=== PATIENT | male | born 1940 | race Caucasian/White ===

== ENCOUNTER 2020-06-03 08:47 | Outpatient (REF) | payer MEDICARE, SELFPAY ==
[2020-06-03 11:49] LABS: Anion Gap 14 (12-20); Blood Urea Nitrogen 18 mg/dL (9-16); Calcium 9.1 mg/dL (8.4-10.2); Carbon Dioxide 27 mmol/L (22-29); Chloride 104 mmol/L (96-108); Cholesterol 163 mg/dL; Estimated Glomerular Filt Rate > 60; Glucose Random 105 mg/dL (60-115); HDL Cholesterol 45 mg/dL; LDL Cholesterol Calculated 96 mg/dl; Potassium 4.7 mmol/l (3.3-5.1); Sodium 140 mmol/L (135-145); Triglycerides 113 mg/dL
[2020-06-03 12:12] LABS: Prostate Specific Antigen Scr 1.38 ng/mL (<0.05-4.0); TSH reflex Free T4 1.27 mIU/mL (0.32-4.0)
== END 2020-06-03 08:48 | disposition home or self-care (01) ==
LOC: HO.HMGCLDS 08:47
PROVIDERS: PCP Nurse Practitioner Family; Visit Provider Nurse Practitioner Family
DX: Z12.5 Encounter for screening for malignant neoplasm of prostate (principal); E78.5 Hyperlipidemia, unspecified; I10 Essential (primary) hypertension
CPT/HCPCS: 80048; 80061; 84153; 84443

== ENCOUNTER → 2020-08-10 12:44 | Outpatient (BNVA) | payer MEDICARE, SELFPAY | PROVIDERS: Visit Provider Internal Medicine Cardiovascular Disease | DX: I44.7 Left bundle-branch block, unspecified (principal); I10 Essential (primary) hypertension; E78.5 Hyperlipidemia, unspecified | CPT/HCPCS: 99212 ==

== ENCOUNTER 2020-12-29 07:07 | Outpatient (REF) | payer MEDICARE, SELFPAY ==
[2020-12-29 11:57] LABS: Alanine Aminotransferase 22 U/L (0-40); Albumin Level 4.2 g/dL (3.5-5.0); Alkaline Phosphatase 99 U/L (39-117); Anion Gap 12 (12-20); Aspartate Amino Transferase 16 U/L (5-37); Bilirubin Total 0.9 mg/dL (0.0-1.0); Blood Urea Nitrogen 14 mg/dL (9-16); Calcium 9.1 mg/dL (8.4-10.2); Carbon Dioxide 29 mmol/L (22-29); Chloride 107 mmol/L (96-108); Cholesterol 144 mg/dL; Estimated Glomerular Filt Rate > 60; Glucose Fasting 105 mg/dL (60-99); HDL Cholesterol 41 mg/dL; LDL Cholesterol Calculated 83 mg/dl; Magnesium 2.4 mg/dL (1.6-2.6); Potassium 4.5 mmol/L (3.3-5.1); Sodium 143 mmol/L (135-145); Total Protein 6.6 g/dL (6.5-8.0); Triglycerides 102 mg/dL
[2020-12-29 12:06] LABS: TSH reflex Free T4 2.11 uIU/mL (0.32-4.0)
[2020-12-30 05:22] LABS: Lyme Abs Screen <0.90 index
== END 2020-12-29 07:08 | disposition home or self-care (01) ==
LOC: HO.HMGCLDS 07:07
PROVIDERS: PCP Nurse Practitioner Family; Visit Provider Nurse Practitioner Family
DX: I10 Essential (primary) hypertension (principal); R25.2 Cramp and spasm
CPT/HCPCS: 36415; 80053; 80061; 82550; 83735; 84443; 86617; 86618

== ENCOUNTER → 2021-01-19 08:21 | Outpatient (BNVA) | payer MEDICARE, SELFPAY | PROVIDERS: PCP Nurse Practitioner Family; Visit Provider Orthopaedic Surgery | DX: M72.0 Palmar fascial fibromatosis [Dupuytren] (principal) | CPT/HCPCS: 99202 ==

== ENCOUNTER 2021-02-05 06:10 | Outpatient (REF) | payer MEDICARE, SELFPAY ==
[2021-02-05 07:39] LABS: MANUAL DIFF FLAG NO
[2021-02-05 07:44] LABS: Basophils Percent Auto 0.4 % (0-2); Eosinophils Absolute Auto 0.3 X10*3/uL (0.0-0.4); Hemoglobin 12.3 g/dl (14.0-18.0); Imm Gran Abs Auto 0.03 X10*3/uL (0.00-0.03); Imm Gran Pct Auto 0.4 % (0.0-0.4); Lymphocytes Absolute Auto 1.7 X10*3/uL (1.2-4.9); Lymphocytes Percent Auto 22.8 % (20-40); Mean Corpuscular HGB Conc 31.5 g/dl (31.0-36.0); Mean Corpuscular Hemoglobin 27.9 pg (27.0-33.0); Mean Corpuscular Volume 88.4 fL (80-98); Monocytes Absolute Auto 0.9 X10*3/uL (0.1-1.2); Monocytes Percent Auto 11.7 % (2-11); Neutrophils Absolute Auto 4.5 X10*3/uL (2.0-8.3); Neutrophils Percent Auto 60.7 % (45-73); Platelet Count 297 X10*3/uL (160-400); Red Blood Count 4.41 X10*6/uL (4.60-5.80); White Blood Count 7.5 X10*3/uL (4.8-10.8)
[2021-02-05 08:11] LABS: Alanine Aminotransferase 14 U/L (0-40); Albumin Level 4.1 g/dL (3.5-5.0); Alkaline Phosphatase 100 U/L (39-117); Amylase 63 U/L (28-100); Anion Gap 14 (12-20); Aspartate Amino Transferase 14 U/L (5-37); Bilirubin Direct 0.5 mg/dL (0.0-0.5); Bilirubin Total 1.3 mg/dL (0.0-1.0); Blood Urea Nitrogen 18 mg/dL (9-16); Calcium 8.8 mg/dL (8.4-10.2); Carbon Dioxide 27 mmol/L (22-29); Chloride 104 mmol/L (96-108); Estimated Glomerular Filt Rate > 60; Glucose Random 114 mg/dL (60-115); Lipase 35 U/L (8-78); Potassium 4.7 mmol/L (3.3-5.1); Sodium 140 mmol/L (135-145); Total Protein 6.6 g/dL (6.5-8.0)
[2021-02-05 10:13] LABS: Leukocytes Stool Qualitative NEGATIVE (NEGATIVE)
[2021-02-05 12:44] LABS: CDIFF Ag Negative (Negative); CDIFF Internal ctrl Dots and bkg OK (V); CDiff Toxin Negative (Negative)
== END 2021-02-05 06:11 | disposition home or self-care (01) ==
LOC: HO.LAB 06:10
PROVIDERS: PCP Nurse Practitioner Family; Visit Provider Internal Medicine
DX: R10.84 Generalized abdominal pain (principal); R19.7 Diarrhea, unspecified
CPT/HCPCS: 36415; 80048; 80076; 82150; 83690; 85025; 87045; 87046; 87177; 87209; 87324; 87329; 87449; 89055

== ENCOUNTER 2021-04-29 08:16 | Outpatient (REF) | payer MEDICARE, SELFPAY ==
--- NOTE | 2021-04-29 14:11 | MHC.AU.ANR ---
Adult Audiological Evaluation Date of Visit: 04/29/21 Reason for Appointment: Audiological re-evaluation to monitor the status of Mr. Barreto's hearing loss. He has previously been seen here and diagnosed with a bilateral sensorineural hearing loss. He does not use hearing aids at his time, as he feels he is able to communicate well despite his hearing loss. He denies any significant changes to his hearing or medical history since last year. Does patient feel they have a hearing loss?: Yes If Yes, Which Ear?: Both Ears Has hearing been tested previously?: Yes Previous Hearing Test Results: [facility] [place]- Mild dropping to profound high frequency sensorineural hearing loss bilaterally with the right ear being 25-35 dBHL poorer than the left at 2000 and 3000 Hz. Medical History: Medical History: High Blood Pressure Medical History (Other): high cholesterol, seasonal allergies Otoscopy: Right Ear: Unremarkable Left Ear: Unremarkable Tympanometry: Tympanometry performed due to: To assess integrity of the middle ear system Right Ear: Normal Middle Ear System (Type A) Left Ear: Could Not Obtain Seal Hearing Evaluation: Transducer(s) Used: Insert Earphones, Bone Conduction Method: Conventional Audiometry Stimuli Used: Pure Tones Right Ear: Description of Hearing: Mild sloping to severe sensorineural hearing loss from 250-8000 Hz. Hearing in the right ear is 20-25 dBHL poorer than the left at 2463-9113 Hz. Left Ear: Description of Hearing: Mild sloping to severe sensorineural hearing loss from 250-8000 Hz. Speech Recognition Threshold (SRT): Method Used: Monitored Live Voice Stimuli Used: Spondee Words Right Ear: 30 dBHL Left Ear: 25 dBHL Word Discrimination: Method: Recorded Lists Word Lists Used: NU-6 Right Ear: 92% at 80 dBHL Left Ear: 88% at 70 dBHL Comparison: Compared to the most recent evaluation: Hearing is stable. Slight 5 dB improvement across the frequency range in the right ear. Recommendations: Audiological re-evaluation in one year. Trial with amplification is recommended. Based on Mr. Prabhakars hearing loss, he is considered a candidate for binaural amplification. However, he does not feel that he is ready to use hearing aids at this time, and feels he is able to communicate well despite his hearing loss. Diagnosis: Primary Diagnosis: H90.3 Bilateral Sensorineural Hearing Loss Services Performed: Services Performed: Comprehensive Audiological Evaluation (CPT 77284) Tympanometry (CPT 77836) Signature: Provider: Katty Miller, CCC-A
== END 2021-04-29 08:17 | disposition home or self-care (01) ==
LOC: HO.SH 08:16
PROVIDERS: Visit Provider Nurse Practitioner Family
DX: H90.3 Sensorineural hearing loss, bilateral (principal)
CPT/HCPCS: 92557; 92567

== ENCOUNTER 2021-05-09 16:26 | Emergency (ER) | payer MEDICARE, SELFPAY ==
--- NOTE | ~2021-05-09 | CT_ITS ---
EXAMINATION: CT ABDOMEN AND PELVIS WITHOUT CONTRAST CLINICAL INFORMATION: Right-sided flank pain COMPARISON: Abdominal ultrasound 08/29/[address] abdomen pelvis 06/20/2015 TECHNIQUE: Multidetector volumetric imaging was performed from the superior aspect of the liver through the pubic symphysis. Sagittal and coronal reformatted images were obtained on the technologist's workstation. This CT examination was performed using dose optimization techniques as appropriate, variously including the following: *Automated exposure control *Adjustment of mA and/or kV according to patient size (this includes techniques or standardized protocols for targeted exams where dose is matched to indication/reason for exam; i.e. extremities or head) *Use of iterative reconstruction technique DLP: 556 mGy-cm FINDINGS: LUNG BASES: Bibasilar scarring is present. LIVER, GALLBLADDER, AND BILIARY TREE: The liver is normal in size, shape, and attenuation. No focal hepatic lesion or biliary ductal dilatation is present. The gallbladder is unremarkable with no evidence of radiopaque gallstones, gallbladder wall thickening, or obvious pericholecystic inflammatory changes. PANCREAS: Unremarkable. SPLEEN: Unremarkable. ADRENAL GLANDS: Unremarkable. KIDNEYS AND URETERS: On the right, there is an obstructing distal right ureteral 5 mm calculus present at the ureterovesical junction. The stone measures 800 Hounsfield units. No other right-sided renal calculi are seen. Some intralobular renal vascular calcification is present. There is perinephric stranding seen on the right along with dilatation of ureter. On the left, the kidney appears normal without masses, pelvocaliectasis or calculi. BLADDER: Unremarkable. GASTROINTESTINAL TRACT: Diverticular changes present in the colon, most prominent in the sigmoid. No evidence of diverticulitis. The small and large bowel are otherwise unremarkable. The appendix is unremarkable. ABDOMINAL WALL: No significant hernia is appreciated. LYMPH NODES: No retroperitoneal lymphadenopathy. VASCULAR: Calcific aortoiliac atherosclerotic change but no aneurysms. PELVIC VISCERA: Unremarkable. OSSEOUS STRUCTURES: Mild degenerative changes in the spine. No bony destructive lesions. CT/CT abdomen pelvis wo con IMPRESSION: Obstructing 5 mm calculus at the right ureterovesical junction associated with right-sided hydronephrosis.
[2021-05-09 21:41] VITALS: BP 148/68; PULSE 77; RESP 18; TEMP 36.8; O2SAT 96; BMI 27.8
--- NOTE | 2021-05-09 21:47 | ED_ITS ---
HPI - Abdominal Pain General Chief Complaint: Abdominal Pain Stated Complaint: flank pain Time Seen by Provider: 05/09/21 21:44 Source: patient Mode of arrival: ambulatory Limitations: no limitations History of Present Illness HPI narrative: This is a 80 years old patient presented complaining of right flank pain radiated to the right lower abdomen for about a week. Denies any nausea vomiting fever MD elicited complaint: flank pain Pertinent past history: kidney stones Onset (ago): week(s) (1) Pain Consistency: constant Location: R flank Severity: moderate Radiation: RLQ Exacerbating factors: nothing Related Data Home Medications Medication Instructions Recorded Confirmed aspirin 81 mg tablet,delayed 81 mg PO DAILY 06/03/20 12/28/20 release (Aspirin Low Dose) lisinopril 40 mg tablet 40 mg PO DAILY 06/03/20 12/28/20 omega 8-fll-doe-fish oil 1,000 mg 1 cap PO DAILY 06/03/20 12/28/20 (120 mg-180 mg) capsule (Fish Oil) multivitamin 1 tab PO DAILY 08/10/20 12/28/20 Previous Rx's Medication Instructions Recorded atorvastatin 40 mg tablet 40 mg PO DAILY #90 tab 06/23/20 blood pressure monitor #1 ea 08/05/20 amlodipine 10 mg tablet 10 mg PO DAILY #90 tab 11/30/20 magnesium oxide 400 mg (241.3 mg 400 mg PO DAILY 90 Days #90 tab 12/28/20 magnesium) tablet oxycodone 5 mg capsule 5 mg PO Q8H PRN #12 cap 05/10/21 tamsulosin 0.4 mg capsule (Flomax) 0.4 mg PO BEDTIME #10 cap 05/10/21 Allergies Allergy/AdvReac Type Severity Reaction Status Date / Time No Known Allergies Allergy Mild NONE Verified 05/09/21 21:44 Review of Systems Review of Systems Yes all other systems are reviewed and are negative Constitutional: Reports no additional constitutional complaints Eyes: Reports no additional eye complaints Cardiovascular: Reports no additional cardiovascular complaints Respiratory: Reports no additional respiratory complaints Gastrointestinal: Reports abdominal pain Allergic/Immunologic: Reports no additional allergic/immunologic complaints Physical Exam Vital Signs: Vital Signs: Last Vital Signs Temp 98.3 F 05/09/21 21:41 Pulse 68 05/09/21 23:28 Resp 20 05/09/21 23:28 BP 133/71 05/09/21 23:28 Pulse Ox 94 09/12/21 23:28 Body Mass Index 27.8 Const: General: cooperative HENMT: Head: Yes normal to inspection Face and sinus: Yes normal facial exam Mouth: Normal oral and palatal mucosa present Neck: Neck: Yes normal visual inspection, Yes full ROM and Yes no lymphadenopathy Thyroid: Thyroid normal Chest: Chest palpation & inspection: normal inspection of the chest Resp: Effort & Inspection: normal respiratory effort Auscultation: clear to auscultation bilaterally Cardio: Jugular venous distension: no JVD Rate: regular rate Rhythm: regular rhythm GI: Inspection: Yes normal to inspection Palpation (GI): Soft to palpation, no guarding and not rigid Skin: General skin exam: no rashes or lesions noted, elasticity normal and turgor normal Lesions: no lesions Rashes: no rashes Course Course Course Narrative: Patient is doing much better he is asymptomatic at this time, CT scan shows a 5 mm stone in the right distal ureter at this time will discharge the patient home MDM - Abdominal Pain Lab Data Result diagrams: 05/09/21 22:24 05/09/21 22:24 Labs: Lab Results 05/09/21 05/09/21 05/09/21 Range/Units 22:24 22:24 23:30 WBC 12.4 H (4.8-10.8) X10*3/uL RBC 4.42 L (4.60-5.80) X10*6/uL Hgb 12.7 L (14.0-18.0) g/dl Hct 38.1 L (42-52) % MCV 86.2 (80-98) fL MCH 28.7 (27.0-33.0) pg MCHC 33.3 (31.0-36.0) g/dl RDW 12.9 (11.0-16.0) % Plt Count 299 (160-400) X10*3/uL MPV 8.7 L (9.4-12.4) fL Immature Gran % (Auto) 0.5 H (0.0-0.4) % Neut % (Auto) 84.4 H (45-73) % Lymph % (Auto) 8.8 L (20-40) % [place] % (Auto) 6.0 (2-11) % Eos % (Auto) 0.1 (0-4) % Baso % (Auto) 0.2 (0-2) % Lymph # (Auto) 1.1 L (1.2-4.9) X10*3/uL [place] # (Auto) 0.7 (0.1-1.2) X10*3/uL Eos # (Auto) 0.0 (0.0-0.4) X10*3/uL Baso # (Auto) 0.0 (0.0-0.2) X10*3/uL Abs Immat Gran (auto) 0.06 H (0.00-0.03) X10*3/uL Absolute Neuts (auto) 10.5 H (2.0-8.3) X10*3/uL Absolute Nucleated RBC 0.000 (0.0-0.012) X10*3/uL Nucleated RBC % (auto) 0.0 (0.0-0.2) /100WBC Sodium 140 (135-145) mmol/L Potassium 4.5 (3.3-5.1) mmol/L Chloride 105 (96-108) mmol/L Carbon Dioxide 25 (22-29) mmol/L Anion Gap 15 (12-20) BUN 14 (9-16) mg/dL Creatinine 1.42 H (0.5-1.4) mg/dL Estim Creat Clear Calc 43.6 Estimated GFR 48 Random Glucose 116 H (60-115) mg/dL Calcium 9.1 (8.4-10.2) mg/dL Total Bilirubin 1.0 (0.0-1.0) mg/dL AST 18 (5-37) U/L ALT 22 (0-40) U/L Alkaline Phosphatase 82 (39-117) U/L Total Protein 6.6 (6.5-8.0) g/dL Albumin 4.2 (3.5-5.0) g/dL Lipase 33 (8-78) U/L Urine Color YELLOW Urine Appearance HAZY Urine pH 6.0 (5.0-8.0) Ur Specific [place] 1.025 (1.005-1.025) Urine Protein TRACE (NEG-TRACE) MG/DL Urine Glucose (UA) NEG (NEG) MG/DL Urine Ketones >=80 (NEG) MG/DL Urine Blood 3+ H (NEG) Urine Nitrite NEG (NEG) Ur Leukocyte Esterase NEG (NEG) Urine RBC 76-150 H (0) /HPF Urine WBC 1-4 (0-4) /HPF Ur Squamous Epith Cells TRACE /LPF Urine Bacteria TRACE /LPF Urine Mucus 1+ /LPF Imaging Data CT scan - abdomen: Radiologist's impression: On the left, the kidney appears normal without masses, pelvocaliectasis or calculi. BLADDER: Unremarkable.? GASTROINTESTINAL TRACT: Diverticular changes present in the colon, most prominent in the sigmoid. No evidence of diverticulitis. The small and large bowel are otherwise unremarkable. The appendix is unremarkable.? ABDOMINAL WALL: No significant hernia is appreciated.? LYMPH NODES: No retroperitoneal lymphadenopathy. VASCULAR: Calcific aortoiliac atherosclerotic change but no aneurysms. PELVIC VISCERA: Unremarkable.? OSSEOUS STRUCTURES: Mild degenerative changes in the spine. No bony destructive lesions.? CT/CT abdomen pelvis wo con IMPRESSION: Obstructing 5 mm calculus at the right ureterovesical junction associated with right-sided hydronephrosis.? Dictated By: SARITHA HOLLIS MD Signed By: <Electronically signed by SARITHA HOLLIS MD in OV> 05/09/212257 DD/ 44 TD/TT:? Student Life Vice President: Discharge Plan Discharge Clinical Impression: Renal colic Patient Disposition: Home, Self-Care Instructions: Renal Colic (ED) Additional Instructions: Follow-up for Urology drink a lot of fluid return if you of fever, vomiting, worse Prescriptions: New oxycodone 5 mg capsule 5 mg PO Q8H PRN (Reason: pain) Qty: 12 RF: 0 tamsulosin [Flomax] 0.4 mg capsule 0.4 mg PO BEDTIME Qty: 10 RF: 0 No Action atorvastatin 40 mg tablet 40 mg PO DAILY Qty: 90 RF: 3 (DME) blood pressure monitor Kit See Rx Instructions .ROUTE .MEDSUPPLY Qty: 1 RF: 0 amlodipine 10 mg tablet 10 mg PO DAILY Qty: 90 RF: 1 lisinopril 40 mg tablet 40 mg PO DAILY RF: 0 omega 0-zcc-ptr-fish oil [Fish Oil] 1,000 mg (120 mg-180 mg) capsule 1 cap PO DAILY RF: 0 aspirin [Aspirin Low Dose] 81 mg tablet,delayed release (DR/EC) 81 mg PO DAILY RF: 0 magnesium oxide 400 mg (241.3 mg magnesium) tablet 400 mg PO DAILY 90 Days Qty: 90 RF: 3 multivitamin Tablet 1 tab PO DAILY RF: 0 Referrals: Can Mckeon MD [Physician] - 2 days [facility] Past Medical History Medical History Cervical arthritis Cervical radiculopathy Dyslipidemia HTN (hypertension) Kidney stones Surgical History H/O colonoscopy History of left knee replacement Status post right partial knee replacement Family History Family History Father HTN (hypertension) Diabetes Mother History of colon cancer Social History Social History (Updated 01/19/21 @ 08:31 by Solange Giordano) Alcohol intake: never Patient Tobacco Use Status: Never used Tobacco Use of substances other than those prescribed or required for medical reasons: No Advance Directives: No Advance Directives Information Provided: No 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al status: retired 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
--- NOTE | 2021-05-09 22:09 | PC.NURSE ---
pt to ct scan
[2021-05-09] MEDS: Ketorolac Tromethamine 15 MG/ML VIAL IVPUSH (22:27)
--- NOTE | 2021-05-09 22:29 | PC.NURSE ---
patient a&ox3, iv inserted, labs drawn, pt medicated per order, pt aware we need a urine, will continue to monitor.
[2021-05-09 22:37] LABS: MANUAL DIFF FLAG NO
[2021-05-09 22:40] LABS: Basophils Percent Auto 0.2 % (0-2); Eosinophils Percent Auto 0.1 % (0-4); Hematocrit 38.1 % (42-52); Hemoglobin 12.7 g/dl (14.0-18.0); Imm Gran Abs Auto 0.06 X10*3/uL (0.00-0.03); Imm Gran Pct Auto 0.5 % (0.0-0.4); Lymphocytes Absolute Auto 1.1 X10*3/uL (1.2-4.9); Lymphocytes Percent Auto 8.8 % (20-40); Mean Corpuscular HGB Conc 33.3 g/dl (31.0-36.0); Mean Corpuscular Hemoglobin 28.7 pg (27.0-33.0); Mean Corpuscular Volume 86.2 fL (80-98); Mean Platelet Volume 8.7 fL (9.4-12.4); Monocytes Absolute Auto 0.7 X10*3/uL (0.1-1.2); Neutrophils Absolute Auto 10.5 X10*3/uL (2.0-8.3); Neutrophils Percent Auto 84.4 % (45-73); Platelet Count 299 X10*3/uL (160-400); Red Blood Count 4.42 X10*6/uL (4.60-5.80); Red Cell Distribution Width 12.9 % (11.0-16.0); White Blood Count 12.4 X10*3/uL (4.8-10.8)
[2021-05-09 22:57] LABS: Alanine Aminotransferase 22 U/L (0-40); Albumin Level 4.2 g/dL (3.5-5.0); Alkaline Phosphatase 82 U/L (39-117); Anion Gap 15 (12-20); Aspartate Amino Transferase 18 U/L (5-37); Blood Urea Nitrogen 14 mg/dL (9-16); Calcium 9.1 mg/dL (8.4-10.2); Carbon Dioxide 25 mmol/L (22-29); Chloride 105 mmol/L (96-108); Creatinine Clr Calc Pharmacy 43.6; Estimated Glomerular Filt Rate 48; Glucose Random 116 mg/dL (60-115); Lipase 33 U/L (8-78); Potassium 4.5 mmol/L (3.3-5.1); Sodium 140 mmol/L (135-145); Total Protein 6.6 g/dL (6.5-8.0)
[2021-05-09 23:28] VITALS: BP 133/71; PULSE 68; RESP 20; O2SAT 94
[2021-05-09 23:42] LABS: Appearance Urine HAZY; Color Urine YELLOW; Glucose Urine UA NEG (NEG); Leukocyte Esterase Urine NEG (NEG); Nitrite Urine NEG (NEG); Specific Gravity - Urine 1.025 (1.005-1.025); UACC Culture Trigger NO; Urine Blood 3+ (NEG); Urine Ketones >=80 MG/DL (NEG); Urine Protein TRACE MG/DL (NEG-TRACE)
[2021-05-09 23:48] LABS: Bacteria Urine TRACE /LPF; Mucus Urine 1+ /LPF; Squamous Epithelial Cell Urine TRACE /LPF
[2021-05-10] VITALS: BP 138/70; PULSE 76; RESP 18; O2SAT 97
--- NOTE | 2021-05-10 01:04 | PC.NURSE ---
on discharge pt states his pain is starting to come back and would like a additional dose before he goes home. provider paresh knott.
[2021-05-10 01:13] VITALS: RESP 18
[2021-05-10] MEDS: Morphine Sulfate 4 MG/ML CARTRIDGE IVPUSH (01:13)
[2021-05-10] MEDS: ondansetron HCL 4 MG/2 ML VIAL IVPUSH (01:14)
[2021-05-10 01:30] VITALS: BP 130/65; PULSE 69; RESP 18; O2SAT 93
[2021-05-10 01:42] VITALS: BP 130/68; PULSE 71; RESP 16; O2SAT 93
[2021-05-10 01:46] VITALS: RESP 16
== END 2021-05-10 01:44 | disposition home or self-care (01) ==
PROVIDERS: Emergency Provider Emergency Medicine; PCP Nurse Practitioner Family
DX: N23 Unspecified renal colic (principal); I10 Essential (primary) hypertension; Z79.899 Other long term (current) drug therapy; Z79.82 Long term (current) use of aspirin
CPT/HCPCS: 36415; 74176; 80053; 81001; 83690; 85025; 96374; 96375; 99285; J1885; J2270; J2405

== ENCOUNTER 2021-06-14 08:11 | Outpatient (REF) | payer MEDICARE, SELFPAY ==
--- NOTE | ~2021-06-14 | US_ITS ---
EXAMINATION: US RETROPERITONEAL LIMITED (RENAL ONLY) CLINICAL INFORMATION: Calculus of kidney. COMPARISON: Abdominal ultrasound 08/29/2019. CT abdomen and pelvis 05/09/2021. TECHNIQUE: Real-time imaging of the kidneys. FINDINGS: RIGHT KIDNEY: 11.5 x 4.7 x 5.6 cm (SAG x AP x TRV). The kidney is normal in size, contour, and echogenicity. Renal cortical thickness is normal. No calculi or focal parenchymal lesions. No hydronephrosis. LEFT KIDNEY: 11.7 x 5.5 x 5.1 cm (SAG x AP x TRV). The kidney is normal in size, contour, and echogenicity. Renal cortical thickness is normal. No calculi or focal parenchymal lesions. No hydronephrosis. US/US renal BI IMPRESSION: Unremarkable renal ultrasound. Interval resolution of previous right hydronephrosis.
== END 2021-06-14 08:12 | disposition home or self-care (01) ==
LOC: HO.HMGCX 08:11
PROVIDERS: PCP Nurse Practitioner Family; Visit Provider Urology
DX: N20.0 Calculus of kidney (principal)
CPT/HCPCS: 76775

== ENCOUNTER → 2021-06-23 13:13 | Outpatient (BNVA) | payer MEDICARE, SELFPAY | PROVIDERS: PCP Nurse Practitioner Family ==

== ENCOUNTER → 2021-08-11 09:48 | Outpatient (BNVA) | payer MEDICARE, SELFPAY | PROVIDERS: PCP Nurse Practitioner Family; Referring Provider Nurse Practitioner Family; Visit Provider Internal Medicine Cardiovascular Disease | DX: I44.7 Left bundle-branch block, unspecified (principal); I10 Essential (primary) hypertension | CPT/HCPCS: 99212 ==

== ENCOUNTER 2021-12-17 06:13 | Outpatient (REF) | payer MEDICARE, SELFPAY ==
[2021-12-17 11:27] LABS: Appearance Urine CLEAR; Color Urine YELLOW; Glucose Urine UA NEG (NEG); Leukocyte Esterase Urine NEG (NEG); Nitrite Urine NEG (NEG); PH 5.5 (5.0-8.0); Specific Gravity - Urine 1.025 (1.005-1.025); UACC Culture Trigger NO; Urine Blood TRACE (NEG); Urine Ketones NEG (NEG); Urine Protein NEG (NEG-TRACE)
[2021-12-17 11:50] LABS: Alanine Aminotransferase 33 U/L (0-40); Alkaline Phosphatase 88 U/L (39-117); Anion Gap 13 (12-20); Aspartate Amino Transferase 24 U/L (5-37); Bilirubin Total 0.9 mg/dL (0.0-1.0); Blood Urea Nitrogen 14 mg/dL (9-16); Calcium 9.3 mg/dL (8.4-10.2); Carbon Dioxide 26 mmol/L (22-29); Chloride 105 mmol/L (96-108); Cholesterol 144 mg/dL; Estimated Glomerular Filt Rate > 60; Glucose Fasting 119 mg/dL (60-99); HDL Cholesterol 38 mg/dL; LDL Cholesterol Calculated 80 mg/dl; Potassium 4.3 mmol/L (3.3-5.1); Sodium 140 mmol/L (135-145); Total Protein 6.5 g/dL (6.5-8.0); Triglycerides 134 mg/dL
[2021-12-17 12:14] LABS: TSH reflex Free T4 2.74 uIU/mL (0.32-4.0)
[2021-12-17 13:15] LABS: RBC Urine 0 /HPF (0); WBC Urine 0-2 /HPF (0-4)
[2021-12-17 13:16] LABS: Mucus Urine 3+ /LPF
== END 2021-12-17 06:14 | disposition home or self-care (01) ==
LOC: HO.HMGCLDS 06:13
PROVIDERS: Visit Provider Nurse Practitioner Family
DX: E78.5 Hyperlipidemia, unspecified (principal)
CPT/HCPCS: 36415; 80053; 80061; 81001; 84443

== ENCOUNTER → 2021-12-27 08:25 | Outpatient (REF) | payer MEDICARE, SELFPAY ==
--- NOTE | 2021-12-27 08:27 | CA_ITS ---
Transthoracic Echocardiogram Patient (Last, First, Middle): Cruz Barreto J Gender: Male Date of : 1940 Age: 81 Procedure Date: 12/27/2021 Procedure Type: Transthoracic Echocardiogram Location: OP Height: 172.72 cm Weight: 79.38 kg BSA: 1.93 m2 Heart Rate: bpm BP: 138 / 70 mmHg Wood Pattern Maker: IZABELA Griffiths MD: Ricky Smith MD Symptoms: I44.7 - Left bundle-branch block, unspecified Study Quality: Fair Conclusions: - Normal left ventricular size and systolic function. There is mildly increased left ventricular wall thickness. The visually estimated ejection fraction is between 55-60%. - Normal right ventricular cavity size and systolic function. Findings Left Ventricle Normal left ventricular size and systolic function. There is mildly increased left ventricular wall thickness. The visually estimated ejection fraction is between 55-60%. There is no evidence of regional wall motion abnormalities. There is paradoxical septal motion consistent with a left bundle branch block. Diastolic function is indeterminate on the basis of available data. Right Ventricle Normal right ventricular cavity size and systolic function. Atria The left atrium is normal in size. Aortic Valve There is a normal trileaflet aortic valve. There is mild calcification of the aortic valve. There is no aortic valve stenosis. There is no aortic valve regurgitation. Mitral Valve Normal mitral valve structure and function. There is no mitral valve regurgitation. There is no mitral valve stenosis. Pulmonic Valve Normal pulmonic valve structure and function. There is trace pulmonic valve regurgitation. Tricuspid Valve Normal tricuspid valve structure and function. There is trace tricuspid valve regurgitation. Normal right atrial pressure. There is no evidence of pulmonary hypertension. Great Vessels All visible segments of the aorta are normal in size. The visualized portions of the pulmonary artery and branches are normal. Venous The inferior vena cava is normal in size and collapses greater than 50% with inspiration. Pericardium/Pleural There is no evidence of pericardial effusion. Measurements 2D Linear Measurements IVSd: 1.33 0.6-0.9/0.6-1.0 cm LVIDd: 3.64 3.9-5.3/4.2-5.9 cm LVIDd Index: 1.89 2.4-3.2/2.2-3.1 cm/m2 LVIDs: 2.74 2.0-3.6 cm LVPWd: 1.31 0.7-1.1 cm LA Diam: 3.70 2.7-3.8/3.0-4.0 cm LAIDs Index: 1.92 1.5-2.3 cm/m2 LV Mass: 207.42 67-162/88-224 g LV Mass Index: 107.47 43-95/49-115 g/m2 LVOT Diam: 2.30 3.0+(-)1.3 cm 2D Systolic Function EF 4C: 52.60 >55% EF 2C: 60.90 >55% EF BiP: 58.60 >55% Mitral Valve MV Pk E: 0.75 MV PK A: 1.09 MV Decel Time: 236.00 E/A: 0.70 E'Lateral: 5.00 E'Medial: 5.11 E/E' Med: 14.70 E/E' Lat: 15.00 PHT: 69.00 MVA PHT: 3.19 Decel [place]: 3.17 Aortic Valve AoV Pk Samuel: 1.35 AoV Mn Samuel: 1.01 AoV VTI: 0.32 AoV Pk Grad: 7.00 Aov Mn Grad: 5.00 ANA Cont.VTI: 2.90 LVOT LVOT Pk Samuel: 0.95 LVOT Mn Samuel: 0.72 LVOT VTI: 0.22 LVOT Pk Grad: 4.00 LVOT Mn Grad: 2.00 LVOT Diam: 2.30 LVOT Area: 4.15 Diastolic Function MV Pk E: 0.75 MV Pk A: 1.09 E/A: 0.70 E'Medial: 5.11 E/E' Med: 14.70 E' Laterial: 5.00 E/E' Lat: 15.00 Right Ventricle TAPSE (mm): 26.10 TVS' Samuel: 13.80 Tricuspid Valve TR Pk Samuel: 2.57 TR Pk Grad: 26.00 RA Press: 3.00 RVSP: 29.00 Great Vessels Aorta Sinus of Valsalva: 3.25 2.0-3.[address] [place]: 2.77 1.7-3.4 cm Ao Asc: 3.30 2.1-3.4 cm Updated in Other Vendor System with Status of Final Ricky Smith MD electronically signed on 12/30/2021 10:26:46 AM with status of Final
== END ==
LOC: HO.CARD 08:25
PROVIDERS: PCP Nurse Practitioner Family; Visit Provider Internal Medicine Cardiovascular Disease
DX: I44.7 Left bundle-branch block, unspecified (principal)
CPT/HCPCS: 93306

== ENCOUNTER 2022-02-01 08:17 | Outpatient (REF) | payer MEDICARE, SELFPAY ==
--- NOTE | 2022-02-01 14:27 | MHC.AU.ANR ---
Adult Audiological Evaluation Date of Visit: 02/01/22 Reason for Appointment: Audiological re-evaluation to determine if there has been a change in hearing. Mr. Barreto has a known bilateral, asymmetrical, sensorineural hearing loss. Although hearing aids have been recommended, he does not use hearing aids at this time as he feels he is able to communicate well. Mr. Barreto denies any significant changes to his hearing. He notes that he had shingles on his right side in September 2021, and still is experiencing some pain in the right ear since then. Does patient feel they have a hearing loss?: Yes If Yes, Which Ear?: Both Ears Has hearing been tested previously?: Yes Previous Hearing Test Results: [facility] – [place], [place]/29/2021- Mild sloping to severe sensorineural hearing loss from 250-8000 Hz bilaterally, with the right ear hearing worse than the left from 9020-8970 Hz. Medical History: Medical History: High Blood Pressure, high cholesterol, seasonal allergies, shingles in September 2021 Allergies: NKA Medication List: amlodipine, aspirin, atorvastatin, lisinopril, magnesium oxide, meclizine, multivitamin, omega 6-yci-pic-fish oil, vitamin A-vit C-vit E-zinc-Cu Otoscopy: Right Ear: Unremarkable Left Ear: Unremarkable Tympanometry: Tympanometry performed due to: To assess integrity of the middle ear system Right Ear: Could Not Obtain Seal Left Ear: Could Not Obtain Seal Hearing Evaluation: Transducer(s) Used: Insert Earphones, Bone Conduction Method: Conventional Audiometry Stimuli Used: Pure Tones Right Ear: Description of Hearing: Normal hearing at 250 Hz, sloping to a mild to severe sensorineural hearing loss from 500-8000 Hz. Hearing in the right ear is worse than the left by 25 dBHL at 2000 Hz and 30 dBHL at 3000 Hz. Left Ear: Description of Hearing: Mild sloping to severe sensorineural hearing loss from 250-8000 Hz. Speech Recognition Threshold (SRT): Method Used: Monitored Live Voice Stimuli Used: Spondee Words Right Ear: 30 dBHL Left Ear: 25 dBHL Word Discrimination: Method: Recorded Lists Word Lists Used: NU-6 Right Ear: 80% at 75 dBHL Left Ear: 96% at 75 dBHL Comparison: Compared to the most recent evaluation: Hearing is stable. Recommendations: Audiological re-evaluation in one year. Trial with amplification is recommended. Patient does not feel they are ready for amplification at this time. Diagnosis: Primary Diagnosis: H90.3 Bilateral Sensorineural Hearing Loss Services Performed: Services Performed: Comprehensive Audiological Evaluation (CPT 09154) Tympanometry (CPT 87033) Signature: Provider: Katty Miller, CCC-A
== END 2022-02-01 08:18 | disposition home or self-care (01) ==
LOC: HO.SH 08:17
PROVIDERS: Visit Provider Nurse Practitioner Family
DX: Z01.118 Encounter for examination of ears and hearing with other abnormal findings (principal); H90.3 Sensorineural hearing loss, bilateral
CPT/HCPCS: 92557; 92567

== ENCOUNTER 2022-06-02 06:02 | Outpatient (REF) | payer MEDICARE, SELFPAY ==
--- NOTE | ~2022-06-02 | XR_ITS ---
EXAMINATION: BILATERAL HAND CLINICAL INFORMATION: Cramping and spasm COMPARISON: None TECHNIQUE: 3 views each hand. FINDINGS: Left hand: There is no visible acute fracture, dislocation or subluxation seen. No bony erosive changes. There is loss of PIP and DIP joint space with periarticular spurring most prominent in the first and second digits. There is mild soft tissue swelling PIP joints second through fifth digits. Right hand: There is loss of PIP and DIP joint space of all digits. No visible acute fracture, dislocation or subluxation seen. No bony erosive changes. The soft tissues are normal. 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 No visible acute fracture or dislocation in either hands..
--- NOTE | ~2022-06-02 | XR_ITS ---
EXAMINATION: BILATERAL HAND CLINICAL INFORMATION: Cramping and spasm COMPARISON: None TECHNIQUE: 3 views each hand. FINDINGS: Left hand: There is no visible acute fracture, dislocation or subluxation seen. No bony erosive changes. There is loss of PIP and DIP joint space with periarticular spurring most prominent in the first and second digits. There is mild soft tissue swelling PIP joints second through fifth digits. Right hand: There is loss of PIP and DIP joint space of all digits. No visible acute fracture, dislocation or subluxation seen. No bony erosive changes. The soft tissues are normal. 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 No visible acute fracture or dislocation in either hands..
[2022-06-02 11:08] LABS: MANUAL DIFF FLAG NO
[2022-06-02 11:17] LABS: Basophils Percent Auto 0.7 % (0-2); Eosinophils Absolute Auto 0.3 X10*3/uL (0.0-0.4); Eosinophils Percent Auto 5.4 % (0-4); Hematocrit 41.9 % (42.0-52.0); Hemoglobin 13.2 g/dl (14.0-18.0); Imm Gran Abs Auto 0.01 X10*3/uL (0.00-0.03); Imm Gran Pct Auto 0.2 % (0.0-0.4); Lymphocytes Absolute Auto 2.1 X10*3/uL (1.2-4.9); Lymphocytes Percent Auto 35.9 % (20-40); Mean Corpuscular HGB Conc 31.5 g/dl (31.0-36.0); Mean Corpuscular Hemoglobin 27.9 pg (27.0-33.0); Mean Corpuscular Volume 88.6 fL (80.0-98.0); Mean Platelet Volume 9.3 fL (9.4-12.4); Monocytes Absolute Auto 0.6 X10*3/uL (0.1-1.2); Monocytes Percent Auto 9.4 % (2-11); Neutrophils Absolute Auto 2.9 x10*3/uL (2.0-8.3); Neutrophils Percent Auto 48.4 % (45-73); Platelet Count 282 X10*3/uL (160-400); Red Blood Count 4.73 X10*6/uL (4.60-5.80); Red Cell Distribution Width 13.4 % (11.0-16.0)
[2022-06-02 11:24] LABS: Appearance Urine Clear; Color Urine Dark Yellow; Glucose Urine UA Negative (Negative); Leukocyte Esterase Urine Negative (Negative); Nitrite Urine Negative (Negative); PH 5.5 (5.0-9.0); Urine Blood Negative (Negative); Urine Ketones Trace mg/dL (Negative); Urine Protein Negative (Neg-Trace)
[2022-06-02 11:34] LABS: Alanine Aminotransferase 28 U/L (0-40); Albumin Level 4.2 g/dL (3.5-5.0); Alkaline Phosphatase 83 U/L (39-117); Anion Gap 13 (12-20); Aspartate Amino Transferase 19 U/L (5-37); Blood Urea Nitrogen 12 mg/dL (9-16); Calcium 9.1 mg/dL (8.4-10.2); Carbon Dioxide 28 mmol/L (22-29); Chloride 105 mmol/L (96-108); Cholesterol 146 mg/dL; Estimated Glomerular Filt Rate > 60; Glucose Fasting 107 mg/dL (60-99); HDL Cholesterol 47 mg/dL; LDL Cholesterol Calculated 77 mg/dl; Potassium 4.5 mmol/L (3.3-5.1); Sodium 141 mmol/L (135-145); Total Protein 6.8 g/dL (6.5-8.0); Triglycerides 114 mg/dL
[2022-06-02 11:56] LABS: Prostate Specific Antigen Scr 1.49 ng/mL (<0.05-4.0)
== END 2022-06-02 06:03 | disposition home or self-care (01) ==
LOC: HO.HMGCX 06:02
PROVIDERS: PCP Nurse Practitioner Family; Visit Provider Nurse Practitioner Family
DX: Z12.5 Encounter for screening for malignant neoplasm of prostate (principal); I10 Essential (primary) hypertension; R25.2 Cramp and spasm
CPT/HCPCS: 36415; 73120; 80053; 80061; 81003; 84153; 84443; 85025

== ENCOUNTER 2022-08-01 10:37 | Outpatient (REF) | payer MEDICARE, SELFPAY ==
[2022-08-01 11:24] LABS: MANUAL DIFF FLAG NO
[2022-08-01 11:36] LABS: Basophils Absolute Auto 0.1 X10*3/uL (0.0-0.2); Basophils Percent Auto 0.8 % (0-2); Eosinophils Absolute Auto 0.2 X10*3/uL (0.0-0.4); Eosinophils Percent Auto 2.5 % (0-4); Hematocrit 42.5 % (42.0-52.0); Hemoglobin 13.7 g/dl (14.0-18.0); Imm Gran Abs Auto 0.03 X10*3/uL (0.00-0.03); Imm Gran Pct Auto 0.5 % (0.0-0.4); Lymphocytes Absolute Auto 1.5 X10*3/uL (1.2-4.9); Lymphocytes Percent Auto 23.4 % (20-40); Mean Corpuscular HGB Conc 32.2 g/dl (31.0-36.0); Mean Corpuscular Volume 86.7 fL (80.0-98.0); Mean Platelet Volume 8.9 fL (9.4-12.4); Monocytes Absolute Auto 0.5 X10*3/uL (0.1-1.2); Monocytes Percent Auto 8.2 % (2-11); Neutrophils Absolute Auto 4.1 x10*3/uL (2.0-8.3); Neutrophils Percent Auto 64.6 % (45-73); Platelet Count 308 X10*3/uL (160-400); Red Cell Distribution Width 12.9 % (11.0-16.0); White Blood Count 6.4 X10*3/uL (4.8-10.8)
[2022-08-01 12:14] LABS: Alanine Aminotransferase 29 U/L (0-40); Albumin Level 4.5 g/dL (3.5-5.0); Alkaline Phosphatase 95 U/L (39-117); Anion Gap 10 (12-20); Aspartate Amino Transferase 20 U/L (5-37); Blood Urea Nitrogen 12 mg/dL (9-16); Calcium 9.3 mg/dL (8.4-10.2); Carbon Dioxide 29 mmol/L (22-29); Chloride 107 mmol/L (96-108); Estimated Glomerular Filt Rate > 60; Glucose Random 120 mg/dL (60-115); Potassium 4.4 mmol/L (3.3-5.1); Sodium 142 mmol/L (135-145); Total Protein 7.1 g/dL (6.5-8.0)
== END 2022-08-01 10:38 | disposition home or self-care (01) ==
LOC: HO.HMGCLDS 10:37
PROVIDERS: PCP Nurse Practitioner Family; Visit Provider Emergency Medicine
DX: R10.9 Unspecified abdominal pain (principal); R53.1 Weakness
CPT/HCPCS: 36415; 80053; 85025

== ENCOUNTER → 2022-08-10 09:40 | Outpatient (BNVA) | payer MEDICARE, SELFPAY | PROVIDERS: PCP Nurse Practitioner Family; Referring Provider Nurse Practitioner Family; Visit Provider Internal Medicine Cardiovascular Disease | DX: I10 Essential (primary) hypertension (principal); I44.7 Left bundle-branch block, unspecified | CPT/HCPCS: 93005; 99212 ==

== ENCOUNTER → 2022-08-11 10:18 | Outpatient (BNVA) | payer MEDICARE, SELFPAY | PROVIDERS: PCP Nurse Practitioner Family; Visit Provider Student in an Organized Health Care Education/Training Program | DX: M65.4 Radial styloid tenosynovitis [de Quervain] (principal) | CPT/HCPCS: 99202 ==

== ENCOUNTER 2022-08-12 07:19 | Outpatient (REF) | payer MEDICARE, SELFPAY ==
--- NOTE | ~2022-08-12 | CT_ITS ---
EXAMINATION: CT ABDOMEN AND PELVIS WITH CONTRAST CLINICAL INFORMATION: Abdominal pain. COMPARISON: None TECHNIQUE: Multidetector volumetric images were obtained from the superior aspect of the liver through the pubic symphysis following administration 85 mL of Omnipaque 350 intravenous contrast. Sagittal and coronal reformatted images were obtained on the technologist's workstation. Oral contrast: No This CT examination was performed using dose optimization techniques as appropriate, variously including the following: *Automated exposure control *Adjustment of mA and/or kV according to patient size (this includes techniques or standardized protocols for targeted exams where dose is matched to indication/reason for exam; i.e. extremities or head) *Use of iterative reconstruction technique DLP: 402 mGy-cm FINDINGS: LUNG BASES: Heart size is normal. There is plate-like atelectasis or scarring right lower lobe anterior basal segment. Also visualized is bibasilar mild atelectasis or scarring. LIVER, GALLBLADDER, AND BILIARY TREE: The liver is normal in size, shape, and attenuation. No focal hepatic lesion or biliary ductal dilatation is present. The gallbladder is unremarkable with no evidence of radiopaque gallstones, gallbladder wall thickening, or obvious pericholecystic inflammatory changes. PANCREAS: Unremarkable. SPLEEN: Unremarkable. ADRENAL GLANDS: Unremarkable. KIDNEYS AND URETERS: The kidneys are normal in size, shape, and attenuation. No hydronephrosis, hydroureter, or calculi seen. No perinephric stranding. Bilateral extrarenal kidney pelvises are seen. BLADDER: Unremarkable. GASTROINTESTINAL TRACT: There is diffuse colonic diverticulosis with mild mural thickening of sigmoid colon but no pericolic fat stranding seen. There are several segments of mural thickening involving proximal and mid jejunum on coronal image 32/7 suspicious of enteritis. No fat stranding or proximal jejunal or gastric distention seen. The ileal loops appear normal. No abnormal mesenteric lymph nodes seen. ABDOMINAL WALL: There is a small umbilical hernia containing fat. LYMPH NODES: Normal. VASCULAR: There is mild atherosclerotic calcification of abdominal aorta. No aneurysmal dilatation seen. PELVIC VISCERA: The prostate gland is minimally enlarged extending into the base of bladder. The periprostatic fat borders are preserved. No free fluid. No abnormal pelvic or inguinal lymph nodes. No evidence of inguinal hernia. OSSEOUS STRUCTURES: There are mild degenerative disc changes with loss of disc height L5-S1 disc level and L2-L3 disc levels. There is mild ventral spondylosis as well. No visible acute fracture or lytic process seen. CT/CT abdomen pelvis w IV con IMPRESSION: Diffuse colonic diverticulosis without diverticulitis. Long segment of mural thickening involving the proximal and mid jejunum likely enteritis. No abnormal mesenteric lymph nodes or fat stranding seen. Right lower lobe lateral and dependent bibasilar atelectasis. Fleischner guidelines were followed.
[2022-08-12] MEDS: iohexoL 350 MG/ML 100 ML INFUS..BTL 85 ML IV (09:42)
[2022-08-12] MEDS: Barium Sulfate Oral (Mocha) 450 ML ORAL.SUSP 900 ML PO (10:36)
== END 2022-08-12 07:20 | disposition home or self-care (01) ==
LOC: HO.CT 07:19
PROVIDERS: PCP Nurse Practitioner Family; Visit Provider Emergency Medicine
DX: R10.9 Unspecified abdominal pain (principal)
CPT/HCPCS: 74177; Q9967

== ENCOUNTER 2022-08-24 13:39 | Outpatient (REF) | payer MEDICARE, SELFPAY ==
[2022-08-24 16:38] LABS: MANUAL DIFF FLAG NO
[2022-08-24 17:08] LABS: Basophils Percent Auto 0.3 % (0-2); Eosinophils Percent Auto 0.2 % (0-4); Hematocrit 41.7 % (42.0-52.0); Hemoglobin 13.4 g/dl (14.0-18.0); Imm Gran Abs Auto 0.06 X10*3/uL (0.00-0.03); Imm Gran Pct Auto 0.7 % (0.0-0.4); Lymphocytes Absolute Auto 1.1 X10*3/uL (1.2-4.9); Lymphocytes Percent Auto 11.7 % (20-40); Mean Corpuscular HGB Conc 32.1 g/dl (31.0-36.0); Mean Corpuscular Volume 87.2 fL (80.0-98.0); Monocytes Absolute Auto 0.2 X10*3/uL (0.1-1.2); Monocytes Percent Auto 1.7 % (2-11); Neutrophils Absolute Auto 7.7 x10*3/uL (2.0-8.3); Neutrophils Percent Auto 85.4 % (45-73); Platelet Count 321 X10*3/uL (160-400); Red Blood Count 4.78 X10*6/uL (4.60-5.80); Red Cell Distribution Width 13.1 % (11.0-16.0); White Blood Count 9.1 X10*3/uL (4.8-10.8)
[2022-08-24 17:38] LABS: Alanine Aminotransferase 40 U/L (0-40); Albumin Level 4.3 g/dL (3.5-5.0); Alkaline Phosphatase 98 U/L (39-117); Anion Gap 16 (12-20); Aspartate Amino Transferase 25 U/L (5-37); Bilirubin Total 0.6 mg/dL (0.0-1.0); Blood Urea Nitrogen 15 mg/dL (9-16); Calcium 9.2 mg/dL (8.4-10.2); Carbon Dioxide 27 mmol/L (22-29); Chloride 101 mmol/L (96-108); Estimated Glomerular Filt Rate 57; Glucose Random 205 mg/dL (60-115); Prostate Specific Antigen Scr 2.09 ng/mL (<0.05-4.0); Sodium 140 mmol/L (135-145); Total Protein 6.9 g/dL (6.5-8.0)
== END 2022-08-24 13:40 | disposition home or self-care (01) ==
LOC: HO.HMGCLDS 13:39
PROVIDERS: PCP Nurse Practitioner Family; Visit Provider Nurse Practitioner Family
DX: Z12.5 Encounter for screening for malignant neoplasm of prostate (principal); R10.9 Unspecified abdominal pain
CPT/HCPCS: 36415; 80053; 84153; 85025

== ENCOUNTER 2022-08-25 07:07 | Outpatient (REF) | payer MEDICARE, SELFPAY ==
[2022-08-25 12:36] LABS: Campylobacter Not Detected (Not Detect.); E. coli EAEC Not Detected (Not Detect.); E. coli EPEC Not Detected (Not Detect.); E. coli ETEC Not Detected (Not Detect.); E. coli STEC Not Detected (Not Detect.); Plesiomonas shigelloides Not Detected (Not Detect.); Salmonella Not Detected (Not Detect.); Vibrio Not Detected (Not Detect.); Vibrio Cholerae Not Detected (Not Detect.); Yersinia enterocolitica Not Detected (Not Detect.)
[2022-08-25 12:37] LABS: Adenovirus F 40/41 Not Detected (Not Detect.); Astrovirus Not Detected (Not Detect.); Cryptosporidium Not Detected (Not Detect.); Cyclospora cayetanensis Not Detected (Not Detect.); Entamoeba histolytica Not Detected (Not Detect.); Giardia lamblia Not Detected (Not Detect.); Norovirus GI/GII Not Detected (Not Detect.); Rotavirus A Not Detected (Not Detect.); Sapovirus Not Detected (Not Detect.); Shigella sp./EIEC Not Detected (Not Detect.)
== END 2022-08-25 07:08 | disposition home or self-care (01) ==
LOC: HO.HMGCLDS 07:07
PROVIDERS: PCP Nurse Practitioner Family; Visit Provider Nurse Practitioner Family
DX: R10.9 Unspecified abdominal pain (principal); R19.7 Diarrhea, unspecified
CPT/HCPCS: 87507

== ENCOUNTER 2022-12-20 06:33 | Outpatient (REF) | payer MEDICARE, SELFPAY ==
[2022-12-20 11:28] LABS: MANUAL DIFF FLAG NO
[2022-12-20 12:04] LABS: Basophils Percent Auto 0.7 % (0-2); Eosinophils Absolute Auto 0.3 X10*3/uL (0.0-0.4); Eosinophils Percent Auto 4.8 % (0-4); Hematocrit 39.8 % (42.0-52.0); Imm Gran Abs Auto 0.02 X10*3/uL (0.00-0.03); Imm Gran Pct Auto 0.4 % (0.0-0.4); Lymphocytes Absolute Auto 1.7 X10*3/uL (1.2-4.9); Lymphocytes Percent Auto 31.5 % (20-40); Mean Corpuscular HGB Conc 32.7 g/dl (31.0-36.0); Mean Corpuscular Hemoglobin 28.9 pg (27.0-33.0); Mean Corpuscular Volume 88.4 fL (80.0-98.0); Mean Platelet Volume 9.4 fL (9.4-12.4); Monocytes Absolute Auto 0.6 X10*3/uL (0.1-1.2); Monocytes Percent Auto 10.8 % (2-11); Neutrophils Absolute Auto 2.8 x10*3/uL (2.0-8.3); Neutrophils Percent Auto 51.8 % (45-73); Platelet Count 298 X10*3/uL (160-400); Red Cell Distribution Width 13.1 % (11.0-16.0); White Blood Count 5.4 X10*3/uL (4.8-10.8)
[2022-12-20 13:23] LABS: Alanine Aminotransferase 21 U/L (0-40); Alkaline Phosphatase 79 U/L (39-117); Anion Gap 14 (12-20); Aspartate Amino Transferase 18 U/L (5-37); Bilirubin Total 1.1 mg/dL (0.0-1.0); Blood Urea Nitrogen 14 mg/dL (9-16); Calcium 8.9 mg/dL (8.4-10.2); Carbon Dioxide 25 mmol/L (22-29); Chloride 109 mmol/L (96-108); Cholesterol 161 mg/dL; Estimated Glomerular Filt Rate > 60; Glucose Fasting 115 mg/dL (60-99); HDL Cholesterol 43 mg/dL; LDL Cholesterol Calculated 97 mg/dl; Magnesium 2.3 mg/dL (1.6-2.6); Potassium 4.5 mmol/L (3.3-5.1); Sodium 143 mmol/L (135-145); Total Protein 6.3 g/dL (6.5-8.0); Triglycerides 109 mg/dL
[2022-12-20 13:41] LABS: TSH reflex Free T4 2.56 uIU/mL (0.32-4.0)
[2022-12-20 14:12] LABS: Appearance Urine Clear; Color Urine Yellow; Glucose Urine UA Negative (Negative); Leukocyte Esterase Urine Negative (Negative); Nitrite Urine Negative (Negative); PH 6.5 (5.0-9.0); Urine Blood Negative (Negative); Urine Ketones Negative (Negative); Urine Protein Negative (Neg-Trace)
== END 2022-12-20 06:34 | disposition home or self-care (01) ==
LOC: HO.HMGCLDS 06:33
PROVIDERS: PCP Nurse Practitioner Family; Visit Provider Nurse Practitioner Family
DX: Z12.5 Encounter for screening for malignant neoplasm of prostate (principal); E78.5 Hyperlipidemia, unspecified; R25.2 Cramp and spasm; I10 Essential (primary) hypertension
CPT/HCPCS: 36415; 80053; 80061; 81003; 83735; 84153; 84443; 85025

== ENCOUNTER → 2022-12-21 08:44 | Outpatient (BNVA) | payer MEDICARE, SELFPAY | PROVIDERS: PCP Nurse Practitioner Family; Visit Provider Student in an Organized Health Care Education/Training Program | DX: M65.4 Radial styloid tenosynovitis [de Quervain] (principal); G56.03 Carpal tunnel syndrome, bilateral upper limbs | CPT/HCPCS: 20550; 99212 ==

== ENCOUNTER 2023-02-02 09:12 | Outpatient (REF) | payer MEDICARE, SELFPAY ==
--- NOTE | 2023-02-02 09:15 | EMG_ITS ---
Bilateral median and ulnar motor and sensory studies were performed. Bilateral radial sensory studies were performed, and paraspinal muscles were tested with a needle. IMPRESSION: 1. Iufo-ls-hzxmkzgx bilateral median neuropathy across carpal tunnel. 2. Mild bilateral ulnar neuropathy across cubital tunnel. 3. Chronic right mid cervical radiculopathy. MD PRIYANKA Holguin/NICK / [phone]
== END 2023-02-02 09:13 | disposition home or self-care (01) ==
LOC: HO.NEURO 09:12
PROVIDERS: PCP Nurse Practitioner Family; Visit Provider Student in an Organized Health Care Education/Training Program
DX: G56.03 Carpal tunnel syndrome, bilateral upper limbs (principal)
CPT/HCPCS: 95886; 95911

== ENCOUNTER 2023-03-15 10:31 | Outpatient (AMB) | payer MEDICARE, SELFPAY ==
--- NOTE | 2023-03-15 10:34 | MHC.OFFWIV ---
Intake Vital Signs 03/15/23 10:35 Height 5 ft 8 in BP 146/78 H Blood Pressure Location Lt brachial Position Sitting Pulse 69 Pulse Source Pulse Oximeter Temp 98.2 F Temp Source Oral Pulse Oximetry (%) 96 Oxygen Delivery Method Room Air Intake Visit Reasons: EST Stomach Pain Intake Note: pt says he has consistent pain in the middle of his stomach pain no vomiting or diarrhea he has had loss of appetite and says he feels like he has to go to the bathroom but he does not go pt says this has been a little over week Patient Tobacco Use Status: Never used Tobacco Allergies No Known Allergies Allergy (Mild, Verified 03/15/23 11:13) NONE Medication List - Last Reconciled 03/15/23 by Michelle Piper, [facility]- amlodipine 10 mg PO DAILY aspirin (Adult Low Dose Aspirin) 81 mg PO DAILY atorvastatin 40 mg PO DAILY blood pressure monitor As directed lisinopril 40 mg PO DAILY 90 days multivitamin 1 tab PO DAILY omega 6-wne-sif-fish oil 1,000 mg (120 mg-180 mg) (Fish Oil) 1 cap PO BID prednisone 50 mg PO DAILY 5 days vit C,X-Fx-twtnz-lutein-zeaxan 250-90-40-1 mg (PreserVision AREDS-2) 1 tab PO BID [wrist splint wear all night & as much as possible throughout the day] HPI HPI Comments History of Present Illness Details Here here today with complaints of acute on chronic abdominal pain that has been present for the last several months. Chart review shows that he came to the urgent care for evaluation in July of 2022 complaining of the same type of pain symptoms that had been lasting about 5 months at that time[address] scan of the abdomen was done along with labs. CT showed enteritis. Labs unremarkable. Stool culture negative. He was treated with prednisone and began to feel better until about 3 weeks ago. He reports that the pain is under his belly button. It is constant in comfortable. Associated symptoms include a loss of appetite a an associated 5 lb weight loss in about 2 weeks. He denies nausea vomiting diarrhea. He reports normal bowel movements. No blood in the stool. Normal urination patterns. Denies history of abdominal surgery. Extensive abdominal workup done in the past by Dr. Dorman. This note was reviewed. Denies EtOH use. 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 Assessment & Plan Assessment & Plan (1) Abdominal pain: Code(s): R10.9 - Unspecified abdominal pain Orders: Referrals Gastroenterology Referral R10.9 - Unspecified abdominal pain Medications: New prednisone 50 mg PO DAILY 5 days 5 tabs 0RF amoxicillin-pot clavulanate 500-125 mg 1 tab PO BID 7 days 14 tabs 0RF Patient Instructions: Given the longevity of his abdominal pain I have recommended an urgent follow-up with GI. He does not think that he has seen GI recently. Last note I can find is from [address] Dorman[address] I will place a stat referral to Dr. Dorman' office. However if this office is not able to see him in the next 1 month I have placed a note to the referral team to refer to [facility] [place] [facility]. As he felt better in the past with prednisone I will restart aspirin now also give a broad-spectrum antibiotic. He should continue diet as tolerated. If his symptoms become worse such as fever chills vomiting or he is unable to tolerate p.o. intake he should seek care in the emergency room. He verbalizes understanding. Coding Level of Care Code Est Pt Level 4 (52208) Diagnoses Abdominal pain R10.9
[2023-03-15 10:35] VITALS: BP 146/78; PULSE 69; TEMP 36.8; O2SAT 96
== END 2023-03-15 11:23 | disposition home or self-care (01) ==
PROVIDERS: PCP Nurse Practitioner Family; Visit Provider Nurse Practitioner Family
DX: R10.9 Unspecified abdominal pain (principal)
CPT/HCPCS: 99214

== ENCOUNTER 2023-03-28 12:26 | Outpatient (REF) | payer MEDICARE, SELFPAY ==
[2023-03-28 13:30] LABS: MANUAL DIFF FLAG NO
[2023-03-28 13:44] LABS: Basophils Absolute Auto 0.1 X10*3/uL (0.0-0.2); Basophils Percent Auto 0.6 % (0-2); Eosinophils Absolute Auto 0.1 X10*3/uL (0.0-0.4); Eosinophils Percent Auto 1.5 % (0-4); Hematocrit 43.2 % (42.0-52.0); Hemoglobin 13.5 g/dl (14.0-18.0); Imm Gran Abs Auto 0.05 X10*3/uL (0.00-0.03); Imm Gran Pct Auto 0.6 % (0.0-0.4); Lymphocytes Absolute Auto 1.5 X10*3/uL (1.2-4.9); Lymphocytes Percent Auto 18.7 % (20-40); Mean Corpuscular HGB Conc 31.3 g/dl (31.0-36.0); Mean Corpuscular Hemoglobin 27.8 pg (27.0-33.0); Mean Corpuscular Volume 88.9 fL (80.0-98.0); Mean Platelet Volume 9.2 fL (9.4-12.4); Monocytes Absolute Auto 0.7 X10*3/uL (0.1-1.2); Monocytes Percent Auto 8.7 % (2-11); Neutrophils Absolute Auto 5.7 x10*3/uL (2.0-8.3); Neutrophils Percent Auto 69.9 % (45-73); Platelet Count 300 X10*3/uL (160-400); Red Blood Count 4.86 X10*6/uL (4.60-5.80); Red Cell Distribution Width 13.1 % (11.0-16.0); White Blood Count 8.2 X10*3/uL (4.8-10.8)
[2023-03-28 14:17] LABS: Alanine Aminotransferase 32 U/L (0-40); Albumin Level 4.3 g/dL (3.5-5.0); Alkaline Phosphatase 83 U/L (39-117); Amylase 78 U/L (28-100); Anion Gap 15 (12-20); Aspartate Amino Transferase 22 U/L (5-37); Bilirubin Direct 0.3 mg/dL (0.0-0.5); Bilirubin Total 0.8 mg/dL (0.0-1.0); Blood Urea Nitrogen 12 mg/dL (9-16); C Reactive Protein < 0.10 mg/dL (< or = 0.50); Calcium 9.7 mg/dL (8.4-10.2); Carbon Dioxide 23 mmol/L (22-29); Chloride 107 mmol/L (96-108); Estimated Glomerular Filt Rate > 60; Glucose Random 108 mg/dL (60-115); Lipase 32 U/L (8-78); Potassium 4.3 mmol/L (3.3-5.1); Sodium 141 mmol/L (135-145); Total Protein 7.2 g/dL (6.5-8.0)
[2023-03-28 14:33] LABS: Erythrocyte Sedimentation Rate 12 MM/HR (0-15)
== END 2023-03-28 12:27 | disposition home or self-care (01) ==
LOC: HO.10HDL 12:26
PROVIDERS: Visit Provider Internal Medicine
DX: R93.3 Abnormal findings on diagnostic imaging of other parts of digestive tract (principal); R10.84 Generalized abdominal pain
CPT/HCPCS: 36415; 80053; 82150; 82248; 83690; 85025; 85652; 86140

== ENCOUNTER 2023-04-19 08:22 | Outpatient (AMB) | payer MEDICARE, SELFPAY ==
--- NOTE | 2023-04-19 08:27 | A.OFFVIS_ITS ---
Intake Vital Signs 04/19/23 08:33 Height 5 ft 8 in Weight 180 lb BMI 27.4 Handedness Right Intake Visit Reasons: New Prob- Carpal tunnel syndrome, bilateral Intake Note: Crzu is a 82 year old left hand dominant male who presents today for a evaluation for his bilateral hand pain. Patient reports ongoing swelling/ numbness that causes him a lot of pain. He states his numbness is worse at night, he has to shake them to relief some of the swelling. Allergies No Known Allergies Allergy (Mild, Verified 04/19/23 08:32) NONE Medication List - Last Reconciled 04/19/23 by Naomie Castillo MD amlodipine 10 mg PO DAILY amoxicillin-pot clavulanate 500-125 mg 1 tab PO BID 7 days aspirin (Adult Low Dose Aspirin) 81 mg PO DAILY atorvastatin 40 mg PO DAILY blood pressure monitor As directed lisinopril 40 mg PO DAILY 90 days multivitamin 1 tab PO DAILY omega 7-rvk-tkz-fish oil 1,000 mg (120 mg-180 mg) (Fish Oil) 1 cap PO BID prednisone 50 mg PO DAILY 5 days vit C,Y-Xa-ocqfw-lutein-zeaxan 250-90-40-1 mg (PreserVision AREDS-2) 1 tab PO BID [wrist splint wear all night & as much as possible throughout the day] HPI HPI Comments History of Present Illness Details Patient being treated by Rheumatology Dr. Capps for bilateral de Quervain tenosynovitis. Refer to orthopedics for Carpal Tunnel Syndrome management. EMG already done, see below. Numbness of hands 4-5 months only per patient. Worst at night, keeps him up at night. Tries to put in hot and cold water. Not dropping things. Daytime does not bother him. Treatment done so far: tried wrist splints therapy - none injection - none surgery for Dupuytren's contracture several years ago He is going to [facility] for 10 days, end of May. [facility] Medical History (Updated 04/19/23 @ 08:58 by Naomie Castillo MD) Abdominal pain Cervical arthritis Cervical radiculopathy Dyslipidemia HTN (hypertension) Kidney stones Ulnar neuropathy at elbow Surgical History H/O colonoscopy History of left knee replacement Status post right partial knee replacement Family History Father HTN (hypertension) Diabetes Mother History of colon cancer Social History Housing: House Alcohol intake: never Patient Tobacco Use Status: Never used Tobacco e-Cigarette/Vaping Use: Never Used Second Hand Smoke Exposure: No 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al status: retired 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 MSK: Inspection reveals appropriate head and neck positioning. No pain with palpation over the neck musculature. Cervical ROM was full. Spurling's sign negative. Bilateral shoulder ROM WNL. No ligamentous laxity or crepitance. No increased effusion. Hawkin's test is negative. No joint effusion noted. No deformity noted. No intrinsic hand weakness noted. Thinning noted on right APB muscle. Emmanuel test negative. Carpal compression test negative. Tinel sign negative. Strength is 5/5 in all muscle groups tested. No increased tone noted. Neurological: Neurologic examination of the upper and lower extremities was nonfocal with intact sensation, muscle stretch reflexes and without focal motor deficits . Tirado?s negative bilaterally. Gait is non-antalgic without loss of balance. Results Reviewed Results Reviewed: I independently reviewed the results of the following: EMG done by Dr. Erazo 02/02/2023 showed bilateral Carpal Tunnel Syndrome moderate and bilateral ulnar neuropathy with slowing of conduction velocity at the elbow. I reviewed records from the following: Rheumatology Assessment & Plan Assessment & Plan (1) Carpal tunnel syndrome, bilateral: Comment: EMG : Oprm-us-tsavgoax bilateral carpal tunnel, mild ulnar neuropathy, chronic cervical changes Code(s): G56.03 - Carpal tunnel syndrome, bilateral upper limbs Plan: Discussed results of EMG. We talked about the usual treatment for Carpal Tunnel Syndrome including nonsurgical management hand therapy, wrist splints and injection versus surgical management. He has already tried wrist splints without much relief. He wants to avoid surgery especially since he is going for October vacation and end of May. He is considering injection. Discussed this is probably just a temporary relief. Patient eager to proceed. 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 We will reschedule for tomorrow. (2) Ulnar neuropathy at elbow: Code(s): G56.20 - Lesion of ulnar nerve, unspecified upper limb Plan Assessment and plan discussed with patent, and patient was agreeable. All questions were answered thoroughly. Coding Level of Care Code New Pt Level 4 (83710) Diagnoses Carpal tunnel syndrome, bilateral G56.03 Ulnar neuropathy at elbow G56.20
[2023-04-19 08:33] VITALS: BMI 27.4
== END 2023-04-19 09:12 | disposition home or self-care (01) ==
PROVIDERS: PCP Nurse Practitioner Family; Visit Provider Orthopaedic Surgery
DX: G56.03 Carpal tunnel syndrome, bilateral upper limbs (principal); G56.20 Lesion of ulnar nerve, unspecified upper limb
CPT/HCPCS: 99214

== ENCOUNTER → 2023-04-19 08:22 | Outpatient (BNVA) | payer MEDICARE, SELFPAY | PROVIDERS: PCP Nurse Practitioner Family; Visit Provider Orthopaedic Surgery | DX: G56.03 Carpal tunnel syndrome, bilateral upper limbs (principal); G56.20 Lesion of ulnar nerve, unspecified upper limb | CPT/HCPCS: 99212 ==

== ENCOUNTER 2023-04-20 08:24 | Outpatient (AMB) | payer MEDICARE, SELFPAY ==
--- NOTE | 2023-04-20 08:28 | A.OFFVIS_ITS ---
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 Pearson. Allergies No Known Allergies Allergy (Mild, Verified 04/20/23 08:33) NONE Medication List - Last Reconciled 04/20/23 by Naomie Castillo MD amlodipine 10 mg PO DAILY aspirin (Adult Low Dose Aspirin) 81 mg PO DAILY atorvastatin 40 mg PO DAILY blood pressure monitor As directed lisinopril 40 mg PO DAILY 90 days multivitamin 1 tab PO DAILY omega 8-ler-twg-fish oil 1,000 mg (120 mg-180 mg) (Fish Oil) 1 cap PO BID vit C,M-Eb-tufhd-lutein-zeaxan 250-90-40-1 mg (PreserVision AREDS-2) 1 tab PO BID [wrist splint wear all night & as much as possible throughout the day] HPI HPI Comments History of Present Illness Details Today here for right Carpal Tunnel Syndrome injection. [facility] Medical History (Updated 04/20/23 @ 08:53 by Naomie Castillo MD) Abdominal pain Cervical arthritis Cervical radiculopathy Dyslipidemia HTN (hypertension) Kidney stones Ulnar neuropathy at elbow Surgical History H/O colonoscopy History of left knee replacement Status post right partial knee replacement Family History Father HTN (hypertension) Diabetes Mother History of colon cancer Social History Housing: House Alcohol intake: never Patient Tobacco Use Status: Never used Tobacco e-Cigarette/Vaping Use: Never Used Second Hand Smoke Exposure: No 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al status: retired 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 Office Procedures Therapeutic Injection Therapeutic Injection Details: Consent obtained. Patient places hand palm up. Right Wrist is cleansed with betadine solution. A 27 gauge needle is inserted just ulnar to the palmaris longus tendon and at the proximal wrist crease. The needle is inserted at a 30- degree angle and directed towards the ring finger. A solution containing 20mg Kenalog is injected. Patient tolerated procedure well without complications. Post-injection instructions given. No heavy lifting today. 22935-Oljfoy Tunnel Injection, therapeutic All charges added?: Procedure code (CPT) selection complete Office Meds triamcinolone acetonide Performing Provider: Naomie Castillo MD Documented (not given) by: Naomie Castillo MD on 04/20/23 08:51 Dose Route Admin Location Lot Number Expiration Date NDC Privacy Specialist 20 mg Tendon Sheath Inj. Results Reviewed Results Reviewed: 04/20/23 08:35 Triamcinolone Acetonide [Kenalog-40] 40 mg .ROUTE .STK-MED ONE Assessment & Plan Assessment & Plan (1) Carpal tunnel syndrome, bilateral: Code(s): G56.03 - Carpal tunnel syndrome, bilateral upper limbs Plan Patient to see if this works for the right side. If it does, he may consider injection to the left side. Patient is trying to avoid surgery this year due to personal schedule. Advised that if the injection provides only temporary relief, that he should highly consider surgery for more lasting permanent solution. Orders: Orders Trigger Point Injection Today G56.03 - Carpal tunnel syndrome, bilateral upper limbs Medications: New triamcinolone acetonide 20 mg (0.5 mL) Tendon Sheath Inj. ONCE 0.5 mL 0RF G56.03 - Carpal tunnel syndrome, bilateral upper limbs Coding Level of Care Code Procedure Only Diagnoses Carpal tunnel syndrome, bilateral G56.03 CPT Codes Therapeutic Injection - Ther Injection 3: 27525-Gvrprs Tunnel Injection, therapeutic ([id number])
[2023-04-20 08:29] VITALS: BMI 18.2
== END 2023-04-20 08:49 | disposition home or self-care (01) ==
PROVIDERS: PCP Nurse Practitioner Family; Visit Provider Physical Medicine & Rehabilitation
DX: G56.03 Carpal tunnel syndrome, bilateral upper limbs (principal)
CPT/HCPCS: 20526

== ENCOUNTER → 2023-04-20 08:24 | Outpatient (BNVA) | payer MEDICARE, SELFPAY | PROVIDERS: PCP Nurse Practitioner Family; Visit Provider Physical Medicine & Rehabilitation | DX: G56.03 Carpal tunnel syndrome, bilateral upper limbs (principal) | CPT/HCPCS: 20526; J3301 ==

== ENCOUNTER 2023-04-24 08:13 | Outpatient (REF) | payer MEDICARE, SELFPAY ==
--- NOTE | ~2023-04-24 | CT_ITS ---
EXAMINATION: CT ABDOMEN AND PELVIS WITH CONTRAST CLINICAL INFORMATION: Abdominal pain COMPARISON: Previous CT of the abdomen and pelvis July 2022 TECHNIQUE: Multidetector volumetric images were obtained from the superior aspect of the liver through the pubic symphysis following administration 85 mL of Omnipaque 350 intravenous contrast. Sagittal and coronal reformatted images were obtained on the technologist's workstation. Oral contrast: Yes This CT examination was performed using dose optimization techniques as appropriate, variously including the following: *Automated exposure control *Adjustment of mA and/or kV according to patient size (this includes techniques or standardized protocols for targeted exams where dose is matched to indication/reason for exam; i.e. extremities or head) *Use of iterative reconstruction technique DLP: 397 mGy-cm FINDINGS: LUNG BASES: The visualized lung bases are unremarkable. LIVER, GALLBLADDER, AND BILIARY TREE: The liver is normal in size, shape, and attenuation. Small 5 mm low-attenuation lesion in the inferior posterior segment of the right lobe of the liver. This is stable from July 2022 exam. No other focal hepatic lesion or biliary ductal dilatation is present. The gallbladder is unremarkable with no evidence of radiopaque gallstones, gallbladder wall thickening, or obvious pericholecystic inflammatory changes. PANCREAS: Unremarkable. SPLEEN: Unremarkable. ADRENAL GLANDS: Unremarkable. KIDNEYS AND URETERS: The kidneys are normal in size, shape, and attenuation. No hydronephrosis, hydroureter, or calculi seen. No perinephric stranding. BLADDER: Unremarkable. GASTROINTESTINAL TRACT: Severe diverticulosis of the distal colon. There is a focal wall thickening of the sigmoid colon and it is difficult to exclude mild diverticulitis. The small and large bowel are otherwise unremarkable. The appendix is unremarkable. ABDOMINAL WALL: No small umbilical hernia containing fat.. LYMPH NODES: Normal. VASCULAR: Atherosclerotic disease. No aneurysm or PELVIC VISCERA: Upper normal-size prostate gland. This protrudes into the base of the bladder. OSSEOUS STRUCTURES: Generative changes of the spine and hip joints. CT/CT abdomen pelvis w IV con IMPRESSION: Severe diverticulosis of the colon. It is difficult to exclude mild diverticulitis. Fleischner guidelines were followed.
[2023-04-24] MEDS: iohexoL 350 MG/ML 100 ML INFUS..BTL IV (10:53)
== END 2023-04-24 08:14 | disposition home or self-care (01) ==
LOC: HO.CT 08:13
PROVIDERS: PCP Nurse Practitioner Family; Visit Provider Internal Medicine
DX: R10.84 Generalized abdominal pain (principal); R93.3 Abnormal findings on diagnostic imaging of other parts of digestive tract
CPT/HCPCS: 74177; Q9967

== ENCOUNTER 2023-05-22 08:52 | Outpatient (AMB) | payer MEDICARE, SELFPAY ==
--- NOTE | 2023-05-22 08:55 | AM.OFFVISMDC ---
Intake Vital Signs 05/22/23 09:00 05/22/23 09:35 Height 5 ft 8 in Weight 177 lb BMI 26.9 BP 144/66 H 128/76 Blood Pressure Location Rt brachial Rt brachial Position Sitting Sitting Pulse 80 Pulse Source Pulse Oximeter Pulse Oximetry (%) 98 Oxygen Delivery Method Room Air Intake Visit Reasons: SWV G0439 Allergies No Known Allergies Allergy (Mild, Verified 05/22/23 09:14) NONE Medication List - Last Reconciled 05/22/23 by BRIDGET Dee amlodipine 10 mg PO DAILY aspirin (Adult Low Dose Aspirin) 81 mg PO DAILY atorvastatin 40 mg PO DAILY blood pressure monitor As directed lisinopril 40 mg PO DAILY 90 days multivitamin 1 tab PO DAILY omega 4-lci-rfp-fish oil 1,000 mg (120 mg-180 mg) (Fish Oil) 1 cap PO BID vit C,Y-Iv-gegyc-lutein-zeaxan 250-90-40-1 mg (PreserVision AREDS-2) 1 tab PO BID [wrist splint wear all night & as much as possible throughout the day] Do you need a note to return to daycare/school/sports/work: No HPI SWV G0439 HPI Details Pt is here for an SWV. Denies fever, chills, and dizziness. Bostic of care in scan pile. PPP will be scanned in chart and copy will be given to pt. HTN: stable HPI Comments History of Present Illness Details HTN: Blood pressure is managed with amlodipine 10mg and lisinopril 40mg. Denies chest pain, shortness of breath, headache, dizziness, and blurred vision. Pt follows up with cardiology. EKG in office today showed no change. 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 Cognitive needs: No Hearing needs: No Vision needs: No Questionnaire Medicare Wellness Checkup What is your age?: 80 or older What gender do you identify with?: male During the past 4 weeks, how much have you been bothered by emotional problems such as feeling anxious, depressed, irritable, sad or downhearted, and blue?: not at all During the past 4 weeks, has your physical & emotional health limited your social activities with family, friends, neighbors, or groups?: not at all During the past 4 weeks, how much bodily pain have you generally had?: mild pain During the past 4 weeks, was someone available to help you if you needed & wanted help?: yes, as much as I wanted During the past 4 weeks, what was the hardest physical activity you could do for at least 2 minutes?: heavy Can you get to places out of walking distance without help? (For eg., can you travel alone on buses, taxis or drive your car?): Yes Can you go shopping for groceries or clothes without someone's help?: Yes Can you prepare your own meals?: Yes Can you do your housework without help?: Yes Because of any health problems, do you need the help of another person with your personal care needs such as eating, bathing, dressing or getting around the house?: No Can you handle your own money without help?: Yes During the past 4 weeks, how would you rate your health in general?: good During the past 4 weeks how have things been going for you?: pretty well Are you having difficulties driving your car?: no Do you always fasten your seat belt when you are in a car?: yes, usually During past 4 weeks, have you been bothered by the following: never: Falling or dizzy when standing up, Sexual problems?, Trouble eating well? and Problems using the telephone? and seldom: Teeth or denture problems? and Tiredness or fatigue? Have you fallen 2 or more times in the past year?: No Are you afraid of falling?: No Are you a smoker?: no During the past 4 weeks, how many drinks of wine, beer, or other alcoholic beverages did you have?: no alcohol at all Do you exercise for about 20 minutes 3 or more times a week?: no, I usually do not exercise this much Have you been given information to help with the following?: no: Hazards in your house that might hurt you? and no: Keeping track of your medications? How often do you have trouble taking medicines the way you have been told to take them?: I always take medicine as prescribed How confident are you that you can control & manage most of your health problems?: very confident What is your race?: White Mini Mental State Exam (MMSE) Orientation What is the (year) (season) (date) (day) (month)?: year (2022) Where are we (state) (county) (town or city) (hospital) (floor)?: state (ct) Registration Name of 3 unrelated objects clearly and slowly, then ask patient to repeat all 3 of them. (1st repeat determines score. Make sure they can repeat all three): object 1, object 2 and object 3 Attention & Calculation (CHOOSE ONE) Spell WORLD backwards (DLROW): 5 letters Recall Ask patient to repeat the 3 items from question #3.: object 1, object 2 and object 3 Language Show patient a wristwatch & ask what it is. Repeat for pencil.: watch and pencil Ask the patient to repeat the phrase 'No ifs, ands, or buts' after you.: correct Ask the patient to 'take a piece of paper with their right hand' 'fold paper in half' 'place paper on floor': take paper in right hand, fold paper in half and place paper on floor Print the sentence 'CLOSE YOUR EYES' on a piece. If patient actually closes eyes then score.: followed written direction Give patient a blank piece of paper & ask to write a sentence. Score if it contains a noun & verb.: sentence contains subject and verb Ask patient to copy figure of intersecting pentagons exactly. Score if all 10 angles & 2 intersects are included.: all 10 angles present & 2 are intersected Score Score: 22 Activity of Daily Living Bathing - sponge bath, tub bath or shower: receives no assistance (gets in/out by self, if usual bathing means Dressing - getting clothes from closets & drawers, including inner/outer garments & fasteners.: gets clothes & gets completely dressed without help Toileting - going to the 'toilet room' for urine/bowel elimination & cleaning self/arranging clothes: goes to toilet room, cleans self, arranges clothes without help Transfer: moves in & out of bed and chair without help (may use support object) Continence: controls urination/bowel movements completely by self Feeding: feeds self without help Total Score: 0 Information obtained from: patient Using telephone: independent Traveling: independent Shopping: independent Preparing meals: independent Housework: independent Taking medicine: independent Managing money: independent Review of Systems Const Reports as per HPI Physical Exam Vital Signs: Last Vital Signs Pulse 80 05/22/23 09:00 BP 128/76 05/22/23 09:35 Pulse Ox 98 05/22/23 09:00 Oxygen Delivery Method Room Air 05/22/23 09:00 BMI result Body Mass Index 26.9 Const General: cooperative Orientation/consciousness: patient oriented x3 Resp Effort & Inspection: normal respiratory effort Auscultation: clear to auscultation bilaterally Cardio Rate: regular rate Rhythm: regular rhythm Heart sounds: S1 normal heart sound present and S2 normal heart sound present Neuro Other: - romberg, can tandem walk, can walk and turn, can rise from sitting to standing, passed whisper test General: patient oriented x3 Extrem Right lower extremity: no edema Left lower extremity: no edema Psych Appearance: grossly normal Mental Status: mental status grossly normal Speech and movement: Normal speech and movement present Affect: normal affect Attitude: cooperative Thought process: Normal thought process present Thought content: Normal thought content present Insight: Good insight present (Psych) Judgement: Good judgement present (Psych) Assessment & Plan Assessment & Plan (1) Encounter for annual wellness visit (AWV) in Medicare patient: Code(s): Z00.00 - Encounter for general adult medical examination without abnormal findings Plan: Forms given to pt (2) HTN (hypertension): Code(s): I10 - Essential (primary) hypertension Plan: Labs ordered Plan The patient agreed to the use of a product manager medical device for this encounter. Scribed for BRIDGET Aparicio by hermelindo Mota scribe, on 05/22/2023 at 09:10 EST. Orders: Orders Complete Blood Count Auto Diff Today I10 - Essential (primary) hypertension Comprehensive Hardy. Panel Fast Today I10 - Essential (primary) hypertension AMB EKG-In Office Today I10 - Essential (primary) hypertension TSH reflex Free T4 Today I10 - Essential (primary) hypertension UA CC w/rflx Micro + Cult Today I10 - Essential (primary) hypertension Lipid Panel Today I10 - Essential (primary) hypertension Coding Level of Care Code Medicare Subsequent (G0439) Est Pt Level 3 (79438) Diagnoses Encounter for annual wellness visit (AWV) in Medicare patient Z00.00 HTN (hypertension) I10 CPT Codes Advance Care Planning - Time spent: 16-45 minutes ([id number]) Advance Care Planning Forms completed: Health Care Proxy (form given to pt), MOLST (form explained and given to pt) and Living will (pt reports this was done) Time spent: 16-45 minutes Actual minutes spent: 16
[2023-05-22 09:00] VITALS: BP 144/66; PULSE 80; O2SAT 98; BMI 26.9
[2023-05-22 09:35] VITALS: BP 128/76
== END 2023-05-22 09:57 | disposition home or self-care (01) ==
PROVIDERS: PCP Nurse Practitioner Family; Visit Provider Nurse Practitioner Family
DX: Z00.00 Encounter for general adult medical examination without abnormal findings (principal); I10 Essential (primary) hypertension
CPT/HCPCS: 93000; 99497; G0439

== ENCOUNTER 2023-05-24 08:48 | Outpatient (AMB) | payer MEDICARE, SELFPAY ==
[2023-05-24 08:58] VITALS: BP 134/68; PULSE 97; TEMP 37; O2SAT 98
--- NOTE | 2023-05-24 08:58 | MHC.OFFVIS ---
Intake Vital Signs 05/24/23 08:58 Height 5 ft 8 in BMI Reason not done Patient refused/unable BP 134/68 Blood Pressure Location Rt brachial Position Sitting Pulse 97 Pulse Source Pulse Oximeter Temp 98.6 F Temp Source Skin Pulse Oximetry (%) 98 Comment 173 lbs Intake Visit Reasons: oa Intake Note: Pt seen today for OA follow up. States pain in right hand resolved after injection with Dr Murphy approx 4 months ago. Pacs Administrator Required: No Accompanied by: Self / Same As Patient Allergies No Known Allergies Allergy (Mild, Verified 05/24/23 09:09) NONE Medication List - Last Reconciled 05/24/23 by Bobbi Capps MD amlodipine 10 mg PO DAILY aspirin (Adult Low Dose Aspirin) 81 mg PO DAILY atorvastatin 40 mg PO DAILY blood pressure monitor As directed lisinopril 40 mg PO DAILY 90 days multivitamin 1 tab PO DAILY omega 5-lij-whr-fish oil 1,000 mg (120 mg-180 mg) (Fish Oil) 1 cap PO BID vit C,C-Zw-dniuh-lutein-zeaxan 250-90-40-1 mg (PreserVision AREDS-2) 1 tab PO BID [wrist splint wear all night & as much as possible throughout the day] HPI HPI Comments History of Present Illness Details 82-year-old male with bilateral de Quervain tenosynovitis and carpal tunnel syndrome returns for follow-up. Patient stated that the injection given for his right de Quervain tenosynovitis provided good relief, he was evaluated by physiatry last month and received steroid injection for carpal tunnel. States that the injections were dramatically helpful. He denies any hand pain, tingling or numbness of his fingers. Initial history: This is an 82-year-old male with past medical history of hypertension, dyslipidemia, degenerative disc disease cervical spine, nephrolithiasis or presents for evaluation of bilateral thumb pain. The condition started about 2 months ago with pain and stiffness of both hands. The pain is at the radial styloid, worse on the right hand which is his non dominant hand. The pain sometimes wakes him up from sleep. 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 Cognitive needs: No Hearing needs: No Vision needs: No Review of Systems Musc Denies arthralgias, Denies numbness, Denies stiffness and Denies tingling Neuro Denies numbness and Denies tingling Physical Exam Vital Signs: Last Vital Signs Temp 98.6 F 05/24/23 08:58 Pulse 97 05/24/23 08:58 BP 134/68 05/24/23 08:58 Pulse Ox 98 05/24/23 08:58 Const General: cooperative, healthy appearing, comfortable, no acute distress and well developed Nutritional Appearance: average body habitus Limitations: no limitations HEENT Head: Yes normocephalic and Yes atraumatic Resp Effort & Inspection: normal respiratory effort and able to speak in complete sentences Extrem Other: Negative Emmanuel's test bilaterally Negative Tinel sign bilaterally Negative grind test on the right hand. First CMC joint is nontender S/p Dupuytren contracture release surgery left hand Assessment & Plan Assessment & Plan (1) De Quervain's tenosynovitis, right: Code(s): M65.4 - Radial styloid tenosynovitis [de Quervain] Plan: S/p injection by nh 11/2022 with resolution. Follow-up as needed (2) Carpal tunnel syndrome, bilateral: Code(s): G56.03 - Carpal tunnel syndrome, bilateral upper limbs Plan: Wrist splints made symptoms worse. Patient wanted to put off surgery for as long as possible. He received steroid injections by physiatry a month ago with dramatic improvement Plan I spent 15 minutes reviewing patient's chart, evaluating patient, ordering diagnostic workup, counseling patient and documenting in the chart Coding Level of Care Code Est Pt Level 3 (97918) Diagnoses De Quervain's tenosynovitis, right M65.4 Carpal tunnel syndrome, bilateral G56.03
== END 2023-05-24 10:37 | disposition home or self-care (01) ==
PROVIDERS: PCP Nurse Practitioner Family; Visit Provider Student in an Organized Health Care Education/Training Program
DX: M65.4 Radial styloid tenosynovitis [de Quervain] (principal); G56.03 Carpal tunnel syndrome, bilateral upper limbs
CPT/HCPCS: 99213

== ENCOUNTER → 2023-05-24 08:48 | Outpatient (BNVA) | payer MEDICARE, SELFPAY | PROVIDERS: PCP Nurse Practitioner Family; Visit Provider Student in an Organized Health Care Education/Training Program | DX: M65.4 Radial styloid tenosynovitis [de Quervain] (principal); G56.03 Carpal tunnel syndrome, bilateral upper limbs | CPT/HCPCS: 99212 ==

== ENCOUNTER 2023-07-26 09:18 | Outpatient (AMB) | payer MEDICARE, SELFPAY ==
--- NOTE | 2023-07-26 09:40 | A.OFFPC_ITS ---
Vital Signs 07/26/23 09:42 Height 5 ft 5 in Weight 177 lb BMI 29.5 BP 110/62 Blood Pressure Location Rt brachial Position Sitting Pulse 93 Pulse Source Pulse Oximeter Pulse Oximetry (%) 98 Oxygen Delivery Method Room Air Intake Visit Reasons: 2 month fu Allergies No Known Allergies Allergy (Mild, Verified 07/26/23 09:42) NONE Tobacco use date assessed: 12/19/22 HPI 2 month fu HPI Details Pt c/o intermittent chest discomfort which started 3-4 weeks ago. He is further describing a cough and nasal discharge just prior to this chest discomfort that lasts seconds (intermittent). Pt does not have radicular symptoms down his arm. Pt denies any fever, chills, and shortness of breath. Will do an EKG in office. Pt is following up with cardiology. 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 Darrick Harry, Jackie Ramirez, Keyur Krause and colleagues, with an educational jesus from [employer]. Review of Systems Const Reports as per HPI Physical exam (Primary Care) Vital Signs: Last Vital Signs Pulse 93 07/26/23 09:42 BP 110/62 07/26/23 09:42 Pulse Ox 98 07/26/23 09:42 Oxygen Delivery Method Room Air 07/26/23 09:42 BMI result Body Mass Index 29.5 Tobacco/Smoking Status: Tobacco use Status Tobacco use date assessed 12/19/22 07/26/23 09:41 Patient Tobacco Use Status Never used Tobacco 07/26/23 09:41 e-Cigarette/Vaping Use Never Used 07/26/23 09:41 Thrive Assessment: Date of Thrive Assessment Date Thrive assessed 12/19/22 07/26/23 09:41 Const General: cooperative Orientation/consciousness: patient oriented x3 Resp Other: lungs fairly clear Effort & Inspection: normal respiratory effort Cardio Rate: regular rate Rhythm: regular rhythm Heart sounds: S1 normal heart sound present and S2 normal heart sound present Neuro General: patient oriented x3 Psych Appearance: grossly normal Mental Status: mental status grossly normal Speech and movement: Normal speech and movement present Affect: normal affect Attitude: cooperative Thought process: Normal thought process present Thought content: Normal thought content present Insight: Good insight present (Psych) Judgement: Good judgement present (Psych) Assessment and Plan Assessment & Plan (1) Chest discomfort: Code(s): R07.89 - Other chest pain Plan: PVC (new finding) on ekg, will make radiation technician aware Plan The patient agreed to the use of a certified medical assistant for this encounter. Scribed for BRIDGET Aparicio by Melissa Cardoza certified medical assistant, on 07/26/2023 at 09:50 EST. Coding Level of Care Code Est Pt Level 3 (49920) Diagnoses Chest discomfort R07.89
[2023-07-26 09:42] VITALS: BP 110/62; PULSE 93; O2SAT 98; BMI 29.5
== END 2023-07-26 10:26 | disposition home or self-care (01) ==
PROVIDERS: PCP Nurse Practitioner Family; Visit Provider Nurse Practitioner Family
DX: R07.89 Other chest pain (principal)
CPT/HCPCS: 99213

== ENCOUNTER 2023-08-14 08:37 | Outpatient (AMB) | payer MEDICARE, SELFPAY ==
[2023-08-14 08:53] VITALS: BP 140/60; PULSE 98; BMI 29.0
--- NOTE | 2023-08-14 08:53 | A.OFFVIS_ITS ---
Intake Vital Signs 08/14/23 08:53 Height 5 ft 5 in Weight 174 lb BMI 29.0 BP 140/60 H Blood Pressure Location Lt brachial Position Sitting Pulse 98 Pulse Source Pulse Oximeter Intake Visit Reasons: 1 yr f/up Intake Note: 1 yr f/up pt its feeling fine. Link Assembler Required: No Accompanied by: Self / Same As Patient Allergies No Known Allergies Allergy (Mild, Verified 07/26/23 09:42) NONE Medication List - Last Reconciled 08/14/23 by Ricky Smith MD amlodipine 10 mg PO DAILY aspirin (Adult Low Dose Aspirin) 81 mg PO DAILY atorvastatin 40 mg PO DAILY blood pressure monitor As directed lisinopril 40 mg PO DAILY 90 days multivitamin 1 tab PO DAILY omega 4-kya-tzc-fish oil 1,000 mg (120 mg-180 mg) (Fish Oil) 1 cap PO BID vit C,V-Lm-qyzio-lutein-zeaxan 250-90-40-1 mg (PreserVision AREDS-2) 1 tab PO BID [wrist splint wear all night & as much as possible throughout the day] HPI HPI Comments History of Present Illness Details 83-year-old pleasant gentleman. He had a n ECG which showed LBBB. LBBB is an old finding based on his previous ECGs. He had echo which showed normal LVEF and no valvular pathologies. He also had a Holter for 24 hours which did not show any heart block or arrhythmia. He occasionally gets a buzzing feeling on the left side of his chest. He had same symptoms while wearing his monitor and nothing was found. He denies any limiting chest discomfort, SOB or dizziness. No orthopnea or PND. He has back and joint issues. He had knee surgery on left. Clinically has been stable. He returns today and has been doing well. No chest pain or shortness of breath physically active and has no exertional symptoms. Repeat echocardiography in December 2021 has shown normal biventricular function. 08/14/2023: He returns for follow-up. Claire hurtado has been doing well. He has been experiencing some allergies and just use some Afrin. His blood pressure is mildly elevated. He has been noticing his blood pressures to be normal at home. He is saying that he just use the Afrin and maybe that played a role in that. He also has been experiencing off and on central chest discomfort. He is unable to say whether this is with exertion or rest. He is saying he does not last long. Saying he is very active and has no functional limitations currently. 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 Cognitive needs: No Hearing needs: No Vision needs: No Review of Systems Const Reports chills, Reports fatigue, Reports fever(s), Reports frequent falls, Reports weakness, Reports weight gain and Reports weight loss ENT Reports dizziness Card Reports chest pain, Reports leg edema, Reports lightheadedness, Reports palpitations, Reports dyspnea and Reports dyspnea on exertion Resp Reports cough, Reports dyspnea and Reports dyspnea on exertion GI Reports hematochezia Musc Reports abnormal gait, Reports muscle weakness, Reports numbness, Reports radiating pain into limb and Reports tingling Neuro Reports abnormal gait, Reports dizziness, Reports frequent falls, Reports numbness, Reports tingling and Reports weakness Endo Reports fatigue and Reports palpitations Physical Exam Vital Signs: Last Vital Signs Pulse 98 08/14/23 08:53 BP 140/60 H 08/14/23 08:53 BMI result Body Mass Index 29.0 GENERAL APPEARANCE: in no acute distress, pleasant. NECK: no carotid bruit, no jugular venous distention. SKIN: no suspicious lesions, warm and dry. HEART: no murmurs, regular rate and rhythm. LUNGS: clear to auscultation bilaterally. ABDOMEN: soft, nontender. EXTREMITIES: no edema. PERIPHERAL PULSES: equal. NEUROLOGIC: No gross deficits, AAO X 3 Assessment & Plan Assessment & Plan (1) Chest discomfort: Code(s): R07.89 - Other chest pain (2) HTN (hypertension): Code(s): I10 - Essential (primary) hypertension Plan 83-year-old gentleman presenting for follow-up. He has chronic left bundle-branch block. Previous echocardiography has shown normal biventricular function. No signs or symptoms of heart failure. He used Afrin before he came to office visit. His blood pressure is mildly elevated and he is little tachycardic. I have advised him that Afrin can affect blood pressure and should be careful. He is also complaining of central discomfort in the chest off and on. He is quite vague about it. I have advised him to watch his symptoms and report to us if these symptoms are clearly exertional. In that situation I think I would consider exercise stress testing. Given the fact that he is quite vague I do not want to start testing because he does not feel bothered by any exertional symptoms currently. Thank you for allowing me to participate in the care of your patient. Please feel free to contact me if you have any questions. Coding Level of Care Code Est Pt Level 4 (24312) Diagnoses Chest discomfort R07.89 HTN (hypertension) I10
== END 2023-08-14 09:11 | disposition home or self-care (01) ==
PROVIDERS: PCP Nurse Practitioner Family; Visit Provider Internal Medicine Cardiovascular Disease
DX: R07.89 Other chest pain (principal); I10 Essential (primary) hypertension
CPT/HCPCS: 99214

== ENCOUNTER → 2023-08-14 08:37 | Outpatient (BNVA) | payer MEDICARE, SELFPAY | PROVIDERS: PCP Nurse Practitioner Family; Visit Provider Internal Medicine Cardiovascular Disease | DX: R07.89 Other chest pain (principal); I10 Essential (primary) hypertension | CPT/HCPCS: 99212 ==

== ENCOUNTER 2023-10-12 12:48 | Outpatient (AMB) | payer MEDICARE, SELFPAY ==
[2023-10-12 12:51] VITALS: BP 130/50; PULSE 76; BMI 28.8
--- NOTE | 2023-10-12 12:51 | A.OFFVIS_ITS ---
Intake Vital Signs 10/12/23 12:51 10/12/23 13:16 Height 5 ft 5 in Weight 173 lb BMI 28.8 BP 130/50 L 134/54 L Blood Pressure Location Lt brachial Lt brachial Position Sitting Sitting Pulse 76 Intake Visit Reasons: chest pain for about 2-3 weeks Intake Note: pt its in office today for chest pain for about 2-3 week pt states that he its still having the pain, its a constant pain that tightening of the chest. 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 Accompanied by: Self / Same As Patient Allergies No Known Allergies Allergy (Mild, Verified 10/12/23 13:06) NONE Medication List - Last Reconciled 10/12/23 by Chapis Mathews NP amlodipine 10 mg PO DAILY aspirin (Adult Low Dose Aspirin) 81 mg PO DAILY atorvastatin 40 mg PO DAILY blood pressure monitor As directed lisinopril 40 mg PO DAILY 90 days multivitamin 1 tab PO DAILY omega 0-knx-nfk-fish oil 1,000 mg (120 mg-180 mg) (Fish Oil) 1 cap PO BID vit C,I-Fg-fkghk-lutein-zeaxan 250-90-40-1 mg (PreserVision AREDS-2) 1 tab PO BID [wrist splint wear all night & as much as possible throughout the day] HPI HPI Comments History of Present Illness Details 83-year-old male presents today regardin g his chest discomfort. He states it is a tightness that has become more constant. Intermittently gets more intense but not associated with activities.He denies any shortness of breath, palpitations, or any other symptoms. He reports the chest pain is concerning. He mentions his is concerned about how much coffee he drinks. He states he drinks about 4-5 cups a day. He checks his blood pressure periodically at home and has been running 130s-60s. 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 Cognitive needs: No Hearing needs: No Vision needs: No Review of Systems Const Denies chills, Denies fatigue, Denies fever(s), Denies frequent falls, Denies weakness, Denies weight gain and Denies weight loss ENT Denies dizziness Card Reports chest pain, Denies leg edema, Denies lightheadedness, Denies palpitations, Denies dyspnea and Denies dyspnea on exertion Resp Denies cough, Denies dyspnea and Denies dyspnea on exertion GI Denies hematochezia Musc Denies abnormal gait, Denies muscle weakness, Denies numbness, Denies radiating pain into limb and Denies tingling Neuro Denies abnormal gait, Denies dizziness, Denies frequent falls, Denies numbness, Denies tingling and Denies weakness Endo Denies fatigue and Denies palpitations Physical Exam Vital Signs: Last Vital Signs Pulse 76 10/12/23 12:51 BP 130/50 L 10/12/23 12:51 BMI result Body Mass Index 28.8 Const General: healthy appearing and no acute distress Orientation/consciousness: patient oriented x3 HEENT Head: Yes normal to inspection Eyes General: appearance normal, both eyes and all related structures Neck Neck: Yes normal visual inspection Chest Chest palpation & inspection: normal inspection of the chest Resp Effort & Inspection: normal respiratory effort Auscultation: clear to auscultation bilaterally Cardio Jugular venous distension: no JVD Palpation: normal PMI Rate: regular rate Rhythm: regular rhythm Heart sounds: S1 normal heart sound present, S2 normal heart sound present, no click, no gallops, no murmurs and no rubs GI Inspection: Yes normal to inspection Palpation (GI): Soft to palpation Skin General skin exam: no rashes or lesions noted Neuro General: patient oriented x3 Extrem General: Yes normal to inspection Psych Appearance: grossly normal Office Procedures EKG Details: EKG today. Normal Sinus Rhythm, Left Bundle Branch Block. Rate 76 bpm. QRS 142ms. QTc 468ms.. No significant changes from prior 22244-[id number], Complete Assessment & Plan Assessment & Plan (1) Chest discomfort: Code(s): R07.89 - Other chest pain Plan: Advised to cut back on coffee. Will do pharmacological stress test with Lexiscan due to LBBB. Reviewed signs and symptoms of angina and to seek ED care for symptoms if needed. (2) LBBB (left bundle branch block): Code(s): I44.7 - Left bundle-branch block, unspecified Plan: Seen on EKG. Chronic (3) HTN (hypertension): Code(s): I10 - Essential (primary) hypertension Plan: Blood pressure today stable. States readings at home are 130s/60s. Monitor as needed. Plan Will have him return after testing to discuss results. ED care for symptoms if needed Orders: Orders CA lexiscan stress w jeferson Today I44.7 - Left bundle-branch block, unspecified, R07.89 - Other chest pain NM cardiolite stress test Today I44.7 - Left bundle-branch block, unspecified, R07.89 - Other chest pain Coding Level of Care Code Tele Est Pt Level 3 (56927) Diagnoses Chest discomfort R07.89 LBBB (left bundle branch block) I44.7 HTN (hypertension) I10 CPT Codes EKG - CPT: 26753-[id number], Complete ([id number])
[2023-10-12 13:16] VITALS: BP 134/54
== END 2023-10-12 13:43 | disposition home or self-care (01) ==
PROVIDERS: PCP Nurse Practitioner Family; Visit Provider Nurse Practitioner
DX: R07.89 Other chest pain (principal); I44.7 Left bundle-branch block, unspecified; I10 Essential (primary) hypertension
CPT/HCPCS: 93010; 99213

== ENCOUNTER → 2023-10-12 12:48 | Outpatient (BNVA) | payer MEDICARE, SELFPAY | PROVIDERS: PCP Nurse Practitioner Family; Visit Provider Nurse Practitioner | DX: R07.89 Other chest pain (principal); I44.7 Left bundle-branch block, unspecified; I10 Essential (primary) hypertension | CPT/HCPCS: 93005; 99212 ==

== ENCOUNTER 2023-11-01 09:36 | Outpatient (AMB) | payer MEDICARE, SELFPAY ==
[2023-11-01 09:42] VITALS: BP 122/60; PULSE 74; O2SAT 98; BMI 28.8
--- NOTE | 2023-11-01 09:42 | MHC.PC.OV ---
Vital Signs 11/01/23 09:42 Height 5 ft 5 in Weight 173 lb BMI 28.8 BP 122/60 Blood Pressure Location Lt brachial Position Sitting Pulse 74 Pulse Source Pulse Oximeter Pulse Oximetry (%) 98 Intake Visit Reasons: 3-4 month follow up Intake Note: pt is here for 4 month follow up Rn Oncology Clinical Required: No Accompanied by: Self / Same As Patient Allergies No Known Allergies Allergy (Mild, Verified 11/01/23 10:20) NONE Medication List - Last Reconciled 11/01/23 by BRIDGET Dee amlodipine 10 mg PO DAILY aspirin (Adult Low Dose Aspirin) 81 mg PO DAILY atorvastatin 40 mg PO DAILY blood pressure monitor As directed lisinopril 40 mg PO DAILY 90 days multivitamin 1 tab PO DAILY omega 9-iny-eoq-fish oil 1,000 mg (120 mg-180 mg) (Fish Oil) 1 cap PO BID vit C,F-Ay-uvpjb-lutein-zeaxan 250-90-40-1 mg (PreserVision AREDS-2) 1 tab PO BID [wrist splint wear all night & as much as possible throughout the day] Tobacco use date assessed: 11/01/23 Fall risk assessment: No Falls in past year Last assessed Fall Risk: 11/01/23 Dental Screening Dental Screen Date: 11/01/23 Did you have a dental visit in the last 12 months?: Yes Did you have a dental problem in the last 6 months where you did not have access to dental care?: No Was dental information given to patient?: Patient has dentist HPI 3-4 month follow up HPI Details Patient reports ongoing chest tightness. He did see Cardiology for this back in the middle of last month. A nuclear stress test was ordered, and an EKG was performed. No new changes on EKG. Patient denies any changing in the chest tightness with breathing or with motion, it's just there , further describing chest discomfort that does not change in intensity. He further denies any fever, chest pain, shortness on breath, dizziness, blurred vision. He denies any recent viral illnesses. I will get repeat EKG today, we will look forward to stress test, and we will order a chest x-ray. 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 1. Little interest or pleasure in doing things: not at all 2. Feeling down, depressed, or hopeless: not at all 3. Trouble falling or staying asleep, or sleeping too much: not at all 4. Feeling tired or having little energy: not at all 5. Poor appetite or overeating: not at all 6. Feeling bad about yourself - or that you are a failure or have let yourself or your family down: not at all 7. Trouble concentrating on things, such as reading the newspaper or watching television: not at all 8. Moving or speaking so slowly that other people could have noticed. Or the opposite - being so fidgety or restless that you have been moving around a lot more than usual: not at all 9. Thoughts that you would be better off or of hurting yourself in some way: not at all Total score: 0 Depression Screening Interpretation: Negative Depression Screening Done: Yes 15116 - PHQ-9 Billing: Yes Source: Developed by Drs. Darrick Harry, Jackie Ramirez, Keyur Krause and colleagues, with an educational jesus from [employer]. Thrive Questionnaire Date Thrive assessed: 11/01/23 I am a: Patient What is your living situation today?: I have a steady place to live Within the past 12 months, did the food you bought not last and you didn't have the money to get more?: Never true Within the past 12 months, did you worry whether your food would run out before you got money to buy more?: Never true Do you have trouble paying for medicines?: No Do you have trouble getting transportation to medical appointments?: No Do you have trouble paying your heating and electricity bill?: No Do you have trouble taking care of your child, family member or friend?: No Do you have trouble with day-to-day activities such as bathing, preparing meals, shopping, managing finances, etc.?: No Are you currently unemployed and looking for a job?: No Are you interested in more education?: No Please select the resources that you would like help with: None Currently or been in a relationship where the following occur: no concerns reported THRIVE Score: 0 AUDIT C Alcohol Use Questionnaire (AUDIT-C) 1. How often do you have a drink containing alcohol?: Never Total Score: 0 Score Reviewed/Action Taken: Yes YOLANDA-7 AMB Questionnaire YOLANDA-7 Date YOLANDA - 7 assessed: 11/01/23 Feeling nervous, anxious, or on edge: 0 = Not at all Not being able to stop or control worryin = Not at all Worrying too much about different things: 0 = Not at all Trouble relaxin = Not at all Being so restless that it is hard to sit still: 0 = Not at all Becoming easily annoyed or irritable: 0 = Not at all Feeling afraid as if something awful might happen: 0 = Not at all Total YOLANDA-7 score (0-4 normal; 5-9 mild; 10-14 moderate; 15-21 severe): 0 Source: Developed by Drs. Darrick Harry, Jackie Ramirez, Keyur Krause and colleagues, with an educational jesus from [employer]. YOLANDA-7 Assessment Billing YOLANDA-7 Assessment Tool: YOLANDA-7 Assessment 45110 Physical exam (Primary Care) Vital Signs: Last Vital Signs Pulse 74 11/01/23 09:42 BP 122/60 11/01/23 09:42 Pulse Ox 98 11/01/23 09:42 BMI result Body Mass Index 28.8 Tobacco/Smoking Status: Tobacco use Status Tobacco use date assessed 11/01/23 11/01/23 09:43 Patient Tobacco Use Status Never used Tobacco 11/01/23 09:43 e-Cigarette/Vaping Use Never Used 11/01/23 09:43 PHQ-9: PHQ-9 Score PHQ-9: Total score 0 11/01/23 10:17 Depression Screening Interpretation: Negative Thrive Assessment: Date of Thrive Assessment Date Thrive assessed 11/01/23 11/01/23 09:43 Currently or been in a relationship where the following occur: no concerns reported Const General: cooperative, healthy appearing and no acute distress Chest Other: with turning upper torso side to side, no change in intensity of chest tightness . no increase in pain with palpation of upper chest Chest palpation & inspection: normal inspection of the chest Resp Effort & Inspection: normal respiratory effort Auscultation: clear to auscultation bilaterally Cardio Rate: regular rate Rhythm: regular rhythm Heart sounds: S1 normal heart sound present, S2 normal heart sound present and no murmurs Extrem Right lower extremity: no edema Left lower extremity: no edema Psych Appearance: grossly normal Speech and movement: Normal speech and movement present Affect: normal affect Attitude: cooperative Assessment and Plan Assessment & Plan (1) Chest tightness: Code(s): R07.89 - Other chest pain Plan: stress test scheduled, ekg done (no changes), chest XR ordered. any worsening symptoms, pt needs to go to the ER (pt is aware) Orders: Orders Prostate Specific Antigen Scr Today R35.0 - Frequency of micturition AMB EKG-In Office Today R07.89 - Other chest pain Complete Blood Count Auto Diff Today R07.89 - Other chest pain Comprehensive Met. Panel Today R07.89 - Other chest pain XR chest 2V Today R07.89 - Other chest pain UA CC w/rflx Micro + Cult Today R35.0 - Frequency of micturition TSH reflex Free T4 Today R07.89 - Other chest pain Coding Level of Care Code Est Pt Level 3 (92357) Diagnoses Chest tightness R07.89 Additional Codes YOLANDA-7 Assessment Billing - YOLANDA-7 Assessment Tool: YOLANDA-7 Assessment 65808 ([id number])
== END 2023-11-01 10:59 | disposition home or self-care (01) ==
PROVIDERS: PCP Nurse Practitioner Family; Visit Provider Nurse Practitioner Family
DX: R07.89 Other chest pain (principal)
CPT/HCPCS: 99213

== ENCOUNTER 2023-11-01 10:37 | Outpatient (REF) | payer MEDICARE, SELFPAY ==
--- NOTE | ~2023-11-01 | XR_ITS ---
EXAMINATION: XR CHEST CLINICAL INFORMATION: Chest pain COMPARISON: Chest x-ray March 10, 2020 TECHNIQUE: 2 views of the chest were obtained. FINDINGS: Cardiac silhouette is normal in size. Atherosclerotic disease of the aortic arch. The lungs are well aerated. Subtle linear opacity of the right midlung is most suggestive of atelectasis versus scarring. There is no lobar consolidation present. No pleural effusion or pneumothorax. Mild to moderate degenerative changes of the spine. Similar bone island within the anterior right fifth rib. XR/XR chest 2V IMPRESSION: No acute pulmonary pathology.
[2023-11-01 13:03] LABS: Appearance Urine Clear; Color Urine Yellow; Glucose Urine UA Negative (Negative); Leukocyte Esterase Urine Negative (Negative); Nitrite Urine Negative (Negative); PH 6.5 (5.0-9.0); Urine Blood Negative (Negative); Urine Ketones Negative (Negative); Urine Protein Negative (Neg-Trace)
[2023-11-01 13:25] LABS: MANUAL DIFF FLAG NO
[2023-11-01 13:29] LABS: Basophils Absolute Auto 0.1 X10*3/uL (0.0-0.2); Basophils Percent Auto 0.9 % (0-2); Eosinophils Absolute Auto 0.2 X10*3/uL (0.0-0.4); Eosinophils Percent Auto 3.4 % (0-4); Hematocrit 41.6 % (42.0-52.0); Hemoglobin 13.3 g/dl (14.0-18.0); Imm Gran Abs Auto 0.04 X10*3/uL (0.00-0.03); Imm Gran Pct Auto 0.7 % (0.0-0.4); Lymphocytes Absolute Auto 1.5 X10*3/uL (1.2-4.9); Lymphocytes Percent Auto 27.4 % (20-40); Mean Corpuscular Hemoglobin 28.2 pg (27.0-33.0); Mean Corpuscular Volume 88.1 fL (80.0-98.0); Mean Platelet Volume 9.2 fL (9.4-12.4); Monocytes Absolute Auto 0.5 X10*3/uL (0.1-1.2); Monocytes Percent Auto 8.9 % (2-11); Neutrophils Absolute Auto 3.2 x10*3/uL (2.0-8.3); Neutrophils Percent Auto 58.7 % (45-73); Platelet Count 313 X10*3/uL (160-400); Red Blood Count 4.72 X10*6/uL (4.60-5.80); Red Cell Distribution Width 13.3 % (11.0-16.0); White Blood Count 5.4 X10*3/uL (4.8-10.8)
[2023-11-01 14:36] LABS: Alanine Aminotransferase 31 U/L (0-40); Albumin Level 4.2 g/dL (3.5-5.0); Alkaline Phosphatase 84 U/L (39-117); Anion Gap 7 (12-20); Aspartate Amino Transferase 21 U/L (5-37); Bilirubin Total 0.6 mg/dL (0.0-1.0); Blood Urea Nitrogen 12 mg/dL (9-16); Calcium 8.8 mg/dL (8.4-10.2); Carbon Dioxide 30 mmol/L (22-29); Chloride 107 mmol/L (96-108); Estimated Glomerular Filt Rate > 60; Glucose Random 98 mg/dL (60-115); Potassium 4.1 mmol/L (3.3-5.1); Sodium 140 mmol/L (135-145); Total Protein 6.8 g/dL (6.5-8.0)
[2023-11-01 14:45] LABS: TSH reflex Free T4 1.38 uIU/mL (0.32-4.0)
[2023-11-01 15:03] LABS: Prostate Specific Antigen Scr 1.93 ng/mL (<0.05-4.0)
== END 2023-11-01 10:38 | disposition home or self-care (01) ==
LOC: HO.HMGCX 10:37
PROVIDERS: PCP Nurse Practitioner Family; Visit Provider Nurse Practitioner Family
DX: Z12.5 Encounter for screening for malignant neoplasm of prostate (principal); R07.89 Other chest pain; R35.0 Frequency of micturition
CPT/HCPCS: 36415; 71046; 80053; 81003; 84153; 84443; 85025

== ENCOUNTER → 2023-11-17 08:12 | Outpatient (REF) | payer MEDICARE, SELFPAY ==
--- NOTE | ~2023-11-17 | NM_ITS ---
Lexiscan Myocardial perfusion study Indication: Chest pain to evaluate for myocardial ischemia Technique: The patient was brought in for an exercise perfusion study on 11/17/2023. Patient performed exercise as per Lexiscan protocol and was injected 30 mCi of sestamibi was given intravenously one target HR was achieved. Images were obtained using the SPECT gamma camera interlaced with the gating device. Images were obtained in supine position. Resting perfusion study was performed on 11/20/2023. Patient was administered 30 mCi of sestamibi intravenously at rest. Images were then obtained in supine position. Images obtained with and without CT attenuation. Total DLP 92 mGy-cm. Images were processed with the software and compared side to side in short axis, horizontal long axis and vertical long axis views. Findings: The stress perfusion study showed non attenuated images show large area all severely reduced uptake in the inferior, inferoseptal, inferolateral as well as moderately reduced uptake in the septal and distal anteroseptal as well as mildly reduced uptake in the apex of the LV myocardium. Attenuation corrected images show moderately reduced uptake in the apex and distal septum of the LV myocardium. The gated study shows normal LV systolic function with calculated LVEF of 50%. LV cavity is normal in size. The gated study shows normal systolic wall thickening and contraction of all segments. There is no transient ischemic dilation. Resting study shows no change in perfusion pattern compared to stress perfusion study. Gating at rest reveals normal systolic wall motion with ejection fraction at 56%. The findings are consistent with fixed defect in the apex and distal septum, without any reversible ischemia. There is no evidence of ischemia. Nontransmural infarct of the apex cannot be entirely ruled out, findings possibly related to left bundle branch. NM/NM cardiolite stress test Impression: 1. No evidence of myocardial ischemia 2. Gated LVEF is 57% 3. Transient ischemic dilatation not present Stress EKG is nondiagnostic for ischemia
--- NOTE | 2023-11-17 08:14 | CA_ITS ---
Acquisition Time: 2023-11-17 08:24:12 Total Exercise Time: 00:02:00 Test Indications: CP Medications: SEE MED CHART Protocol: LEXISCAN Max HR: 109 BPM 79% of Pred: 137 BPM Max BP: 152/064 mmHG Max Work Load: 1.0 METS Pharmacological stress test with Lexiscan injection while sitting still. with chronic 3/1`0 chest discomfort, without change in chest discomfort, without SOB, with isolated PVCs, with normotensive response to injection, with nondiagnoisitic EKGs. Aminophylline 75mg IVP given to reverse Lexiscan. Nuclear images pending. Test reviewed with Dr. Robert. Referred By: Chapis Mathews Overread By: Chapis Mathews
== END ==
LOC: HO.CARD 08:12
PROVIDERS: PCP Nurse Practitioner Family; Visit Provider Nurse Practitioner
DX: R07.89 Other chest pain (principal); I44.7 Left bundle-branch block, unspecified
CPT/HCPCS: 78452; 93017; A9500; J0280; J2785

== ENCOUNTER → 2023-11-17 08:14 | Outpatient (BNV) | payer MEDICARE, SELFPAY | PROVIDERS: PCP Nurse Practitioner Family; Visit Provider Nurse Practitioner | DX: R07.9 Chest pain, unspecified (principal) | CPT/HCPCS: 78452; 93016; 93018 ==

== ENCOUNTER 2023-12-15 12:47 | Outpatient (AMB) | payer MEDICARE, SELFPAY ==
[2023-12-15 12:51] VITALS: BP 120/68; PULSE 87; O2SAT 98; BMI 29.1
--- NOTE | 2023-12-15 12:51 | MHC.OFFVIS ---
Vital Signs 12/15/23 12:51 Height 5 ft 5 in Weight 175 lb BMI 29.1 BMI Reason not done Patient refused/unable BP 120/68 Blood Pressure Location Lt brachial Position Sitting Pulse 87 Pulse Source Pulse Oximeter Pulse Oximetry (%) 98 Oxygen Delivery Method Room Air Intake Visit Reasons: 6 wk follow up Intake Note: 6 week follow up after stress test Allergies No Known Allergies Allergy (Mild, Verified 11/01/23 10:20) NONE HPI Comments Details: 83-year-old male presents today regarding his chest discomfort. He states it is a tightness that has become more constant. Intermittently gets more intense but not associated with activities. It is across his upper chest. He denies any shortness of breath, palpitations, or any other symptoms. Otherwise he reports he has been doing well. 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 Cognitive needs: No Hearing needs: No Vision needs: No Review of Systems Const Denies weakness ENT Denies dizziness Card Denies chest pain, Denies chest pain with activity, Denies syncope, Denies rapid heart rate, Denies pedal edema, Denies edema, Denies leg edema, Denies lightheadedness, Denies palpitations, Denies dyspnea, Denies dyspnea on exertion and Denies orthopnea Resp Denies cough, Denies dyspnea and Denies dyspnea on exertion GI Denies hematochezia and Denies change in stool character Musc Denies abnormal gait, Denies muscle cramps, Denies muscle weakness, Denies numbness, Denies radiating pain into limb and Denies tingling Neuro Denies abnormal gait, Denies dizziness, Denies syncope, Denies numbness, Denies tingling and Denies weakness Endo Denies palpitations Physical Exam Vital Signs: Last Vital Signs Pulse 87 12/15/23 12:51 BP 120/68 12/15/23 12:51 Pulse Ox 98 12/15/23 12:51 Oxygen Delivery Method Room Air 12/15/23 12:51 BMI result Body Mass Index 29.1 Const General: healthy appearing and no acute distress Orientation/consciousness: patient oriented x3 HEENT Head: Yes normal to inspection Eyes General: appearance normal, both eyes and all related structures Neck Neck: Yes normal visual inspection Chest Chest palpation & inspection: normal inspection of the chest Resp Effort & Inspection: normal respiratory effort Auscultation: clear to auscultation bilaterally Cardio Jugular venous distension: no JVD Palpation: normal PMI Rate: regular rate Rhythm: regular rhythm Heart sounds: S1 normal heart sound present, S2 normal heart sound present, no click, no gallops, no murmurs and no rubs GI Inspection: Yes normal to inspection Palpation (GI): Soft to palpation Skin General skin exam: no rashes or lesions noted Neuro General: patient oriented x3 Extrem General: Yes normal to inspection Psych Appearance: grossly normal Results Reviewed Results Reviewed: NM/NM cardiolite stress test Impression: 1. No evidence of myocardial ischemia 2. Gated LVEF is 57% 3. Transient ischemic dilatation not present Assessment & Plan Assessment & Plan (1) Chest tightness: Code(s): R07.89 - Other chest pain Category: Medical (2) HTN (hypertension): Code(s): I10 - Essential (primary) hypertension Category: Medical Plan Normal myocardial perfusion. Patient reports he is still getting tightness across his upper chest along with some hand numbness at night during sleep. He is going to address this with his primary care provider. Reports blood pressures have been good - within range today.
== END 2023-12-15 13:02 | disposition home or self-care (01) ==
PROVIDERS: PCP Nurse Practitioner Family; Visit Provider Nurse Practitioner
DX: R07.89 Other chest pain (principal); I10 Essential (primary) hypertension
CPT/HCPCS: 99213

== ENCOUNTER → 2023-12-15 12:47 | Outpatient (BNVA) | payer MEDICARE, SELFPAY | PROVIDERS: PCP Nurse Practitioner Family; Visit Provider Nurse Practitioner | DX: R07.89 Other chest pain (principal); I10 Essential (primary) hypertension | CPT/HCPCS: 99212 ==

== ENCOUNTER 2024-02-01 10:46 | Outpatient (AMB) | payer MEDICARE, SELFPAY ==
--- NOTE | 2024-02-01 11:06 | MHC.OFFVIS ---
Intake Visit Reasons: ov- Carpal tunnel syndrome, bilateral Intake Note: This is an 83 year old male who presents for bilateral Carpal Tunnel Syndrome. He reports lots of pain in both hands, however he had an injection last time he was here and it worked well. At night the pain gets worse. Allergies No Known Allergies Allergy (Mild, Verified 02/01/24 11:10) NONE Medication List - Last Reconciled 02/01/24 by Juana Vallejo, RN amlodipine 10 mg PO DAILY aspirin (Adult Low Dose Aspirin) 81 mg PO DAILY atorvastatin 40 mg PO DAILY blood pressure monitor As directed lisinopril 40 mg PO DAILY 90 days multivitamin 1 tab PO DAILY omega 5-rty-vru-fish oil 1,000 mg (120 mg-180 mg) (Fish Oil) 1 cap PO BID vit C,W-Aa-uypfr-lutein-zeaxan 250-90-40-1 mg (PreserVision AREDS-2) 1 tab PO BID [wrist splint wear all night & as much as possible throughout the day] HPI Comments Details: Patient being treated by Rheumatology Dr. Capps for bilateral de Quervain tenosynovitis. Refered to orthopedics for Carpal Tunnel Syndrome management. EMG already done, see below. We tried right carpal tunnel injection done 04/20/2023. With very good improvement at lasted up to 2 months ago. For the last 2 months, patient's pain has been much more severe. Now affecting both hands. Wakes him up at night. He mentions that all his fingers are numb. [facility] Medical History (Updated 02/01/24 @ 13:26 by Naomie Castillo MD) Carpal tunnel syndrome, bilateral Ulnar neuropathy at elbow Abdominal pain Kidney stones Cervical radiculopathy Dyslipidemia HTN (hypertension) Cervical arthritis Surgical History Status post right partial knee replacement History of left knee replacement H/O colonoscopy Family History Father HTN (hypertension) Diabetes Mother History of colon cancer Social History Housing: House Alcohol intake: never Patient Tobacco Use Status: Never used Tobacco e-Cigarette/Vaping Use: Never Used Second Hand Smoke Exposure: No 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al status: retired 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 MSK: No joint effusion noted. No deformity noted. No intrinsic hand weakness noted. Thinning noted on right APB muscle. Emmanuel test negative. Carpal compression test positive wrist bilateral. Tinel sign positive elbow bilateral. Strength is 5/5 in all muscle groups tested. No increased tone noted. Neurological: Neurologic examination of the upper and lower extremities was nonfocal with intact sensation, muscle stretch reflexes and without focal motor deficits . Tirado?s negative bilaterally. Gait is non-antalgic without loss of balance. Results Reviewed Results Reviewed: I independently reviewed the results of the following: EMG done by Dr. Erazo 02/02/2023 showed bilateral Carpal Tunnel Syndrome moderate and bilateral ulnar neuropathy with slowing of conduction velocity at the elbow. Assessment & Plan Assessment & Plan (1) Carpal tunnel syndrome, bilateral: Code(s): G56.03 - Carpal tunnel syndrome, bilateral upper limbs Category: Medical (2) Ulnar neuropathy at elbow: Code(s): G56.20 - Lesion of ulnar nerve, unspecified upper limb Category: Medical Qualifiers: Laterality: right Qualified Code(s): G56.21 - Lesion of ulnar nerve, right upper limb Plan EMG done by Dr. Erazo showed bilateral Carpal Tunnel Syndrome and ulnar neuropathy at the elbow. Patient had good relief but temporary from right Carpal Tunnel Syndrome injection done last March. We discussed possibility of surgical management of both carpal tunnel and ulnar neuropathy. Patient would like to proceed. We will arrange for him to meet Dr. Murphy. For the time being, patient advised to wear wrist splints at night, which we will provide. Assessment and plan discussed with patient, and patient was agreeable. All questions were answered thoroughly. Naomie Castillo MD, CHERELLE Board Certified, [place] Board of Physical Medicine and Rehabilitation (ABPMR) Board Certified, [place] Board of Electrodiagnostic Medicine (ABEM) Orders: Referrals Orthopedics Referral G56.03 - Carpal tunnel syndrome, bilateral upper limbs, G56.20 - Lesion of ulnar nerve, unspecified upper limb Coding Level of Care Code Est Pt Level 3 (46460) Diagnoses Carpal tunnel syndrome, bilateral G56.03 Ulnar neuropathy at elbow of right upper extremity G56.21 Laterality: right
== END 2024-02-01 11:32 | disposition home or self-care (01) ==
PROVIDERS: PCP Nurse Practitioner Family; Visit Provider Physical Medicine & Rehabilitation
DX: G56.03 Carpal tunnel syndrome, bilateral upper limbs (principal); G56.21 Lesion of ulnar nerve, right upper limb
CPT/HCPCS: 99213

== ENCOUNTER → 2024-02-01 10:46 | Outpatient (BNVA) | payer MEDICARE, SELFPAY | PROVIDERS: PCP Nurse Practitioner Family; Visit Provider Physical Medicine & Rehabilitation | DX: G56.03 Carpal tunnel syndrome, bilateral upper limbs (principal); G56.21 Lesion of ulnar nerve, right upper limb | CPT/HCPCS: 99212 ==

== ENCOUNTER 2024-02-05 08:48 | Outpatient (AMB) | payer MEDICARE, SELFPAY ==
--- NOTE | 2024-02-05 08:53 | A.OFFVIS_ITS ---
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: No Accompanied by: Self / Same As Patient Allergies No Known Allergies Allergy (Mild, Verified 02/01/24 11:10) NONE Medication List - Last Reconciled 02/05/24 by Ricky Smith MD amlodipine 10 mg PO DAILY aspirin (Adult Low Dose Aspirin) 81 mg PO DAILY atorvastatin 40 mg PO DAILY blood pressure monitor As directed lisinopril 40 mg PO DAILY 90 days multivitamin 1 tab PO DAILY omega 1-dje-fbi-fish oil 1,000 mg (120 mg-180 mg) (Fish Oil) 1 cap PO BID vit C,S-Ai-ycwqg-lutein-zeaxan 250-90-40-1 mg (PreserVision AREDS-2) 1 tab PO BID [wrist splint wear all night & as much as possible throughout the day] HPI Comments Details: 83-year-old pleasant gentleman. He had an ECG which showed LBBB. LBBB is an old finding based on his previous ECGs. He had echo which showed normal LVEF and no valvular pathologies. He also had a Holter for 24 hours which did not show any heart block or arrhythmia. He occasionally gets a buzzing feeling on the left side of his chest. He had same symptoms while wearing his monitor and nothing was found. He denies any limiting chest discomfort, SOB or dizziness. No orthopnea or PND. He has back and joint issues. He had knee surgery on left. Clinically has been stable. He returns today and has been doing well. No chest pain or shortness of breath physically active and has no exertional symptoms. Repeat echocardiography in December 2021 has shown normal biventricular function. 08/14/2023: He returns for follow-up. He has been doing well. He has been experiencing some allergies and just use some Afrin. His blood pressure is m ildly elevated. He has been noticing his blood pressures to be normal at home. He is saying that he just use the Afrin and maybe that played a role in that. He also has been experiencing off and on central chest discomfort. He is unable to say whether this is with exertion or rest. He is saying he does not last long. Saying he is very active and has no functional limitations currently. 02/05/24: He is here for follow-up. He is denying any dyspnea. He still has very slight chest pressure which she is describing as 1/10 which is present the time. There is no exertional worsening. He had nuclear stress test in 10/2023 which was normal. Blood pressure is well controlled. He is planning to do carpal tunnel surgery. [facility] Medical History (Updated 02/05/24 @ 09:09 by Ricky Smith MD) Carpal tunnel syndrome, bilateral Ulnar neuropathy at elbow Abdominal pain Kidney stones Cervical radiculopathy Dyslipidemia HTN (hypertension) Cervical arthritis Surgical History Status post right partial knee replacement History of left knee replacement H/O colonoscopy Family History Father HTN (hypertension) Diabetes Mother History of colon cancer Social History Housing: House Alcohol intake: never Patient Tobacco Use Status: Never used Tobacco e-Cigarette/Vaping Use: Never Used Second Hand Smoke Exposure: No 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al status: retired 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 Cognitive needs: No Hearing needs: No Vision needs: No Review of Systems Const Denies chills, Denies fatigue, Denies fever(s), Denies frequent falls, Denies weakness, Denies weight gain and Denies weight loss ENT Denies dizziness Card Denies chest pain, Denies leg edema, Denies lightheadedness, Denies palpitatio ns, Denies dyspnea and Denies dyspnea on exertion Resp Denies cough, Denies dyspnea and Denies dyspnea on exertion GI Denies hematochezia Musc Denies abnormal gait, Denies muscle weakness, Denies numbness, Denies radiating pain into limb and Denies tingling Neuro Denies abnormal gait, Denies dizziness, Denies frequent falls, Denies numbness, Denies tingling and Denies weakness Endo Denies fatigue and Denies palpitations Physical Exam Vital Signs: Last Vital Signs Pulse 69 02/05/24 08:54 BP 130/60 02/05/24 08:54 BMI result Body Mass Index 28.6 GENERAL APPEARANCE: in no acute distress, pleasant. NECK: no carotid bruit, no jugular venous distention. SKIN: no suspicious lesions, warm and dry. HEART: no murmurs, regular rate and rhythm. LUNGS: clear to auscultation bilaterally. ABDOMEN: soft, nontender. EXTREMITIES: no edema. PERIPHERAL PULSES: equal. NEUROLOGIC: No gross deficits, AAO X 3 Assessment & Plan Assessment & Plan (1) HTN (hypertension): Code(s): I10 - Essential (primary) hypertension Category: Medical (2) LBBB (left bundle branch block): Code(s): I44.7 - Left bundle-branch block, unspecified Category: Medical (3) Preop cardiovascular exam: Code(s): Z01.810 - Encounter for preprocedural cardiovascular examination Category: Medical Plan Pleasant 83-year-old gentleman who is here for follow-up. He has chronic left bundle-branch block. Previously echocardiography has shown preserved LV function. He was complaining of some chest discomfort and he underwent nuclear stress test in 10/2023 which did not show any perfusion defect. He wants to undergo carpal tunnel release. I think he is intermediate risk for perioperative complications. He can follow-up with us in 1 year. He should have yearly lipid panel. Thank you for allowing me to participate in the care of your patient. Please feel free to contact me if you have any questions. Coding Level of Care Code Est Pt Level 4 (47859) Diagnoses HTN (hypertension) I10 LBBB (left bundle branch block) I44.7 Preop cardiovascular exam Z01.810
[2024-02-05 08:54] VITALS: BP 130/60; PULSE 69; BMI 28.6
== END 2024-02-05 09:08 | disposition home or self-care (01) ==
PROVIDERS: PCP Nurse Practitioner Family; Visit Provider Internal Medicine Cardiovascular Disease
DX: I10 Essential (primary) hypertension (principal); I44.7 Left bundle-branch block, unspecified; Z01.810 Encounter for preprocedural cardiovascular examination
CPT/HCPCS: 99214

== ENCOUNTER → 2024-02-05 08:48 | Outpatient (BNVA) | payer MEDICARE, SELFPAY | PROVIDERS: PCP Nurse Practitioner Family; Visit Provider Internal Medicine Cardiovascular Disease | DX: Z01.810 Encounter for preprocedural cardiovascular examination (principal); I44.7 Left bundle-branch block, unspecified; I10 Essential (primary) hypertension | CPT/HCPCS: 99212 ==

== ENCOUNTER 2024-03-05 09:12 | Outpatient (AMB) | payer MEDICARE, SELFPAY ==
--- NOTE | 2024-03-05 09:14 | A.OFFPC_ITS ---
Vital Signs 03/05/24 09:16 Height 5 ft 5 in Weight 172 lb BMI 28.6 BP 120/78 Blood Pressure Location Lt brachial Position Sitting Pulse 66 Pulse Source Pulse Oximeter Pulse Oximetry (%) 98 Oxygen Delivery Method Room Air Intake Visit Reasons: 3 month follow up Intake Note: Patient here to follow up after last visit (chest tightness). pt would also like to discuss bilat carpal tunnel. Allergies No Known Allergies Allergy (Mild, Verified 03/05/24 09:17) NONE Tobacco use date assessed: 11/01/23 Fall risk assessment: No Falls in past year Last assessed Fall Risk: 03/05/24 Dental Screening Dental Screen Date: 11/01/23 HPI 3 month follow up HPI Details Pt c/o a prickling sensation in his left upper chest. This is not worse with activity but is more tender with palpation. It's like a sliver is in my skin. Will order US. Pt c/o hearing loss. He reports that this has been present since having shingles. Will refer to speech and hearing. Denies fever, chills, and dizziness. Did go over the definition of Post Herpetic Neuralgia . [facility] Medical History Carpal tunnel syndrome, bilateral Ulnar neuropathy at elbow Abdominal pain Kidney stones Cervical radiculopathy Dyslipidemia HTN (hypertension) Cervical arthritis Surgical History Status post right partial knee replacement History of left knee replacement H/O colonoscopy Family History Father HTN (hypertension) Diabetes Mother History of colon cancer Social History Housing: House Alcohol intake: never Patient Tobacco Use Status: Never used Tobacco e-Cigarette/Vaping Use: Never Used Second Hand Smoke Exposure: No 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al status: retired 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 Darrick Harry, Jackie Ramirez, Keyur Krause and colleagues, with an educational jesus from [employer]. YOLANDA-7 Assessment Billing YOLANDA-7 Assessment Tool: pt declined-do not bill Review of Systems Const Reports as per HPI Physical exam (Primary Care) Vital Signs: Last Vital Signs Pulse 66 03/05/24 09:16 BP 120/78 03/05/24 09:16 Pulse Ox 98 03/05/24 09:16 Oxygen Delivery Method Room Air 03/05/24 09:16 BMI result Body Mass Index 28.6 Tobacco/Smoking Status: Tobacco use Status Tobacco use date assessed 11/01/23 03/05/24 09:15 Patient Tobacco Use Status Never used Tobacco 03/05/24 09:15 e-Cigarette/Vaping Use Never Used 03/05/24 09:15 Thrive Assessment: Date of Thrive Assessment Date Thrive assessed 11/01/23 03/05/24 09:15 Const General: cooperative Orientation/consciousness: patient oriented x3 HENMT Ears: TM's normal bilaterally Chest Other: no pain with palpation of left breast, no masses or lumps palpated Resp Effort & Inspection: normal respiratory effort Auscultation: clear to auscultation bilaterally Cardio Rate: regular rate Rhythm: regular rhythm Heart sounds: S1 normal heart sound present and S2 normal heart sound present Neuro General: patient oriented x3 Extrem Right lower extremity: no edema Left lower extremity: no edema Psych Appearance: grossly normal Mental Status: mental status grossly normal Speech and movement: Normal speech and movement present Affect: normal affect Attitude: cooperative Thought process: Normal thought process present Thought content: Normal thought content present Insight: Good insight present (Psych) Judgement: Good judgement present (Psych) Immunizations pneumoc 20-josue conj-dip cr(PF) 0.5 mL IM syringe Performing Provider: BRIDGET Dee Performing Location: [facility] Administered by: SHEILA Adames on 03/05/24 09:56 Dose Route Admin Location Dispensed Lot Number Expiration Date [employer]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 Pain noted with palpation (intermittent), does not sound cardiac related. Plan The patient agreed to the use of a infertility medical assistant for this encounter. Scribed for BRITTA Aparicio-NOEL by Melissa Cardoza infertility medical assistant, on 03/05/2024 at 09:30 EST. Orders: Orders US breast LT complete Today R20.2 - Paresthesia of skin Pneumococcal 20 Immunization Today Z23 - Encounter for immunization Referrals Speech and Hearing Referral H91.90 - Unspecified hearing loss, unspecified ear Coding Level of Care Code Est Pt Level 3 (66599) Diagnoses Loss of hearing H91.90 Prickling sensation R20.2
[2024-03-05 09:16] VITALS: BP 120/78; PULSE 66; O2SAT 98; BMI 28.6
== END 2024-03-05 09:57 | disposition home or self-care (01) ==
PROVIDERS: PCP Nurse Practitioner Family; Visit Provider Nurse Practitioner Family
DX: H91.90 Unspecified hearing loss, unspecified ear (principal); R20.2 Paresthesia of skin; Z23 Encounter for immunization
CPT/HCPCS: 90471; 90677; 99213

== ENCOUNTER 2024-03-06 10:55 | Outpatient (AMB) | payer MEDICARE, SELFPAY ==
--- NOTE | 2024-03-06 11:14 | MHC.OFFVIS ---
Intake Visit Reasons: OV- b/l CTR Intake Note: Cruz is a 83 year old male who presents today with complaints of bilateral hand numbness and tingling. EMG done on 02/02/23. Left greater than right. He expresses he has been having on going continued pain in both hands for many months. During the day his hands do not bother him as much as they do at night, he expresses the numbness and tingling does not allow him to get a good night sleep. He utilities braces which he is not finding much relief with. He would like to discuss surgery today. Hx of high blood pressure but states yesterday at high physical is was in the 120/70 range. Allergies No Known Allergies Allergy (Mild, Verified 03/06/24 11:28) NONE HPI HPI OV- b/l CTR: Details: Cruz is an 83 year old right hand dominant man who presents for a NCS review of his bilateral hand numbness. He complains of numbness in all fingers of his hands, L>R. Symptoms intermittent, but daily, worse at night. He says he is somewhat unsure if his small fingers go numb, but he feels like his whole hand goes numb at night. He says he has difficulty sleeping due to his numbness, as well as pain which worsens at night. He says during the day when he is active his sensation is better. He finds little relief from bracing, he denies any other treatment options. He would like to proceed with surgery as soon as possible. 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 Cognitive needs: No Hearing needs: No Vision needs: No Review of Systems Const All systems reviewed & are unremarkable except as noted in HPI and below Physical Exam Const General: cooperative, healthy appearing and no acute distress Orientation/consciousness: patient oriented x3 HEENT Head: Yes normocephalic and Yes atraumatic Eyes EOM: EOMs intact bilaterally Resp Effort & Inspection: normal respiratory effort and able to speak in complete sentences Cardio Jugular venous distension: no JVD Skin General skin exam: turgor normal Rashes: no rashes Neuro General: patient oriented x3 Extrem Other: Evaluation of Bilateral Upper Extremity: The patient is alert, oriented, and in no acute distress Neuro: Median, Ulnar, Radial nerves motor and sensory intact and sensation is normal to the tips of all digits No thenar or intrinsic wasting Good APB muscle belly firing and good finger cross Vascular: Cap refill brisk ROM: He can make a fist and extend all his digits No locking or catching Skin: No lacerations or abrasions. General: No Ecchymosis. No Erythema or evidence of infection. Nerve Conduction Study: IMPRESSION: 1. Yfox-iv-uimlmhpc bilateral median neuropathy across carpal tunnel. 2. Mild bilateral ulnar neuropathy across cubital tunnel. 3. Chronic right mid cervical radiculopathy. Wesley Erazo MD 02/02/2023 Psych Appearance: grossly normal Affect: normal affect Attitude: cooperative Assessment & Plan Assessment & Plan (1) Carpal tunnel syndrome, bilateral: Code(s): G56.03 - Carpal tunnel syndrome, bilateral upper limbs Category: Medical (2) Cubital tunnel syndrome, bilateral: Code(s): G56.23 - Lesion of ulnar nerve, bilateral upper limbs Category: Medical (3) Right cervical radiculopathy: Comment: Seen on NCS, 02/02/23 Code(s): M54.12 - Radiculopathy, cervical region Category: Medical (4) Loss of hearing: Code(s): H91.90 - Unspecified hearing loss, unspecified ear Category: Medical Plan Assessment & Plan: 1. Left carpal tunnel syndrome, mild-moderate Symptoms intermittent, but daily, worse at night 2. Left cubital tunnel syndrome, mild Symptoms intermittent, but daily, worse at night, and he is unsure whether or not he gets numbness in the small finger at this time. I educated him about this condition I discussed operative and non-operative treatment options The patient would like to proceed with surgery, beginning with the left side Prior to his surgery he will evaluate if his small finger does go numb daily, if it does not then he may not need a cubital tunnel release. He will call our office to let us know. If he is not having problems with numbness in the small finger then we will change the surgery to a carpal tunnel release only, and under local anesthesia The risks and benefits of operative treatment were discussed with the patient and the patient wishes to proceed with surgery. These risks include, but are not limited to risk of damage to blood vessels, nerves, tendons, infection, recurrence, incomplete relief of preoperative symptoms, persistent pain, possible need for further surgery and the risks associated with regional blocks and anesthesia. The plan is to take the patient to the operating room sometime in the next few weeks for the following procedures: 1. Left carpal tunnel release, under general 2. Left cubital tunnel release vs transposition, under general All of the preoperative paperwork including the consent was reviewed today. All the patient's questions were answered. The patient understands that they will be contacted by our ingot header soon to schedule this procedure. He would like to have this done as soon as possible and is available on short notice He denies Diabetes, blood thinners, asthma, lung, kidney issues He has some hearing loss, and a Hx of a LBBB. 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 3. Right carpal tunnel syndrome, mild-moderate Symptoms intermittent, but daily, worse at night 4. Right cubital tunnel syndrome, mild Symptoms intermittent, but daily, worse at night Also with chronic right mid-cervical radiculopathy seen on NCS Not as bothersome today compared to his left side We can discuss treatment options when his left side has recovered Scribed for Luisa Murphy MD by Miki Blandon, medical office professional instructor, on 03/06/24 at 12:05 PM, EST. Coding Level of Care Code New Pt Level 4 (53668) Diagnoses Carpal tunnel syndrome, bilateral G56.03 Cubital tunnel syndrome, bilateral G56.23 Right cervical radiculopathy M54.12 Loss of hearing H91.90
== END 2024-03-06 15:26 | disposition home or self-care (01) ==
PROVIDERS: PCP Nurse Practitioner Family; Visit Provider Orthopaedic Surgery
DX: G56.03 Carpal tunnel syndrome, bilateral upper limbs (principal); G56.23 Lesion of ulnar nerve, bilateral upper limbs
CPT/HCPCS: 99214

== ENCOUNTER → 2024-03-06 10:55 | Outpatient (BNVA) | payer MEDICARE, SELFPAY | PROVIDERS: PCP Nurse Practitioner Family; Visit Provider Orthopaedic Surgery | DX: G56.03 Carpal tunnel syndrome, bilateral upper limbs (principal); G56.23 Lesion of ulnar nerve, bilateral upper limbs; H91.90 Unspecified hearing loss, unspecified ear | CPT/HCPCS: 99212 ==

== ENCOUNTER 2024-04-04 10:20 | Outpatient (REF) | payer MEDICARE, SELFPAY | END 2024-04-04 10:21 | disposition home or self-care (01) | LOC: HO.SH 10:20 | PROVIDERS: Visit Provider Nurse Practitioner Family | DX: Z01.118 Encounter for examination of ears and hearing with other abnormal findings (principal); H90.3 Sensorineural hearing loss, bilateral | CPT/HCPCS: 92557; 92567 ==

== ENCOUNTER 2024-04-10 13:16 | Outpatient (REF) | payer MEDICARE, SELFPAY ==
--- NOTE | ~2024-04-10 | MM_ITS ---
EXAMINATION: MM DIAGNOSTIC DIGITAL BREAST TOMOSYNTHESIS, BILATERAL US BREAST LIMITED, LEFT MAMMOGRAPHY: CLINICAL INFORMATION: 83-year-old male complaining of left breast complaining sensation upper inner quadrant. Patient states it feels like a splinter or piece of metal underneath the skin. No history of metal working or woodworking. No family history of breast CVA. COMPARISON: Mammography: None. Baseline exam. TECHNIQUE: Digital breast tomosynthesis is performed in both the craniocaudal and mediolateral oblique views along with computer-aided detection (CAD). Synthesized 2D images are generated from the tomosynthesis. FINDINGS: The breasts are almost entirely fatty (ACR BI-RADS breast composition Category a). There is mild bilateral retroareolar gynecomastia identified. There is otherwise no suspicious masses, suspicious grouped calcifications, or area of architectural distortion in either breast. Mildly prominent but nonpathologic lymph nodes are noted in the left axilla, presumably reactive. There is no skin abnormality or right axillary abnormality. There is no finding in the left breast correlate with paresthesias in the upper inner quadrant. ULTRASOUND: CLINICAL INFORMATION: As above. COMPARISON: None TECHNIQUE: Targeted sonographic left breast evaluation was performed using a high frequency linear transducer. Left breast was scanned in the upper inner quadrant to include the area of concern. Selected archived documentation. FINDINGS: LEFT BREAST: There is no mass, cystic abnormality, area of architectural distortion, or abnormal shadowing identified. No ultrasonographic correlate to the region of paresthesia. MM/MM tomosynthesis diagnostic BI IMPRESSION: -There are no findings suspicious for malignancy in either breast. -Mild gynecomastia bilaterally retroareolar regions. This is benign. -There is no sonographic or mammographic correlate to the focus of paresthesias in the upper inner left breast. Recommend clinical management and follow-up. OVERALL ASSESSMENT: Mammography: BI-RADS 2 - Benign Findings Ultrasound: BI-RADS 2 - Benign Findings RECOMMENDATION: 1. Patient should be managed based on the clinical impression. Results were provided to the patient at time of visit by the technologist.
== END 2024-04-10 13:17 | disposition home or self-care (01) ==
LOC: HO.MAMMO 13:16
PROVIDERS: PCP Nurse Practitioner Family; Visit Provider Nurse Practitioner Family
DX: R20.2 Paresthesia of skin (principal); N62 Hypertrophy of breast
CPT/HCPCS: 76642; 77062; 77066

== ENCOUNTER → 2024-04-10 13:30 | Outpatient (BNV) | payer MEDICARE, SELFPAY | PROVIDERS: PCP Nurse Practitioner Family; Visit Provider Radiology Diagnostic Radiology | DX: N64.4 Mastodynia (principal) | CPT/HCPCS: 76642; 77066; G0279 ==

== ENCOUNTER 2024-04-18 09:53 | Day surgery (SDC) | payer MEDICARE, SELFPAY ==
--- NOTE | 2024-04-18 10:43 | MHC.SHP ---
Pre-Procedural Eval Section A - 24 Hr Update-Section A only Date of Service: 04/18/24 The patient is an INPATIENT: No Changes since office visit: No Cold of Flu in the past 2 weeks, No New Medical Problems, No Changes in Medication and No Patient answered all questions The patient has been examined within 24 hours of the surgical procedure. The History & Physical has been completed within 30 days and I have reviewed it.: Yes Section B - Complete if H&P > 30 days Chief Complaint: Carpal tunnel syndrome, left upper limb Allergies: Allergies Allergy/AdvReac Type Severity Reaction Status Date / Time No Known Allergies Allergy Mild NONE Verified 04/18/24 10:17 Plan Diagnosis/Plan: Unchanged I have reviewed the history and physical and performed a pertinent physical examination on my patient. No changes have occurred unless specified. Time Spent With Patient Time: Total time managing care of this patient today ____ minutes.
--- NOTE | 2024-04-18 10:44 | P.OP_ITS ---
Operative Note Operative Note Date of Service: 04/18/24 Narrative: Preop diagnosis: 1. Left Carpal tunnel syndrome Postop diagnosis: same Procedure: 1. Left Carpal tunnel release Surgeon: Luisa Murphy MD Mortician Investigator: Neville RAIN Anesthesia: local block using 1% lidocaine with epinephrine Findings: Thickened transverse carpal ligament. EBL: Less than 5 mL Specimens: None Complications: None Disposition: Brought to recovery room in stable condition Plan: Follow-up for 10-14 days for wound check and suture removal Indications: The patient is 83 years old, with left carpal tunnel syndrome that has been unresponsive to nonoperative management. The risks and benefits of operative treatment including but not limited to risk of damage to blood vessels, nerves, tendons, infection, persistent pain, persistent symptoms, or possible need for additional surgery were discussed with the patient and the patient wishes to proceed with surgery. Procedure: Once consent was obtained a local block was performed using a combination of 1% lidocaine with epinephrine. The patient was then brought back to the operating suite and placed on the operative table in supine position. The left upper extremity was prepped and draped in a standard surgical fashion. Once assured that we had a good block, a 2.0 cm longitudinal incision was made centered over the carpal tunnel. The incision was made through the skin to the subcutaneous tissues using a #15 blade. Dissection was made down to the level of the transverse carpal ligament with care being taken to protect the palmar cutaneous nerve. Once the transverse carpal ligament was clearly visualized, a longitudinal incision was made in the transverse carpal ligament 1st using a #15 blade, then using tenotomy scissors under direct visualization. Care was taken to look for and protect the motor branch of the median nerve when seen in this area. Once satisfied with our carpal tunnel release the wound was copiously irrigated with normal saline and hemostasis was obtained with a brief period of local pressure. The skin edges were reapproximated with some 5.0 nylon suture material and a sterile dressing was applied. The patient appears to have tolerated the procedure well and with no complications. All digits were well vascularized at the conclusion of the case.
[2024-04-18 11:12] VITALS: BP 151/67; PULSE 75; RESP 18; TEMP 36.8; O2SAT 96; BMI 26.3
[2024-04-18 12:24] VITALS: BP 138/64; PULSE 69; RESP 16; O2SAT 98
== END 2024-04-18 12:25 | disposition home or self-care (01) ==
PROVIDERS: PCP Nurse Practitioner Family; Visit Provider Orthopaedic Surgery
PROC: (CPT 64721; principal; 2024-04-18 11:10)
DX: G56.02 Carpal tunnel syndrome, left upper limb (principal); R20.0 Anesthesia of skin; R20.2 Paresthesia of skin; G56.20 Lesion of ulnar nerve, unspecified upper limb; M54.12 Radiculopathy, cervical region; I10 Essential (primary) hypertension; H91.90 Unspecified hearing loss, unspecified ear; E78.5 Hyperlipidemia, unspecified; Z96.653 Presence of artificial knee joint, bilateral
CPT/HCPCS: 64721; J0171

== ENCOUNTER → 2024-04-18 09:53 | Outpatient (BNV) | payer MEDICARE, SELFPAY | PROVIDERS: PCP Nurse Practitioner Family; Visit Provider Orthopaedic Surgery | DX: G56.02 Carpal tunnel syndrome, left upper limb (principal) | CPT/HCPCS: 64721 ==

== ENCOUNTER 2024-05-01 12:42 | Outpatient (AMB) | payer MEDICARE, SELFPAY ==
[2024-05-01 12:45] VITALS: BMI 26.3
--- NOTE | 2024-05-01 12:45 | A.OFFVIS_ITS ---
Vital Signs 05/01/24 12:45 Height 5 ft 8 in Weight 173 lb BMI 26.3 Intake Visit Reasons: PO LT CTR 04/18/24 AR Intake Note: Cruz is an 83 year old male who presents today for a post operative appointment s/p Left Carpal Tunnel Release 04/18/24. Patient reports that he is doing well with pain, numbness and tingling resolving. Sutures removed and steri strip applied Allergies No Known Allergies Allergy (Mild, Verified 05/01/24 12:51) NONE HPI HPI PO LT CTR 04/18/24 AR: Details: Patient is an 83-year-old male who presents for postoperative evaluation status post left carpal tunnel release, DOS 04/18/2024. Today, the patient reports that he is feeling well, and then he has no acute concerns. Patient reports that the numbness and tingling he had previously been experiencing in his left hand has since resolved, and that the pain he was experiencing in both hands has resolved, although he has not had any intervention on the right side. The patient does report that he was experiencing pain if he attempted to push himself up from a seated position using the left hand, but this has improved significantly since DOS. Sutures removed and Steri-Strips applied. No other acute complaints or concerns at this time. [facility] Medical History Carpal tunnel syndrome, bilateral Ulnar neuropathy at elbow Abdominal pain Kidney stones Cervical radiculopathy Dyslipidemia HTN (hypertension) Cervical arthritis Surgical History Status post right partial knee replacement History of left knee replacement H/O colonoscopy Family History Father HTN (hypertension) Diabetes Mother History of colon cancer Social History Housing: House Are you a primary childcare director to a significant other at home: No Do you presently have visiting nurse or other home services: No Alcohol intake: never Patient Tobacco Use Status: Former Tobacco user e-Cigarette/Vaping Use: Never Used Second Hand Smoke Exposure: No 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al status: retired 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 Neuro: Patient reports normal sensation of the tips of all digits of the left hand Vascular: Cap refill brisk Pain: Patient reports no tenderness to palpation about the incision site. ROM: Patient is able to make a fist and extend all digits of the left hand fully without difficulty Wrist range of motion smooth, full, intact Skin: No lacerations or abrasions. General: No ecchymosis, erythema, or evidence of infection. Psych: Appears grossly normal Affect normal Attitude cooperative Assessment & Plan Assessment & Plan (1) Carpal tunnel syndrome, bilateral: Code(s): G56.03 - Carpal tunnel syndrome, bilateral upper limbs Category: Medical Plan 1. Carpal tunnel syndrome, left, status post carpal tunnel release DOS 04/18/2024 Patient appears to be recovering well postoperatively Patient is educated about the typical recovery course Patient is reminded that he should not be lifting anything heavier than a cell phone in his left hand for a further 2 weeks Due to patient having good range of motion and lack of discomfort, t occupational hand therapy is not necessary at this time Patient does not require any acute follow-up for postoperative evaluation Patient will follow-up as needed with any acute concerns 2. Carpal tunnel syndrome, right Symptoms intermittent, not daily, worse at night. At this time, the patient does not warrant that his right carpal tunnel syndrome warrants further treatment, as he feels that his symptoms have improved since surgery on the left Patient states that he will follow-up with us when his symptoms are intermittent, but almost daily, to avoid progression to dense numbness in the increased risk of not getting normal sensation back with surgery Patient will follow-up as needed with any acute concerns Coding Level of Care Code Global (96304) Diagnoses Carpal tunnel syndrome, bilateral G56.03
== END 2024-05-01 13:12 | disposition home or self-care (01) ==
PROVIDERS: PCP Nurse Practitioner Family
DX: G56.03 Carpal tunnel syndrome, bilateral upper limbs (principal)
CPT/HCPCS: 99024

== ENCOUNTER → 2024-05-01 12:42 | Outpatient (BNVA) | payer MEDICARE, SELFPAY | PROVIDERS: PCP Nurse Practitioner Family | DX: Z47.89 Encounter for other orthopedic aftercare (principal); G56.01 Carpal tunnel syndrome, right upper limb; Z98.890 Other specified postprocedural states | CPT/HCPCS: 99212 ==

== ENCOUNTER 2024-05-03 06:15 | Outpatient (REF) | payer MEDICARE, SELFPAY ==
[2024-05-03 11:44] LABS: CDiff Gene PCR NEGATIVE (Negative)
[2024-05-03 12:41] LABS: Adenovirus F 40/41 Not Detected (Not Detect.); Astrovirus Not Detected (Not Detect.); Campylobacter Not Detected (Not Detect.); Cryptosporidium Not Detected (Not Detect.); Cyclospora cayetanensis Not Detected (Not Detect.); E. coli EAEC Not Detected (Not Detect.); E. coli EPEC Not Detected (Not Detect.); E. coli ETEC Not Detected (Not Detect.); E. coli STEC Not Detected (Not Detect.); Entamoeba histolytica Not Detected (Not Detect.); Giardia lamblia Not Detected (Not Detect.); Norovirus GI/GII Not Detected (Not Detect.); Plesiomonas shigelloides Not Detected (Not Detect.); Rotavirus A Not Detected (Not Detect.); Salmonella Not Detected (Not Detect.); Sapovirus Not Detected (Not Detect.); Shigella sp./EIEC Not Detected (Not Detect.); Vibrio Not Detected (Not Detect.); Vibrio Cholerae Not Detected (Not Detect.); Yersinia enterocolitica Not Detected (Not Detect.)
== END 2024-05-03 06:16 | disposition home or self-care (01) ==
LOC: HO.HMGCLNP 06:15
PROVIDERS: PCP Nurse Practitioner Family; Visit Provider Nurse Practitioner Family
DX: R19.7 Diarrhea, unspecified (principal)
CPT/HCPCS: 87338; 87493; 87507

== ENCOUNTER 2024-05-21 13:48 | Outpatient (AMB) | payer MEDICARE, SELFPAY ==
--- NOTE | 2024-05-21 13:51 | A.OFFVIS_ITS ---
Vital Signs 05/21/24 13:58 Height 5 ft 8 in Weight 173 lb BMI 26.3 Handedness Left Intake Visit Reasons: NwProb-LT RF & SF locking on s/p LT CTR 04/18/24 AR Intake Note: Cruz is a 83 year old left hand dominant male who presents today for a new problem visit for left 4th and 5th digit locking s/p Left Carpal Tunnel Release DOS: 04/18/2024. Patient says when he holds something in the left hand for a long time or uses his hand to play games on his phone his hand becomes sore and 4th and 5th digit lock. This has been on going for approximately 2 months now. He is also stating his left CTR incision is still very sore. Allergies No Known Allergies Allergy (Mild, Verified 05/21/24 13:58) NONE HPI HPI NwProb-LT RF & SF locking on s/p LT CTR 04/18/24 AR: Details: Patient is an 83-year-old male who presents for stiffness of the left ring and small fingers status post carpal tunnel release, DOS 04/18/[address] Murphy. The patient reports that when attempting to make a closed fist, he feels some ?soreness? in his left ring and small fingers, and states that he feels stiff with extension from a fist. Patient denies any visible or palpable locking and catching of the left ring and small fingers. Patient reports no numbness or tingling of the left hand. No other acute complaints or concerns at this time. [facility] Medical History Carpal tunnel syndrome, bilateral Ulnar neuropathy at elbow Abdominal pain Kidney stones Cervical radiculopathy Dyslipidemia HTN (hypertension) Cervical arthritis Surgical History Status post right partial knee replacement History of left knee replacement H/O colonoscopy Family History Father HTN (hypertension) Diabetes Mother History of colon cancer Social History Housing: House Are you a primary rehab care assistant to a significant other at home: No Do you presently have visiting nurse or other home services: No Alcohol intake: never Patient Tobacco Use Status: Former Tobacco user e-Cigarette/Vaping Use: Never Used Second Hand Smoke Exposure: No 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al status: retired 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 Neuro: Normal sensation of the tips of all digits of the left hand at this time Vascular: Cap refill brisk Pain: Patient reports soreness and discomfort with range of motion of the right ring and small fingers Patient reports no tenderness to palpation of the A1 marge of these digits ROM: Patient is able to make a closed fist and extend all digits of the left hand fully, but experiences some ?soreness? in the left ring and small fingers with range of motion. Skin: No lacerations or abrasions. General: No ecchymosis, erythema, or evidence of infection. Psych: Appears grossly normal Affect normal Attitude cooperative Assessment & Plan Assessment & Plan (1) Stiffness of left hand joint: Code(s): M25.642 - Stiffness of left hand, not elsewhere classified Category: Medical Plan 1. Stiffness of ring and small fingers of the left hand Patient is educated about this condition patient is educated about the typical recovery course At this time, patient will be referred to occupational therapy for range of motion, strengthening, stabilization of the left hand and to work out the stiffness he is experiencing in the fingers Patient is amenable to this plan Patient is educated that locking and catching of the fingers could indicate the presence of a trigger finger, and then if he begins to experience this he should call our office for repeat evaluation Patient will follow-up as needed with any acute concerns Orders: Orders OT Evaluation and Treatment Today M25.642 - Stiffness of left hand, not elsewhere classified Coding Level of Care Code Global (94543) Diagnoses Stiffness of left hand joint M25.642
[2024-05-21 13:58] VITALS: BMI 26.3
== END 2024-05-21 14:19 | disposition home or self-care (01) ==
PROVIDERS: PCP Nurse Practitioner Family
DX: M25.642 Stiffness of left hand, not elsewhere classified (principal)
CPT/HCPCS: 99024

== ENCOUNTER → 2024-05-21 13:48 | Outpatient (BNVA) | payer MEDICARE, SELFPAY | PROVIDERS: PCP Nurse Practitioner Family | DX: M25.642 Stiffness of left hand, not elsewhere classified (principal) | CPT/HCPCS: 99212 ==

== ENCOUNTER 2024-05-30 08:47 | Outpatient (AMB) | payer MEDICARE, SELFPAY ==
[2024-05-30 08:50] VITALS: BP 122/60; PULSE 66; O2SAT 96; BMI 26.3
--- NOTE | 2024-05-30 08:50 | A.OFFVIS_ITS ---
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 Denies fever, chills, and dizziness. Carefree of care in scan pile. PPP will be scanned in chart and copy will be given to pt. [facility] Medical History Carpal tunnel syndrome, bilateral Ulnar neuropathy at elbow Abdominal pain Kidney stones Cervical radiculopathy Dyslipidemia HTN (hypertension) Cervical arthritis Surgical History Status post right partial knee replacement History of left knee replacement H/O colonoscopy Family History Father HTN (hypertension) Diabetes Mother History of colon cancer Social History Housing: House Are you a primary career technical supervisor to a significant other at home: No Do you presently have visiting nurse or other home services: No Alcohol intake: never Patient Tobacco Use Status: Former Tobacco user e-Cigarette/Vaping Use: Never Used Second Hand Smoke Exposure: No 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al status: retired 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 Cognitive needs: No Hearing needs: No Vision needs: No Questionnaire Medicare Wellness Checkup What is your age?: 80 or older What gender do you identify with?: male During the past 4 weeks, how much have you been bothered by emotional problems such as feeling anxious, depressed, irritable, sad or downhearted, and blue?: not at all During the past 4 weeks, has your physical & emotional health limited your social activities with family, friends, neighbors, or groups?: not at all During the past 4 weeks, how much bodily pain have you generally had?: mild pain During the past 4 weeks, was someone available to help you if you needed & wanted help?: yes, as much as I wanted During the past 4 weeks, what was the hardest physical activity you could do for at least 2 minutes?: very heavy Can you get to places out of walking distance without help? (For eg., can you travel alone on buses, taxis or drive your car?): Yes Can you go shopping for groceries or clothes without someone's help?: Yes Can you prepare your own meals?: Yes Can you do your housework without help?: Yes Because of any health problems, do you need the help of another person with your personal care needs such as eating, bathing, dressing or getting around the house?: No Can you handle your own money without help?: Yes During the past 4 weeks, how would you rate your health in general?: very good During the past 4 weeks how have things been going for you?: pretty well Are you having difficulties driving your car?: no Do you always fasten your seat belt when you are in a car?: yes, usually During past 4 weeks, have you been bothered by the following: never: Falling or dizzy when standing up and Problems using the telephone? and seldom: Sexual problems?, Trouble eating well?, Teeth or denture problems? and Tiredness or fatigue? Have you fallen 2 or more times in the past year?: No Are you afraid of falling?: No Are you a smoker?: no During the past 4 weeks, how many drinks of wine, beer, or other alcoholic beverages did you have?: no alcohol at all Do you exercise for about 20 minutes 3 or more times a week?: no, I usually do not exercise this much Have you been given information to help with the following?: no: Hazards in your house that might hurt you? and no: Keeping track of your medications? How often do you have trouble taking medicines the way you have been told to take them?: I always take medicine as prescribed How confident are you that you can control & manage most of your health problems?: very confident What is your race?: White Mini Mental State Exam (MMSE) Orientation What is the (year) (season) (date) (day) (month)?: year, season, date, day and month Where are we (state) (county) (town or city) (hospital) (floor)?: state, county, town or city, hospital/clinic and floor Registration Name of 3 unrelated objects clearly and slowly, then ask patient to repeat all 3 of them. (1st repeat determines score. Make sure they can repeat all three): object 1, object 2 and object 3 Attention & Calculation (CHOOSE ONE) Spell WORLD backwards (DLROW): 5 letters Language Show patient a wristwatch & ask what it is. Repeat for pencil.: watch and pencil Ask the patient to repeat the phrase 'No ifs, ands, or buts' after you.: correct Ask the patient to 'take a piece of paper with their right hand' 'fold paper in half' 'place paper on floor': take paper in right hand, fold paper in half and place paper on floor Print the sentence 'CLOSE YOUR EYES' on a piece. If patient actually closes eyes then score.: followed written direction Give patient a blank piece of paper & ask to write a sentence. Score if it contains a noun & verb.: sentence contains subject and verb Ask patient to copy figure of intersecting pentagons exactly. Score if all 10 angles & 2 intersects are included.: all 10 angles present & 2 are intersected Score Score: 27 Activity of Daily Living Bathing - sponge bath, tub bath or shower: receives no assistance (gets in/out by self, if usual bathing means Dressing - getting clothes from closets & drawers, including inner/outer garments & fasteners.: gets clothes & gets completely dressed without help Toileting - going to the 'toilet room' for urine/bowel elimination & cleaning self/arranging clothes: goes to toilet room, cleans self, arranges clothes without help Transfer: moves in & out of bed and chair without help (may use support object) Continence: controls urination/bowel movements completely by self Feeding: feeds self without help Total Score: 0 Information obtained from: patient Using telephone: independent Traveling: independent Shopping: independent Preparing meals: independent Housework: independent Taking medicine: independent Managing money: independent PHQ-9 Over the last 2 weeks, how often have you been bothered by any of the following problems? 1. Little interest or pleasure in doing things: not at all 2. Feeling down, depressed, or hopeless: not at all 3. Trouble falling or staying asleep, or sleeping too much: several days 4. Feeling tired or having little energy: several days 5. Poor appetite or overeating: several days 6. Feeling bad about yourself - or that you are a failure or have let yourself or your family down: not at all 7. Trouble concentrating on things, such as reading the newspaper or watching television: not at all 8. Moving or speaking so slowly that other people could have noticed. Or the opposite - being so fidgety or restless that you have been moving around a lot more than usual: not at all 9. Thoughts that you would be better off or of hurting yourself in some way: not at all Total score: 3 Depression Screening Interpretation: Negative Depression Screening Done: Yes 41158 - PHQ-9 Billing: Yes Source: Developed by Drs. Darrick Harry, Jackie Ramirez, Keyur Krause and colleagues, with an educational jesus from [employer]. YOLANDA-7 AMB Questionnaire YOLANDA-7 Date YOLANDA - 7 assessed: 11/01/23 Source: Developed by Drs. Darrick Harry, Jackie Ramirez, Keyur Krause and colleagues, with an educational jesus from [employer]. YOLANDA-7 Assessment Billing YOLANDA-7 Assessment Tool: pt declined-do not bill Review of Systems Const Reports as per HPI Physical Exam Vital Signs: Last Vital Signs Pulse 66 05/30/24 08:50 BP 122/60 05/30/24 08:50 Pulse Ox 96 05/30/24 08:50 Oxygen Delivery Method Room Air 05/30/24 08:50 BMI result Body Mass Index 26.3 Const General: cooperative Orientation/consciousness: patient oriented x3 Neuro Other: - romberg, can tandem walk, can walk and turn, can rise from sitting to standing, passed whisper test General: patient oriented x3 Psych Appearance: grossly normal Mental Status: mental status grossly normal Speech and movement: Normal speech and movement present Affect: normal affect Attitude: cooperative Thought process: Normal thought process present Thought content: Normal thought content present Insight: Good insight present (Psych) Judgement: Good judgement present (Psych) Immunizations Boostrix Tdap 2.5 Lf unit-8 mcg-5 Lf/0.5 mL intramuscular syringe Performing Provider: BRIDGET Dee Performing Location[place] [facility] Administered by: Ismael Johnson CMA on 05/30/24 09:47 Dose Route Admin Location Dispensed Lot Number Expiration Date NDC Seat Maker 0.5 mL IM Left Deltoid 0.5 mL [id number] 06/16/26 83087-727-86 [employer] VIS Given Date VIS Provided VIS Publication Date 05/30/24 Single Vaccine 21 Eligibility Eligibility Date Funding Source Not [facility] Eligible 05/30/24 Private Assessment & Plan Assessment & Plan (1) Encounter for subsequent annual wellness visit (AWV) in Medicare patient: Code(s): Z00.00 - Encounter for general adult medical examination without abnormal findings Plan: Discussed forms with pt Plan The patient agreed to the use of a emergency medical services coordinator for this encounter. Scribed BRIDGET Cid by Melissa Cardoza emergency medical services coordinator, on 05/30/2024 at 09:15 EST. Quality Reporting (2019) Depression/Bipolar (159/160/161/177) PHQ-9: Total score: 3 Coding Level of Care Code Medicare Subsequent (G0439) Diagnoses Encounter for subsequent annual wellness visit (AWV) in Medicare patient Z00.00 CPT Codes Advance Care Planning - Time spent: 1-15 minutes, on File ([id number]) Advance Care Planning Forms completed: Health Care Proxy (pt will bring in coffee), MOLST (will bring in a copy) and Living will (done ) Time spent: 1-15 minutes, on File Actual minutes spent: 15
== END 2024-05-30 16:02 | disposition home or self-care (01) ==
PROVIDERS: PCP Nurse Practitioner Family; Visit Provider Nurse Practitioner Family
DX: Z00.00 Encounter for general adult medical examination without abnormal findings (principal); Z23 Encounter for immunization

== ENCOUNTER → 2024-05-30 08:47 | Outpatient (BNVA) | payer MEDICARE, SELFPAY | PROVIDERS: PCP Nurse Practitioner Family; Visit Provider Nurse Practitioner Family | DX: Z00.00 Encounter for general adult medical examination without abnormal findings (principal); Z23 Encounter for immunization | CPT/HCPCS: 90471; 90715; 96127 ==

== ENCOUNTER 2024-08-07 08:52 | Outpatient (AMB) | payer MEDICARE, SELFPAY ==
--- NOTE | 2024-08-07 08:58 | MHC.OFFVIS ---
Intake Visit Reasons: OV- LT hand stiffness s/p LT CTR 04/18/24 Intake Note: Cruz is a 83 year old left hand dominant male who presents today for a follow up visit for his left hand joint stiffness s/p Left Carpal Tunnel Release DOS: 04/18/2024. He states that his pain is worse after surgery. He states that he is unable to perform a twisting motion to open a bottle and his pain is worse when applying pressure when he his getting up. Allergies No Known Allergies Allergy (Mild, Verified 08/07/24 09:01) NONE HPI HPI OV- LT hand stiffness s/p LT CTR 04/18/24: Details: Patient is an 84-year-old male who presents for continued left hand stiffness and pain status post left carpal tunnel release, DOS 04/18/2024. The patient states that he has been going to occupational therapy, and then he does feel this gives him temporary relief when he goes, but he states he has not been fully compliant with doing the exercises at home, and notices that his pain returns when he has not had OT for a day or 2. Patient reports that he also has a new pain at the left radial styloid, and that this pain prevents him from opening things or lifting things effectively. Denies any ongoing numbness or tingling in the left hand. No other acute complaints or concerns at this time. FORMERLY [facility] Medical History Carpal tunnel syndrome, bilateral Ulnar neuropathy at elbow Abdominal pain Kidney stones Cervical radiculopathy Dyslipidemia HTN (hypertension) Cervical arthritis Surgical History Status post right partial knee replacement History of left knee replacement H/O colonoscopy Family History Father HTN (hypertension) Diabetes Mother History of colon cancer Social History Housing: House Are you a primary rn progressive care unit to a significant other at home: No Do you presently have visiting nurse or other home services: No Alcohol intake: never Patient Tobacco Use Status: Former Tobacco user e-Cigarette/Vaping Use: Never Used Second Hand Smoke Exposure: No 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al status: retired 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 Neuro: Normal sensation of the tips of all digits of the left hand at this time Vascular: Cap refill brisk Pain: Patient reports soreness and discomfort with range of motion of the left ring and small fingers Patient reports no tenderness to palpation of the A1 marge of these digits Tenderness to palpation of the 1st dorsal compartment and left radial styloid Negative Emmanuel on the left ROM: Patient is able to make a closed fist and extend all digits of the left hand fully, but experiences some ?soreness? in the left ring and small fingers with range of motion. Skin: No lacerations or abrasions. General: No ecchymosis, erythema, or evidence of infection. Psych: Appears grossly normal Affect normal Attitude cooperative Office Procedures AMB Tendon Injection Tendon Injection Details: Left de Quervain injection [id number] Tendon Sheath Injection All charges added?: Procedure code (CPT) selection complete Assessment & Plan Assessment & Plan (1) De Quervain's tenosynovitis, left: Code(s): M65.4 - Radial styloid tenosynovitis [de Quervain] Category: Medical (2) Carpal tunnel syndrome, bilateral: Code(s): G56.03 - Carpal tunnel syndrome, bilateral upper limbs Category: Medical Plan 1. De Quervain tenosynovitis, left Patient is educated about this condition Patient is educated about the typical treatment options Patient would like to proceed with steroid injection Injection #1: The risks and benefits of a steroid injection including but not limited to risk of damage to blood vessels, nerves, tendons, infection, skin bleaching, failure to improve symptoms, increased pain, and possible need for further injections or other intervention were discussed with the patient and the patient wishes to proceed with the steroid injection. Once consent was obtained, I aseptically prepped the area over the 1st dorsal compartment of the left thumb. I then injected the 1st dorsal compartment with a combination of 1 mL of dexamethasone (4mg/ml), and 1% lidocaine. The patient tolerated the procedure well with no complications and good resolution of their symptoms prior to leaving clinic. If the patient continues to have pain 6-8 weeks following this injection, they may call to schedule appointment to discuss alternative treatment options 2. Stiffness of the left hand after carpal tunnel release 3. Pillar pain status post carpal tunnel release Patient was advised to continue going to occupational therapy and to be more faithful with doing his exercises on a daily basis Patient was amenable to this plan Coding Level of Care Code Est Pt Level 3 (30215) Diagnoses De Quervain's tenosynovitis, left M65.4 Carpal tunnel syndrome, bilateral G56.03 CPT Codes Tendon Injection - Tendon Injection 1: [id number] Tendon Sheath Injection ([id number])
--- OUTSIDE RECORDS SUMMARY | 2024-08-07 23:15 | XMS_ITS ---
Author Organization [facility] Address [address] [place] [address] Care Team Providers Care Oscillograph Technician Name Role Phone SATHYA ESTRADA Primary Care Provider Darrick Bob [phone] REASON FOR VISIT lower abd pain Encounters Encounter Location Date Provider Diagnosis [facility] [address] [place] [address] 04/01/2024 Darrick Dorman PLAN OF TREATMENT No Information
--- OUTSIDE RECORDS SUMMARY | 2024-08-07 23:15 | XMS_ITS ---
Author Organization [facility] Address [address] [place] [address] Care Team Providers Care Stitch Welder Name Role Phone SATHYA ESTRADA Primary Care Provider Darrick Bob [phone] ALLERGIES No Known Allergies REASON FOR VISIT pt presents today for addominal pain MEDICATIONS Medication SIG (Take, Route, Frequency, Duration) Notes Start Date End Date Status Lisinopril 40 MG 1 tablet Orally Once a day Active amLODIPine Besylate 5 MG 1 tablet Orally Once a day Active Fish Oil 1200 MG 1 capsule Orally Onc e a day Active Aspir-81 81MG 1 tablet orally once a day Active Centrum Active Magnesium Active Atorvastatin Calcium 40 MG 1 tablet Oral ly Once a day Active VITAL SIGNS BMI 27.09 kg/m2 03/19/2024 Blood pressure systolic 00 mm Hg 03/19/20 24 Blood pressure diastolic 00 mm Hg 024 Height 67 in 03/19/2024 Weight 173 lbs 03/19/2024 Encounters Encounter Location Date Provider Diagnosis [facility] [address] [place] [address] 03/19/2024 Darrick Dorman Abdominal pain, generalized R10.84 ASSESSMENTS Encounter Date Diagnosis Assessment Notes Treatment Notes Treatment Clinical Notes 03/19/2024 Abdominal pain, generalized (ICD-10 - R10.84) Call me if you develop increasing abdominal pain, vomiting, bleeding, etc. PLAN OF TREATMENT Treatment Notes Assessment Notes Abdominal pain, generalized Call me if y ou develop increasing abdominal pain, vomiting, bleeding, etc. Next Appt Details Follow Up: prn, Reason: Progress Notes * Examination Category Sub-Category Detail Notes General Examination GENERAL APPEARANCE: pleasant , well nourished, well developed, in no acute distress EYES: sclera non-icteric NECK/THYROID: no cervical lymphade nopathy, neck supple HEART: S1, S2 normal CHEST: There is no chest wall tenderness LUNGS: clear to auscultatio n bilaterally ABDOMEN: normal bowel sounds, no guarding or rigidity, no hepatosplenomegaly, no masses palpable, soft, nontender, nondistended. NEUROLOGIC: alert and oriented SKIN: nonjaundiced, no spi nicole angiomata. EXTREMITIES: no edema ORAL CAVITY: mucosa moist
--- OUTSIDE RECORDS SUMMARY | 2024-08-07 23:15 | XMS_ITS ---
Author Organization [facility] Address [address] [place] [address] Care Team Providers Care Top Lift Scourer Name Role Phone SATHYA ESTRADA Primary Care Provider Darrick Bob [phone] REASON FOR VISIT results L/M 05/15 Encounters Encounter Location Date Provider Diagnosis [facility] [address] [place] [address] 05/12/2023 Darrick Dorman PLAN OF TREATMENT No Information
--- OUTSIDE RECORDS SUMMARY | 2024-08-07 23:16 | XMS_ITS | Data Portability ---
Author Organization [facility] Address [address] [place] [address] Care Team Providers Care Service Desk Manager Name Role Phone LEX LEMUS Referring Provider [phone] Assessment Encounter Date Assessment Date Assessment LastModified by Organization Details LastModified Time 08/11/2016 08/11/2016 Cruz Barreto is a 76 year old man with complaints of neck pain raditing into right shoulder region. On exam, he has a positive spurling's sign on the right. Pain with flexion. MRI Cervical spine shows Advanced multilevel degenerative changes with mild canal stenosis from C 3??-4 to C 6??-7. Multilevel neural foraminal stenosis is due to uncovertebral and facet spurring . In addition, there is associated prominent facet/perifacet edema at C 4??-5 on the right suggesting underlying inflammation/str ess. I recommend a trial of cervical epidural steroid injection under fluoroscopic guidance. The risks and benefits of the procedure were discussed in detail. He wishes to proceed. An appointment has been made and he needs a local company hazmat driver on the day of the procedure. [email or web address] Not available 08/15/2016 11:17:44 08/23/2016 08/23/2016 Cruz Barreto is a 76 year old man with complaints of neck pain radiating into right shoulder region. On exam, he has a positive spurling's sign on the right. MRI Cervical spine shows Advanced multilevel degenerative changes with mild canal stenosis from C 3??-4 to C 6??-7. Multilevel neural foraminal stenosis is due to uncovertebral and facet spurring . In addition, there is associated prominent facet/perifacet edema at C 4??-5 on the right suggesting underlying inflammation/str ess. He is here for a trial of cervical epidural steroid injection under fluoroscopic guidance. The risks and benefits of the procedure were discussed in detail. He wishes to proceed. He needs to follow up in four weeks. [email or web address] Not available 08/25/2016 09:47:07 12/08/2016 12/08/2016 Cruz Barreto is a 76 year old man with complaints of neck pain radiating into right shoulder region. On exam, he has a positive spurling's sign on the right. Pain with flexion. MRI Cervical spine shows Advanced multilevel degenerative changes with mild canal stenosis from C 3??-4 to C 6??-7. Multilevel neural foraminal stenosis is due to uncovertebral and facet spurring . In addition, there is associated prominent facet/perifacet edema at C 4??-5 on the right suggesting underlying inflammation/str ess. He is here for a follow up after a trial of cervical epidural steroid injection under fluoroscopic guidance. He reports 60% pain relief for two weeks with a return of pain back to baseline. He is complaining of pain in his right mid back region. I recommend a trigger point injection in his right rhomboid muscle under ultrasound guidance. The risks and benefits of the procedure were discussed in detail. He wishes to proceed. He will call in two weeks. I recommend a neurosurgical consultation with Dr. Dante Minor . [email or web address] Not available 12/09/2016 10:37:36 Plan of Treatment Reminders Order Date Submit Date Provider Last Modified By Organization Details Last Modified Time Details Appointments None recorded. Lab None recorded. Referral neurosurger y referral 2016 017 JARRETT Minor MD, [address], [address], 7 19:10:29 Procedures None recorded. Surgeries None recorded. Imaging None recorded. Medication Orders None recorded. Patient TargetsNo targets recorded. Patient Instructions Encounter Date Encounter Id Patient Instructions Last Modified By Organization Details Last Modified Time 08/11/2016 [id number] He was advised to continue with a home exercise program. [email or web address] Not available 08/12/2016 11:58:30 08/23/2016 [id number] He was advised to continue with a home exercise program. [email or web address] Not available 08/25/2016 09:46:03 12/08/2016 [id number] He was advised to continue with a home exercise program. [email or web address] Not available 12/09/2016 09:37:26 Reason for Referral Neurosurgery Referral for Ce rvical radiculopathy Thank you for seeing my patient with neck pain radiating into right shoulder region. Referring Physician: David Diop, Pain Management, Encounter Date: 12/08/2016 Procedures Surgical History Date Name Laterality Status Provider Name and Address Organization Details Recorded Time 12/09/19 17 Trigger Point Injections under ultrasound guidance completed David Diop MD [email or web address], [place], [address], [place] [facility] 12/09/2016 09:36:31 08/23/20 16 Cervical Epidural Steroid injection under fluroscopic guidance completed David Diop MD [email or web address] , [address], [place], [address], [place] [facility] 08/25/2016 09:45:23 Joint Replacement completed Shelbyjordan Smither [place] - [facility] 08/11/2016 10:33:16 Other completed Shelby Collins [place] [facility] 08/11/2016 10:35:30 Tonsillectomy completed Shelby Collins [place] [facility] 08/11/2016 10:34:26 Cataract Surgery completed Shelby Collins [place] [facility] 08/11/2016 10:34:46 Other completed Shelby Collins [place] [facility] 08/11/2016 10:37:25 Imaging Results None recorded. Procedure Notes None recorded. Medical Equipment None Reported. Allergies No known drug allergies Medications Name Sig Start Date Stop Date Status Note LastModified by Organization Details LastModified Time amoxicillin 500 mg capsule 08/11 completed Not Available Not Available Not Available atorvastati n 20 mg tablet active Not Available Not Available Not Available diphenhydra mine 50 mg capsule TAKE ONE CAPSULE BY MOUTH TWICE A DAY 08/11 completed Not Available Not Available Not Available lisinopril 20 mg tablet 08/11 completed Not Available Not Available Not Available cromolyn 4 % eye drops 08/11 completed Not Available Not Available Not Available celecoxib 100 mg capsule active Not Available Not Available Not Available lisinopril 40 mg tablet active Not Available Not Available Not Available fluticasone propionate 50 mcg/actuati on nasal spray,suspe nsion 08/11 completed Not Available Not Available Not Available atenolol 50 mg tablet 08/11 completed Not Available Not Available Not Available tobramycin 0.3 %-dexametha sone 0.1 % eye drops,suspe nsion 08/11 completed Not Available Not Available Not Available oxycodone 5 mg tablet 08/11 completed Not Available Not Available Not Available magnesium active Not Available Not Alisha ilable Not Available Fish Oil active Not Available Not Avai lable Not Available Multi Vitamin active Not Available Not Available Not Available Fluzone High-Dose 9140-5765 (PF) 180 mcg/0.5 mL intramuscul ar syringe TO BE ADMINISTE RED BY Base Forty T FOR IMMUNIZAT ION 08/11 completed Not Available Not Available Not Available Vitals Date Recorded Heart rate Oxygen saturation Oxygen saturation in Arterial blood by Pulse oximetry Body height Body weight Body mass index (BMI) Systolic blood pressure Diastolic blood pressure Provider Name and Address Organization Details Last Updated DateTime 6 76 /min 97 % 97 % 172.72 cm 19559.5 9 g 28.1 kg/m2 151 mm[Hg] 76 mm[Hg] Shelby Collins [place] [facility] 6 10:20:16 Date Recorded Body height Heart rate Oxygen saturation Oxygen saturation in Arterial blood by Pulse oximetry Systolic blood pressure Diastolic blood pressure Provider Name and Address Organization Details Last Updated DateTime 6 172.72 cm 76 /min 96 % 96 % 153 mm[Hg] 75 mm[Hg] Shelby Collins [place] [facility] 6 10:33:00 Date Recorded Body height Heart rate Oxygen saturation Oxygen saturation in Arterial blood by Pulse oximetry Systolic blood pressure Diastolic blood pressure Provider Name and Address Organization Details Last Updated DateTime 7 172.72 cm 98 /min 97 % 97 % 129 mm[Hg] 80 mm[Hg] Shelby Collins [place] [facility] 7 15:07:02 Social History Question Answer Notes LastModified by Organizat ion Details LastModified Time Tobacco Smoking Status Former Smoker Quit x 30 years Not Available [employer] 06/12/2020 03:16:10 What Is Your Level Of Alcohol Consumption? None [id number] Information not available 06/12/2020 Are You Currently Employed? No [id number] Information not available 06/12/2020 Which Illicit Or Recreational Drugs Have You Used? No [id number] Information not available 06/12/2020 Education 12 With College [email or web address] Information not available 08/11/2016 Marital Status Informatio n not available 08/11/2016 How Many Years Have You Smoked Tobacco? 15 [id number] Information not available 06/12/2020 Sex: Unknown Functional Status None recorded. Mental Status None recorded. Family History Relationship Description Onset Age of this Age Resolved Age Notes LastModified by Organization Details LastModified Time Father Malignant neoplastic disease Lung cancer Not available 08/11/2016 10:29:05 Paternal Grandfather Malignant neoplastic disease Lung cancer Not available 08/11/2016 10:29:15 Medical History Condition Response Kidney Stones Y High Cholesterol Y Hypertension Y Past Encounters Encounter ID Performer Location Encounter Start Date Encounter Closed Date Diagnosis/Indication Diagnosis SNOMED-CT Code Diagnosis ICD10 Code [id number] David Diop MD PAIN OFFICE [address] [place] [address] 08/11/2016 10:08:13 08/15/2016 11:25:14 Cervical radiculopathy 38111123 M54.12 Degenerati on of cervical intervertebral disc 49286330 M50.321 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1 Health Concerns Section Related Observation LastModified by Organization Detai ls LastModified Time None Recorded Concern Status LastModified by Organization Details LastModified Time None Recorded Advance Directives Directive None Recorded Payers Encounter Date Sequence Insurance Name Policy Number Policy Jacob Covered Member ID Jacob Member ID Guarantor Name 08/11/2016 1 [facility] (MEDICARE REPLACEMENT/A DVANTAGE - PPO) [id number] Cruz Barreto [id number] Cruz Barreto 08/23/2016 1 [facility] (MEDICARE REPLACEMENT/A DVANTAGE - PPO) [id number] Cruz Barreto [id number] Cruz Barreto 12/08/2016 1 [facility] (MEDICARE REPLACEMENT/A DVANTAGE - PPO) [id number] Cruz Barreto [id number] Cruz Barreto Notes Date Note Type Note Provider Name and Address Organization Details Recorded Time 08/11/2016 text/html Pain Management C-spineReported bypatient.Location: Cruz Barreto is a 76 year old right handed man with complaints of neck pain radiating into right shoulder. The pain started 6 months ago after lifting a trash barrel full of leaves and is becoming greater. Quality:He describes the pain as a sharp pain in his neck which radiates into his right shoulder and occasionally the pain is aching in nature. Severity:current pain level 5/10; worst pain 8-9/10;worsening;in terference with sleep;interference with work; He awakens multiple times at night due to pain. 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 Duration:constant Onset/Timing:sudden Context:lifting Alleviating Factors:nothing helps Aggravating Factors:twisting; movement/positionin g Associated Symptoms:no weakness; no numbness; no bladder compromise; no bowel compromise Radiation Right:entire extremity ADL (Activities of Daily Living):walking; sweeping; mopping Prior Imaging:MRI Cervical spine shows Advanced multilevel degenerative changes with mild canal stenosis from C 3? ? ?-4 to C 6? ? ?-7. Multilevel neural foraminal stenosis is due to uncovertebral and facet spurring . In addition, there is associated prominent facet/perifacet edema at C 4? ? ?-5 on the right suggesting underlying inflammation/stress Prior EMG:none Previous Surgerynone Previous Injections:He had injections by Dr. Castano in [place] for his right shoulder pain with no pain benefit. Previous PT:did not help; He had physical therapy at [facility] in [place], [place] which did not help. He is following a home exercise program. Previous career counselor:did not help David Diop MD [address] [facility] [address], [place], [address], [facility] 08/18/2016 11:06:07 08/23/2016 text/html He is here for a trial of cervical epidural steroid injection under fluoroscopic guidance David Diop MD [address] [facility] [facility] [address], [place], [address], [facility] Pain Management 08/25/2016 13:55:59 12/08/2016 text/html He is here for a follow up after a trial of cervical epidural steroid injection under fluoroscopic guidance. He reports 60 % pain benefit for two weeks with a return of pain back to baseline. Now he states his pain is mainly located in mid back region on the right. It is a sharp throbbing pain which limits his activities. He is interested in getting a neurosurgical opinion . He has no history of bladder or bowel incontinence. David Diop MD [address] [facility] [address], [place], [address], [facility] Pain Management 12/12/2016 15:21:23
--- OUTSIDE RECORDS SUMMARY | 2024-08-07 23:16 | XMS_ITS | Patient Health Record ---
Author Organization [facility] Address [address] [place] [address] Care Team Providers Care Professor Of English Name Role Phone SATHYA ESTRADA Primary Care Provider Darrick Bob [phone] ALLERGIES No Known Allergies REASON FOR REFERRAL No Information MEDICATIONS Medication SIG (Take, Route, Frequency, Duration) Notes Start Date End Date Status Lisinopril 40 MG 1 tablet Orally Once a day Active amLODIPine Besylate 5 MG 1 tablet Orally Once a day Active Fish Oil 1200 MG 1 capsule Orally Onc e a day Active Aspir-81 81MG 1 tablet orally once a day Active Magnesium Active Centrum Active Atorvastatin Calcium 40 MG 1 tablet Oral ly Once a day Active IMMUNIZATIONS Vaccine Route Administration Date Status Comme nts Influenza Unknown 04/28/2019 Administered Influenza Unknown 04/28/2020 Administered SOCIAL HISTORY Sex Assigned At : Social History Observation Description Sex Assigned At Unknown PROBLEMS Problem Type ICD Code Onset Dates Problem Status W/U Status Risk SNOMED Code Notes Problem Chest discomfort (R07.89) Active confirmed 650842852 Problem Hiatal hernia (K44.9) Active confirmed 26802149 Problem Gastroenteritis (K52.9) Active confirmed 17365816 Problem Abnormal CT scan, small bowel (R93.3) Active confirmed 928156442 Problem Abdominal pain, generalized (R10.84) Active confirmed 065785472 Problem Diarrhea, unspecified type (R19.7) Active confirmed 64219767 VITAL SIGNS Blood pressure diastolic 00 mm Hg 03/19/2024 Height 67 in 03/19/2024 Blood pressure systolic 00 mm Hg 03/19/2024 Weight 173 lbs 03/19/2024 BMI 27.09 kg/m2 03/19/2024 Encounters Encounter Location Date Provider Diagnosis [facility] [address] [place] [address] 03/19/2024 Darrick Dorman Abdominal pain, generalized R10.84 [facility] [address] [place] [address] 04/01/2024 Darrick Dorman ASSESSMENTS Encounter Date Diagnosis Assessment Notes Treatment Notes Treatment Clinical Notes 03/19/2024 Abdominal pain, generalized (ICD-10 - R10.84) Call me if you develop increasing abdominal pain, vomiting, bleeding, etc. PLAN OF TREATMENT Pending Test Test Name Order Date CHEM 7 PROFILE 03/28/2023 CHEM 7 PROFILE 02/03/2021 LIVER PROFILE 03/28/2023 LIVER PROFILE 02/03/2021 AMYLASE 02/03/2021 LIPASE 02/03/2021 CRP 03/28/2023 CBC w DIFF 02/03/2021 CBC w DIFF 03/28/2023 SED RATE (ESR) 03/28/2023 OVA & PARASITES (O&P) 02/03/2021 CULTURE, STOOL 02/03/2021 CT ABD & PELVIS WITH CONTRAST 03/28/2023 STOOL WBC 02/03/2021 C DIFFICILE RFLX PCR 02/03/2021 Future Test Test Name Order Date COLONOSCOPY 09/28/2012 UPPER GI ENDOSCOPY 03/31/2020 Insurance Providers Payer Name Payer Address Payer Phone Subscriber Number Group Number Insured Name Patient Relationship to Insured Coverage Start Date Coverage End Date [facility] [address] [place], [place] [id number] BEN OSBORNE Self - patient is the insured MEDICAL (GENERAL) HISTORY Medical History History ICD Code EGD 04/10/2009--negative kidney stones Left bundle branch block Colonoscopy in 08/2002 with [facility] Rogel with removal of only hyperplastic polyps Denies LA,DM,CVA,Lung disease,renal dise ase Hyperlipidemia HTN Neg colonoscopy 2012 Neg EGD in 2012 except for a small HH Neg GB U/S Seasonal allergies Chronic chest discomfort lizbet ing back to at least 2012--EGD in 03/2020--minimal HH, otherwise WNL CT scan of the abdomen in [facility]2021 revealed changes consistent with some type of enteritis involving a portion of the jejunum. However, there was no evidence of any surrounding inflammation, mesenteric fat stranding, lymphadenopathy, nor bowel obstruction. Stool specimens were negative for any infection on a GI panel. Follow up CT in 03/2023 was normal other than sigmoid diverticulosis and the jejunal abnormality had resolved Surgical History Surgery Date(Month/Year) Right partial knee replacement in 02/2008 Left knee replacement 2018 Hand surgery Tonsillectomy Carpal tunnel surgery scheduled for the end of February of 2024
== END 2024-08-07 09:37 | disposition home or self-care (01) ==
PROVIDERS: PCP Nurse Practitioner Family
DX: M65.4 Radial styloid tenosynovitis [de Quervain] (principal); G56.03 Carpal tunnel syndrome, bilateral upper limbs
CPT/HCPCS: 20550; 99213

== ENCOUNTER → 2024-08-07 08:52 | Outpatient (BNVA) | payer MEDICARE, SELFPAY | PROVIDERS: PCP Nurse Practitioner Family | DX: M25.642 Stiffness of left hand, not elsewhere classified (principal); M65.4 Radial styloid tenosynovitis [de Quervain]; G56.01 Carpal tunnel syndrome, right upper limb; Z98.890 Other specified postprocedural states | CPT/HCPCS: 20550; 99212; J1100; J2003 ==

== ENCOUNTER 2024-08-14 13:07 | Outpatient (AMB) | payer MEDICARE, SELFPAY ==
--- OUTSIDE RECORDS SUMMARY | 2024-08-14 13:09 | XMS_ITS ---
Author Organization [facility] Address [address] [place] [address] Care Team Providers Care Stained Glass Glazier Name Role Phone SATHYA ESTRADA Primary Care Provider Darrick Bob [phone] REASON FOR VISIT lower abd pain Encounters Encounter Location Date Provider Diagnosis [facility] [address] [place] [address] 04/01/2024 Darrick Dorman PLAN OF TREATMENT No Information
--- OUTSIDE RECORDS SUMMARY | 2024-08-14 13:09 | XMS_ITS ---
Author Organization [facility] Address [address] [place] [address] Care Team Providers Care Deputy Jailer Name Role Phone SATHYA ESTRADA Primary Care Provider Darrick Bob [phone] REASON FOR VISIT results L/M 05/15 Encounters Encounter Location Date Provider Diagnosis [facility] [address] [place] [address] 05/12/2023 Darrick Dorman PLAN OF TREATMENT No Information
--- OUTSIDE RECORDS SUMMARY | 2024-08-14 13:09 | XMS_ITS | Patient Health Record ---
Author Organization [facility] Address [address] [place] [address] Care Team Providers Care Carrier Operator Name Role Phone SATHYA ESTRADA Primary Care Provider Darrick Bob [phone] ALLERGIES No Known Allergies REASON FOR REFERRAL [...] Notes Problem Chest discomfort (R07.89) Active confirmed 146464387 Problem Hiatal hernia (K44.9) Active confirmed 58331722 Problem Gastroenteritis (K52.9) Active confirmed 37846544 Problem Abnormal CT scan, small bowel (R93.3) Active confirmed 897112536 Problem Abdominal pain, generalized (R10.84) Active confirmed 693165345 Problem Diarrhea, unspecified type (R19.7) Active confirmed 26498889 VITAL SIGNS Blood pressure diastolic 00 mm Hg 03/19/2024 Height 67 in 03/19/2024 Blood pressure systolic 00 mm Hg 03/19/2024 Weight 173 lbs 03/19/2024 BMI 27.09 kg/m2 03/19/2024 Encounters Encounter Location Date Provider Diagnosis [facility] [address] [place] [address] 03/19/2024 Darrick Dorman Abdominal pain, generalized R10.84 [facility] [address] [place] [address] 04/01/2024 Darrick Dorman ASSESSMENTS Encounter Date Diagnosis [...] Insured Coverage Start Date Coverage End Date [facility] [address] [place], [place] [id number] BEN OSBORNE Self - patient is the insured MEDICAL (GENERAL) HISTORY Medical History History ICD Code EGD 04/10/2009--negative kidney stones Left bundle branch block Colonoscopy in 08/2002 with [facility] Rogel with removal of only hyperplastic polyps Denies OR,DM,CVA,Lung disease,renal dise ase Hyperlipidemia HTN Neg colonoscopy 2012 Neg EGD in 2012 except for a small HH Neg GB U/S Seasonal allergies Chronic chest discomfort lizbet ing back to at least 2012--EGD in 03/2020--minimal HH, otherwise WNL CT scan of the abdomen in [facility]2021 revealed changes consistent with some type of [...]
--- OUTSIDE RECORDS SUMMARY | 2024-08-14 13:09 | XMS_ITS | Data Portability ---
Author Organization [place] [facility] Address [address] [facility] [address] [place] [address] Care Team Providers Care Harvest Contractor Name Role Phone LEX LEMUS Referring Provider Assessment Encounter Date Assessment Date Assessment LastModified [...] has been made and he needs a emergency detail driver on the day of the procedure. [...] referral 2016 [id number] JARRETT Minor MD, [address], [address], 7 19:10:29 Procedures None recorded. Surgeries None recorded. Imaging None recorded. Medication Orders None recorded. Patient TargetsNo targets recorded. Patient Instructions Encounter Date Encounter Id Patient Instructions Last Modified By Organization Details Last Modified Time 08/11/2016 [id number] He was advised to continue with a home exercise program. [email or web address] Not available 08/12/2016 11:58:30 08/23/2016 [id number] He was advised to continue with a home exercise program. [email or web address] Not available 08/25/2016 09:46:03 12/08/2016 [id number] He was advised to continue with a [...] ultrasound guidance completed David Diop MD [address] , [address], [place], [address], [place] [facility] 12/09/2016 09:36:31 08/23/20 16 Cervical Epidural Steroid injection under fluroscopic guidance completed David Diop MD [address] , [address], [place], [address], [place] [facility] 08/25/2016 09:45:23 [...] Available Not Available Not Available Fluzone High-Dose 5414-8808 (PF) 180 mcg/0.5 mL intramuscul ar syringe TO BE ADMINISTE RED BY [employer] T FOR IMMUNIZAT ION 08/11 completed Not Available Not Available Not Available Vitals Date Recorded Heart rate Oxygen saturation Oxygen saturation in Arterial blood by Pulse oximetry Body height Body weight Body mass index (BMI) Systolic blood pressure Diastolic blood pressure Provider Name and Address Organization Details Last Updated DateTime 6 76 /min 97 % 97 % 172.72 cm 97645.5 9 g 28.1 kg/m2 151 mm[Hg] 76 mm[Hg] [facility] [place] [facility] 6 10:20:16 Date Recorded Body height Heart rate Oxygen saturation Oxygen saturation in Arterial blood by Pulse oximetry Systolic blood pressure Diastolic blood pressure Provider Name and Address Organization Details Last Updated DateTime 6 172.72 cm 76 /min 96 % 96 % 153 mm[Hg] 75 mm[Hg] Shelby [facility] [place] [facility] 6 10:33:00 Date Recorded Body height Heart rate Oxygen saturation Oxygen saturation in Arterial blood by Pulse oximetry Systolic blood pressure Diastolic blood pressure Provider Name and Address Organization Details Last Updated DateTime 7 172.72 cm 98 /min 97 % 97 % 129 mm[Hg] 80 mm[Hg] Shelby [facility] [place] [facility] 7 15:07:02 Social History Question Answer Notes LastModified by Organizat ion Details LastModified Time Tobacco Smoking Status Former Smoker Quit x 30 years Not Available [employer] 06/12/2020 03:16:10 What Is Your Level Of Alcohol Consumption? None [id number] Information not available 06/12/2020 Are You Currently Employed? No [id number] Information not available 06/12/2020 Which Illicit Or Recreational Drugs Have You Used? No [id number] Information not available 06/12/2020 Education 12 With College [email or web address] Information not available 08/11/2016 Marital Status Informatio n not available 08/11/2016 How Many Years Have You Smoked Tobacco? 15 [id number] Information not available 06/12/2020 Sex: Unknown Functional Status None recorded. Mental Status None recorded. Family History Relationship Description Onset Age of this Age Resolved Age Notes LastModified by Organization Details LastModified Time Father Malignant neoplastic disease Lung cancer Not available 08/11/2016 10:29:05 Paternal Grandfather Malignant neoplastic disease Lung cancer Not available 08/11/2016 10:29:15 Medical History Condition Response Kidney Stones Y Hypertension Y High Cholesterol Y Past Encounters Encounter ID Performer Location Encounter Start Date Encounter Closed Date Diagnosis/Indication Diagnosis SNOMED-CT Code Diagnosis ICD10 Code [id number] David Diop MD PAIN OFFICE [address] [place] [address] 08/11/2016 10:08:13 08/15/2016 11:25:14 Cervical radiculopathy 47257194 M54.12 Degenerati on of cervical intervertebral disc 37334426 M50.321 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 656103521 M47.812 [id number] David Diop MD PAIN OFFICE [address] [place] [address] 08/23/2016 10:10:56 08/25/2016 09:54:19 Cervical radiculopathy 91317395 M54.12 Degenerati on of cervical intervertebral disc 99276747 M50.321 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 691742903 M47.812 [id number] David Diop MD PAIN OFFICE [address] [place] [address] 12/08/2016 14:45:01 12/09/2016 10:39:26 Cervical radiculopathy 02824636 M54.12 Degenerati on of cervical intervertebral disc 15435135 M50.321 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 281770349 M47.812 Muscle pain 30614714 M79 .1 Health Concerns Section Related Observation LastModified by Organization Detai ls LastModified Time None Recorded Concern Status LastModified by Organization Details LastModified Time None Recorded Advance Directives Directive None Recorded Payers Encounter Date Sequence Insurance Name Policy Number Policy Jacob Covered Member ID Jacob Member ID Guarantor Name 08/11/2016 1 [facility] (MEDICARE REPLACEMENT/A DVANTAGE - PPO) [id number] Cruz Barreto [id number] Cruz Barreto 08/23/2016 1 [facility] (MEDICARE REPLACEMENT/A DVANTAGE - PPO) [id number] Cruz Barreto [id number] Cruz Barreto 12/08/2016 1 [facility] (MEDICARE REPLACEMENT/A DVANTAGE - PPO) [id number] Cruz Barreto [id number] Cruz Barreto Notes Date Note Type Note [...] due to pain. 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 Castano in [place] for his right shoulder pain with no pain benefit. Previous PT:did not help; He had physical therapy at [place] [facility] in [place], [place] which did not help. He is following a home exercise program. Previous child care centre manager:did not help David Diop MD [address] [facility] , [address], [place], [address], [facility] 08/18/2016 11:06:07 08/23/2016 text/html He is here for a trial of cervical epidural steroid injection under fluoroscopic guidance David Diop MD [address] [facility] , [facility] [address], [place], [address], [facility] 08/25/2016 13:55:59 12/08/2016 [...] or bowel incontinence. David Diop MD [address] [facility] , [address], [place], [address], [facility] 12/12/2016 15:21:23
--- OUTSIDE RECORDS SUMMARY | 2024-08-14 13:09 | XMS_ITS ---
Author Organization [facility] Address [address] [place] [address] Care Team Providers Care Product Promoter Retail Pet Name Role Phone SATHYA ESTRADA Primary Care Provider Darrick Bob [phone] ALLERGIES No Known Allergies REASON FOR VISIT [...] 03/19/2024 Encounters Encounter Location Date Provider Diagnosis [facility] [address] [place] [address] 03/19/2024 Darrick Dorman Abdominal pain, generalized R10.84 [...]
--- NOTE | 2024-08-14 13:14 | MHC.OFFVIS ---
Vital Signs 08/14/24 13:15 Height 5 ft 8 in Weight 175 lb BMI 26.6 BP 176/82 H Blood Pressure Location Lt brachial Position Sitting Respiration 15 Pulse 86 Pulse Source Pulse Oximeter Pulse Oximetry (%) 97 Oxygen Delivery Method Room Air Intake Visit Reasons: Right shoulder pain Allergies No Known Allergies Allergy (Mild, Verified 08/14/24 13:17) NONE Medication List - Last Reconciled 08/14/24 by Gloria Allred LPN amlodipine 10 mg PO DAILY aspirin (Adult Low Dose Aspirin) 81 mg PO DAILY atorvastatin 40 mg PO DAILY blood pressure monitor As directed lisinopril 40 mg PO DAILY 90 days multivitamin 1 tab PO DAILY omega 6-vqs-enc-fish oil 1,000 (120-180) mg (Fish Oil) 1 cap PO BID vit C,D-Ss-wiffn-lutein-zeaxan 250-90-40-1 mg (PreserVision AREDS-2) 1 tab PO BID [wrist splint wear all night & as much as possible throughout the day] HPI Comments Details: CHIP is very pleasant 84 years old gentleman who presents in my office with pain in the projection of the suprascapular muscle group. He reports that this pain started 9 months ago. He does not know the reason the the pain started but the pain is severe enough to prevent him for sleeping normally. He can do activities of daily living, he can not take care of himself, he can function normally. He is retired individual. He reports that heat applications make his pain better. In terms of tissue damage he reports his pain as dull sore hurting aching heavy sensation. He was under care of [facility] and received transforaminal cervical epidural steroid injections and interlaminar cervical epidural steroid injections in the past. She does not present any complains on the pain in the neck. His range of motion of the cervical spine is quite remarkable. It does not appear that this pain in the suprascapular area projection related to the cervical spine at all. His past medical history significant for hypertension and left bundle branch block his past surgical history significant for knee replacement. He stopped smoking long time ago he does not drink alcohol he drinks 4 cups of coffee a day and he denies recreational drugs. [facility] Medical History Carpal tunnel syndrome, bilateral Ulnar neuropathy at elbow Abdominal pain Kidney stones Cervical radiculopathy Dyslipidemia HTN (hypertension) Cervical arthritis Surgical History Status post right partial knee replacement History of left knee replacement H/O colonoscopy Family History Father HTN (hypertension) Diabetes Mother History of colon cancer Social History Housing: House Are you a primary patient care technician instructor to a significant other at home: No Do you presently have visiting nurse or other home services: No Alcohol intake: never Patient Tobacco Use Status: Former Tobacco user e-Cigarette/Vaping Use: Never Used Second Hand Smoke Exposure: No 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al status: retired 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 Cognitive needs: No Hearing needs: No Vision needs: No Review of Systems Const All systems reviewed & are unremarkable except as noted in HPI and below Reports no additional complaints ENT Reports Normal hearing present Card Reports as per HPI Resp Reports no additional complaints GI Reports no additional complaints Reports no additional complaints Musc Reports no additional complaints Neuro Reports Normal hearing present, Denies Abnormal speech present, Denies confusion and Denies Sensory deficit (Neuro) Psych Denies confusion Endo Reports no additional complaints (Denies diabetes) Physical Exam Vital Signs: Last Vital Signs Pulse 86 08/14/24 13:15 Resp 15 08/14/24 13:15 BP 176/82 H 08/14/24 13:15 Pulse Ox 97 08/14/24 13:15 Oxygen Delivery Method Room Air 08/14/24 13:15 BMI result Body Mass Index 26.6 Const General: no acute distress; No confusion Nutritional Appearance: obese morbidly obese Orientation/consciousness: patient oriented x3 and No confusion Eyes General: appearance normal, both eyes and all related structures Pupils: Equal, round and reactive pupils present EOM: EOMs intact bilaterally Neck Neck: Yes full ROM Chest Other: There is tenderness on palpation on the posterior right surface of the chest in the projection of the suprascapular group muscles. Chest palpation & inspection: normal inspection of the chest Resp Effort & Inspection: normal respiratory effort, able to speak in complete sentences, normal respiratory pattern, no audible wheezes and no cough Cardio Jugular venous distension: no JVD GI Inspection: Yes normal to inspection Neuro General: patient oriented x3, gait normal and No confusion Cranial nerves: Yes CN's II-XII intact bilaterally, Yes Equal, round and reactive pupils present, Yes Normal hearing present and Yes Ability to bilaterally elevate shoulders present Speech: No Abnormal speech present Gait exam (Neuro): Normal gait present Motor exam (neuro): 5/5 motor strength present throughout Sensory Exam: No Sensory deficit (Neuro) Extrem General: No pedal edema Psych Speech and movement: Normal speech and movement present Affect: normal affect Attitude: cooperative Thought process: Normal thought process present Thought content: Normal thought content present Insight: Good insight present (Psych) Judgement: Good judgement present (Psych) Office Procedures Therapeutic Injection Therapeutic Injection 97356-Pudekjy Point Injection 1 or 2 sites All charges added?: Procedure code (CPT) selection complete Office Meds triamcinolone acetonide 40 mg/mL suspension for injection Performing Provider: Mann Medina MD Performing Location: [facility] Administered by: Mann Medina MD on 08/14/24 13:35 Dose Route Admin Location Dispensed Lot Number Expiration Date [facility] Cable [employer]r 40 mg Infiltration 1 mL [id number] 02/25/26 [employer] bupivacaine (PF) 0.5 % (5 mg/mL) injection solution Performing Provider: Mann Medina MD Performing Location: [facility] Administered by: Mann Medina MD on 08/14/24 13:35 Dose Route Admin Location Dispensed Lot Number Expiration Date [facility] Cable Wirer 10 mL Infiltration 10 mL [id number] Assessment & Plan Assessment & Plan (1) Myofascial pain syndrome: Code(s): M79.18 - Myalgia, other site Category: Medical Plan: After obtaining informed consent were risks of bleeding infection and peripheral nerve damage as well as risk of diabetes as a result of steroid administration were explained to the patient, the patient was brought to the sitting position on examination bed. The posterior suprascapular area was prepped with ChloraPrep . Sterilely obtained mixture of bupivacaine 0.5% 10 mL and Kenalog 80 mg was injected into the most painful on palpation area in the projection of the suprascapular right muscles. The patient tolerated procedure well. Needle was removed Band-Aid was applied. (2) Chronic pain syndrome: Code(s): G89.4 - Chronic pain syndrome Category: Medical Plan: Trigger point injection was performed as above. The patient tolerated the procedure well. Next appointment as needed if this procedure will not help his pain. I explained to the patient we can repeat this procedure once in 3 months. (3) Chronic right shoulder pain: Code(s): M25.511 - Pain in right shoulder; G89.29 - Other chronic pain Category: Medical Plan: No new appointment that this time unless patient wants to proceed with follow-up. Orders: Orders AMB Trigger Point Injection Today M79.18 - Myalgia, other site Coding Level of Care Code New Pt Level 3 (08872) Procedure Only Diagnoses Myofascial pain syndrome M79.18 Chronic pain syndrome G89.4 Chronic right shoulder pain M25.511; G89.29 CPT Codes Therapeutic Injection - Ther Injection 1: 40227-Wbojmfj Point Injection 1 or 2 sites ([id number])
[2024-08-14 13:15] VITALS: BP 176/82; PULSE 86; RESP 15; O2SAT 97; BMI 26.6
== END 2024-08-14 13:34 | disposition home or self-care (01) ==
PROVIDERS: PCP Nurse Practitioner Family; Visit Provider Anesthesiology
DX: M25.511 Pain in right shoulder (principal); M79.18 Myalgia, other site; G89.4 Chronic pain syndrome; G89.29 Other chronic pain
CPT/HCPCS: 20552; 99203

== ENCOUNTER 2024-08-14 13:07 | Outpatient (REF) | payer MEDICARE, SELFPAY ==
[2024-08-15 06:29] LABS: Urine Cytology See Pathology rpt
== END 2024-08-14 13:08 | disposition home or self-care (01) ==
LOC: HO.LAB 13:07
PROVIDERS: Physician Assistant; PCP Nurse Practitioner Family; Visit Provider Anesthesiology
DX: N39.0 Urinary tract infection, site not specified (principal); R10.2 Pelvic and perineal pain; R31.29 Other microscopic hematuria; R31.9 Hematuria, unspecified; M79.18 Myalgia, other site; G89.4 Chronic pain syndrome; M25.511 Pain in right shoulder
CPT/HCPCS: 20552; 81003; 87086; 88112; 99202; 99212; J3300

== ENCOUNTER 2024-08-14 13:52 | Outpatient (AMB) | payer MEDICARE, SELFPAY ==
[2024-08-14 14:02] VITALS: BP 140/80; PULSE 78; O2SAT 97; BMI 26.6
--- NOTE | 2024-08-14 14:02 | MHC.OFFWIV ---
Intake Vital Signs 08/14/24 14:02 Height 5 ft 8 in Weight 175 lb BMI 26.6 BP 140/80 H Blood Pressure Location Lt brachial Position Sitting Pulse 78 Pulse Source Pulse Oximeter Pulse Oximetry (%) 97 Oxygen Delivery Method Room Air Intake Visit Reasons: EP prostate concerns Patient Tobacco Use Status: Former Tobacco user Allergies No Known Allergies Allergy (Mild, Verified 08/14/24 13:17) NONE HPI HPI Comments History of Present Illness Details History of Present Illness The patient is an 84-year-old male presenting with urinary issues and abdominal pain. He reports experiencing increased frequency of urination, stating he needs to urinate every two hours or less, even after feeling that his bladder is empty. This frequent urination has not been accompanied by any burning sensations, blood in the urine, low back pain, or fever. He describes his urinary stream as weak, and he typically wakes up two to three times a night to urinate. Although he does not have difficulty holding his urine, he finds the sensation of an incomplete bladder emptying bothersome. The patient's abdominal pains are described as excessive and located low in the abdomen or suprapubic area, sometimes being rather painful and affected by his eating habits. He was seen by Dr. Dorman in the past for a related concern, which did not involve frequent urination at that time. Physical Exam General: Cooperative, healthy appearing, comfortable, no acute distress and well developed Orientation: Patient oriented x3 Limitations: No limitations Head: Normal to inspection Ears: Hearing grossly normal bilaterally Nose: Normal external nose present Face and sinus: Normal facial exam Eyes: Appearance normal, both eyes and all related structures Neck: Normal visual inspection and Yes full ROM Respiratory: Normal respiratory effort and able to speak in complete sentences. Clear to auscultation bilaterally Cardiovascular: Regular rate and rhythm. Normal S1 and S2 GI: obese, soft, TTP in suprapubic region Skin: No rashes or lesions noted Neuro: Patient oriented x3 Extremities: Normal to inspection [facility] Medical History Carpal tunnel syndrome, bilateral Ulnar neuropathy at elbow Abdominal pain Kidney stones Cervical radiculopathy Dyslipidemia HTN (hypertension) Cervical arthritis Surgical History Status post right partial knee replacement History of left knee replacement H/O colonoscopy Family History Father HTN (hypertension) Diabetes Mother History of colon cancer Social History Housing: House Are you a primary early breastfeeding care specialist to a significant other at home: No Do you presently have visiting nurse or other home services: No Alcohol intake: never Patient Tobacco Use Status: Former Tobacco user e-Cigarette/Vaping Use: Never Used Second Hand Smoke Exposure: No 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al status: retired 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 Cognitive needs: No Hearing needs: No Vision needs: No Review of Systems Const All systems reviewed & are unremarkable except as noted in HPI and below Physical Exam Vital Signs: Last Vital Signs Pulse 78 08/14/24 14:02 BP 140/80 H 08/14/24 14:02 Pulse Ox 97 08/14/24 14:02 Oxygen Delivery Method Room Air 08/14/24 14:02 BMI result Body Mass Index 26.6 Results AMB Urinalysis, Automated UA Leukoctes 0 Ting/uL Last Edit by Patrizia Bullard CMA on 08/14/24 14:25 UA Nitrite Negative Last Edit by Patrizia Bullard CMA on 08/14/24 14:25 UA Urobilinogen 0.2 mg/dL Last Edit by Patrizia Bullard CMA on 08/14/24 14:25 UA Protein 0 mg/dL Last Edit by Patrizia Bullard CMA on 08/14/24 14:25 UA pH 6.0 Last Edit by Patrizia Bullard CMA on 08/14/24 14:25 UA Blood 10 Faisal/uL Last Edit by Patrizia Bullard CMA on 08/14/24 14:25 UA Specific [place] 1.025 Last Edit by Patrizia Bullard CMA on 08/14/24 14:25 UA Ketone Negative Last Edit by Patrizia Bullard CMA on 08/14/24 14:25 UA Bilirubin 0 mg/dL Last Edit by Patrizia Bullard CMA on 08/14/24 14:25 UA Glucose 0 mg/dL Last Edit by Patrizia Bullard CMA on 08/14/24 14:25 Assessment & Plan Assessment & Plan (1) Suprapubic pain, acute: Code(s): R10.2 - Pelvic and perineal pain Plan: Plan - Conduct urinalysis and urine culture to rule out possible urinary tract infection and confirm the presence of any infection. -UA positive for blood, noegative for infection, cx pending. Will send abx if anything grows out. - Evaluate for Benign Prostatic Hyperplasia BPH), characterized by urinary frequency, incomplete bladder emptying sensation, and weak urinary stream. - Will send note to his PCP for referral to Urology for further evaluation due to symptomatic BPH for additional diagnostic tests or management. - PSA levels, although previously normal, last tested in October 2023. Patient was informed and verbally consented to the use of an ambient scribe for clinic note documentation during this visit. (2) Hematuria: Code(s): R31.9 - Hematuria, unspecified Qualifiers: Hematuria type: other microscopic Qualified Code(s): R31.29 - Other microscopic hematuria Plan: as above Orders: Orders Urine Culture Today N39.0 - Urinary tract infection, site not specified Coding Level of Care Code Est Pt Level 4 (65255) Diagnoses Suprapubic pain, acute R10.2 Other microscopic hematuria R31.29 Hematuria type: other microscopic
== END 2024-08-14 14:51 | disposition home or self-care (01) ==
PROVIDERS: PCP Nurse Practitioner Family; Visit Provider Physician Assistant
DX: R10.2 Pelvic and perineal pain (principal); R31.29 Other microscopic hematuria

== ENCOUNTER 2024-09-05 11:03 | Outpatient (REF) | payer MEDICARE, SELFPAY ==
--- NOTE | ~2024-09-05 | CT_ITS ---
CLINICAL HISTORY: R31.29 - Other microscopic hematuria CT abdomen with and without contrast Comparison: None Findings: The lung bases are clear. Unremarkable gallbladder and solid organs. No urolithiasis. No bowel obstruction, pneumoperitoneum, or pneumatosis. There are diverticula in the descending and sigmoid colon without imaging evidence of diverticulitis. Kidneys are normal in appearance. Calices are sharply defined. Ureters are unremarkable. Urinary bladder is unremarkable. No acute fracture. IMPRESSION: No acute findings. This document has been electronically signed by: Isael Faust MD on 09/06/2024 08:36:23
--- OUTSIDE RECORDS SUMMARY | 2024-09-05 11:42 | XMS_ITS ---
Author Organization [facility] Address [address] [place] [address] Care Team Providers Care Material Worker Name Role Phone SATHYA ESTRADA Primary Care Provider Darrick Bob [phone] REASON FOR VISIT results L/M 05/15 Encounters Encounter Location Date Provider Diagnosis [facility] [address] [place] [address] 05/12/2023 Darrick Dorman PLAN OF TREATMENT No Information
--- OUTSIDE RECORDS SUMMARY | 2024-09-05 11:42 | XMS_ITS ---
Author Organization [facility] Address [address] [place] [address] Care Team Providers Care Lead Front End Developer Name Role Phone SATHYA ESTRADA Primary Care Provider Darrick Bob [phone] REASON FOR VISIT lower abd pain Encounters Encounter Location Date Provider Diagnosis [facility] [address] [place] [address] 04/01/2024 Darrick Dorman PLAN OF TREATMENT No Information
--- OUTSIDE RECORDS SUMMARY | 2024-09-05 11:42 | XMS_ITS ---
Author Organization [facility] Address [address] [place] [address] Care Team Providers Care Spray Applicator Name Role Phone SATHYA ESTRADA Primary Care Provider Darrick Bob [phone] ALLERGIES No Known Allergies REASON FOR VISIT [...] 03/19/2024 Encounters Encounter Location Date Provider Diagnosis [facility] [address] [place] [address] 03/19/2024 Darrick Dorman Abdominal pain, generalized R10.84 [...]
--- OUTSIDE RECORDS SUMMARY | 2024-09-05 11:43 | XMS_ITS | Data Portability ---
Author Organization [facility] Address [address] [place] [address] Care Team Providers Care Product Managent Intern Name Role Phone LEX LEMUS Referring Provider [...] has been made and he needs a bull driver on the day of the procedure. [...] referral 2016 [id number] JARRETT Minor MD, [address], [address], 7 19:10:29 Procedures None recorded. Surgeries None recorded. Imaging None recorded. Medication Orders None recorded. Patient TargetsNo targets recorded. Patient Instructions Encounter Date Encounter Id Patient Instructions Last Modified By Organization Details Last Modified Time 08/11/2016 [id number] He was advised to continue with a home exercise program. [email or web address] Not available 08/12/2016 11:58:30 08/23/2016 [id number] He was advised to continue with a home exercise program. [email or web address] Not available 08/25/2016 09:46:03 12/08/2016 [id number] He was advised to continue with a [...] ultrasound guidance completed David Diop MD [address] , [address], [place], [address], [place] [facility] 12/09/2016 09:36:31 08/23/20 16 Cervical Epidural Steroid injection under fluroscopic guidance completed David Diop MD [address] , [address], [place], [address], [place] [facility] 08/25/2016 09:45:23 [...] Available Not Available Not Available Fluzone High-Dose 7467-4107 (PF) 180 mcg/0.5 mL intramuscul ar syringe TO BE ADMINISTE RED BY [employer] T FOR IMMUNIZAT ION 08/11 completed Not Available Not Available Not Available Vitals Date Recorded Heart rate Oxygen saturation Oxygen saturation in Arterial blood by Pulse oximetry Body height Body weight Body mass index (BMI) Systolic blood pressure Diastolic blood pressure Provider Name and Address Organization Details Last Updated DateTime 6 76 /min 97 % 97 % 172.72 cm 92243.5 9 g 28.1 kg/m2 151 mm[Hg] 76 mm[Hg] [facility] 6 10:20:16 Date Recorded Body height Heart rate Oxygen saturation Oxygen saturation in Arterial blood by Pulse oximetry Systolic blood pressure Diastolic blood pressure Provider Name and Address Organization Details Last Updated DateTime 6 172.72 cm 76 /min 96 % 96 % 153 mm[Hg] 75 mm[Hg] [facility] 6 10:33:00 Date Recorded Body height Heart rate Oxygen saturation Oxygen saturation in Arterial blood by Pulse oximetry Systolic blood pressure Diastolic blood pressure Provider Name and Address Organization Details Last Updated DateTime 7 172.72 cm 98 /min 97 % 97 % 129 mm[Hg] 80 mm[Hg] [facility] [place] [facility] 7 15:07:02 Social History Question Answer Notes LastModified by Organizat ion Details LastModified Time Tobacco Smoking Status Former Smoker Quit x 30 years Not Available [employer] 06/12/2020 03:16:10 What Is Your Level Of Alcohol Consumption? None [id number] Information not available 06/12/2020 Are You Currently Employed? No [id number] Information not available 06/12/2020 Which Illicit Or Recreational Drugs Have You Used? No [id number] Information not available 06/12/2020 Education 12 With College [email or web address] Information not available 08/11/2016 Marital Status Informatio n not available 08/11/2016 How Many Years Have You Smoked Tobacco? 15 [id number] Information not available 06/12/2020 Sex: Unknown Functional Status None recorded. Mental Status None recorded. Family History Relationship Description Onset Age of this Age Resolved Age Notes LastModified by Organization Details LastModified Time Father Malignant neoplastic disease Lung cancer Not available 08/11/2016 10:29:05 Paternal Grandfather Malignant neoplastic disease Lung cancer Not available 08/11/2016 10:29:15 Medical History Condition Response Hypertension Y Kidney Stones Y High Cholesterol Y Past Encounters Encounter ID Performer Location Encounter Start Date Encounter Closed Date Diagnosis/Indication Diagnosis SNOMED-CT Code Diagnosis ICD10 Code Diagnosis Note [id number] David Diop MD PA[facility] [address] [place] [address] 08/11/2016 10:08:13 08/15/2016 11:25:14 Cervical radiculopathy 53671620 M54.12 Degenerati on of cervical intervertebral disc 07685865 M50.321 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 979291941 M47.812 [id number] David Diop MD PA[facility] OFFICE [address] [place] [address] 08/23/2016 10:10:56 08/25/2016 09:54:19 Cervical radiculopathy 63028062 M54.12 Degenerati on of cervical intervertebral disc 08125253 M50.321 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 590773389 M47.812 [id number] David Diop MD PA[facility] [address] [place] [address] 12/08/2016 14:45:01 12/09/2016 10:39:26 Cervical radiculopathy 43449176 M54.12 Degenerati on of cervical intervertebral disc 26713652 M50.321 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 046764684 M47.812 Muscle pain 20710287 M79 .1 Health Concerns Section Related Observation LastModified by Organization Detai ls LastModified Time None Recorded Concern Status LastModified by Organization Details LastModified Time None Recorded Advance Directives Directive None Recorded Payers Encounter Date Sequence Insurance Name Policy Number Policy Jacob Covered Member ID Jacob Member ID Guarantor Name 08/11/2016 1 [facility] (MEDICARE REPLACEMENT/A DVANTAGE - PPO) [id number] Cruz Barreto [id number] Cruz Barreto 08/23/2016 1 [facility] (MEDICARE REPLACEMENT/A DVANTAGE - PPO) [id number] Cruz Barreto [id number] Cruz Barreto 12/08/2016 1 [facility] (MEDICARE REPLACEMENT/A DVANTAGE - PPO) [id number] Cruz Barreto [id number] Cruz Barreto Notes Date Note Type Note [...] night due to pain. 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 Castano in [place] for his right shoulder pain with no pain benefit. Previous PT:did not help; He had physical therapy at [place] [facility] in [place], [place] which did not help. He is following a home exercise program. Previous healthcare or medical:did not help David Diop MD [address] , [address], [place], [address], [facility] 08/18/2016 11:06:07 08/23/2016 text/html He is here for a trial of cervical epidural steroid injection under fluoroscopic guidance David Diop MD [address] , [facility] [facility] [address], [place], [address], [facility] 08/25/2016 13:55:59 12/08/2016 text/html He [...] or bowel incontinence. David Diop MD [address] , [address], [place], [address], [facility] 12/12/2016 15:21:23
--- OUTSIDE RECORDS SUMMARY | 2024-09-05 11:43 | XMS_ITS | Patient Health Record ---
Author Organization [facility] Address [address] [place] [address] Care Team Providers Care Assembler Installer Structures Name Role Phone SATHYA ESTRADA Primary Care Provider Darrick Bob [phone] ALLERGIES No Known Allergies REASON FOR REFERRAL [...] Notes Problem Chest discomfort (R07.89) Active confirmed 737768118 Problem Hiatal hernia (K44.9) Active confirmed 05956692 Problem Gastroenteritis (K52.9) Active confirmed 97365859 Problem Abnormal CT scan, small bowel (R93.3) Active confirmed 799847730 Problem Abdominal pain, generalized (R10.84) Active confirmed 325512474 Problem Diarrhea, unspecified type (R19.7) Active confirmed 71967695 VITAL SIGNS Blood pressure diastolic 00 mm Hg 03/19/2024 Height 67 in 03/19/2024 Blood pressure systolic 00 mm Hg 03/19/2024 Weight 173 lbs 03/19/2024 BMI 27.09 kg/m2 03/19/2024 Encounters Encounter Location Date Provider Diagnosis [facility] [address] [place] [address] 03/19/2024 Darrick Dorman Abdominal pain, generalized R10.84 [facility] [address] [place] [address] 04/01/2024 Darrick Dorman ASSESSMENTS Encounter Date Diagnosis [...] Insured Coverage Start Date Coverage End Date [facility] [address] [place], [place] [id number] BEN OSBORNE Self - patient is the insured MEDICAL (GENERAL) HISTORY Medical History History ICD Code EGD 04/10/2009--negative kidney stones Left bundle branch block Colonoscopy in 08/2002 with [place] Rogel with removal of only hyperplastic polyps Denies UT,DM,CVA,Lung disease,renal dise ase Hyperlipidemia HTN Neg colonoscopy 2012 Neg EGD in 2012 except for a small HH Neg GB U/S Seasonal allergies Chronic chest discomfort lizbet ing back to at least 2012--EGD in 03/2020--minimal HH, otherwise WNL CT scan of the abdomen in [facility]2021 revealed changes consistent with some type of [...]
[2024-09-05] MEDS: iohexoL 350 MG/ML 100 ML INFUS..BTL 85 ML IV (12:03)
[2024-09-06 14:15] LABS: Creatinine POC 0.7 mg/dL (0.5-1.4); GFR POC > 60
== END 2024-09-05 11:04 | disposition home or self-care (01) ==
LOC: HO.CT 11:03
PROVIDERS: PCP Nurse Practitioner Family; Visit Provider Nurse Practitioner Family
DX: R31.29 Other microscopic hematuria (principal)
CPT/HCPCS: 74178; 82565; Q9967

== ENCOUNTER → 2024-09-05 11:05 | Outpatient (BNV) | payer MEDICARE, SELFPAY | PROVIDERS: PCP Nurse Practitioner Family; Visit Provider Specialist | DX: R31.29 Other microscopic hematuria (principal) | CPT/HCPCS: 74178 ==

== ENCOUNTER 2024-10-01 10:49 | Outpatient (REF) | payer MEDICARE, SELFPAY ==
--- NOTE | ~2024-10-01 | XR_ITS ---
EXAMINATION: XR RIBS, LEFT CLINICAL INFORMATION: Left sided chest pain, s/p fall. COMPARISON: November 01, 2023. TECHNIQUE: 3 views of the left ribs were obtained. FINDINGS: No acute cortical disruption within the endplates of the left hemithorax. Linear opacities in the mid to lower hemithoraces bilaterally. No consolidation, pleural effusion or pneumothorax. Calcified plaque thoracic aortic arch. Multilevel thoracolumbar spondylosis. Degenerative changes in the acromioclavicular joints. XR/XR ribs LT min 3V w CXR1V IMPRESSION: No acute rib fractures, left hemithorax. Subsegmental atelectasis versus scarring, lower lung lobes. Atherosclerosis disease, aorta. Electronically signed by: Austin South MD 10/01/2024 12:44 PM SIVAKUMAR
--- OUTSIDE RECORDS SUMMARY | 2024-10-01 12:48 | XMS_ITS | Clinical Summary ---
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
== END 2024-10-01 10:50 | disposition home or self-care (01) ==
LOC: HO.HMGCX 10:49
PROVIDERS: PCP Nurse Practitioner Family; Visit Provider Physician Assistant
DX: R07.9 Chest pain, unspecified (principal); R07.89 Other chest pain
CPT/HCPCS: 71101; 93005; 99212

== ENCOUNTER 2024-10-01 10:49 | Outpatient (AMB) | payer MEDICARE, SELFPAY ==
--- NOTE | 2024-10-01 11:40 | AM.OFFWIN_ITS ---
Intake Vital Signs 10/01/24 11:42 Weight 174 lb BP 150/90 H Blood Pressure Location Lt brachial Position Sitting Pulse 86 Pulse Source Pulse Oximeter Pulse Oximetry (%) 96 Oxygen Delivery Method Room Air Intake Visit Reasons: EP upper chest pain due to fall Intake Note: Patient here because he had a fall/slipped on ice on Monday and landed on his left arm and is now having left arm pain and and chest discomfort, having difficulty taking a full deep breathe. Patient Tobacco Use Status: Former Tobacco user Allergies No Known Allergies Allergy (Mild, Verified 10/01/24 11:49) NONE Do you need a note to return to daycare/school/sports/work: No HPI HPI Comments History of Present Illness Details This is an 84-year-old male with a past medical history of hypertension hyperlipidemia presenting for evaluation of left anterior chest pain. Patient states that he fell on ice 6 days ago onto his left side. Patient states he has not had any improvement in his discomfort in his complaining of left anterior chest pain. Patient has taken Tylenol intermittently throughout the week. He denies having any fevers, chills, left shoulder pain, left arm pain, left clavicular pain, cough or shortness for breath. [facility] Medical History Carpal tunnel syndrome, bilateral Ulnar neuropathy at elbow Abdominal pain Kidney stones Cervical radiculopathy Dyslipidemia HTN (hypertension) Cervical arthritis Surgical History Status post right partial knee replacement History of left knee replacement H/O colonoscopy Family History Father HTN (hypertension) Diabetes Mother History of colon cancer Social History Housing: House Are you a primary professional healthcare representative to a significant other at home: No Do you presently have visiting nurse or other home services: No Alcohol intake: never Patient Tobacco Use Status: Former Tobacco user e-Cigarette/Vaping Use: Never Used Second Hand Smoke Exposure: No 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al status: retired 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 Cognitive needs: No Hearing needs: No Vision needs: No Review of Systems Const All systems reviewed & are unremarkable except as noted in HPI and below Denies chills, Denies fatigue, Denies fever(s), Denies frequent falls and Denies headache(s) Eyes Reports no additional complaints ENT Reports no additional complaints and Denies headache(s) Card Reports no additional complaints Resp Reports no additional complaints GI Reports no additional complaints Reports no additional complaints Musc Reports no additional complaints and Reports myalgias (left chest pain) Skin/Breast Reports system reviewed and no additional complaints, except as documented and Denies lesions Neuro Reports no additional complaints, Denies frequent falls and Denies headache(s) Psych Reports no additional complaints Endo Reports no additional complaints and Denies fatigue Danny/Lymph Reports no additional complaints Aller/Immun Reports no additional complaints Physical Exam Vital Signs: Patient is afebrile. Const General: cooperative, healthy appearing, comfortable, no acute distress, well developed, alert, awake and Physically active Nutritional Appearance: average body habitus Orientation/consciousness: patient oriented x3 Limitations: no limitations Neck Neck: Yes full ROM Chest Chest palpation & inspection: normal inspection of the chest, no localized rib tenderness and tenderness pectoral muscle and costochondral junction left mid-clavicular line involving the 4th rib and involving the 5th rib; no clavicular xxx and no sternal xxx Resp Effort & Inspection: normal respiratory effort Auscultation: clear to auscultation bilaterally Cardio Rate: regular rate Rhythm: regular rhythm Skin Other: There is no ecchymosis identified on the anterior chest wall. General skin exam: no rashes or lesions noted Neuro General: patient oriented x3 Extrem Other: ROM upper extremities intact bilaterally, field mechanic strength equal, no left clavicular pain on examination. Psych Appearance: grossly normal Mental Status: mental status grossly normal Insight: Good insight present (Psych) Judgement: Good judgement present (Psych) Results Reviewed Results Reviewed: CXR: no acute findings EKG: NSR 71bpm; LBBB Assessment & Plan Assessment & Plan (1) Chest pain: Comment: No acute findings on CXR; patient has left anterior chest wall pain to palpation. No pneumonia identified on imaging. Code(s): R07.9 - Chest pain, unspecified Qualifiers: Chest pain type: other chest pain Qualified Code(s): R07.89 - Other chest pain Plan: Naprosyn b.i.d. times 10 days. Patient to follow up with his primary care provider as an outpatient. Orders: Orders AMB EKG-In Office Today R07.9 - Chest pain, unspecified XR chest 2V Today R07.9 - Chest pain, unspecified Medications: New naproxen (EC-Naprosyn) 500 mg PO BID 20 tabs 0RF Coding Level of Care Code Est Pt Level 3 (14223) Diagnoses Other chest pain R07.89 Chest pain type: other chest pain Time Spent (min) 25
[2024-10-01 11:42] VITALS: BP 150/90; PULSE 86; O2SAT 96
--- OUTSIDE RECORDS SUMMARY | 2024-10-01 11:43 | XMS_ITS | Data Portability ---
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 [...] referral 2016 [id number] JARRETT Minor MD, [address], [address], 7 19:10:29 Procedures None recorded. Surgeries None recorded. Imaging None recorded. Medication Orders None recorded. Patient TargetsNo targets recorded. Patient Instructions Encounter Date Encounter Id Patient Instructions Last Modified By Organization Details Last Modified Time 08/11/2016 [id number] He was advised to continue with a home exercise program. [email or web address] Not available 08/12/2016 11:58:30 08/23/2016 [id number] He was advised to continue with a home exercise program. [email or web address] Not available 08/25/2016 09:46:03 12/08/2016 [id number] He was advised to continue with a [...] ultrasound guidance completed David Diop MD [address] , [address], [place], [address], [place] [facility] 12/09/2016 09:36:31 08/23/20 16 Cervical Epidural Steroid injection under fluroscopic guidance completed David Diop MD [address] , [address], [place], [address], [place] [facility] 08/25/2016 09:45:23 [...] Available Not Available Not Available Fluzone High-Dose 8630-8095 (PF) 180 mcg/0.5 mL intramuscul ar syringe TO BE ADMINISTE RED BY [employer] T FOR IMMUNIZAT ION 08/11 completed Not Available Not Available Not Available Vitals Date Recorded Heart rate Oxygen saturation Oxygen saturation in Arterial blood by Pulse oximetry Body height Body weight Body mass index (BMI) Systolic blood pressure Diastolic blood pressure Provider Name and Address Organization Details Last Updated DateTime 6 76 /min 97 % 97 % 172.72 cm 24876.5 9 g 28.1 kg/m2 151 mm[Hg] 76 mm[Hg] Shelby Collins [place] [facility] 6 10:20:16 Date Recorded Body height Heart rate Oxygen saturation Oxygen saturation in Arterial blood by Pulse oximetry Systolic blood pressure Diastolic blood pressure Provider Name and Address Organization Details Last Updated DateTime 6 172.72 cm 76 /min 96 % 96 % 153 mm[Hg] 75 mm[Hg] Shelby Collins [place] [facility] 6 10:33:00 Date Recorded Body height Heart rate Oxygen saturation Oxygen saturation in Arterial blood by Pulse oximetry Systolic blood pressure Diastolic blood pressure Provider Name and Address Organization Details Last Updated DateTime 7 172.72 cm 98 /min 97 % 97 % 129 mm[Hg] 80 mm[Hg] Shelby Collins [place] [facility] 7 15:07:02 Social History Question Answer Notes LastModified by Organizat ion Details LastModified Time Tobacco Smoking Status Former Smoker Quit x 30 years Not Available [employer] 06/12/2020 03:16:10 What Is Your Level Of Alcohol Consumption? None [id number] Information not available 06/12/2020 Are You Currently Employed? No [id number] Information not available 06/12/2020 Which Illicit Or Recreational Drugs Have You Used? No [id number] Information not available 06/12/2020 Education 12 With College [email or web address] Information not available 08/11/2016 Marital Status Informatio n not available 08/11/2016 How Many Years Have You Smoked Tobacco? 15 [id number] Information not available 06/12/2020 Sex: Unknown Functional [...] SNOMED-CT Code Diagnosis ICD10 Code Diagnosis Note [id number] David Diop MD PAIN OFFICE [address] [place] [address] 08/11/2016 10:08:13 08/15/2016 11:25:14 Cervical radiculopathy 60662237 M54.12 Degenerati on of cervical intervertebral disc 75985852 M50.321 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 299889785 M47.812 [id number] David Diop MD PAIN OFFICE [address] [place] [address] 08/23/2016 10:10:56 08/25/2016 09:54:19 Cervical radiculopathy 08252300 M54.12 Degenerati on of cervical intervertebral disc 76012252 M50.321 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 020373460 M47.812 [id number] David Diop MD PAIN OFFICE [address] [place] [address] 12/08/2016 14:45:01 12/09/2016 10:39:26 Cervical radiculopathy 86543110 M54.12 Degenerati on of cervical intervertebral disc 80329092 M50.321 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 421311736 M47.812 Muscle pain 85085646 M79 .1 Health Concerns Section Related Observation LastModified by Organization Detai ls LastModified Time None Recorded Concern Status LastModified by Organization Details LastModified Time None Recorded Advance Directives Directive None Recorded Payers Encounter Date Sequence Insurance Name Policy Number Policy Jacob Covered Member ID Jacob Member ID Guarantor Name 08/11/2016 1 [facility] (MEDICARE REPLACEMENT/A DVANTAGE - PPO) [id number] Cruz Barreto [id number] Cruz Barreto 08/23/2016 1 [facility] (MEDICARE REPLACEMENT/A DVANTAGE - PPO) [id number] Cruz Barreto [id number] Cruz Barreto 12/08/2016 1 [facility] (MEDICARE REPLACEMENT/A DVANTAGE - PPO) [id number] Cruz Barreto [id number] Cruz Barreto Notes Date Note Type Note [...] due to pain. 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 Castano in [place] for his right shoulder pain with no pain benefit. Previous PT:did not help; He had physical therapy at [place] [facility] in [place], [place] which did not help. He is following a home exercise program. Previous progressive care nurse:did not help David Diop MD [address] [facility] , [address], [place], [address], [facility] 08/18/2016 11:06:07 08/23/2016 text/html He is here for a trial of cervical epidural steroid injection under fluoroscopic guidance David Diop MD [address] [facility] , [facility] [address], [place], [address], [facility] Pain Management 08/25/2016 13:55:59 12/08/2016 text/html He [...] [address] [facility] , [address], [place], [address], [facility] Pain Management 12/12/2016 15:21:23
--- OUTSIDE RECORDS SUMMARY | 2024-10-01 11:43 | XMS_ITS | Clinical Summary ---
Author Organization [facility] ity Address [address] [place] [address] Care Team Providers Care Trim Technician Name Role Phone Unavailable Primary Care Provider Unavailabl e Social History Tobacco Use Types Packs/Day Years Used Date Smoking Tobacco: Never Assessed Sex and Gender Information Value Date Recorded Sex Assigned at Not on file Gender Identity Not on file Sexual Orientation Not on file Plan of Treatment Health Maintenance Due Date Last Done Comments DTaP,Tdap,and Td Vaccines (1 - Tdap) 1959 Zoster Vaccines (1 of 2) 1990 Pneumococcal Vaccine: 65+ Ye ars (1 of 1 - PCV) 2005 RSV Immunization Patients 60 + Years Old (1 - 1-dose 75+ series) 2015 COVID-19 Vaccine ( - 2023-2 5 season) 2024 Influenza Vaccine (#1) 2024 HIB Vaccines Aged Out No longer eligi ble based on patient's age to complete this topic HPV Vaccines Aged Out No longer eligi ble based on patient's age to complete this topic Hepatitis A Vaccines Aged Out No long er eligible based on patient's age to complete this topic Hepatitis B Vaccines Aged Out No long er eligible based on patient's age to complete this topic IPV Vaccines Aged Out No longer eligi ble based on patient's age to complete this topic MMR Vaccines Aged Out No longer eligi ble based on patient's age to complete this topic Meningococcal ACWY Vaccine Aged Out N o longer eligible based on patient's age to complete this topic RSV Immunization Patients Un nicole 20 months Aged Out No longer eligible b ased on patient's age to complete this topic Varicella Vaccines Aged Out No longer eligible based on patient's age to complete this topic
== END 2024-10-01 12:30 | disposition home or self-care (01) ==
PROVIDERS: PCP Nurse Practitioner Family; Visit Provider Physician Assistant
DX: R07.89 Other chest pain (principal)

== ENCOUNTER → 2024-10-01 12:01 | Outpatient (BNV) | payer MEDICARE, SELFPAY | PROVIDERS: PCP Nurse Practitioner Family; Visit Provider Radiology Diagnostic Radiology | DX: R07.82 Intercostal pain (principal); I70.0 Atherosclerosis of aorta | CPT/HCPCS: 71101 ==

== ENCOUNTER 2024-11-28 08:47 | Outpatient (REF) | payer MEDICARE, SELFPAY ==
--- OUTSIDE RECORDS SUMMARY | 2024-11-28 11:02 | XMS_ITS | Clinical Summary ---
Author Organization [facility] Address [address] [place] [address] Care Team Providers Care Billposting Supervisor Name Role Phone Unavailable Primary Care Provider [...] - 2023-2 5 season) 2024 Influenza Vaccine (Season Ended) 2025 HIB Vaccines Aged Out No longer eligi [...]
[2024-11-28 17:07] LABS: Urine Cytology See Pathology rpt
== END 2024-11-28 08:48 | disposition home or self-care (01) ==
LOC: HO.LAB 08:47
PROVIDERS: PCP Nurse Practitioner Family; Visit Provider Urology
DX: N39.0 Urinary tract infection, site not specified (principal); R31.29 Other microscopic hematuria; Z13.9 Encounter for screening, unspecified; N40.1 Benign prostatic hyperplasia with lower urinary tract symptoms; R35.1 Nocturia; Z79.82 Long term (current) use of aspirin
CPT/HCPCS: 51798; 81003; 88112; 99202

== ENCOUNTER 2024-11-28 08:47 | Outpatient (AMB) | payer MEDICARE, SELFPAY ==
--- NOTE | 2024-11-28 08:51 | A.OFFVIS_ITS ---
Intake Visit Reasons: Microscopic Hematuria Intake Note: New patient presents today for initial visit for microscopic hematuria Urology Medication:none Blood Thinner:Aspirin Antibiotic Allergies:none PVR:22ml Allergies No Known Allergies Allergy (Mild, Verified 11/28/24 08:51) NONE Medication List - Last Reconciled 11/28/24 by Néstor Rowley MD amlodipine 10 mg PO DAILY aspirin (Adult Low Dose Aspirin) 81 mg PO DAILY atorvastatin 40 mg PO DAILY blood pressure monitor As directed lisinopril 40 mg PO DAILY 90 days multivitamin 1 tab PO DAILY naproxen (EC-Naprosyn) 500 mg PO BID omega 3-azc-saw-fish oil 1,000 (120-180) mg (Fish Oil) 1 cap PO BID vit C,M-Kp-vpcum-lutein-zeaxan 250-90-40-1 mg (PreserVision AREDS-2) 1 tab PO BID [wrist splint wear all night & as much as possible throughout the day] HPI Comments Details: History of Present Illness: The patient is an 84-year-old male presenting with evaluation for blood in the urine. The patient reports a history of microscopic hematuria, as initially noted in laboratory testing. The concern now is primarily urinary symptoms, including a weak urine stream, nocturia with two to three awakenings per night, and new onset urinary hesitancy. There is no current visible hematuria. The patient underwent a CT scan in August without evidence of kidney stones or renal masses, aligning with the negative findings of kidney abnormalities. He give a h/o kidney stones, twice in the past. Urinary Symptoms Review - Frequent urination at night (nocturia), awakening two to three times per night - Noted weak urine stream strength - Episodes of urinary hesitancy - No associated pain reported associated with urination Results - CT scan of kidneys (August):09/05/24-- Normal kidneys, no stones or masses - Urine testing (08/14/24): Microscopic hematuria noted in July, [facility] Medical History Carpal tunnel syndrome, bilateral Ulnar neuropathy at elbow Abdominal pain Kidney stones Cervical radiculopathy Dyslipidemia HTN (hypertension) Cervical arthritis Surgical History Status post right partial knee replacement History of left knee replacement H/O colonoscopy Family History Father HTN (hypertension) Diabetes Mother History of colon cancer Social History Housing: House Are you a primary health care attorney to a significant other at home: No Do you presently have visiting nurse or other home services: No Alcohol intake: never Patient Tobacco Use Status: Former Tobacco user e-Cigarette/Vaping Use: Never Used Second Hand Smoke Exposure: No 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al status: retired 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 Cognitive needs: No Hearing needs: No Vision needs: No Review of Systems Const All systems reviewed & are unremarkable except as noted in HPI and below Reports no additional complaints Eyes Reports no additional complaints ENT Reports no additional complaints Card Reports no additional complaints Resp Reports no additional complaints GI Reports no additional complaints Reports as per HPI Musc Reports no additional complaints Skin/Breast Reports system reviewed and no additional complaints, except as documented Neuro Reports no additional complaints Psych Reports no additional complaints Endo Reports no additional complaints Danny/Lymph Reports no additional complaints Aller/Immun Reports no additional complaints Physical Exam Const General: healthy appearing, no acute distress and well developed Orientation/consciousness: patient oriented x3 HEENT Head: Yes normocephalic and Yes atraumatic Eyes Conjunctivae: conjunctivae normal Neck Neck: Yes normal visual inspection Chest Chest palpation & inspection: normal inspection of the chest Resp Effort & Inspection: normal respiratory effort GI Inspection: Yes normal to inspection Neuro General: patient oriented x3 Psych Appearance: grossly normal Affect: normal affect Office Procedures Post Void Residual Post Residual Void Post Void Residual (PVR): 22 83498-Cefd Void Residual by ultrasound Results AMB Urinalysis, Automated UA Leukoctes 0 Ting/uL Last Edit by Autumn Bullard on 11/28/24 13:58 UA Nitrite Negative Last Edit by Autumn Bullard on 11/28/24 13:58 UA Urobilinogen 0.2 mg/dL Last Edit by Autumn Bullard on 11/28/24 13:58 UA Protein 15 mg/dL Last Edit by Autumn Bullard on 11/28/24 13:58 UA pH 5.5 Last Edit by Autumn Bullard on 11/28/24 13:58 UA Blood 0 Faisal/uL Last Edit by Autumn Bullard on 11/28/24 13:58 UA Specific [place] 1.025 Last Edit by Autumn Bullard on 11/28/24 13:58 UA Ketone Negative Last Edit by Autumn Bullard on 11/28/24 13:58 UA Bilirubin 0 mg/dL Last Edit by Autumn Bullard on 11/28/24 13:58 UA Glucose 0 mg/dL Last Edit by Autumn Bullard on 11/28/24 13:58 Results Reviewed Results Reviewed: Laboratory Last Values Urine pH (Auto) 5.5 11/28/24 13:13 Specific [place] (Auto) 1.025 11/28/24 13:13 Urine Protein (Auto) 15 mg/dL 11/28/24 13:13 Glucose (UA)(Auto) 0 mg/dL 11/28/24 13:13 Urine Ketones (Auto) Negative 11/28/24 13:13 Urine Blood (Auto) 0 Faisal/uL 11/28/24 13:13 Urine Nitrite (Auto) Negative 11/28/24 13:13 Urine Bilirubin (Auto) 0 mg/dL 11/28/24 13:13 Urine Urobilinogen (Auto) 0.2 mg/dL 11/28/24 13:13 Leukocyte Esterase (Auto) 0 Ting/uL 11/28/24 13:13 Date of Service: 09/05/24 CLINICAL HISTORY: R31.29 - Other microscopic hematuria CT abdomen with and without contrast Comparison: None Findings: The lung bases are clear. Unremarkable gallbladder and solid organs. No urolithiasis. No bowel obstruction, pneumoperitoneum, or pneumatosis. There are diverticula in the descending and sigmoid colon without imaging evidence of diverticulitis. Kidneys are normal in appearance. Calices are sharply defined. Ureters are unremarkable. Urinary bladder is unremarkable. No acute fracture. IMPRESSION: No acute findings. Assessment & Plan Assessment & Plan (1) Microscopic hematuria: Code(s): R31.29 - Other microscopic hematuria Category: Medical (2) Urinary hesitancy: Code(s): R39.11 - Hesitancy of micturition Category: Medical (3) BPH loc w urin obs/LUTS: Code(s): N40.1 - Benign prostatic hyperplasia with lower urinary tract symptoms Category: Medical (4) Nocturia: Code(s): R35.1 - Nocturia Category: Medical (5) History of kidney stones: Code(s): Z87.442 - Personal history of urinary calculi Category: Medical Plan Plan alfuzosin, fu office cysto Orders: Orders Urine Cytology Today N39.0 - Urinary tract infection, site not specified AMB Urinalysis Automated Today Z13.9 - Encounter for screening, unspecified AMB Post Void Residual by ultrasound Today N40.1 - Benign prostatic hyperplasia with lower urinary tract symptoms Medications: New alfuzosin ER administer after the same meal each day 10 mg PO DAILY 30 tabs 4RF Patient Instructions: The patient had an opportunity to ask questions regarding treatment plan. The patient expressed understanding and agreement with the above treatment plan. The patient is aware they should contact our office by phone for worsening of their current condition or the appearance of new symptoms. Compliance is encouraged with any medications and followup testing that is ordered. It is a privilege to be allowed the opportunity to participate in the urologic care of your patient. If you have any questions or concerns regarding treatment for the above conditions please do not hesitate to contact me. The office telephone contact is [phone]. This note is constructed in part using voice recognition software. While every effort has been made to ensure accuracy perforator typist errors may have been included. Yours sincerely, Néstor Rowley MD Scribe Plan - Not visible on output: Patient was informed and verbally consented to the use of an ambient scribe for clinic note documentation during this visit. Coding Level of Care Code New Pt Level 4 (87291) Diagnoses Microscopic hematuria R31.29 Urinary hesitancy R39.11 BPH loc w urin obs/LUTS N40.1 Nocturia R35.1 History of kidney stones Z87.442 CPT Codes Post Residual Void - PVR CPT Code: 99573-Bqgc Void Residual by ultrasound ([id number])
--- OUTSIDE RECORDS SUMMARY | 2024-11-28 08:54 | XMS_ITS ---
Author Organization [facility] Address [address] [place] [address] Care Team Providers Care University Professor Name Role Phone SATHYA ESTRADA Primary Care Provider Darrick Bob [phone] Allergies No Known Allergies REASON FOR VISIT pt presents today for addominal pain Medications Medication SIG (Take, Route, Frequency, Duration) Notes [...] tablet Oral ly Once a day Active Vital Signs Blood pressure systolic 00 mm Hg 03/19/20 24 Blood pressure diastolic 00 mm Hg 024 Height 67 in 03/19/2024 Weight 173 lbs 03/19/2024 BMI 27.09 kg/m2 03/19/2024 Encounters Encounter Location Date Provider Diagnosis [facility] [address] [place] [address] 03/19/2024 Darrick Dorman Abdominal pain, generalized R10.84 Assessments Encounter Date Diagnosis (ICD Code) Assessment Notes Treatment Notes Treatment Clinical Notes Section Notes 03/19/2024 Abdominal pain, generalized (ICD-10 - R10.84) Call me if you develop increasing abdominal pain, vomiting, bleeding, etc. Overall, Cruz continues to appear very well from a clinical standpoint. He does not describe nor show any signs of worrisome GI pathology. His current symptom of some nonspecific abdominal discomfort but without any other associated significant GI complaints does not seem particularly worrisome at this time. He did have a detailed discussion of his current symptoms and all his negative studies over the past many years. I did reassure him that at this time I don't think he has any worrisome GI process occurring and his intermittent discomfort may very well be related to some mild intestinal spasm and irritable bowel syndrome. I advised him that I don't think he needs any particular workup such as upper endoscopy, colonoscopy, laboratories, nor any imaging studies at this time. Given his age and 2 negative screening colonoscopies in the past, as well as no family history of colon cancer, I advised him that I don't think he needs a screening colonoscopy at this point either. I did advise him that if things remain stable and he is doing well he could simply see me on a p.r.n. basis. However, I did advise him to certainly call me if he has any worsening issues such as increasing abdominal pain, vomiting, significant change of bowel habits, or bleeding. Cruz is comfortable with this plan. Thank you again for allowing me to have participated in Cruz's care. I shall continue to keep you advised of his progress as needed. Please do not hesitate to contact me if I can be of any further assistance in the future. Plan Of Treatment Treatment Notes Assessment Notes Abdominal pain, generalized Call me if y ou develop increasing abdominal pain, vomiting, bleeding, etc. Next Appt Details Follow Up: prn, Reason: Progress Notes * JANKI COLINOB:[birth year] (83 yo M)Acc No.[id number]:03/19/2024 Progress Notes Patient:?CRUZ COLIN Provider:?Darrick Dorman MD :1940???Age:83 Y???Sex:Male Deni e:03/19/2024 Address:[address] [place] [address] [place], [facility] [id number] Pcp:SATHYA ESTRADA Subjective: * Chief Complaints: * ???Pt presents today for add ominal pain * HPI: ???incontinence:? I saw Cruz in followup today in regard to some abdominal discomfort. ?I last saw Cruz in March of 2023. At that time he had been doing well but did have a previous abnormal CT scan of the abdomen in 2021 describing some abnormal thickening in a section of his jejunum. At the time I saw him in March of 2023 he was not having any particular GI symptoms such as diarrhea, vomiting, nor any signs of bleeding. A followup CT scan and laboratories in March of [address] The CT scan after that office visit showed resolution of the abnormality in the area of the jejunum and was otherwise unremarkable, other than known sigmoid diverticulosis. ?Cruz has had a history of intermittent upper GI complaints of reflux with associated chest discomfort, as well as a abdominal discomfort. He has had 2 negative colonoscopies in 2002 and 2012. He has had upper endoscopies in 2012 and 2019 that have been unremarkable as well. Since I saw him last summer he reports he has generally been feeling well but still has intermittent episodes of generalized abdominal discomfort with some cramps. However, he denies any associated symptoms such as anorexia, nausea, vomiting, early satiety, significant heartburn, dysphagia, jaundice, nor weight loss. He describes his bowel movements are fairly regular and without any signs of bleeding. He denies any known family history of colon cancer, inflammatory bowel disease, nor celiac disease. ?Laboratories from October revealed a normal CBC other than a borderline low hemoglobin of 13.3 with a normal MCV which is chronic, normal chemistries and renal function, normal LFTs, and a normal TSH. * ROS:?General/Constitutional:?Change in appetite?denies.?Chills?denies.?Fatigue?denies.?Ophthalmologic:?Patient denies? Negative..?ENT:?Patient denies?Negative..?Respiratory:?Patient denies?No coughing/hemoptysis..?Gastrointestinal:?Comments?See HPI for details.?Genitourinary:?Patient denies? No dysuria/hematuria..?Musculoskeletal:?Patient denies? No specific arthralgias/myalgias..?Skin:?Patient denies?No rash/pruritus..?Neurologic:?Patient denies? No headaches/seizures..?Psychiatric:?Patient denies?Negative..? * Medical History:? * Surgical History:?Right part ial knee replacement in 02/2008 Left knee replacement 2018 Hand surgery Tonsillectomy Carpal tunnel surgery scheduled for the end of February of 2024 * Hospitalization/Major Diagno stic Procedure:?No Hospitalization History. * Family History:?Father: dece ased, diagnosed with HTN (hypertension), Diabetes.?Mother: .? Denies famly hx of colon cancer, colon polyps or liver ds. * Social History:?Tobacco Use:?Tobacco Use/Smoking?Are you a: former smoker , How long has it been since you last smoked?: > 10 years.?Drugs/Alcohol:?Alcohol Screen?Points: 0, Interpretation: Negative.?Miscellaneous:?Marital status: . Occupation: retired. ???Nonsmoker;no alcohol. * Medications:?TakingMagnesium Atorvastatin Calcium 40 MG Tablet 1 tablet Orally Once a dayCentrum Aspir-81 81MG 1 tablet orally once a dayFish Oil 1200 MG Capsule Delayed Release 1 capsule Orally Once a dayamLODIPine Besylate 5 MG Tablet 1 tablet Orally Once a dayLisinopril 40 MG Tablet 1 tablet Orally Once a dayMedication List reviewed and reconciled with the patientTaking Magnesium Taking Atorvastatin Calcium 40 MG Tablet 1 tablet Orally Once a dayTaking Centrum Taking Aspir-81 81MG 1 tablet orally once a dayTaking Fish Oil 1200 MG Capsule Delayed Release 1 capsule Orally Once a dayTaking amLODIPine Besylate 5 MG Tablet 1 tablet Orally Once a dayTaking Lisinopril 40 MG Tablet 1 tablet Orally Once a dayMedication List reviewed and reconciled with the patient * Allergies:?N.K.D.A.yes[Aller gies Verified] Objective: * Vitals:?Wt: 173 lbs, Ht: 67 in, BMI:27.09 Index, BP: 00/00 mm Hg. * Examination: ???General Examination: ?GENERAL APPEARANCE:?pleasant, well nourished, well developed, in no acute distress.?EYES:?sclera non-icteric.?ORAL CAVITY:?mucosa moist.?NECK/THYROID:?no cervical lymphadenopathy, neck supple.?SKIN:?nonjaundiced, no spider angiomata..?HEART:?S1, S2 normal.?LUNGS:?clear to auscultation bilaterally.?CHEST:? There is no chest wall tenderness.?ABDOMEN:?normal bowel sounds, no guarding or rigidity, no hepatosplenomegaly, no masses palpable, soft, nontender, nondistended..?EXTREMITIES:?no edema.?NEUROLOGIC:?alert and oriented.? Assessment: * Assessment: 1.?Abdominal pain, generaliz ed - R10.84 (Primary)? Overall, Cruz whipple t o appear very well from a clinical standpoint. He does not describe nor show any signs of worrisome GI pathology. His current symptom of some nonspecific abdominal discomfort but without any other associated significant GI complaints does not seem particularly worrisome at this time. He did have a detailed discussion of his current symptoms and all his negative studies over the past many years. I did reassure him that at this time I don't think he has any worrisome GI process occurring and his intermittent discomfort may very well be related to some mild intestinal spasm and irritable bowel syndrome. I advised him that I don't think he needs any particular workup such as upper endoscopy, colonoscopy, laboratories, nor any imaging studies at this time. Given his age and 2 negative screening colonoscopies in the past, as well as no family history of colon cancer, I advised him that I don't think he needs a screening colonoscopy at this point either. I did advise him that if things remain stable and he is doing well he could simply see me on a p.r.n. basis. However, I did advise him to certainly call me if he has any worsening issues such as increasing abdominal pain, vomiting, significant change of bowel habits, or bleeding. Cruz is comfortable with this plan. Thank you again for allowing me to have participated in Cruz's care. I shall continue to keep you advised of his progress as needed. Please do not hesitate to contact me if I can be of any further assistance in the future. Plan: * Treatment: * Procedure Codes:?1036F TOBAC CO NON-[id number] BP SCR NOT PRFRM REC REASON NOS * Preventive Medicine:? ??Screenings:?Fall Risk Screening?Fall Risk Assessment:?No falls in the past year.? * Follow Up:?prn * * Sign off status: Completed true * Provider:?Darrick Dorman MD Date:? 024 Generated for Yola ramesh/Antonietta/Allanitting on:?11/28/2024 08:54 AM EDT History and Physical Notes * HPI (History of Present Illness) Category Sub-Category Detail Notes Category Not es incontinence I saw Cruz in followup today in regard to some abdominal discomfort. I last saw Cruz in March of 2023. At that time he had been doing well but did have a previous abnormal CT scan of the abdomen in 2021 describing some abnormal thickening in a section of his jejunum. At the time I saw him in March of 2023 he was not having any particular GI symptoms such as diarrhea, vomiting, nor any signs of bleeding. A followup CT scan and laboratories in March of [address] The CT scan after that office visit showed resolution of the abnormality in the area of the jejunum and was otherwise unremarkable, other than known sigmoid diverticulosis. Cruz has had a history of intermittent upper GI complaints of reflux with associated chest discomfort, as well as a abdominal discomfort. He has had 2 negative colonoscopies in 2002 and 2012. He has had upper endoscopies in 2012 and 2019 that have been unremarkable as well. Since I saw him last summer he reports he has generally been feeling well but still has intermittent episodes of generalized abdominal discomfort with some cramps. However, he denies any associated symptoms such as anorexia, nausea, vomiting, early satiety, significant heartburn, dysphagia, jaundice, nor weight loss. He describes his bowel movements are fairly regular and without any signs of bleeding. He denies any known family history of colon cancer, inflammatory bowel disease, nor celiac disease. Laboratories from October revealed a normal CBC other than a borderline low hemoglobin of 13.3 with a normal MCV which is chronic, normal chemistries and renal function, normal LFTs, and a normal TSH. Examination Category Sub-Category Detail Notes Category Not es General Examination GENERAL APPEARANCE: pleasant , well [...]
--- OUTSIDE RECORDS SUMMARY | 2024-11-28 08:54 | XMS_ITS ---
Author Organization [facility] Address [address] [place] [address] Care Team Providers Care Activities Assistant Name Role Phone SATHYA ESTRADA Primary Care Provider Darrick Bob [phone] REASON FOR VISIT lower abd pain Encounters Encounter Location Date Provider Diagnosis [facility] [address] [place] [address] 04/01/2024 Darrick Dorman Plan Of Treatment No Information Progress Notes * DIXIE, MITCHANA MARIAOB:[birth year] (83 yo M)Acc No.[id number]:04/01/2024 Patient:?BEN COLIN :1940???Age:83 Y???Sex:Male Address[address] [place] [address] * true * Date:? Generated for Larai domitila/Antonietta/eTransmitting on:?11/28/2024 08:53 AM EDT
--- OUTSIDE RECORDS SUMMARY | 2024-11-28 08:54 | XMS_ITS | Data Portability ---
Author Organization [facility] Address [address] [place] [address] Care Team Providers Care Rpg Programmer Name Role Phone LEX LEMUS Referring Provider [phone] Assessment Encounter Date Assessment Date Assessment LastModified [...] has been made and he needs a spike driver on the day of the procedure. [...] 2016 017 JARRETT Minor MD, [address], [address], 7 19:10:29 Procedures None recorded. Surgeries None recorded. Imaging None recorded. Medication Orders None recorded. Patient TargetsNo targets recorded. Patient Instructions Encounter Date Encounter Id Patient Instructions Last Modified By Organization Details Last Modified Time 08/11/2016 [id number] He was advised to continue with a home exercise program. [email or web address] Not available 08/12/2016 11:58:30 08/23/2016 [id number] He was advised to continue with a home exercise program. [email or web address] Not available 08/25/2016 09:46:03 12/08/2016 [id number] He was advised to continue with a [...] ultrasound guidance completed David Diop MD [address] , [address], [place], [address], [place] [facility] 12/09/2016 09:36:31 08/23/20 16 Cervical Epidural Steroid injection under fluroscopic guidance completed David Diop MD [address] , [address], [place], [address], [place] [facility] 08/25/2016 09:45:23 [...] Available Not Available Not Available Fluzone High-Dose 5619-9050 (PF) 180 mcg/0.5 mL intramuscul ar syringe TO BE ADMINISTE RED BY [facility] T FOR IMMUNIZAT ION 08/11 completed Not Available Not Available Not Available Vitals Date Recorded Heart rate Oxygen saturation Oxygen saturation in Arterial blood by Pulse oximetry Body height Body weight Body mass index (BMI) Systolic blood pressure Diastolic blood pressure Provider Name and Address Organization Details Last Updated DateTime 6 76 /min 97 % 97 % 172.72 cm 94395.5 9 g 28.1 kg/m2 151 mm[Hg] 76 mm[Hg] Shelby [facility] 6 10:20:16 Date Recorded Body height Heart rate Oxygen saturation Oxygen saturation in Arterial blood by Pulse oximetry Systolic blood pressure Diastolic blood pressure Provider Name and Address Organization Details Last Updated DateTime 6 172.72 cm 76 /min 96 % 96 % 153 mm[Hg] 75 mm[Hg] Shelby [facility] 6 10:33:00 Date Recorded Body height Heart rate Oxygen saturation Oxygen saturation in Arterial blood by Pulse oximetry Systolic blood pressure Diastolic blood pressure Provider Name and Address Organization Details Last Updated DateTime 7 172.72 cm 98 /min 97 % 97 % 129 mm[Hg] 80 mm[Hg] Shelby [facility] 7 15:07:02 Social History Question Answer Notes LastModified by Organizat ion Details LastModified Time Tobacco Smoking Status Former Smoker Quit x 30 years Not Available [employer] 06/12/2020 03:16:10 What Is Your Level Of Alcohol Consumption? None [id number] Information not available 06/12/2020 Are You Currently Employed? No [id number] Information not available 06/12/2020 Which Illicit Or Recreational Drugs Have You Used? No [id number] Information not available 06/12/2020 Education 12 With College [email or web address] Information not available 08/11/2016 Marital Status Informatio n not available 08/11/2016 How Many Years Have You Smoked Tobacco? 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 413107250 M47.812 [id number] David Diop MD PAIN OFFICE [address] [place] [address] 08/23/2016 10:10:56 08/25/2016 09:54:19 Cervical radiculopathy 64113764 M54.12 Degenerati on of cervical intervertebral disc 45929525 M50.321 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 016414078 M47.812 [id number] David Diop MD PAIN OFFICE [address] [place] [address] 12/08/2016 14:45:01 12/09/2016 10:39:26 Cervical radiculopathy 86253686 M54.12 Degenerati on of cervical intervertebral disc 40952275 M50.321 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 287805999 M47.812 Muscle pain 04125743 M79 .1 Health Concerns Section Related Observation LastModified by Organization Detai ls LastModified Time None Recorded Concern Status LastModified by Organization Details LastModified Time None Recorded Advance Directives Directive None Recorded Payers Encounter Date Sequence Insurance Name Policy Number Policy Jacob Covered Member ID Jacob Member ID Guarantor Name 08/11/2016 1 [facility] (MEDICARE REPLACEMENT/A DVANTAGE - PPO) [id number] Cruz Barreto [id number] Cruz Barreto 08/23/2016 1 [facility] (MEDICARE REPLACEMENT/A DVANTAGE - PPO) [id number] Cruz Barreto [id number] Cruz Barreto 12/08/2016 1 [facility] (MEDICARE REPLACEMENT/A DVANTAGE - PPO) [id number] Cruz Barreto [id number] Cruz Barreto Notes Date Note Type Note [...] night due to pain. 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 Castano in [place] for his right shoulder pain with no pain benefit. Previous PT:did not help; He had physical therapy at [place] [facility] in [place], [place] which did not help. He is following a home exercise program. Previous clinical care leader:did not help David Diop MD [address] , [address], [place], [address], [facility] 08/18/2016 11:06:07 08/23/2016 text/html He is here for a trial of cervical epidural steroid injection under fluoroscopic guidance David Diop MD [address], [place], [address], [facility] 08/25/2016 13:55:59 12/08/2016 text/html He [...] or bowel incontinence. David Diop MD [address] , [address], [place], [address], [facility] 12/12/2016 15:21:23
--- OUTSIDE RECORDS SUMMARY | 2024-11-28 08:54 | XMS_ITS | Clinical Summary ---
Author Organization [facility] Address [address] [place] [address] Care Team Providers Care Bee Farmer Name Role Phone Unavailable Primary Care Provider Unavailabl e Social History Tobacco Use Types Packs/Day Years Used Date Smoking Tobacco: Never Assessed Sex and Gender Information Value Date Recorded Sex Assigned at Not on file Legal Sex Male 11:15 PM EST Gender Identity Not on file Sexual Orientation Not on file Plan of Treatment Health Maintenance Due Date Last Done Comments DTaP,Tdap,and Td Vaccines (1 - Tdap) 1959 Pneumococcal Vaccine: 50+ Ye ars (1 of 1 - PCV) 1990 Zoster Vaccines (1 of 2) 1990 RSV Immunization Adult Patie nts (1 - 1-dose 75+ series) 2015 COVID-19 [...] patient's age to complete this topic Meningococcal B Vacine Aged Out No lo nger eligible based on patient's age to complete this topic RSV Immunization Patients Un nicole 20 months Aged Out No longer eligible b ased on patient's age to complete this topic Varicella Vaccines Aged Out No longer eligible based on patient's age to complete this topic
--- OUTSIDE RECORDS SUMMARY | 2024-11-28 08:54 | XMS_ITS | Patient Health Record ---
Author Organization [facility] Address [address] [place] [address] Care Team Providers Care Mortuary Technician Name Role Phone SATHYA ESTRADA Primary Care Provider Darrick Bob [phone] Allergies No Known Allergies Reason For Referral No Information Medications Medication SIG (Take, Route, Frequency, Duration) [...] tablet Oral ly Once a day Active Immunizations Vaccine Route Administration Date Status Comme nts Influenza Unknown 04/28/2019 Administered Influenza Unknown 04/28/2020 Administered Problems Problem Type SNOMED Code ICD Code Onset Dates Problem Status W/U Status Risk Notes Problem 620675218 Chest discomfort (R07.89) Active confirmed Problem 97737555 Hiatal hernia (K44.9) Active confirmed Problem 12304098 Gastroenteritis (K52.9) Active confirmed Problem 671261093 Abnormal CT scan , small bowel (R93.3) Active confirmed Problem 775756122 Abdominal pain, generalized (R10.84) Active confirmed Problem 32184675 Diarrhea, unspecified type (R19.7) Active confirmed Vital Signs Blood pressure diastolic 00 mm Hg 03/19/2024 Height 67 in 03/19/2024 Blood pressure systolic 00 mm Hg 03/19/2024 Weight 173 lbs 03/19/2024 BMI 27.09 kg/m2 03/19/2024 Encounters Encounter Location Date Provider Diagnosis [facility] [address] [place] [address] 03/19/2024 Darrick Dorman Abdominal pain, generalized R10.84 [facility] [address] [place] [address] 04/01/2024 Darrick Dorman Assessments Encounter Date Diagnosis (ICD Code) Assessment [...] assistance in the future. Plan Of Treatment Pending Test Test Name Order Date CHEM [...] Insured Coverage Start Date Coverage End Date [facility] [address] [place], [place] [id number] CRUZ OSBORNE Self - patient is the insured Medical (General) History Medical History History ICD Code EGD 04/10/2009--negative kidney stones Left bundle branch block Colonoscopy in 08/2002 with [place] Rogel with removal of only hyperplastic polyps Denies NV,DM,CVA,Lung disease,renal dise ase Hyperlipidemia HTN Neg colonoscopy 2012 Neg EGD in 2012 except for a small HH Neg GB U/S Seasonal allergies Chronic chest discomfort lizbet ing back to at least 2012--EGD in 03/2020--minimal HH, otherwise WNL CT scan of the abdomen in 2021 revealed changes consistent with some type of [...]
== END 2024-11-28 09:56 | disposition home or self-care (01) ==
LOC: HO.HUSH 08:47
PROVIDERS: PCP Nurse Practitioner Family; Visit Provider Urology
DX: R31.29 Other microscopic hematuria (principal); N40.1 Benign prostatic hyperplasia with lower urinary tract symptoms; R39.11 Hesitancy of micturition; R35.1 Nocturia; Z87.442 Personal history of urinary calculi; Z13.9 Encounter for screening, unspecified
CPT/HCPCS: 99204

== ENCOUNTER 2024-12-03 09:48 | Outpatient (AMB) | payer MEDICARE, SELFPAY ==
--- NOTE | 2024-12-03 09:52 | MHC.PC.OV ---
Vital Signs 12/03/24 09:54 Height 5 ft 8 in Weight 182 lb BMI 27.7 BP 128/60 Blood Pressure Location Lt brachial Position Sitting Respiration 16 Pulse 84 Pulse Source Pulse Oximeter Temp 98.2 F Temp Source Oral Pulse Oximetry (%) 92 Oxygen Delivery Method Room Air Intake Visit Reasons: 6 month follow up Intake Note: Pt is here today for his 6mo. f/u Allergies No Known Allergies Allergy (Mild, Verified 12/03/24 09:54) NONE Tobacco use date assessed: 12/03/24 Fall risk assessment: 1 Fall in past year Last assessed Fall Risk: 12/03/24 Dental Screening Dental Screen Date: 12/03/24 Did you have a dental visit in the last 12 months?: Yes Did you have a dental problem in the last 6 months where you did not have access to dental care?: No Was dental information given to patient?: Patient has dentist HPI 6 month follow up HPI Details Chief Complaint The patient presents with ongoing right hip pain, primarily in the posterior region, and reports discomfort when sitting. History of Present Illness The patient is an 84-year-old male presenting with ongoing right hip pain, primarily localized to the posterior region. He reports this pain is exacerbated when sitting but does not significantly affect his mobility, as he experiences no excessive popping or clicking with movements. Deep palpation does exacerbate the pain. The evaluation includes assessing any underlying causes of the hip pain. Additionally, his hypertension remains stable with no new respiratory symptoms, as his lungs are clear bilaterally. Social History Health Maintenance Review of Systems - Musculoskeletal: Reports right hip pain, no significant discomfort with movement, denies popping or clicking in the right lower extremity -denies any sob, cp, dizziness, bar, or blurred vision Physical Exam General: Cooperative, healthy appearing, comfortable, no acute distress and well developed Orientation: Patient oriented x3 Limitations: No limitations Head: Normal to inspection Ears: Hearing grossly normal bilaterally Nose: Normal external nose present Face and sinus: Normal facial exam Eyes: Appearance normal, both eyes and all related structures Neck: Normal visual inspection and Yes full ROM Respiratory: Normal respiratory effort and able to speak in complete sentences. Clear to auscultation bilaterally Cardiovascular: Regular rate and rhythm. Normal S1 and S2 GI: Normal to inspection. Soft to palpation and nontender Skin: No rashes or lesions noted Neuro: Patient oriented x3 Extremities: No excessive popping or clicking with right lower extremity flexion extension, nor pain reported. With deep palpation in this area, tenderness noted. Normal to inspection Results - Tests and Diagnostics: X-ray of S1-S2 ordered to evaluate hip pain Plan The patient's ongoing right hip pain will be further evaluated with an X-ray focusing on the S1-S2 region, as discussed. Effective pain management strategies and further investigation based on imaging findings will guide subsequent care. His stable hypertension requires ongoing monitoring. The importance of observing symptoms and adhering to follow-up decisions has been stressed. Discussion Notes During our discussion, I explained the need for an X-ray of the S1-S2 region to evaluate the source of the right hip pain. I highlighted the importance of this imaging in potentially identifying any spinal issues that may contribute to his symptoms. We reviewed that his hypertension is stable and requires routine monitoring. I emphasized the importance of keeping track of any changes in symptoms and encouraged prompt reporting of such changes. Follow-up and further investigation were discussed as critical to managing his condition effectively. Patient Instructions - Follow through with the X-ray as discussed for further evaluation of hip pain. - Monitor symptoms and seek care if there is any increase in discomfort or new symptoms arise. - Continue to manage hypertension and adhere to any prescribed medications. - Maintain all follow-up appointments for ongoing assessment. [facility] Medical History Carpal tunnel syndrome, bilateral Ulnar neuropathy at elbow Abdominal pain Kidney stones Cervical radiculopathy Dyslipidemia HTN (hypertension) Cervical arthritis Surgical History Status post right partial knee replacement History of left knee replacement H/O colonoscopy Family History Father HTN (hypertension) Diabetes Mother History of colon cancer Social History Housing: House Are you a primary care team coordinator scheduler to a significant other at home: No Do you presently have visiting nurse or other home services: No Alcohol intake: never Patient Tobacco Use Status: Former Tobacco user e-Cigarette/Vaping Use: Never Used Second Hand Smoke Exposure: No 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al status: retired 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 Cognitive needs: No Hearing needs: No Vision needs: No Questionnaire Thrive Questionnaire Date Thrive assessed: 11/26/24 I am a: Patient What is your living situation today?: I have a steady place to live Within the past 12 months, did the food you bought not last and you didn't have the money to get more?: Never true Within the past 12 months, did you worry whether your food would run out before you got money to buy more?: Never true Do you have trouble paying for medicines?: No Do you have trouble getting transportation to medical appointments?: No Do you have trouble paying your heating and electricity bill?: No Do you have trouble taking care of your child, family member or friend?: No Do you have trouble with day-to-day activities such as bathing, preparing meals, shopping, managing finances, etc.?: No Are you currently unemployed and looking for a job?: No Are you interested in more education?: No Please select the resources that you would like help with: None Currently or been in a relationship where the following occur: No concerns reported THRIVE Score: 0 AUDIT C Alcohol Use Questionnaire (AUDIT-C) 1. How often do you have a drink containing alcohol?: Never Total Score: 0 YOLANDA-7 AMB Questionnaire YOLANDA-7 Date YOLANDA - 7 assessed: 11/01/23 Feeling nervous, anxious, or on edge: 0 = Not at all Not being able to stop or control worryin = Not at all Worrying too much about different things: 0 = Not at all Trouble relaxin = Not at all Being so restless that it is hard to sit still: 0 = Not at all Becoming easily annoyed or irritable: 0 = Not at all Feeling afraid as if something awful might happen: 0 = Not at all Total YOLANDA-7 score (0-4 normal; 5-9 mild; 10-14 moderate; 15-21 severe): 0 Source: Developed by Drs. Darrick Harry, Jackie Ramirez, Keyur Krause and colleagues, with an educational jesus from [employer]. Physical exam (Primary Care) Vital Signs: Last Vital Signs Temp 98.2 F 12/03/24 09:54 Pulse 84 12/03/24 09:54 Resp 16 12/03/24 09:54 BP 128/60 12/03/24 09:54 Pulse Ox 92 12/03/24 09:54 Oxygen Delivery Method Room Air 12/03/24 09:54 BMI result Body Mass Index 27.7 Tobacco/Smoking Status: Tobacco use Status Tobacco use date assessed 12/03/24 12/03/24 10:01 Patient Tobacco Use Status Former Tobacco user 12/03/24 09:53 e-Cigarette/Vaping Use Never Used 12/03/24 09:53 Thrive Assessment: Date of Thrive Assessment Date Thrive assessed 11/26/24 12/03/24 09:53 Currently or been in a relationship where the following occur: No concerns reported Coding Level of Care Code Est Pt Level 3 (22885) Diagnoses Right hip pain M25.551 HTN (hypertension) I10 Assessment & Plan Assessment & Plan (1) Right hip pain: Code(s): M25.551 - Pain in right hip Category: Medical (2) HTN (hypertension): Code(s): I10 - Essential (primary) hypertension Category: Medical Plan . Orders: Orders Comprehensive [place]. Panel Fast Today I10 - Essential (primary) hypertension Lipid Panel Today I10 - Essential (primary) hypertension XR hip RT min 2V Today M25.551 - Pain in right hip Complete Blood Count Auto Diff Today I10 - Essential (primary) hypertension TSH reflex Free T4 Today I10 - Essential (primary) hypertension UA CC w/rflx Micro + Cult Today I10 - Essential (primary) hypertension
[2024-12-03 09:54] VITALS: BP 128/60; PULSE 84; RESP 16; TEMP 36.8; O2SAT 92; BMI 27.7
--- OUTSIDE RECORDS SUMMARY | 2024-12-03 11:17 | XMS_ITS ---
Author Organization [facility] Address [address] [place] [address] Care Team Providers Care Corporate Development Intern Name Role Phone SATHYA ESTRADA Primary Care Provider Darrick Bob [phone] Allergies No Known Allergies REASON FOR VISIT [...] 03/19/2024 Encounters Encounter Location Date Provider Diagnosis [facility] [address] [place] [address] 03/19/2024 Darrick Dorman Abdominal pain, generalized R10.84 [...] Notes * JANKI COLINOB:[birth year] (83 yo M)Acc No.[id number]:03/19/2024 Progress Notes Patient:?CRUZ COLIN Provider:?Darrick Dorman MD :1940???Age:83 Y???Sex:Male Deni e:03/19/2024 Address:[address] [place] [address] [place], [facility] [id number] Pcp:SATHYA ESTRADA Subjective: * Chief Complaints: * [...] * Treatment: * Procedure Codes:?1036F TOBAC CO [id number] BP SCR NOT PRFRM REC REASON NOS * Preventive Medicine:? ??Screenings:?Fall Risk Screening?Fall Risk Assessment:?No falls in the past year.? * Follow Up:?prn * * Sign off status: Completed true * Provider:?Darrick Dorman MD Date:? 024 Generated for Yola ramesh/Antonietta/Carlee on:?12/03/2024 11:16 AM EDT History and Physical Notes * [...]
--- OUTSIDE RECORDS SUMMARY | 2024-12-03 11:17 | XMS_ITS | Patient Health Record ---
Author Organization [facility] Address [address] [place] [address] Care Team Providers Care Porcelain Enamel Sprayer Name Role Phone SATHYA ESTRADA Primary Care Provider Darrick Bob [phone] Allergies No Known Allergies Reason For Referral [...] Problem Status W/U Status Risk Notes Problem 538962876 Chest discomfort (R07.89) Active confirmed Problem 76993697 Hiatal hernia (K44.9) Active confirmed Problem 06849200 Gastroenteritis (K52.9) Active confirmed Problem 670556609 Abnormal CT scan , small bowel (R93.3) Active confirmed Problem 729262810 Abdominal pain, generalized (R10.84) Active confirmed Problem 72722582 Diarrhea, unspecified type (R19.7) Active confirmed Vital Signs Blood pressure diastolic 00 mm Hg 03/19/2024 Height 67 in 03/19/2024 Blood pressure systolic 00 mm Hg 03/19/2024 Weight 173 lbs 03/19/2024 BMI 27.09 kg/m2 03/19/2024 Encounters Encounter Location Date Provider Diagnosis [facility] [address] [place] [address] 03/19/2024 Darrick Dorman Abdominal pain, generalized R10.84 [facility] [address] [place] [address] 04/01/2024 Darrick Dorman Assessments Encounter Date Diagnosis [...] Insured Coverage Start Date Coverage End Date [facility] [id number] [place] [id number] CRUZ OSBORNE Self - patient is the insured Medical (General) History Medical History History ICD Code EGD 04/10/2009--negative kidney stones Left bundle branch block Colonoscopy in 08/2002 with V[place]a Rogel with removal of only hyperplastic polyps Denies [place],DM,CVA,Lung disease,renal dise ase Hyperlipidemia HTN Neg colonoscopy [...]
--- OUTSIDE RECORDS SUMMARY | 2024-12-03 11:17 | XMS_ITS ---
Author Organization [facility] Address [address] [place] [address] Care Team Providers Care Shake Cutter Name Role Phone SATHYA ESTRADA Primary Care Provider Darrick Bob [phone] REASON FOR VISIT lower abd pain Encounters Encounter Location Date Provider Diagnosis [facility] [address] [place] [address] 04/01/2024 Darrick Dorman Plan Of Treatment No Information Progress Notes * DIXIE, MITCHANA MARIAOB:[birth year] (83 yo M)Acc No.[id number]:04/01/2024 Patient:?BEN COLIN :1940???Age:83 Y???Sex:Male [address] [facility] [place] [address] * true * Date:? Generated for Larai domitila/Antonietta/eTransmitting on:?12/03/2024 11:16 AM EDT
--- OUTSIDE RECORDS SUMMARY | 2024-12-03 11:17 | XMS_ITS | Clinical Summary ---
Author Organization [facility] Address [address] [place] [address] Care Team Providers Care Health Education Coordinator Name Role Phone Unavailable Primary Care Provider [...] age to complete this topic Meningococcal B Vaccine Aged Out No l onger eligible based on patient's age to complete this topic RSV Immunization Patients Un nicole 20 months Aged Out No longer eligible b ased on patient's age to complete this topic Varicella Vaccines Aged Out No longer eligible based on patient's age to complete this topic
--- OUTSIDE RECORDS SUMMARY | 2024-12-03 11:17 | XMS_ITS | Data Portability ---
Author Organization [facility] Address [address] [place] [address] Care Team Providers Care Crusher Foreman Name Role Phone LEX LEMUS Referring Provider [...] ? ?-5 on the right suggesting underlying inflammation/str ess. I recommend a trial of cervical epidural steroid injection under fluoroscopic guidance. The risks and benefits of the procedure were discussed in detail. He wishes to proceed. 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 ?-5 on the right suggesting underlying inflammation/str ess. [...] ? ?-5 on the right suggesting underlying inflammation/str ess. [...] referral 2016 017 JARRETT Minor MD, [address], [address], 7 19:10:29 Procedures None recorded. Surgeries None recorded. Imaging None recorded. Medication Orders None recorded. Patient TargetsNo targets recorded. Patient Instructions Encounter Date Encounter Id Patient Instructions Last Modified By Organization Details Last Modified Time 08/11/2016 [id number] He was advised to continue with a home exercise program. [email or web address] Not available 08/12/2016 11:58:30 08/23/2016 [id number] He was advised to continue with a home exercise program. [email or web address] Not available 08/25/2016 09:46:03 12/08/2016 [id number] He was advised to continue with a [...] ultrasound guidance completed David Diop MD [address], [place], [address], [place] [facility] 12/09/2016 09:36:31 08/23/20 16 Cervical Epidural Steroid injection under fluroscopic guidance completed David Diop MD [address] , [address], [place], [address], [place] [facility] 08/25/2016 09:45:23 Joint Replacement completed Shelby Collins [place] [facility] 08/11/2016 10:33:16 [...] Available Not Available Not Available Fluzone High-Dose [id number] (PF) 180 mcg/0.5 mL intramuscul ar syringe TO BE ADMINISTE RED BY [employer] T FOR IMMUNIZAT ION 08/11 completed Not Available Not Available Not Available Vitals Date Recorded Heart rate Oxygen saturation Oxygen saturation in Arterial blood by Pulse oximetry Body height Body weight Body mass index (BMI) Systolic blood pressure Diastolic blood pressure Provider Name and Address Organization Details Last Updated DateTime 6 76 /min 97 % 97 % 172.72 cm 08023.5 9 g 28.1 kg/m2 151 mm[Hg] 76 mm[Hg] Shelby Collins [facility] 10:20:16 Date Recorded Body height Heart rate Oxygen saturation Oxygen saturation in Arterial blood by Pulse oximetry Systolic blood pressure Diastolic blood pressure Provider Name and Address Organization Details Last Updated DateTime 6 172.72 cm 76 /min 96 % 96 % 153 mm[Hg] 75 mm[Hg] Shelby Collins [place] [facility] 6 10:33:00 Date Recorded Body height Heart rate Oxygen saturation Oxygen saturation in Arterial blood by Pulse oximetry Systolic blood pressure Diastolic blood pressure Provider Name and Address Organization Details Last Updated DateTime 7 172.72 cm 98 /min 97 % 97 % 129 mm[Hg] 80 mm[Hg] Shelby Collins [place] [facility] 7 15:07:02 Social History Question Answer Notes LastModified by Organizat ion Details LastModified Time Tobacco Smoking Status Former Smoker Quit x 30 years Not Available [employer] 06/12/2020 03:16:10 What Is Your Level Of Alcohol Consumption? None [id number] Information not available 06/12/2020 Are You Currently Employed? No [id number] Information not available 06/12/2020 Which Illicit Or Recreational Drugs Have You Used? No [id number] Information not available 06/12/2020 Education 12 With College [email or web address] Information not available 08/11/2016 Marital Status Informatio n not available 08/11/2016 How Many Years Have You Smoked Tobacco? 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 308551460 M47.812 28439 David Diop MD PAIN OFFICE [address] [place] [address] 08/23/2016 10:10:56 08/25/2016 09:54:19 Cervical radiculopathy 52298914 M54.12 Degenerati on of cervical intervertebral disc 65776496 M50.321 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 983898756 M47.812 64951 David Diop MD PAIN OFFICE [address] [place] [address] 12/08/2016 14:45:01 12/09/2016 10:39:26 Cervical radiculopathy 17683929 M54.12 Degenerati on of cervical intervertebral disc 84536852 M50.321 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 109781082 M47.812 Muscle pain 26402766 M79 .1 Health Concerns Section Related Observation LastModified by Organization Detai ls LastModified Time None Recorded Concern Status LastModified by Organization Details LastModified Time None Recorded Advance Directives Directive None Recorded Payers Encounter Date Sequence Insurance Name Policy Number Policy Jacob Covered Member ID Jacob Member ID Guarantor Name 08/11/2016 1 [facility] (MEDICARE REPLACEMENT/A DVANTAGE - PPO) [id number] Cruz Barreto [id number] Cruz Barreto 08/23/2016 1 [facility] (MEDICARE REPLACEMENT/A DVANTAGE - PPO) [id number] Cruz Barreto [id number] Cruz Barreto 12/08/2016 1 [facility] (MEDICARE REPLACEMENT/A DVANTAGE - PPO) [id number] Cruz Barreto [id number] Cruz Barreto Notes Date Note Type Note [...] to pain. 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 Duration:constant Onset/Timing:sudden Context:lifting Alleviating Factors:nothing helps Aggravating Factors:twisting; movement/positionin g Associated Symptoms:no weakness; no numbness; no bladder compromise; no bowel compromise Radiation Right:entire extremity ADL (Activities of Daily Living):walking; sweeping; mopping Prior Imaging:MRI Cervical spine shows Advanced multilevel degenerative changes with mild canal stenosis from C 3?-4 to C 6?-7. Multilevel neural foraminal stenosis is due to uncovertebral and facet spurring . In addition, there is associated prominent facet/perifacet edema at C 4?-5 on the right suggesting underlying inflammation/stress Prior EMG:none Previous Surgerynone Previous Injections:He had injections by Dr. Castano in [place] for his right shoulder pain with no pain benefit. Previous PT:did not help; He had physical therapy at [place] [facility] in [place], [place] which did not help. He is following a home exercise program. Previous primary care nurse:did not help David Diop MD [address] , [address], [place], [address], [facility] 08/18/2016 11:06:07 08/23/2016 text/html He is here for a trial of cervical epidural steroid injection under fluoroscopic guidance David Diop MD [address] , [address], [place], [address], [facility] 08/25/2016 13:55:59 12/08/2016 text/html He [...] or bowel incontinence. David Diop MD [address] , [address], [place], [address], [facility] 12/12/2016 15:21:23
== END 2024-12-03 11:30 | disposition home or self-care (01) ==
LOC: HO.HMCC 09:48
PROVIDERS: PCP Nurse Practitioner Family; Visit Provider Nurse Practitioner Family
DX: M25.551 Pain in right hip (principal); I10 Essential (primary) hypertension

== ENCOUNTER 2024-12-03 09:48 | Outpatient (REF) | payer MEDICARE, SELFPAY ==
--- NOTE | ~2024-12-03 | XR_ITS ---
EXAMINATION: XR HIP, RIGHT CLINICAL INFORMATION: M25.551 - Pain in right hip COMPARISON: None available. TECHNIQUE: Two views of the right hip. FINDINGS: No fracture. Alignment is anatomic. Mild degenerative arthritis right hip joint. Normal acetabular coverage. Soft tissues are unremarkable. XR/XR hip RT min 2V IMPRESSION: Mild right hip degenerative arthritis. No acute bony abnormality. Electronically signed by: Eladio Mathews MD 12/03/2024 11:59 AM EDT
--- OUTSIDE RECORDS SUMMARY | 2024-12-03 12:38 | XMS_ITS | Clinical Summary ---
Author Organization [facility] ity Address [address] [place] [address] Care Team Providers Care Survey Research Center Director Name Role Phone Unavailable Primary Care Provider [...]
== END 2024-12-03 09:49 | disposition home or self-care (01) ==
LOC: HO.HMGCX 09:48
PROVIDERS: PCP Nurse Practitioner Family; Visit Provider Nurse Practitioner Family
DX: I10 Essential (primary) hypertension (principal); M25.551 Pain in right hip
CPT/HCPCS: 73502; 99212

== ENCOUNTER → 2024-12-03 10:40 | Outpatient (BNV) | payer MEDICARE, SELFPAY | PROVIDERS: PCP Nurse Practitioner Family; Visit Provider Radiology Diagnostic Radiology | DX: M16.11 Unilateral primary osteoarthritis, right hip (principal) | CPT/HCPCS: 73502 ==

== ENCOUNTER 2024-12-04 06:06 | Outpatient (REF) | payer MEDICARE, SELFPAY ==
--- OUTSIDE RECORDS SUMMARY | 2024-12-04 06:08 | XMS_ITS | Clinical Summary ---
Author Organization [facility] it[facility] Address [address] [place] [address] Care Team Providers Care Automotive Refinisher Name Role Phone Unavailable Primary Care Provider [...]
--- OUTSIDE RECORDS SUMMARY | 2024-12-04 06:08 | XMS_ITS ---
Author Organization [facility] Address [address] [place] [address] Care Team Providers Care Mental Health Aides Teacher Name Role Phone SATHYA ESTRADA Primary Care Provider Darrick Bob [phone] Allergies No Known Allergies REASON FOR VISIT [...] 03/19/2024 Encounters Encounter Location Date Provider Diagnosis [facility] [address] [place] [address] 03/19/2024 Darrick Dorman Abdominal pain, generalized R10.84 [...] Notes * JANKI COLINOB:[birth year] (83 yo M)Acc No.[id number]:03/19/2024 Progress Notes Patient:?CRUZ COLIN Provider:?Darrick Dorman MD :1940???Age:83 Y???Sex:Male Deni e:03/19/2024 Address:[address] [place] [address] [place], [facility] [id number] Pcp:SATHYA ESTRADA Subjective: * Chief Complaints: * [...] * Treatment: * Procedure Codes:?1036F TOBAC CO NON-[id number] BP SCR NOT PRFRM REC REASON NOS * Preventive Medicine:? ??Screenings:?Fall Risk Screening?Fall Risk Assessment:?No falls in the past year.? * Follow Up:?prn * * Sign off status: Completed true * Provider:?Darrick Dorman MD Date:? 024 Generated for Yola ramesh/Antonietta/Carlee on:?12/04/2024 06:08 AM EDT History and Physical Notes * [...]
--- OUTSIDE RECORDS SUMMARY | 2024-12-04 06:08 | XMS_ITS ---
Author Organization [facility] Address [address] [place] [address] Care Team Providers Care Farm Machine Operator Name Role Phone SATHYA ESTRADA Primary Care Provider Darrick Bob [phone] REASON FOR VISIT lower abd pain Encounters Encounter Location Date Provider Diagnosis [facility] [address] [place] [address] 04/01/2024 Darrick Dorman Plan Of Treatment No Information Progress Notes * DIXIE, MITCHANA MARIAOB:[birth year] (83 yo M)Acc No.[id number]:04/01/2024 Patient:?BEN COLIN :1940???Age:83 Y???Sex:Male [address] [facility] [place] [address] * true * Date:? Generated for Larai domitila/Antonietta/eTransmitting on:?12/04/2024 06:08 AM EDT
--- OUTSIDE RECORDS SUMMARY | 2024-12-04 06:08 | XMS_ITS | Patient Health Record ---
Author Organization [facility] Address [address] [place] [address] Care Team Providers Care Laborer Prestressed Concrete Name Role Phone SATHYA ESTRADA Primary Care Provider Darrick Bob [phone] Allergies No Known Allergies Reason For Referral [...] Problem Status W/U Status Risk Notes Problem 167128395 Chest discomfort (R07.89) Active confirmed Problem 34053108 Hiatal hernia (K44.9) Active confirmed Problem 16345794 Gastroenteritis (K52.9) Active confirmed Problem 010486038 Abnormal CT scan , small bowel (R93.3) Active confirmed Problem 273930135 Abdominal pain, generalized (R10.84) Active confirmed Problem 02101017 Diarrhea, unspecified type (R19.7) Active confirmed Vital Signs Blood pressure diastolic 00 mm Hg 03/19/2024 Height 67 in 03/19/2024 Blood pressure systolic 00 mm Hg 03/19/2024 Weight 173 lbs 03/19/2024 BMI 27.09 kg/m2 03/19/2024 Encounters Encounter Location Date Provider Diagnosis [facility] [address] [place] [address] 03/19/2024 Darrick Dorman Abdominal pain, generalized R10.84 [facility] [address] [place] [address] 04/01/2024 Darrick Dorman Assessments Encounter Date Diagnosis [...] Insured Coverage Start Date Coverage End Date [facility] [id number] [place], [place] [id number] CRUZ OSBORNE Self - patient is the insured Medical (General) History Medical History History ICD Code EGD 04/10/2009--negative kidney stones Left bundle branch block Colonoscopy in 08/2002 with [place]a Rogel with removal of only hyperplastic polyps Denies TX,DM,CVA,Lung disease,renal dise ase Hyperlipidemia HTN Neg colonoscopy [...]
[2024-12-04 10:29] LABS: MANUAL DIFF FLAG NO
[2024-12-04 11:00] LABS: Appearance Urine Clear; Basophils Absolute Auto 0.1 X10*3/uL (0.0-0.2); Color Urine Yellow; Eosinophils Absolute Auto 0.3 X10*3/uL (0.0-0.4); Eosinophils Percent Auto 5.5 % (0-4); Glucose Urine UA Negative (Negative); Hematocrit 39.1 % (42.0-52.0); Hemoglobin 12.2 g/dl (14.0-18.0); Imm Gran Abs Auto 0.01 X10*3/uL (0.00-0.03); Imm Gran Pct Auto 0.2 % (0.0-0.4); Leukocyte Esterase Urine Negative (Negative); Lymphocytes Absolute Auto 1.6 X10*3/uL (1.2-4.9); Lymphocytes Percent Auto 33.5 % (20-40); Mean Corpuscular HGB Conc 31.2 g/dl (31.0-36.0); Mean Corpuscular Hemoglobin 27.7 pg (27.0-33.0); Mean Corpuscular Volume 88.9 fL (80.0-98.0); Mean Platelet Volume 9.4 fL (9.4-12.4); Monocytes Absolute Auto 0.5 X10*3/uL (0.1-1.2); Monocytes Percent Auto 10.6 % (2-11); Neutrophils Absolute Auto 2.4 x10*3/uL (2.0-8.3); Neutrophils Percent Auto 49.2 % (45-73); Nitrite Urine Negative (Negative); Platelet Count 263 X10*3/uL (160-400); Red Cell Distribution Width 13.2 % (11.0-16.0); Urine Blood Negative (Negative); Urine Ketones Negative (Negative); Urine Protein Negative (Neg-Trace); White Blood Count 4.9 X10*3/uL (4.8-10.8)
[2024-12-04 11:22] LABS: Alanine Aminotransferase 31 U/L (0-40); Albumin Level 3.9 g/dL (3.5-5.0); Alkaline Phosphatase 82 U/L (39-117); Anion Gap 10 (12-20); Aspartate Amino Transferase 27 U/L (5-37); Bilirubin Total 0.4 mg/dL (0.0-1.0); Blood Urea Nitrogen 14 mg/dL (9-16); Calcium 8.9 mg/dL (8.4-10.2); Carbon Dioxide 26 mmol/L (22-29); Chloride 110 mmol/L (96-108); Cholesterol 123 mg/dL (<200); Estimated Glomerular Filt Rate > 60; Glucose Fasting 110 mg/dL (60-99); HDL Cholesterol 46 mg/dL (>40); LDL Cholesterol Calculated 64 mg/dL (<100); Potassium 4.3 mmol/L (3.3-5.1); Sodium 142 mmol/L (135-145); Total Protein 6.4 g/dL (6.5-8.0); Triglycerides 69 mg/dL (<150)
[2024-12-04 11:29] LABS: Prostate Specific Antigen Scr 2.23 ng/mL (<0.05-4.0)
[2024-12-04 11:41] LABS: TSH reflex Free T4 3.49 uIU/mL (0.32-4.0)
== END 2024-12-04 06:07 | disposition home or self-care (01) ==
LOC: HO.HMGCLDS 06:06
PROVIDERS: PCP Nurse Practitioner Family; Visit Provider Nurse Practitioner Family
DX: I10 Essential (primary) hypertension (principal); Z12.5 Encounter for screening for malignant neoplasm of prostate
CPT/HCPCS: 36415; 80053; 80061; 81003; 84153; 84443; 85025

== ENCOUNTER 2024-12-23 15:34 | Outpatient (AMB) | payer MEDICARE, SELFPAY ==
--- NOTE | 2024-12-23 15:40 | A.OFFVIS_ITS ---
Vital Signs 12/23/24 15:45 Height 5 ft 8 in Weight 174 lb BMI 26.5 BP 136/63 Blood Pressure Location Lt brachial Position Sitting Pulse 79 Pulse Source Pulse Oximeter Pulse Oximetry (%) 97 Oxygen Delivery Method Room Air Intake Visit Reasons: Pain in right hip/ last seen Jul 2024/jodi Knox Artificial Inseminator Required: No Accompanied by: Spouse Allergies No Known Allergies Allergy (Mild, Verified 12/23/24 15:46) NONE HPI Comments Details: Ovidio is back in my office after 1 year of absence. Originally he came with complain of the pain in the shoulder, he received the trigger point injection and he does not complain on pain in his shoulder anymore. He complains today on pain in the posterior surface of the right thigh. Lateral and medial rotation of the hip does not aggravate his pain. Abdifatah test is negative. There is tenderness on palpation in projection of the hamstring muscle. I will send this patient for physical therapy. I also will recommend him to start ibuprofen 200 mg q.6 hours on the clock not p.r.n. for the next 14 days. I will see him in 1 month. REPLACED BY [facility] Medical History Carpal tunnel syndrome, bilateral Ulnar neuropathy at elbow Abdominal pain Kidney stones Cervical radiculopathy Dyslipidemia HTN (hypertension) Cervical arthritis Surgical History Status post right partial knee replacement History of left knee replacement H/O colonoscopy Family History Father HTN (hypertension) Diabetes Mother History of colon cancer Social History Housing: House Are you a primary care transition manager to a significant other at home: No Do you presently have visiting nurse or other home services: No Alcohol intake: never Patient Tobacco Use Status: Former Tobacco user e-Cigarette/Vaping Use: Never Used Second Hand Smoke Exposure: No 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al status: retired 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 Chest palpation & inspection: normal inspection of the chest Resp Effort & Inspection: normal respiratory effort, able to speak in complete sentences, normal respiratory pattern, no audible wheezes and no cough Cardio Jugular venous distension: no JVD GI Inspection: Yes normal to inspection Neuro Gait exam (Neuro): Normal gait present Extrem Other: Exam as above. Psych Speech and movement: Normal speech and movement present Affect: normal affect Attitude: cooperative Thought process: Normal thought process present Thought content: Normal thought content present Insight: Good insight present (Psych) Judgement: Good judgement present (Psych) Assessment & Plan Assessment & Plan (1) Myofascial pain syndrome: Code(s): M79.18 - Myalgia, other site Category: Medical (2) Chronic pain syndrome: Code(s): G89.4 - Chronic pain syndrome Category: Medical (3) Hamstring muscle strain: Code(s): S76.319A - Strain of muscle, fascia and tendon of the posterior muscle group at thigh level, unspecified thigh, initial encounter Category: Medical Plan 1. He will start ibuprofen 200 mg q.6 hours for the next 14 days. 2. He will start physical therapy the open order was printed out and given to the patient to perform physical therapy for diagnosis as above. 3. We will see him in 1 month. Orders: Orders PT Evaluation and Treatment Today S76.319A - Strain of muscle, fascia and tendon of the posterior muscle group at thigh level, unspecified thigh, initial encounter Coding Level of Care Code Est Pt Level 3 (83095) Diagnoses Myofascial pain syndrome M79.18 Chronic pain syndrome G89.4 Hamstring muscle strain S76.319A
[2024-12-23 15:45] VITALS: BP 136/63; PULSE 79; O2SAT 97; BMI 26.5
--- OUTSIDE RECORDS SUMMARY | 2024-12-23 18:24 | XMS_ITS | Clinical Summary ---
Author Organization [facility] ity Address [address] [place] [address] Care Team Providers Care Pipe Stem Repairer Name Role Phone Unavailable Primary Care Provider [...]
--- OUTSIDE RECORDS SUMMARY | 2024-12-23 18:24 | XMS_ITS | Data Portability ---
Author Organization [place] [facility] Address [address] [place] [address] Care Team Providers Care Welfare Project Manager Name Role Phone LEX LEMUS Referring Provider [phone] Assessment Encounter Date Assessment Date Assessment LastModified [...] has been made and he needs a tour bus driver/guide on the day of the procedure. [email or web address] [...] referral 2016 017 JARRETT Minor MD, [address], [address], 7 19:10:29 Procedures None recorded. Surgeries None recorded. Imaging None recorded. Medication Orders None recorded. Patient TargetsNo targets recorded. Patient Instructions Encounter Date Encounter Id Patient Instructions Last Modified By Organization Details Last Modified Time 08/11/2016 [id number] He was advised to continue with a home exercise program. [email or web address] Not available 08/12/2016 11:58:30 08/23/2016 [id number] He was advised to continue with a home exercise program. [email or web address] Not available 08/25/2016 09:46:03 12/08/2016 [id number] He was advised to continue with a [...] ultrasound guidance completed David Diop MD [address] , [address], [place], [address], [place] [facility] 12/09/2016 09:36:31 08/23/20 16 Cervical Epidural Steroid injection under fluroscopic guidance completed David Diop MD [address] , [address], [place], [address], [place] [facility] 08/25/2016 09:45:23 [...] Available Not Available Not Available Fluzone High-Dose 8952-1659 (PF) 180 mcg/0.5 mL intramuscul ar syringe TO BE ADMINISTE RED BY [employer] T FOR IMMUNIZAT ION 08/11 completed Not Available Not Available Not Available Vitals Date Recorded Heart rate Oxygen saturation Oxygen saturation in Arterial blood by Pulse oximetry Body height Body weight Body mass index (BMI) Systolic blood pressure Diastolic blood pressure Provider Name and Address Organization Details Last Updated DateTime 6 76 /min 97 % 97 % 172.72 cm 65514.5 9 g 28.1 kg/m2 151 mm[Hg] 76 mm[Hg] Shelby [facility] [place] [facility] 6 10:20:16 Date Recorded Body height Heart rate Oxygen saturation Oxygen saturation in Arterial blood by Pulse oximetry Systolic blood pressure Diastolic blood pressure Provider Name and Address Organization Details Last Updated DateTime 6 172.72 cm 76 /min 96 % 96 % 153 mm[Hg] 75 mm[Hg] Shelby Collins [place] [facility] 6 10:33:00 Date Recorded Body height Heart rate Oxygen saturation Oxygen saturation in Arterial blood by Pulse oximetry Systolic blood pressure Diastolic blood pressure Provider Name and Address Organization Details Last Updated DateTime 7 172.72 cm 98 /min 97 % 97 % 129 mm[Hg] 80 mm[Hg] Shelby [facility] [place] [facility] 7 15:07:02 Social History Question Answer Notes LastModified by Organizat ion Details LastModified Time Tobacco Smoking Status Former Smoker Quit x 30 years Not Available [employer] 06/12/2020 03:16:10 What Is Your Level Of Alcohol Consumption? None [id number] Information not available 06/12/2020 Are You Currently Employed? No [id number] Information not available 06/12/2020 Which Illicit Or Recreational Drugs Have You Used? No [id number] Information not available 06/12/2020 Education 12 With College [email or web address] Information not available 08/11/2016 Marital Status Informatio n not available 08/11/2016 How Many Years Have You Smoked Tobacco? 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 356092126 M47.812 [id number] David Diop MD PAIN OFFICE [address] [place] [address] 08/23/2016 10:10:56 08/25/2016 09:54:19 Cervical radiculopathy 68868071 M54.12 Degenerati on of cervical intervertebral disc 17182344 M50.321 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 980919096 M47.812 [id number] David Diop MD PAIN OFFICE [address] [place] [address] 12/08/2016 14:45:01 12/09/2016 10:39:26 Cervical radiculopathy 73498599 M54.12 Degenerati on of cervical intervertebral disc 07247621 M50.321 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 764799291 M47.812 Muscle pain 11441575 M79 .1 Health Concerns Section Related Observation LastModified by Organization Detai ls LastModified Time None Recorded Concern Status LastModified by Organization Details LastModified Time None Recorded Advance Directives Directive None Recorded Payers Encounter Date Sequence Insurance Name Policy Number Policy Jacob Covered Member ID Jacob Member ID Guarantor Name 08/11/2016 1 [facility] (MEDICARE REPLACEMENT/A DVANTAGE - PPO) [id number] Cruz Barreto [id number] Cruz Barreto 08/23/2016 1 [facility] (MEDICARE REPLACEMENT/A DVANTAGE - PPO) [id number] Cruz Barreto [id number] Cruz Barreto 12/08/2016 1 [facility] (MEDICARE REPLACEMENT/A DVANTAGE - PPO) [id number] Cruz Barreto [id number] Cruz Barreto Notes Date Note Type Note [...] due to pain. 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 Castano in [place] for his right shoulder pain with no pain benefit. Previous PT:did not help; He had physical therapy at [place] [facility] in [place], [place] which did not help. He is following a home exercise program. Previous laboratory animal care veterinarian:did not help David Diop MD [address] , [address], [place], [address], [facility] 08/18/2016 11:06:07 08/23/2016 text/html He is here for a trial of cervical epidural steroid injection under fluoroscopic guidance David Diop MD [address] [facility] , [facility] [address], [place], [address], [facility] 08/25/2016 13:55:59 12/08/2016 [...] or bowel incontinence. David Diop MD [address] [facility] , [address], [place], [address], [facility] 12/12/2016 15:21:23
== END 2024-12-23 16:00 | disposition home or self-care (01) ==
LOC: HO.PMC 15:35
PROVIDERS: PCP Nurse Practitioner Family; Visit Provider Anesthesiology
DX: M79.18 Myalgia, other site (principal); G89.4 Chronic pain syndrome; S76.319A Strain of muscle, fascia and tendon of the posterior muscle group at thigh level, unspecified thigh, initial encounter
CPT/HCPCS: 99213

== ENCOUNTER → 2024-12-23 15:34 | Outpatient (BNVA) | payer MEDICARE, SELFPAY | PROVIDERS: PCP Nurse Practitioner Family; Visit Provider Anesthesiology | DX: M79.18 Myalgia, other site (principal); G89.4 Chronic pain syndrome; M25.511 Pain in right shoulder; S76.311A Strain of muscle, fascia and tendon of the posterior muscle group at thigh level, right thigh, initial encounter; X58.XXXA Exposure to other specified factors, initial encounter; Y93.9 Activity, unspecified; Y92.9 Unspecified place or not applicable; Y99.9 Unspecified external cause status | CPT/HCPCS: 99212 ==

== ENCOUNTER 2025-01-27 10:21 | Outpatient (AMB) | payer MEDICARE, SELFPAY ==
--- NOTE | 2025-01-27 10:42 | MHC.OFFVIS ---
Vital Signs 01/27/25 10:44 Height 5 ft 8 in Weight 173 lb BMI 26.3 BP 130/62 Blood Pressure Location Lt brachial Position Sitting Pulse 78 Pulse Source Pulse Oximeter Intake Visit Reasons: 1 yr follow up Intake Note: 1 yr f/up Civil Attorney Required: No Accompanied by: Spouse Allergies No Known Allergies Allergy (Mild, Verified 12/23/24 15:46) NONE Medication List - Last Reconciled 01/27/25 by Ricky Smith MD alfuzosin ER 10 mg PO DAILY amlodipine 10 mg PO DAILY aspirin (Adult Low Dose Aspirin) 81 mg PO DAILY atorvastatin 40 mg PO DAILY blood pressure monitor As directed lisinopril 40 mg PO DAILY multivitamin 1 tab PO DAILY omega 6-igw-rtj-fish oil 1,000 (120-180) mg (Fish Oil) 1 cap PO BID vit C,F-Rl-oevth-lutein-zeaxan 250-90-40-1 mg (PreserVision AREDS-2) 1 tab PO BID [wrist splint wear all night & as much as possible throughout the day] HPI Comments Details: Pleasant 84-year-old gentleman who is here for follow-up.. He had an ECG which showed LBBB. LBBB is an old finding based on his previous ECGs. He had echo which showed normal LVEF and no valvular pathologies. He also had a Holter for 24 hours which did not show any heart block or arrhythmia. He occasionally gets a buzzing feeling on the left side of his chest. He had same symptoms while wearing his monitor and nothing was found. He denies any limiting chest discomfort, SOB or dizziness. No orthopnea or PND. He has back and joint issues. He had knee surgery on left. Clinically has been stable. He returns today and has been doing well. No chest pain or shortness of breath physically active and has no exertional symptoms. Repeat echocardiography in December 2021 has shown normal biventricular function. 08/14/2023: He returns for follow-up. He has been doing well. He has been experiencing some allergies and just use some Afrin. His blood pressure is mildly elevated. He has been noticing his blood pressures to be normal at home. He is saying that he just use the Afrin and maybe that played a role in that. He also has been experiencing off and on central chest discomfort. He is unable to say whether this is with exertion or rest. He is saying he does not last long. Saying he is very active and has no functional limitations currently. 02/05/24: He is here for follow-up. He is denying any dyspnea. He still has very slight chest pressure which she is describing as 1/10 which is present the time. There is no exertional worsening. He had nuclear stress test in 10/2023 which was normal. Blood pressure is well controlled. He is planning to do carpal tunnel surgery. 01/27/2025: He is here for 1 year follow-up. Denying any shortness of breath or dizziness. He did have episode of chest discomfort at rest. He is saying with activity does not get significant symptoms. He is complaining of some mild chest discomfort currently 2. These symptoms do not get worse with food or at nighttime. Also not clearly exertional 2. Blood pressure well controlled. EKG left bundle-branch block. [facility] Medical History Carpal tunnel syndrome, bilateral Ulnar neuropathy at elbow Abdominal pain Kidney stones Cervical radiculopathy Dyslipidemia HTN (hypertension) Cervical arthritis Surgical History Status post right partial knee replacement History of left knee replacement H/O colonoscopy Family History Father HTN (hypertension) Diabetes Mother History of colon cancer Social History Housing: House Are you a primary pharmacy care coordinator to a significant other at home: No Do you presently have visiting nurse or other home services: No Alcohol intake: never Patient Tobacco Use Status: Former Tobacco user e-Cigarette/Vaping Use: Never Used Second Hand Smoke Exposure: No 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al status: retired 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 Cognitive needs: No Hearing needs: No Vision needs: No Review of Systems Const Denies chills, Denies fatigue, Denies fever(s), Denies frequent falls, Denies weakness, Denies weight gain and Denies weight loss ENT Denies dizziness Card Denies chest pain, Denies leg edema, Denies lightheadedness, Denies palpitations, Denies dyspnea and Denies dyspnea on exertion Resp Denies cough, Denies dyspnea and Denies dyspnea on exertion GI Denies hematochezia Musc Denies abnormal gait, Denies muscle weakness, Denies numbness, Denies radiating pain into limb and Denies tingling Neuro Denies abnormal gait, Denies dizziness, Denies frequent falls, Denies numbness, Denies tingling and Denies weakness Endo Denies fatigue and Denies palpitations Physical Exam Vital Signs: Last Vital Signs Pulse 78 01/27/25 10:44 BP 130/62 01/27/25 10:44 BMI result Body Mass Index 26.3 GENERAL APPEARANCE: in no acute distress, pleasant. NECK: no carotid bruit, no jugular venous distention. SKIN: no suspicious lesions, warm and dry. HEART: no murmurs, regular rate and rhythm. LUNGS: clear to auscultation bilaterally. ABDOMEN: soft, nontender. EXTREMITIES: no edema. PERIPHERAL PULSES: equal. NEUROLOGIC: No gross deficits, AAO X 3 Assessment & Plan Assessment & Plan (1) Chest pain: Comment: No acute findings on CXR; patient has left anterior chest wall pain to palpation. No pneumonia identified on imaging. Code(s): R07.9 - Chest pain, unspecified Category: Medical Qualifiers: Chest pain type: other chest pain Qualified Code(s): R07.89 - Other chest pain (2) HTN (hypertension): Code(s): I10 - Essential (primary) hypertension Category: Medical (3) LBBB (left bundle branch block): Code(s): I44.7 - Left bundle-branch block, unspecified Category: Medical Plan Pleasant 84 year gentleman who is here for follow-up. Blood pressure is well controlled currently and he can continue lisinopril and amlodipine. He has chronic left bundle-branch block. We assessed LV few years ago and we will repeat the echocardiogram to assess for any LV dysfunction. He may need echocardiography from time to time. He is complaining of chest discomfort. He had a Lexiscan in October 2023 which did not show any significant perfusion defect. Given ongoing symptoms we discussed about doing an anatomical steady and we will arrange a coronary CTA for him. He will see us back in couple of months. Thank you for allowing me to participate in the care of your patient. Please feel free to contact me if you have any questions. Orders: Orders Basic Metabolic Panel Today R07.89 - Other chest pain CA echo transthorac w con Today I44.7 - Left bundle-branch block, unspecified CT Cardiac Coronary Angio Today R07.89 - Other chest pain Coding Level of Care Code Est Pt Level 4 (83352) Diagnoses Other chest pain R07.89 Chest pain type: other chest pain HTN (hypertension) I10 LBBB (left bundle branch block) I44.7
[2025-01-27 10:44] VITALS: BP 130/62; PULSE 78; BMI 26.3
--- OUTSIDE RECORDS SUMMARY | 2025-01-27 11:22 | XMS_ITS ---
Author Organization [facility] Address [address] [place] [address] Care Team Providers Care Collar Separator Name Role Phone SATHYA ESTRADA Primary Care Provider Darrick Bob [phone] REASON FOR VISIT lower abd pain Encounters Encounter Location Date Provider Diagnosis [facility] [address] [place] [address] 04/01/2024 Darrick Dorman Plan Of Treatment No Information Progress Notes * DIXIE, MITCHANA MARIAOB:[birth year] (83 yo M)Acc No.[id number]:04/01/2024 Patient:?BEN COLIN :1940???Age:83 Y???Sex:Male Address[address] [facility] [address] [address] * true * Date:? Generated for Larai domitila/Antonietta/eTransmitting on:?01/27/2025 11:22 AM EDT
== END 2025-01-27 11:27 | disposition home or self-care (01) ==
LOC: HO.HCS 10:22
PROVIDERS: PCP Nurse Practitioner Family; Visit Provider Internal Medicine Cardiovascular Disease
DX: R07.89 Other chest pain (principal); I10 Essential (primary) hypertension; I44.7 Left bundle-branch block, unspecified
CPT/HCPCS: 99214

== ENCOUNTER → 2025-01-27 10:21 | Outpatient (BNVA) | payer MEDICARE, SELFPAY | PROVIDERS: PCP Nurse Practitioner Family; Visit Provider Internal Medicine Cardiovascular Disease | DX: I44.7 Left bundle-branch block, unspecified (principal); I10 Essential (primary) hypertension; R07.89 Other chest pain | CPT/HCPCS: 99212 ==

== ENCOUNTER 2025-01-29 11:14 | Outpatient (AMB) | payer MEDICARE, SELFPAY ==
--- NOTE | 2025-01-29 11:34 | MHC.OFFVIS ---
Intake Visit Reasons: 1 Month Follow Up Allergies No Known Allergies Allergy (Mild, Verified 12/23/24 15:46) NONE PFSH Medical History Carpal tunnel syndrome, bilateral Ulnar neuropathy at elbow Abdominal pain Kidney stones Cervical radiculopathy Dyslipidemia HTN (hypertension) Cervical arthritis Surgical History Status post right partial knee replacement History of left knee replacement H/O colonoscopy Family History Father HTN (hypertension) Diabetes Mother History of colon cancer Social History Housing: House Are you a primary medicare insurance specialist to a significant other at home: No Do you presently have visiting nurse or other home services: No Alcohol intake: never Patient Tobacco Use Status: Former Tobacco user e-Cigarette/Vaping Use: Never Used Second Hand Smoke Exposure: No 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al status: retired 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
[2025-01-29 11:40] VITALS: BP 148/77; PULSE 83; RESP 20; O2SAT 100
--- NOTE | 2025-01-29 11:40 | A.OFFVIS_ITS ---
Vital Signs 01/29/25 11:40 Weight 173 lb BP 148/77 H Blood Pressure Location Lt brachial Position Sitting Respiration 20 Pulse 83 Pulse Source Pulse Oximeter Pulse Oximetry (%) 100 Oxygen Delivery Method Room Air Intake Visit Reasons: 1 Month Follow Up Wind Project Manager Required: No Allergies No Known Allergies Allergy (Mild, Verified 01/29/25 11:41) NONE HPI Comments Details: Ovidio is back in my office with yet another 1 more complaint. Last time he was in my office with the pain in the projection of hamstring muscle, physical therapy and ibuprofen were recommended. He reports improvement. However he states that the pain is still there. Today however he complained on pain in the back of his right lower extremity mostly at night, he adamantly confirms that this is not ?a Charley horse ?, at the top most portion of the gastrocnemius muscle. He reports that standing and walking alleviate his pain. He had total knee replacement on the right. He states that he lost the contacts with his orthopedic surgeon. Physical exam is as below. There is mostly tenderness on palpation in the projection of the top most portion of the gastrocnemius muscle. I will refer him to Orthopedic surgery to make sure that nothing is wrong with his total knee prosthesis. If everything is okay with total knee prosthesis I will see him again in this office. Prior: he came with complain of the pain in the shoulder, he received the trigger point injection and he does not complain on pain in his shoulder anymore. [facility] Medical History Carpal tunnel syndrome, bilateral Ulnar neuropathy at elbow Abdominal pain Kidney stones Cervical radiculopathy Dyslipidemia HTN (hypertension) Cervical arthritis Surgical History Status post right partial knee replacement History of left knee replacement H/O colonoscopy Family History Father HTN (hypertension) Diabetes Mother History of colon cancer Social History Housing: House Are you a primary health and social care teacher to a significant other at home: No Do you presently have visiting nurse or other home services: No Alcohol intake: never Patient Tobacco Use Status: Former Tobacco user e-Cigarette/Vaping Use: Never Used Second Hand Smoke Exposure: No 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al status: retired 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 Chest palpation & inspection: normal inspection of the chest Resp Effort & Inspection: normal respiratory effort, able to speak in complete sentences, normal respiratory pattern, no audible wheezes and no cough Cardio Jugular venous distension: no JVD GI Inspection: Yes normal to inspection Neuro Gait exam (Neuro): Normal gait present Extrem Other: Tirado's sign is negative on the right, PT and DP pulses are very prominent DP more than PT. No lower extremity edema. There is tenderness on palpation in the projection of the back of the knee and top of the gastrocnemius muscle. Psych Speech and movement: Normal speech and movement present Affect: normal affect Attitude: cooperative Thought process: Normal thought process present Thought content: Normal thought content present Insight: Good insight present (Psych) Judgement: Good judgement present (Psych) Assessment & Plan Assessment & Plan (1) Myofascial pain syndrome: Code(s): M79.18 - Myalgia, other site Category: Medical (2) Chronic pain syndrome: Code(s): G89.4 - Chronic pain syndrome Category: Medical (3) Hamstring muscle strain: Code(s): S76.319A - Strain of muscle, fascia and tendon of the posterior muscle group at thigh level, unspecified thigh, initial encounter Category: Medical (4) Status post total knee replacement, right: Code(s): Z96.651 - Presence of right artificial knee joint Category: Surgical Plan I will refer him to orthopedic surgery office to rule out any problem with the back of his knee. If there is no problem with the prosthesis I will take him back and offer him some injections. Physical therapy could be also introduced again for this condition. Considering that his pain is resembling muscle cramps stretches and topical medications could be recommended. Orders: Referrals Orthopedics Referral Z96.651 - Presence of right artificial knee joint Coding Level of Care Code Est Pt Level 3 (49964) Diagnoses Myofascial pain syndrome M79.18 Chronic pain syndrome G89.4 Hamstring muscle strain S76.319A Status post total knee replacement, right Z96.029
--- OUTSIDE RECORDS SUMMARY | 2025-01-29 12:17 | XMS_ITS ---
Author Organization [facility] Address [address] [place] [address] Care Team Providers Care Manager Transit Name Role Phone SATHYA ESTRADA Primary Care Provider Darrick Bob [phone] REASON FOR VISIT lower abd pain Encounters Encounter Location Date Provider Diagnosis [facility] [address] [place] [address] 04/01/2024 Darrick Dorman Plan Of Treatment No Information Progress Notes * DIXIE, MITCHANA MARIAOB:[birth year] (83 yo M)Acc No.[id number]:04/01/2024 Patient:?BEN COLIN :1940???Age:83 Y???Sex:Male Address:[address] [facility] [address] * true * Date:? Generated for Yola ramesh/Antonietta/eTransmitting on:?01/29/2025 12:17 PM EDT
== END 2025-01-29 11:52 | disposition home or self-care (01) ==
LOC: HO.PMC 11:20
PROVIDERS: PCP Nurse Practitioner Family; Visit Provider Anesthesiology
DX: M79.18 Myalgia, other site (principal); G89.4 Chronic pain syndrome; S76.319A Strain of muscle, fascia and tendon of the posterior muscle group at thigh level, unspecified thigh, initial encounter; Z96.651 Presence of right artificial knee joint
CPT/HCPCS: 99213

== ENCOUNTER → 2025-01-29 11:14 | Outpatient (BNVA) | payer MEDICARE, SELFPAY | PROVIDERS: PCP Nurse Practitioner Family; Visit Provider Anesthesiology | DX: M79.18 Myalgia, other site (principal); G89.4 Chronic pain syndrome; S76.319D Strain of muscle, fascia and tendon of the posterior muscle group at thigh level, unspecified thigh, subsequent encounter; Z96.651 Presence of right artificial knee joint | CPT/HCPCS: 99212 ==

== ENCOUNTER 2025-01-30 09:14 | Outpatient (AMB) | payer MEDICARE, SELFPAY ==
--- NOTE | 2025-01-30 09:30 | A.OFFVIS_ITS ---
Intake Visit Reasons: cysto Intake Note: Patient presents today for cystoscopy Lot: [id number] Exp: 09/01/2027 Urology Medication:Alfuzosin Blood Thinner:Aspirin Antibiotic Allergies:none Allergies No Known Allergies Allergy (Mild, Verified 01/30/25 09:31) NONE HPI Comments Details: 01/30/25-here for office cystoscopy. A urine cytology sent on 11/28/24- Negative for malignant cells Cystoscopy findings: prostatic urethra bilobar enlargement, prominent median lobe was not observed, though significant bladder muscle remodeling with multiple small diverticuli, bulbous urethra WNL, mild prominent vasculature noted in the bladder wall. no suspicious bladder lesions visualized. History of Present Illness The patient is an 84-year-old male presenting with cystoscopy for ongoing lower urinary tract symptoms. He experiences urinary frequency and nocturia, which have moderately improved following two months of treatment with alfuzosin. He currently experiences significant bladder wall thickening and small diverticula, resulting in bladder spasms and an increased sense of urgency due to benign prostatic hyperplasia. His previous management strategies involve increased voiding frequency and abdominal pressure application. A recent cytology was negative for malignant cells. Urinary Symptoms Review - Urinary frequency - Nocturia reduced from 4 to 2 times per night - Bladder spasms and urgency - Voiding behaviors: increased frequency and abdominal pressure application Results - Labs: Urine cytology on 11/28/24 negative for malignant cells. Plan We will manage the patient's symptoms stemming from benign prostatic hyperplasia, contributing to bladder wall changes, with a regimen of finasteride 5 mg and Myrbetriq 25 mg. These medications should reduce nocturia and bladder spasms, improving overall urinary function. A follow-up is scheduled for four months to evaluate treatment response and symptom control, considering potential side effects discussed during our consultation. 11/28/24--History of Present Illness: The patient is an 84-year-old male presenting with evaluation for blood in the urine. The patient reports a history of microscopic hematuria, as initially noted in laboratory testing. The concern now is primarily urinary symptoms, including a weak urine stream, nocturia with two to three awakenings per night, and new onset urinary hesitancy. There is no current visible hematuria. The patient underwent a CT scan in August without evidence of kidney stones or renal masses, aligning with the negative findings of kidney abnormalities. He give a h/o kidney stones, twice in the past. - CT scan of kidneys (August):09/05/24-- Normal kidneys, no stones or masses - Urine testing (08/14/24): Microscopic hematuria noted in July, [facility] Medical History Carpal tunnel syndrome, bilateral Ulnar neuropathy at elbow Abdominal pain Kidney stones Cervical radiculopathy Dyslipidemia HTN (hypertension) Cervical arthritis Surgical History Status post right partial knee replacement History of left knee replacement H/O colonoscopy Family History Father HTN (hypertension) Diabetes Mother History of colon cancer Social History Housing: House Are you a primary resident care supervisor to a significant other at home: No Do you presently have visiting nurse or other home services: No Alcohol intake: never Patient Tobacco Use Status: Former Tobacco user e-Cigarette/Vaping Use: Never Used Second Hand Smoke Exposure: No 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al status: retired 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 Cognitive needs: No Hearing needs: No Vision needs: No Review of Systems Const All systems reviewed & are unremarkable except as noted in HPI and below Reports no additional complaints Eyes Reports no additional complaints ENT Reports no additional complaints Card Reports no additional complaints Resp Reports no additional complaints GI Reports no additional complaints Reports as per HPI Musc Reports no additional complaints Skin/Breast Reports system reviewed and no additional complaints, except as documented Neuro Reports no additional complaints Psych Reports no additional complaints Endo Reports no additional complaints Danny/Lymph Reports no additional complaints Aller/Immun Reports no additional complaints Office Procedures Cystoscopy Consent Discussed risk and benefit or proposed procedure with the patient. Information consent for procedure given to the patient. Discussed technical aspects, risks, benefits and alternatives in full. Addressed all of the patient's questions and concerns regarding the procedure. The patient demonstrated knowledge and understanding. They wish to proceed with this procedure. Preparation The patient was prepped in the usual manner. A sanitarian was present and in the room. Genitalia was prepped with betadine solution in a sterile manner. Lidocaine Jelly 2% was placed into the urethra and 16Fr flexible Olympus cystoscope was inserted into the meatus after adequate lubrication. Procedure Time out per protocol performed. The flexible cystoscope is passed transurethrally: The bladder was inspected in its entirety with utilization retroflexion displaying: Tumor(s): no suspicious bladder lesions visualized Trabeculation: Moderate with cellule changes, and multiple small diverticuli Mucosal Erthema: Mild prominence of vasculature Orifices: normal shape and position Urethra: normal Cystoscopy findings: prostatic urethra bilobar enlargement, prominent median lobe was not observed, though significant bladder muscle remodeling with multiple small diverticuli, bulbous urethra WNL, mild prominent vasculature noted in the bladder wall. no suspicious bladder lesions visualized [id number] DISPOSABLE SCOPE URO-G FLEXIBLE SCOPE Procedure code (CPT) selection complete Office Meds lidocaine HCl 2 % mucosal jelly in applicator Performing Provider: Néstor Rowley MD Performing Location: [facility] Administered by: Leela Stevenson RN on 01/30/25 09:46 Dose Route Admin Location Dispensed Lot Number Expiration Date NDC Laundry Operator 10 mL intra-urethral 20 mL ciprofloxacin HCl 500 mg tablet Performing Provider: Néstor Rowley MD Performing Location: [facility] Administered by: Leela Stevenson RN on 01/30/25 09:46 Dose Route Admin Location Dispensed Lot Number Expiration Date NDC Laundry Operator 500 mg PO 1 tab phenazopyridine 200 mg tablet Performing Provider: Néstor Rowley MD Performing Location: [facility] Administered by: Leela Stevenson RN on 01/30/25 09:46 Dose Route Admin Location Dispensed Lot Number Expiration Date NDC Laundry Operator 200 mg PO 1 tab Results AMB Urinalysis, Automated UA Leukoctes 0 Ting/uL Last Edit by Autumn Bullard on 01/30/25 16:39 UA Nitrite Negative Last Edit by Autumn Bullard on 01/30/25 16:39 UA Urobilinogen 3.5 mg/dL Last Edit by Autumn Bullard on 01/30/25 16:39 UA Protein 0 mg/dL Last Edit by Autumn Bullard on 01/30/25 16:39 UA pH 6.0 Last Edit by Autumn Bullard on 01/30/25 16:39 UA Blood 0 Faisal/uL Last Edit by Autumn Bullard on 01/30/25 16:39 UA Specific [place] 1.015 Last Edit by Autumn Bullard on 01/30/25 16:39 UA Ketone Negative Last Edit by Autumn Bullard on 01/30/25 16:39 UA Bilirubin 0 mg/dL Last Edit by Autumn Bullard on 01/30/25 16:39 UA Glucose 0 mg/dL Last Edit by Autumn Bullard on 01/30/25 16:39 Results Reviewed Results Reviewed: Laboratory Last Values Urine pH (Auto) 6.0 01/30/25 16:31 Specific [place] (Auto) 1.015 01/30/25 16:31 Urine Protein (Auto) 0 mg/dL 01/30/25 16:31 Glucose (UA)(Auto) 0 mg/dL 01/30/25 16:31 Urine Ketones (Auto) Negative 01/30/25 16:31 Urine Blood (Auto) 0 Faisal/uL 01/30/25 16:31 Urine Nitrite (Auto) Negative 01/30/25 16:31 Urine Bilirubin (Auto) 0 mg/dL 01/30/25 16:31 Urine Urobilinogen (Auto) 3.5 mg/dL 01/30/25 16:31 Leukocyte Esterase (Auto) 0 Ting/uL 01/30/25 16:31 Collected: 11/28/24 Location: .LAB Received: 11/29/24 Diagnosis Urine: Negative for high-grade urothelial carcinoma. See comment. COMMENT: Cellular specimen consisting of single urothelial cells with degenerative changes, squamous cells, red blood cells and few mixed inflammatory cells. Clinical History Urinary tract infection Material Received Urine Gross Description Received is 35 cc of cloudy yellow fluid from which a ThinPrep slide is prepared. Copies To Néstor Rowley MD [facility] [address] [place] [address] Dr. Al[place], [place] [address] Date of Service: 09/05/24 CLINICAL HISTORY: R31.29 - Other microscopic hematuria CT abdomen with and without contrast Comparison: None Findings: The lung bases are clear. Unremarkable gallbladder and solid organs. No urolithiasis. No bowel obstruction, pneumoperitoneum, or pneumatosis. There are diverticula in the descending and sigmoid colon without imaging evidence of diverticulitis. Kidneys are normal in appearance. Calices are sharply defined. Ureters are unremarkable. Urinary bladder is unremarkable. No acute fracture. IMPRESSION: No acute findings. Assessment & Plan Assessment & Plan (1) Microscopic hematuria: Code(s): R31.29 - Other microscopic hematuria Category: Medical (2) Urinary hesitancy: Code(s): R39.11 - Hesitancy of micturition Category: Medical (3) BPH loc w urin obs/LUTS: Code(s): N40.1 - Benign prostatic hyperplasia with lower urinary tract symptoms Category: Medical (4) Nocturia: Code(s): R35.1 - Nocturia Category: Medical (5) History of kidney stones: Code(s): Z87.442 - Personal history of urinary calculi Category: Medical Plan - Start finasteride 5 mg daily. - Take Myrbetriq 25 mg as prescribed. - Monitor for any side effects from medications and report them. - Follow up in four months to assess progress. - Contact the nurse if symptoms worsen or new symptoms develop. Orders: Orders AMB Cystoscopy 01/30/25 R35.0 - Frequency of micturition, N40.1 - Benign prostatic hyperplasia with lower urinary tract symptoms AMB Urinalysis Automated 01/30/25 Z87.442 - Personal history of urinary calculi, R35.1 - Nocturia, N40.1 - Benign prostatic hyperplasia with lower urinary tract symptoms, R39.11 - Hesitancy of micturition, R31.29 - Other microscopic hematuria Patient Instructions: The patient had an opportunity to ask questions regarding treatment plan. The patient expressed understanding and agreement with the above treatment plan. The patient is aware they should contact our office by phone for worsening of their current condition or the appearance of new symptoms. Compliance is encouraged with any medications and followup testing that is ordered. It is a privilege to be allowed the opportunity to participate in the urologic care of your patient. If you have any questions or concerns regarding treatment for the above conditions please do not hesitate to contact me. The office telephone contact is [phone]. This note is constructed in part using voice recognition software. While every effort has been made to ensure accuracy biomedical service engineer errors may have been included. Yours sincerely, Néstor Rowley MD Scribe Plan - Not visible on output: Patient was informed and verbally consented to the use of an ambient scribe for clinic note documentation during this visit. Coding Level of Care Code Est Pt Level 4 (81996) Diagnoses Microscopic hematuria R31.29 Urinary hesitancy R39.11 BPH loc w urin obs/LUTS N40.1 Nocturia R35.1 History of kidney stones Z87.442 CPT Codes Cystoscopy - CPT: 61524-[id number] ([id number])
--- OUTSIDE RECORDS SUMMARY | 2025-01-30 09:57 | XMS_ITS ---
Author Organization [facility] Address [address] [place] [address] Care Team Providers Care Mixed Livestock Farmer Name Role Phone SATHYA ESTRADA Primary Care Provider Darrick Bob [phone] REASON FOR VISIT lower abd pain Encounters Encounter Location Date Provider Diagnosis [facility] [address] [place] [address] 04/01/2024 Darrick Dorman Plan Of Treatment No Information Progress Notes * DIXIE, MITCHANA MARIAOB:[birth year] (83 yo M)Acc No.[id number]:04/01/2024 Patient:?BEN COLIN :1940???Age:83 Y???Sex:Male Address[address] [facility] [place] [address] * true * Date:? Generated for Larai domitila/Antonietta/eTransmitting on:?01/30/2025 09:56 AM EDT
== END 2025-01-30 10:31 | disposition home or self-care (01) ==
LOC: HO.HUSH 09:14
PROVIDERS: PCP Nurse Practitioner Family; Visit Provider Urology
DX: N40.1 Benign prostatic hyperplasia with lower urinary tract symptoms (principal); R35.1 Nocturia; R31.29 Other microscopic hematuria; R39.11 Hesitancy of micturition; Z87.442 Personal history of urinary calculi
CPT/HCPCS: 52000; 99214

== ENCOUNTER → 2025-01-30 09:14 | Outpatient (BNVA) | payer MEDICARE, SELFPAY | PROVIDERS: PCP Nurse Practitioner Family; Visit Provider Urology | DX: N40.1 Benign prostatic hyperplasia with lower urinary tract symptoms (principal); N13.8 Other obstructive and reflux uropathy; R35.1 Nocturia; R39.11 Hesitancy of micturition; R31.29 Other microscopic hematuria; Z87.442 Personal history of urinary calculi | CPT/HCPCS: 52000; 81003; 99212 ==

== ENCOUNTER → 2025-02-20 07:56 | Outpatient (REF) | payer MEDICARE, SELFPAY ==
--- OUTSIDE RECORDS SUMMARY | 2025-02-20 07:58 | XMS_ITS | Clinical Summary ---
Author Organization [facility] Address [address] [place] [address] Care Team Providers Care Proteomics Scientist Name Role Phone Unavailable Primary Care Provider [...]
--- NOTE | 2025-02-20 07:59 | CA_ITS ---
Transthoracic Echocardiogram Patient (Last, First, Middle): Cruz Barreto J Gender: Male Date of : 1940 Age: 84 Procedure Date: 02/20/2025 Procedure Type: Transthoracic Echocardiogram Location: OP Height: 172.72 cm Weight: 78.47 kg BSA: 1.92 m2 Heart Rate: bpm BP: 148 / 80 mmHg Tractor Engine Assembler: TO Referring MD: Ricky Smith MD Kennel Supervisor: Ricky Smith MD Symptoms: I44.7 - Left bundle-branch block, unspecified Study Quality: Adequate ECG Rhythm: Sinus Conclusions: - The left ventricular systolic function is mildly decreased. The calculated ejection fraction is 50% by biplane method. - No obvious valvular pathology seen on this study. Findings Left Ventricle Normal left ventricular cavity size. The left ventricular systolic function is mildly decreased. The calculated ejection fraction is 50% by biplane method. There is paradoxical septal motion consistent with a left bundle branch block. Evidence suggests grade I (mild) diastolic dysfunction. There is moderate septal asymmetric hypertrophy. Right Ventricle Normal right ventricular cavity size. There is low normal right ventricular systolic function. Atria Both atria are normal in size. Aortic Valve There is a normal trileaflet aortic valve. There is mild calcification of the aortic valve. There is no aortic valve stenosis. There is no aortic valve regurgitation. Mitral Valve The mitral valve appears normal. There is mild mitral annular calcification. There is no mitral valve regurgitation. There is no mitral valve stenosis. Pulmonic Valve The pulmonic valve is likely normal. Tricuspid Valve There is trace tricuspid valve regurgitation. There is no evidence of pulmonary hypertension. Great Vessels The asc aorta is normal in size. Venous The inferior vena cava is normal in size and collapses greater than 50% with inspiration. Pericardium/Pleural There is no evidence of pericardial effusion. Prior Study Comparison Changes noted compared to prior study dated: 12/27/2021. LVEF slightly lower than previously reported. Recommendations, Care & Conclusions No obvious valvular pathology seen on this study. Measurements 2D Linear Measurements IVSd: 1.40 0.6-0.9/0.6-1.0 cm LVIDd: 3.83 3.9-5.3/4.2-5.9 cm LVIDd Index: 1.99 2.4-3.2/2.2-3.1 cm/m2 LVIDs: 2.45 2.0-3.6 cm LVPWd: 0.99 0.7-1.1 cm LA Diam: 3.40 2.7-3.8/3.0-4.0 cm LAIDs Index: 1.77 1.5-2.3 cm/m2 LV Mass: 192.32 67-162/88-224 g LV Mass Index: 100.17 43-95/49-115 g/m2 LVOT Diam: 2.40 3.0+(-)1.3 cm 2D Systolic Function EF 4C: 48.00 >55% EF 2C: 53.10 >55% EF BiP: 50.00 >55% Mitral Valve MV VTI: 0.31 MV Pk Samuel: 1.13 MV Mn Samuel: 0.66 MV Pk Grad: 5.00 MV Mn Grad: 2.00 MV Pk E: 0.61 MV PK A: 0.95 MV Decel Time: 227.00 E/A: 0.60 E'Lateral: 4.24 E'Medial: 4.03 E/E' Med: 15.10 E/E' Lat: 14.30 PHT: 66.00 MVA PHT: 3.33 MVA Continuity: 2.89 Decel [place]: 2.68 Aortic Valve AoV Pk Samuel: 1.26 AoV Mn Samuel: 0.91 AoV VTI: 0.27 AoV Pk Grad: 6.00 Aov Mn Grad: 4.00 ANA Cont.VTI: 3.29 LVOT LVOT Pk Samuel: 0.90 LVOT Mn Samuel: 0.61 LVOT VTI: 0.20 LVOT Pk Grad: 3.00 LVOT Mn Grad: 2.00 LVOT Diam: 2.40 LVOT Area: 4.52 Diastolic Function MV Pk E: 0.61 MV Pk A: 0.95 E/A: 0.60 E'Medial: 4.03 E/E' Med: 15.10 E' Laterial: 4.24 E/E' Lat: 14.30 Right Ventricle TAPSE (mm): 20.00 TVS' Samuel: 10.70 Tricuspid Valve TR Pk Samuel: 2.09 TR Pk Grad: 17.00 RA Press: 3.00 RVSP: 20.00 Great Vessels Aorta Sinus of Valsalva: 3.06 2.0-3.5 cm Ao Asc: 3.80 2.1-3.4 cm Updated in Other Vendor System with Status of Final Ciro Robert MD electronically signed on 02/23/2025 1:27:28 PM with status of Final
== END ==
LOC: HO.CARD 07:56
PROVIDERS: PCP Nurse Practitioner Family; Visit Provider Internal Medicine Cardiovascular Disease
DX: I44.7 Left bundle-branch block, unspecified (principal)
CPT/HCPCS: 93306

== ENCOUNTER → 2025-02-20 07:59 | Outpatient (BNV) | payer MEDICARE, SELFPAY | PROVIDERS: PCP Nurse Practitioner Family; Visit Provider Internal Medicine | DX: I42.2 Other hypertrophic cardiomyopathy (principal); I51.89 Other ill-defined heart diseases; I35.8 Other nonrheumatic aortic valve disorders; I34.81 Nonrheumatic mitral (valve) annulus calcification | CPT/HCPCS: 93306 ==

== ENCOUNTER 2025-03-24 06:44 | Outpatient (REF) | payer MEDICARE, SELFPAY ==
--- OUTSIDE RECORDS SUMMARY | 2025-03-24 06:47 | XMS_ITS | Data Portability ---
Author Organization [facility], PAIN OFFICE [address] [address] [place] [address] Care Team Providers Care Air Brake Tester Name Role Phone LEX LEMUS Referring Provider [...] changes with mild canal stenosis from C 3 -4 to C 6 -7. Multilevel neural foraminal stenosis is due to uncovertebral and facet spurring . In addition, there is associated prominent facet/perifacet edema at C 4 -5 on the right suggesting underlying inflammation/str ess. I recommend a trial of cervical epidural steroid injection under fluoroscopic guidance. The risks and benefits of the procedure were discussed in detail. He wishes to proceed. An appointment has been made and he needs a salesperson driver on the day of the procedure. [email or web address] Not available 08/15/2016 11:17:44 08/23/2016 08/23/2016 Cruz Barreto is a 76 year old man with complaints of neck pain radiating into right shoulder region. On exam, he has a positive spurling's sign on the right. MRI Cervical spine shows Advanced multilevel degenerative changes with mild canal stenosis from C 3 -4 to C 6 -7. Multilevel neural foraminal stenosis is due to uncovertebral and facet spurring . In addition, there is associated prominent facet/perifacet edema at C 4 -5 on the right suggesting underlying inflammation/str ess. [...] changes with mild canal stenosis from C 3 -4 to C 6 -7. Multilevel neural foraminal stenosis is due to uncovertebral and facet spurring . In addition, there is associated prominent facet/perifacet edema at C 4 -5 on the right suggesting underlying inflammation/str ess. [...] referral 2016 017 JARRETT Minor MD, [address], [address], 7 19:10:29 Procedures None recorded. Surgeries None recorded. Imaging None recorded. Medication Orders None recorded. Patient TargetsNo targets recorded. Patient Instructions Encounter Date Encounter Id Patient Instructions Last Modified By Organization Details Last Modified Time 08/11/2016 [id number] He was advised to continue with a home exercise program. [email or web address] Not available 08/12/2016 11:58:30 08/23/2016 [id number] He was advised to continue with a home exercise program. [email or web address] Not available 08/25/2016 09:46:03 12/08/2016 [id number] He was advised to continue with a [...] ultrasound guidance completed David Diop MD [address] , [address], [place], [address], [place] [facility] 12/09/2016 09:36:31 08/23/20 16 Cervical Epidural Steroid injection under fluroscopic guidance completed David Diop MD [address] , [address], [place], [address], [place] [facility] 08/25/2016 09:45:23 [...] Available Not Available Not Available Fluzone High-Dose [id number] (PF) 180 mcg/0.5 mL intramuscul ar syringe TO BE ADMINISTE RED BY [employer] T FOR IMMUNIZAT ION 08/11 completed Not Available Not Available Not Available Vitals Date Recorded Body height Heart rate Oxygen saturation Oxygen saturation in Arterial blood by Pulse oximetry Systolic And Diastolic Provider Name and Address Organization Details Last Updated DateTime 7 172.72 cm 98 /min 97 % 97 % 129/80 mm[Hg] [facility] 7 15:07:02 Date Recorded Heart rate Oxygen saturation Oxygen saturation in Arterial blood by Pulse oximetry Body height Body weight Body mass index (BMI) Systolic And Diastolic Provider Name and Address Organization Details Last Updated DateTime 6 76 /min 97 % 97 % 172.72 cm 83256.5 9 g 28.1 kg/m2 151/76 mm[Hg] [facility] 6 10:20:16 Date Recorded Body height Heart rate Oxygen saturation Oxygen saturation in Arterial blood by Pulse oximetry Systolic And Diastolic Provider Name and Address Organization Details Last Updated DateTime 6 172.72 cm 76 /min 96 % 96 % 153/75 mm[Hg] [facility] 6 10:33:00 Social History Question Answer Notes LastModified by Organizat ion Details LastModified Time Tobacco Smoking Status Former Smoker Quit x 30 years Not Available [employer] 06/12/2020 03:16:10 Which Illicit Or Recreational Drugs Have You Used? No [id number] Information not available 06/12/2020 Education 12 With College [email or web address] Information not available 08/11/2016 Marital Status [email or web address] Informatio n not available 08/11/2016 How Many Years Have You Smoked Tobacco? 15 [id number] Information not available 06/12/2020 Sex: Unknown Functional Status Question Answer Note LastModified by Organization D etails LastModified Time What is your level of alcohol consumption? None [id number] Information not available 06/12/2020 Are you currently employed? No [id number] Information not available 06/12/2020 Mental Status None recorded. 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 367206407 M47.812 62866 David Diop MD PAIN OFFICE [address] [place] [address] 12/08/2016 14:45:01 12/09/2016 10:39:26 Cervical radiculopathy 99082973 M54.12 Degenerati on of cervical intervertebral disc 74460865 M50.321 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
--- OUTSIDE RECORDS SUMMARY | 2025-03-24 06:47 | XMS_ITS | Patient Health Record ---
Author Organization [facility] Address [address] [place] [address] Care Team Providers Care Policy Officer Name Role Phone SATHYA ESTRADA Primary Care Provider Darrick Bob [phone] Allergies No Known Allergies Reason For Referral [...] Problem Status W/U Status Risk Notes Problem 973116456 Chest discomfort (R07.89) Active confirmed Problem 87761386 Hiatal hernia (K44.9) Active confirmed Problem 96689004 Gastroenteritis (K52.9) Active confirmed Problem 740011083 Abnormal CT scan , small bowel (R93.3) Active confirmed Problem 380202702 Abdominal pain, generalized (R10.84) Active confirmed Problem 96299081 Diarrhea, unspecified type (R19.7) Active confirmed Encounters Encounter Location Date Provider Diagnosis [facility] [address] [place] [phone] 04/01/2024 Darrick Dorman Plan Of Treatment Pending Test Test Name Order Date CHEM 7 PROFILE 02/03/2021 CHEM 7 PROFILE 03/28/2023 LIVER PROFILE 03/28/2023 LIVER PROFILE 02/03/2021 AMYLASE [...] Insured Coverage Start Date Coverage End Date [facility] [address] [place], [place] [id number] BEN OSBORNE Self - patient is the insured Medical (General) History Medical History History ICD Code EGD 04/10/2009--negative kidney stones Left bundle branch block Colonoscopy in 08/2002 with [facility] Rogel with removal of only hyperplastic polyps Denies [place],DM,CVA,Lung disease,renal dise ase Hyperlipidemia HTN Neg colonoscopy [...]
[2025-03-24 10:52] LABS: Anion Gap 12 (12-20); Blood Urea Nitrogen 13 mg/dL (9-16); Calcium 8.8 mg/dL (8.4-10.2); Carbon Dioxide 26 mmol/L (22-29); Chloride 109 mmol/L (96-108); Estimated Glomerular Filt Rate > 60; Potassium 4.0 mmol/L (3.3-5.1); Sodium 143 mmol/L (135-145)
== END 2025-03-24 06:45 | disposition home or self-care (01) ==
LOC: HO.HMGCLDS 06:44
PROVIDERS: PCP Nurse Practitioner Family; Visit Provider Internal Medicine Cardiovascular Disease
DX: R07.89 Other chest pain (principal)
CPT/HCPCS: 36415; 80048

== ENCOUNTER 2025-06-02 08:51 | Outpatient (AMB) | payer MEDICARE, SELFPAY ==
--- NOTE | 2025-06-02 08:53 | AM.OFFVISMDC ---
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 Accompanied by: Self / Same As Patient Allergies No Known Allergies Allergy (Mild, Verified 06/02/25 09:46) NONE Medication List - Last Reconciled 06/02/25 by BRITTA Dee-NOEL alfuzosin ER 10 mg PO DAILY amlodipine 10 mg PO DAILY aspirin (Adult Low Dose Aspirin) 81 mg PO DAILY atorvastatin 40 mg PO DAILY blood pressure monitor As directed lisinopril 40 mg PO DAILY multivitamin 1 tab PO DAILY omega 8-eup-jjj-fish oil 1,000 (120-180) mg (Fish Oil) 1 cap PO BID vit C,Q-Co-zjwfg-lutein-zeaxan 250-90-40-1 mg (PreserVision AREDS-2) 1 tab PO BID [wrist splint wear all night & as much as possible throughout the day] HPI HPI Comments History of Present Illness Details right pointer finger, trigger finger noted. #2 pt reported having right inner ear pain since having facial shingles approx 2 years ago. I explained that this is nerve related, though pt still would like to see a ENT. will refer as requested. #3 HTN: stable, denies any bar, blurred vision, cp, sob. sees cardiology [facility] Medical History Carpal tunnel syndrome, bilateral Ulnar neuropathy at elbow Abdominal pain Kidney stones Cervical radiculopathy Dyslipidemia HTN (hypertension) Cervical arthritis Surgical History Status post right partial knee replacement History of left knee replacement H/O colonoscopy Family History Father HTN (hypertension) Diabetes Mother History of colon cancer Social History Housing: House Are you a primary farm or ranch animal caretaker to a significant other at home: No Do you presently have visiting nurse or other home services: No Alcohol intake: never Patient Tobacco Use Status: Former Tobacco user e-Cigarette/Vaping Use: Never Used Second Hand Smoke Exposure: No 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al status: retired 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 Cognitive needs: No Hearing needs: No Vision needs: No Questionnaire Medicare Wellness Checkup What is your age?: 80 or older What gender do you identify with?: male During the past 4 weeks, how much have you been bothered by emotional problems such as feeling anxious, depressed, irritable, sad or downhearted, and blue?: not at all During the past 4 weeks, has your physical & emotional health limited your social activities with family, friends, neighbors, or groups?: not at all During the past 4 weeks, how much bodily pain have you generally had?: mild pain During the past 4 weeks, was someone available to help you if you needed & wanted help?: yes, as much as I wanted During the past 4 weeks, what was the hardest physical activity you could do for at least 2 minutes?: heavy Can you get to places out of walking distance without help? (For eg., can you travel alone on buses, taxis or drive your car?): Yes Can you go shopping for groceries or clothes without someone's help?: Yes Can you prepare your own meals?: Yes Can you do your housework without help?: Yes Because of any health problems, do you need the help of another person with your personal care needs such as eating, bathing, dressing or getting around the house?: No Can you handle your own money without help?: Yes During the past 4 weeks, how would you rate your health in general?: good During the past 4 weeks how have things been going for you?: pretty well Are you having difficulties driving your car?: no Do you always fasten your seat belt when you are in a car?: yes, usually During past 4 weeks, have you been bothered by the following: never: Sexual problems?, Trouble eating well?, Teeth or denture problems? and Problems using the telephone? and seldom: Falling or dizzy when standing up and Tiredness or fatigue? Have you fallen 2 or more times in the past year?: No Are you afraid of falling?: No Are you a smoker?: no During the past 4 weeks, how many drinks of wine, beer, or other alcoholic beverages did you have?: no alcohol at all Do you exercise for about 20 minutes 3 or more times a week?: no, I usually do not exercise this much Have you been given information to help with the following?: no: Hazards in your house that might hurt you? and no: Keeping track of your medications? How often do you have trouble taking medicines the way you have been told to take them?: I always take medicine as prescribed How confident are you that you can control & manage most of your health problems?: very confident What is your race?: White Mini Mental State Exam (MMSE) Orientation What is the (year) (season) (date) (day) (month)?: year, season, date, day and month Where are we (state) (county) (town or city) (hospital) (floor)?: state, county, town or city, hospital/clinic and floor Registration Name of 3 unrelated objects clearly and slowly, then ask patient to repeat all 3 of them. (1st repeat determines score. Make sure they can repeat all three): object 1, object 2 and object 3 Attention & Calculation (CHOOSE ONE) Spell WORLD backwards (DLROW): 5 letters Recall Ask patient to repeat the 3 items from question #3.: object 1, object 2 and object 3 Language Show patient a wristwatch & ask what it is. Repeat for pencil.: watch and pencil Ask the patient to repeat the phrase 'No ifs, ands, or buts' after you.: correct Ask the patient to 'take a piece of paper with their right hand' 'fold paper in half' 'place paper on floor': take paper in right hand, fold paper in half and place paper on floor Print the sentence 'CLOSE YOUR EYES' on a piece. If patient actually closes eyes then score.: followed written direction Give patient a blank piece of paper & ask to write a sentence. Score if it contains a noun & verb.: sentence contains subject and verb Ask patient to copy figure of intersecting pentagons exactly. Score if all 10 angles & 2 intersects are included.: all 10 angles present & 2 are intersected Score Score: 30 Activity of Daily Living Bathing - sponge bath, tub bath or shower: receives no assistance (gets in/out by self, if usual bathing means Dressing - getting clothes from closets & drawers, including inner/outer garments & fasteners.: gets clothes & gets completely dressed without help Toileting - going to the 'toilet room' for urine/bowel elimination & cleaning self/arranging clothes: goes to toilet room, cleans self, arranges clothes without help Transfer: moves in & out of bed and chair without help (may use support object) Continence: controls urination/bowel movements completely by self Feeding: feeds self without help Total Score: 0 Information obtained from: patient Using telephone: independent Traveling: independent Shopping: independent Preparing meals: independent Housework: independent Taking medicine: independent Managing money: independent PHQ-9 Over the last 2 weeks, how often have you been bothered by any of the following problems? 1. Little interest or pleasure in doing things: not at all 2. Feeling down, depressed, or hopeless: not at all 3. Trouble falling or staying asleep, or sleeping too much: not at all 4. Feeling tired or having little energy: not at all 5. Poor appetite or overeating: not at all 6. Feeling bad about yourself - or that you are a failure or have let yourself or your family down: not at all 7. Trouble concentrating on things, such as reading the newspaper or watching television: not at all 8. Moving or speaking so slowly that other people could have noticed. Or the opposite - being so fidgety or restless that you have been moving around a lot more than usual: not at all 9. Thoughts that you would be better off or of hurting yourself in some way: not at all Total score: 0 Depression Screening Interpretation: Negative Depression Screening Done: Yes 03194 - PHQ-9 Billing: Yes Source: Developed by Drs. Darrick Harry, Jackie Ramirez, Keyur Krause and colleagues, with an educational jesus from [employer]. Review of Systems Neuro Details: neg rhomberg, able to tandem walk, passed whisper test, able to stand from sitting position Physical Exam Vital Signs: Last Vital Signs Temp 98.4 F 06/02/25 08:54 Pulse 80 06/02/25 08:54 Resp 16 06/02/25 08:54 BP 128/60 06/02/25 08:54 Pulse Ox 95 06/02/25 08:54 Oxygen Delivery Method Room Air 06/02/25 08:54 BMI result Body Mass Index 26.1 Resp Auscultation: clear to auscultation bilaterally Cardio Rate: regular rate Rhythm: regular rhythm Heart sounds: S1 normal heart sound present, S2 normal heart sound present and Murmur heart sound present (faint systolic) Assessment & Plan Assessment & Plan (1) Encounter for subsequent annual wellness visit (AWV) in Medicare patient: Code(s): Z00.00 - Encounter for general adult medical examination without abnormal findings (2) Trigger finger: Code(s): M65.30 - Trigger finger, unspecified finger (3) Right ear pain: Code(s): H92.01 - Otalgia, right ear (4) Trigger finger: Code(s): M65.30 - Trigger finger, unspecified finger (5) HTN (hypertension): Code(s): I10 - Essential (primary) hypertension Plan . Orders: Orders Hepatitis A,B,C Profile Today Z00.00 - Encounter for general adult medical examination without abnormal findings TSH reflex Free T4 Today I10 - Essential (primary) hypertension UA CC w/rflx Micro + Cult Today I10 - Essential (primary) hypertension Complete Blood Count Auto Diff Today I10 - Essential (primary) hypertension Comprehensive [place]. Panel Fast Today I10 - Essential (primary) hypertension Lipid Panel Today I10 - Essential (primary) hypertension Referrals Ear/Nose/Throat Referral H92.01 - Otalgia, right ear Orthopedics Referral M65.30 - Trigger finger, unspecified finger Quality Reporting (2019) Depression/Bipolar (159/160/161/177) PHQ-9: Total score: 0 Coding Level of Care Code Medicare Subsequent (G0439) Est Pt Level 3 (71501) Diagnoses Encounter for subsequent annual wellness visit (AWV) in Medicare patient Z00.00 Trigger finger M65.30 Right ear pain H92.01 HTN (hypertension) I10 CPT Codes Advance Care Planning - Time spent: 1-15 minutes, on File ([id number]) Additional Codes PHQ-9 - 47019 - PHQ-9 Billing: Yes ([id number]) Advance Care Planning Forms completed: Health Care Proxy, MOLST and Living will Time spent: 1-15 minutes, on File Actual minutes spent: 5
[2025-06-02 08:54] VITALS: BP 128/60; PULSE 80; RESP 16; TEMP 36.9; O2SAT 95; BMI 26.1
--- OUTSIDE RECORDS SUMMARY | 2025-06-02 09:43 | XMS_ITS | Clinical Summary ---
Author Organization [facility] Address [address] [place] [address] Care Team Providers Care Mobile Product Manager Name Role Phone Unavailable Primary Care Provider [...] nts (1 - 1-dose 75+ series) 2015 Depression Screening 08/28/2024 COVID-19 Vaccine (1 - 2023-2 5 season) 2025 Influenza Vaccine (#1) 2025 HIB Vaccines Aged Out No longer [...]
--- OUTSIDE RECORDS SUMMARY | 2025-06-02 09:43 | XMS_ITS | Patient Health Record ---
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.] Insured Coverage Start Date Coverage End Date [facility] [address] [place], [place] [id number] BEN OSBORNE Self - patient is the insured Medical (General) History Medical History History ICD Code EGD 04/10/2009--negative kidney stones Left bundle branch block Colonoscopy in 08/2002 with [place] Rogel with removal of only hyperplastic polyps Denies [place],DM,CVA,Lung disease,renal dise ase Hyperlipidemia HTN Neg colonoscopy [...]
== END 2025-06-02 09:47 | disposition home or self-care (01) ==
LOC: HO.HMCC 08:52
PROVIDERS: PCP Nurse Practitioner Family; Visit Provider Nurse Practitioner Family
DX: Z00.00 Encounter for general adult medical examination without abnormal findings (principal); M65.311 Trigger thumb, right thumb; H92.01 Otalgia, right ear; I10 Essential (primary) hypertension

== ENCOUNTER → 2025-06-02 08:51 | Outpatient (BNVA) | payer MEDICARE, SELFPAY | PROVIDERS: PCP Nurse Practitioner Family; Visit Provider Nurse Practitioner Family | DX: Z00.00 Encounter for general adult medical examination without abnormal findings (principal); N40.0 Benign prostatic hyperplasia without lower urinary tract symptoms; R31.29 Other microscopic hematuria; R39.11 Hesitancy of micturition; N40.1 Benign prostatic hyperplasia with lower urinary tract symptoms; R35.1 Nocturia; M65.321 Trigger finger, right index finger; H92.01 Otalgia, right ear; I10 Essential (primary) hypertension; Z87.442 Personal history of urinary calculi | CPT/HCPCS: 51798; 81003; 96127; 99212 ==

== ENCOUNTER 2025-06-02 14:00 | Outpatient (AMB) | payer MEDICARE, SELFPAY ==
--- NOTE | 2025-06-02 14:17 | A.OFFVIS_ITS ---
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 Required: No Allergies No Known Allergies Allergy (Mild, Verified 06/02/25 14:19) NONE Medication List - Last Reconciled 06/02/25 by Néstor Rowley MD alfuzosin ER 10 mg PO DAILY amlodipine 10 mg PO DAILY aspirin (Adult Low Dose Aspirin) 81 mg PO DAILY atorvastatin 40 mg PO DAILY blood pressure monitor As directed lisinopril 40 mg PO DAILY multivitamin 1 tab PO DAILY omega 9-gtt-klf-fish oil 1,000 (120-180) mg (Fish Oil) 1 cap PO BID vit C,B-Lr-aoqql-lutein-zeaxan 250-90-40-1 mg (PreserVision AREDS-2) 1 tab PO BID [wrist splint wear all night & as much as possible throughout the day] HPI Comments Details: 06/02/2025--Ovidio is here for a 3 month follow-up prescribed alfuzosin for obstructive BPH symptoms. Bladder scan PVR 40 mL urinalysis no signs of infection. PSA 12/04/24-2.23 ng/mL. History of Present Illness The patient is an 84-year-old male presenting for a follow-up visit for Benign Prostatic Hyperplasia (BPH) management. The patient has been experiencing obstructive urinary symptoms associated with BPH, for which he was prescribed alfuzosin. He reports frequent urination, particularly at night, waking up two to three times, which is consistent with nocturia. The patient consumes a significant amount of coffee, approximately four to five cups in the morning, which may contribute to urinary frequency. He acknowledges that caffeine acts as a diuretic, potentially exacerbating his symptoms. A recent PSA test conducted in November returned a result of 2.23 ng/mL, which is within the normal range, providing reassurance against prostate cancer. The patient has been regularly monitored with PSA screenings, all of which have been normal over the past several years. Results - PSA test: 2.23 ng/mL, normal range - Bladder scan: Post-void residual 40 mL - Urinalysis: No signs of infection Plan 1. Benign Prostatic Hyperplasia (Bph) - Continue alfuzosin for management of obstructive symptoms. - Advised that caffeine intake will contribute to urinary symptoms - Monitor urinary symptoms and adjust treatment as necessary. 2. Preventative Care: Psa Screening - Continue regular PSA screenings to monitor prostate health. - Follow-up in one year unless symptoms change. 01/30/25-here for office cystoscopy. A urine cytology sent on 11/28/24- Negative for malignant cells Cystoscopy findings: prostatic urethra bilobar enlargement, prominent median lobe was not observed, though significant bladder muscle remodeling with multiple small diverticuli, bulbous urethra WNL, mild prominent vasculature noted in the bladder wall. no suspicious bladder lesions visualized. History of Present Illness The patient is an 84-year-old male presenting with cystoscopy for ongoing lower urinary tract symptoms. He experiences urinary frequency and nocturia, which have moderately improved following two months of treatment with alfuzosin. He currently experiences significant bladder wall thickening and small diverticula, resulting in bladder spasms and an increased sense of urgency due to benign prostatic hyperplasia. His previous management strategies involve increased voiding frequency and abdominal pressure application. A recent cytology was negative for malignant cells. Urinary Symptoms Review - Urinary frequency - Nocturia reduced from 4 to 2 times per night - Bladder spasms and urgency - Voiding behaviors: increased frequency and abdominal pressure application Results - Labs: Urine cytology on 11/28/24 negative for malignant cells. Plan We will manage the patient's symptoms stemming from benign prostatic hyperplasia, contributing to bladder wall changes, with a regimen of finasteride 5 mg and Myrbetriq 25 mg. These medications should reduce nocturia and bladder spasms, improving overall urinary function. A follow-up is scheduled for four months to evaluate treatment response and symptom control, considering potential side effects discussed during our consultation. 11/28/24--History of Present Illness: The patient is an 84-year-old male presenting with evaluation for blood in the urine. The patient reports a history of microscopic hematuria, as initially noted in laboratory testing. The concern now is primarily urinary symptoms, including a weak urine stream, nocturia with two to three awakenings per night, and new onset urinary hesitancy. There is no current visible hematuria. The patient underwent a CT scan in August without evidence of kidney stones or renal masses, aligning with the negative findings of kidney abnormalities. He give a h/o kidney stones, twice in the past. - CT scan of kidneys (August):09/05/24-- Normal kidneys, no stones or masses - Urine testing (08/14/24): Microscopic hematuria noted in July, [facility] Medical History Carpal tunnel syndrome, bilateral Ulnar neuropathy at elbow Abdominal pain Kidney stones Cervical radiculopathy Dyslipidemia HTN (hypertension) Cervical arthritis Surgical History Status post right partial knee replacement History of left knee replacement H/O colonoscopy Family History Father HTN (hypertension) Diabetes Mother History of colon cancer Social History Housing: House Are you a primary rn care transition to a significant other at home: No Do you presently have visiting nurse or other home services: No Alcohol intake: never Patient Tobacco Use Status: Former Tobacco user e-Cigarette/Vaping Use: Never Used Second Hand Smoke Exposure: No 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al status: retired 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 Cognitive needs: No Hearing needs: No Vision needs: No Review of Systems Const All systems reviewed & are unremarkable except as noted in HPI and below Reports no additional complaints Eyes Reports no additional complaints ENT Reports no additional complaints Card Reports no additional complaints Resp Reports no additional complaints GI Reports no additional complaints Reports as per HPI Musc Reports no additional complaints Skin/Breast Reports system reviewed and no additional complaints, except as documented Neuro Reports no additional complaints Psych Reports no additional complaints Endo Reports no additional complaints Danny/Lymph Reports no additional complaints Aller/Immun Reports no additional complaints Office Procedures Post Void Residual Post Residual Void Post Void Residual (PVR): 40 03303-Lrdo Void Residual by ultrasound Results AMB Urinalysis, Automated UA Leukoctes 0 Ting/uL Last Edit by Tg Cornejo on 06/02/25 14:54 UA Nitrite Negative Last Edit by Tg Cornejo on 06/02/25 14:54 UA Urobilinogen 1 mg/dL Last Edit by Tg Cornejo on 06/02/25 14:54 UA Protein 15 mg/dL Last Edit by Tg Cornejo on 06/02/25 14:54 UA pH 5.5 Last Edit by Tg Cornejo on 06/02/25 14:54 UA Blood 0 Faisal/uL Last Edit by Tg Cornejo on 06/02/25 14:54 UA Specific [place] 1.030 Last Edit by Tg Chantal on 06/02/25 14:54 UA Ketone Positive Last Edit by Tg Chantal on 06/02/25 14:54 UA Bilirubin 1 mg/dL Last Edit by Tg Chantal on 06/02/25 14:54 UA Glucose 0 mg/dL Last Edit by Tg Chantal on 06/02/25 14:54 Results Reviewed Results Reviewed: Laboratory Last Values Urine pH (Auto) 5.5 06/02/25 14:46 Specific [place] (Auto) 1.030 06/02/25 14:46 Urine Protein (Auto) 15 mg/dL 06/02/25 14:46 Glucose (UA)(Auto) 0 mg/dL 06/02/25 14:46 Urine Ketones (Auto) Positive 06/02/25 14:46 Urine Blood (Auto) 0 Faisal/uL 06/02/25 14:46 Urine Nitrite (Auto) Negative 06/02/25 14:46 Urine Bilirubin (Auto) 1 mg/dL 06/02/25 14:46 Urine Urobilinogen (Auto) 1 mg/dL 06/02/25 14:46 Leukocyte Esterase (Auto) 0 Ting/uL 06/02/25 14:46 Collected: 11/28/24 Location: .LAB Received: 11/29/24 Diagnosis Urine: Negative for high-grade urothelial carcinoma. See comment. COMMENT: Cellular specimen consisting of single urothelial cells with degenerative changes, squamous cells, red blood cells and few mixed inflammatory cells. Clinical History Urinary tract infection Material Received Urine Gross Description Received is 35 cc of cloudy yellow fluid from which a ThinPrep slide is prepared. Copies To Néstor Rowley MD [facility] [address] [place] [address] Dr. Alva [place], [place] [address] Date of Service: 09/05/24 CLINICAL HISTORY: R31.29 - Other microscopic hematuria CT abdomen with and without contrast Comparison: None Findings: The lung bases are clear. Unremarkable gallbladder and solid organs. No urolithiasis. No bowel obstruction, pneumoperitoneum, or pneumatosis. There are diverticula in the descending and sigmoid colon without imaging evidence of diverticulitis. Kidneys are normal in appearance. Calices are sharply defined. Ureters are unremarkable. Urinary bladder is unremarkable. No acute fracture. IMPRESSION: No acute findings. Assessment & Plan Assessment & Plan (1) Microscopic hematuria: Code(s): R31.29 - Other microscopic hematuria Category: Medical (2) Urinary hesitancy: Code(s): R39.11 - Hesitancy of micturition Category: Medical (3) BPH loc w urin obs/LUTS: Code(s): N40.1 - Benign prostatic hyperplasia with lower urinary tract symptoms Category: Medical (4) Nocturia: Code(s): R35.1 - Nocturia Category: Medical (5) History of kidney stones: Code(s): Z87.442 - Personal history of urinary calculi Category: Medical Plan Plan 1. Benign Prostatic Hyperplasia (Bph) - Continue alfuzosin for management of obstructive symptoms. - Advised that caffeine intake will contribute to urinary symptoms - Monitor urinary symptoms and adjust treatment as necessary. 2. Preventative Care: Psa Screening - Continue regular PSA screenings to monitor prostate health. - Follow-up in one year unless symptoms change. Orders: Orders AMB Urinalysis Automated Today Z13.9 - Encounter for screening, unspecified AMB Post Void Residual by ultrasound Today Z13.9 - Encounter for screening, unspecified Medications: Refilled alfuzosin ER administer after the same meal each day 10 mg PO DAILY 90 tabs 3RF Patient Instructions: The patient had an opportunity to ask questions regarding treatment plan. The patient expressed understanding and agreement with the above treatment plan. The patient is aware they should contact our office by phone for worsening of their current condition or the appearance of new symptoms. Compliance is encouraged with any medications and followup testing that is ordered. It is a privilege to be allowed the opportunity to participate in the urologic care of your patient. If you have any questions or concerns regarding treatment for the above conditions please do not hesitate to contact me. The office telephone contact is [phone]. This note is constructed in part using voice recognition software. While every effort has been made to ensure accuracy train director errors may have been i ncluded. Yours sincerely, Néstor Rowley MD Scribe Plan - Not visible on output: Patient was informed and verbally consented to the use of an ambient scribe for clinic note documentation during this visit. Coding Level of Care Code Est Pt Level 3 (61852) Complex EM visit Add On G2211 Diagnoses Microscopic hematuria R31.29 Urinary hesitancy R39.11 BPH loc w urin obs/LUTS N40.1 Nocturia R35.1 History of kidney stones Z87.442 CPT Codes Post Residual Void - PVR CPT Code: 07460-Ergl Void Residual by ultrasound ([id number])
== END 2025-06-02 15:18 | disposition home or self-care (01) ==
LOC: HO.HUSH 14:01
PROVIDERS: PCP Nurse Practitioner Family; Visit Provider Urology
DX: R31.29 Other microscopic hematuria (principal); N40.1 Benign prostatic hyperplasia with lower urinary tract symptoms; R39.11 Hesitancy of micturition; R35.1 Nocturia; Z87.442 Personal history of urinary calculi; Z13.9 Encounter for screening, unspecified
CPT/HCPCS: 99213; G2211

== ENCOUNTER 2025-06-04 06:05 | Outpatient (REF) | payer MEDICARE, SELFPAY ==
--- OUTSIDE RECORDS SUMMARY | 2025-06-04 06:08 | XMS_ITS | Data Portability ---
Author Organization [facility], PAIN OFFICE Address [address] [facility] [address] [place] [address] Care Team Providers Care Tester [employer] Name Role Phone LEX LEMUS Referring Provider Assessment Encounter Date Assessment Date Assessment LastModified by Organization Details LastModified Time 08/11/2016 08/11/2016 Bev Barreto is a 76 year old man [...] has been made and he needs a driver engineer on the day of the procedure. [email or web address] Not available 08/15/2016 11:17:44 08/23/2016 08/23/2016 Bev Barreto is a 76 year old man [...] [email or web address] Not available 08/25/2016 09:47:07 12/08/2016 12/08/2016 Bev Barreto is a 76 year old man [...] referral 2016 [id number] JARRETT Minor MD, [address], [address], 7 19:10:29 Procedures None recorded. Surgeries None recorded. Imaging None recorded. Medication Orders None recorded. Patient TargetsNo targets recorded. Patient Instructions Encounter Date Encounter Id Patient Instructions Last Modified By Organization Details Last Modified Time 08/11/2016 [id number] He was advised to continue with a home exercise program. [email or web address] Not available 08/12/2016 11:58:30 08/23/2016 [id number] He was advised to continue with a home exercise program. [email or web address] Not available 08/25/2016 09:46:03 12/08/2016 [id number] He was advised to continue with a [...] ultrasound guidance completed David Diop MD [address], [place], [address], [place] [facility] 12/09/2016 09:36:31 08/23/20 16 Cervical Epidural Steroid injection under fluroscopic guidance completed David Diop MD [address] , [address], [place], [address], [place] [facility] 08/25/2016 09:45:23 [...] Available Not Available Not Available Fluzone High-Dose 1824-2302 (PF) 180 mcg/0.5 mL intramuscul ar syringe TO BE ADMINISTE RED BY [employer] T FOR IMMUNIZAT ION 08/11 completed Not Available Not Available Not Available Vitals Date Recorded Body height Heart rate Oxygen saturation Oxygen saturation in Arterial blood by Pulse oximetry Systolic And Diastolic Provider Name and Address Organization Details Last Updated DateTime 7 172.72 cm 98 /min 97 % 97 % 129/80 mm[Hg] [facility] 7 15:07:02 Date Recorded Heart rate Oxygen saturation Oxygen saturation in Arterial blood by Pulse oximetry Body height Body weight Body mass index (BMI) Systolic And Diastolic Provider Name and Address Organization Details Last Updated DateTime 6 76 /min 97 % 97 % 172.72 cm 43290.5 9 g 28.1 kg/m2 151/76 mm[Hg] [facility] 6 10:20:16 Date Recorded Body height Heart rate Oxygen saturation Oxygen saturation in Arterial blood by Pulse oximetry Systolic And Diastolic Provider Name and Address Organization Details Last Updated DateTime 6 172.72 cm 76 /min 96 % 96 % 153/75 mm[Hg] [facility] 6 10:33:00 Social History Question Answer Notes LastModified by Organizat ion Details LastModified Time Tobacco Smoking Status Former Smoker Quit x 30 years Not Available [employer] 06/12/2020 03:16:10 Which Illicit Or Recreational Drugs Have You Used? No [id number] Information not available 06/12/2020 Education 12 With College [email or web address] Information not available 08/11/2016 Marital Status [email or web address] Informatio n not available 08/11/2016 How Many Years Have You Smoked Tobacco? 15 [id number] Information not available 06/12/2020 Sex: Unknown Functional Status Question Answer Note LastModified by Organization D etails LastModified Time What is your level of alcohol consumption? None [id number] Information not available 06/12/2020 Are you currently employed? No [id number] Information not available 06/12/2020 Mental Status None [...] Diagnosis SNOMED-CT Code Diagnosis ICD10 Code Diagnosis IMO Codes Diagnosis Note 16900 David Diop MD PAIN OFFICE [address] [address] [place] [address] 08/11/2016 10:08:13 08/15/2016 11:25:14 Cervical radiculopathy 65412927 M54.12 Degenerati on of cervical intervertebral disc 25364088 M50.321 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 057410550 M47.812 74105 David Diop MD PAIN OFFICE [address] [place] [address] 08/23/2016 10:10:56 08/25/2016 09:54:19 Cervical radiculopathy 15207638 M54.12 Degenerati on of cervical intervertebral disc 43953363 M50.321 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 151639926 M47.812 36063 David Diop MD PAIN OFFICE [address] [place] [address] 12/08/2016 14:45:01 12/09/2016 10:39:26 Cervical radiculopathy 25944374 M54.12 Degenerati on of cervical intervertebral disc 74525668 M50.321 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 148522890 M47.812 Muscle pain 40425338 M79 .1 Health Concerns Section Related Observation LastModified by Organization Detai ls LastModified Time None Recorded Concern Status LastModified by Organization Details LastModified Time None Recorded Advance Directives Directive None Recorded Payers Insurance Date Sequence Insurance Name Policy Number Policy Jacob Covered Member ID Jacob Member ID Guarantor Name 12/07/2016 1 [facility] (MEDICARE REPLACEMENT/A DVANTAGE - PPO) [id number] Bev Barreto [id number] Bev Barreto Notes Date Note Type Note Provider Name and Address Organization Details Recorded Time 08/11/2016 text/html Pain Management C-spineReported by PatientHPIFor severity, patient reportsworsening,inte rference with sleep, andinterference with workbut reportscurrent pain level 5/10andworst pain 8-9/10(he awakens multiple times at night due to pain.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 For duration, patient reportsconstant. For onset/timing, patient reportssudden. For context, patient reportslifting. For alleviating factors, patient reportsnothing helps. For aggravating factors, patient reportstwistingandmov ement/positioning. For associated symptoms, patient reportsno weakness,no numbness,no bladder compromise, andno bowel compromise. For radiation right, patient reportsentire extremity. For adl (activities of daily living), patient reportswalking,sweepi ng, andmopping. For prior emg, patient reportsnone. For previous surgery, patient reportsnone. For previous pt, patient reportsdid not help(he had physical [facility] at [place] [facility] [place] which did not help. he is following a home exercise program.). For previous intensive care nurse, patient reportsdid not help. For location, (bev barreto is a 76 year old right handed man with complaints of neck pain radiating into right shoulder. the pain started 6 months ago after lifting a trash barrel full of leaves and is becoming greater.). For quality, (he describes the pain as a sharp pain in his neck which radiates into his right shoulder and occasionally the pain is aching in nature.). For prior imaging, (mri cervical spine shows advanced multilevel degenerative changes with mild canal stenosis from c 3 -4 to c 6 -7. multilevel neural foraminal stenosis is due to uncovertebral and facet spurring . in addition, there is associated prominent facet/perifacet edema at c 4 -5 on the right suggesting underlying inflammation/stress). For previous injections, (he had injections by dr. echavarria in [place] for his right shoulder pain with no pain benefit.). David Diop MD [address] , [address], [place], [address], [place] - [facility] 08/18/2016 11:06:07 08/23/2016 text/html He is here for a trial of cervical epidural steroid injection under fluoroscopic guidance David Diop MD [address] [facility] , [address], [place], [address], [place] - [facility] 08/25/2016 13:55:59 12/08/2016 text/html [...] or bowel incontinence. David Diop MD [address] [facility] , [address], [place], [address], [place] - [facility] 12/12/2016 15:21:23
--- OUTSIDE RECORDS SUMMARY | 2025-06-04 06:08 | XMS_ITS | Clinical Summary ---
Author Organization [facility] ity Address [address] [place] [address] Care Team Providers Care Construction Safety Manager Name Role Phone Unavailable Primary Care [...] complete this topic RSV Immunization Patients Un nciole 20 months Aged Out No longer eligible b ased on patient's age to complete this topic Varicella Vaccines Aged Out No longer eligible based on patient's age to complete this topic
--- OUTSIDE RECORDS SUMMARY | 2025-06-04 06:08 | XMS_ITS | Patient Health Record ---
Author Organization [facility] Address [address] [place] [address] Care Team Providers Care Truck Dock Material Mover Name Role Phone SATHYA ESTRADA Primary Care Provider Darrick Bob [phone] Allergies No Known Allergies Reason For Referral [...] Problem Status W/U Status Risk Notes Problem 445232860 Chest discomfort (R07.89) Active confirmed Problem 36139340 Hiatal hernia (K44.9) Active confirmed Problem 04389972 Gastroenteritis (K52.9) Active confirmed Problem 165157396 Abnormal CT scan , small bowel (R93.3) Active confirmed Problem 787609597 Abdominal pain, generalized (R10.84) Active confirmed Problem 07108197 Diarrhea, unspecified type (R19.7) Active confirmed Plan [...] Insured Coverage Start Date Coverage End Date [facility] [address] [place], [place] [id number] BEN OSBORNE Self - patient is the insured Medical (General) History Medical History History ICD Code EGD 04/10/2009--negative kidney stones Left bundle branch block Colonoscopy in 08/2002 with [place] Rogel with removal of only hyperplastic polyps Denies KS,DM,CVA,Lung disease,renal dise ase Hyperlipidemia HTN Neg colonoscopy [...]
[2025-06-04 10:37] LABS: MANUAL DIFF FLAG NO
[2025-06-04 10:42] LABS: Hematocrit 39.2 % (42.0-52.0); Hemoglobin 12.3 g/dl (14.0-18.0); Imm Gran Abs Auto 0.02 X10*3/uL (0.00-0.03); Imm Gran Pct Auto 0.3 % (0.0-0.4); Lymphocytes Absolute Auto 1.5 X10*3/uL (1.2-4.9); Mean Corpuscular HGB Conc 31.4 g/dl (31.0-36.0); Mean Corpuscular Hemoglobin 27.8 pg (27.0-33.0); Mean Corpuscular Volume 88.7 fL (80.0-98.0); NRBC Abs Auto 0.000 X10*3/uL (0.0-0.012); NRBC Pct Auto 0.0 /100WBC (0.0-0.2); Platelet Count 262 X10*3/uL (160-400); Red Blood Count 4.42 X10*6/uL (4.60-5.80); White Blood Count 5.9 X10*3/uL (4.8-10.8)
[2025-06-04 10:58] LABS: Appearance Urine Clear; Glucose Urine UA Negative (Negative); PH 5.0 (5.0-9.0); Specific Gravity - Urine 1.020 (1.005-1.025)
[2025-06-04 11:18] LABS: Alanine Aminotransferase 23 U/L (0-40); Albumin Level 4.2 g/dL (3.5-5.0); Alkaline Phosphatase 88 U/L (39-117); Anion Gap 11 (12-20); Aspartate Amino Transferase 21 U/L (5-37); Blood Urea Nitrogen 12 mg/dL (9-16); Calcium 9.0 mg/dL (8.4-10.2); Carbon Dioxide 26 mmol/L (22-29); Chloride 111 mmol/L (96-108); Cholesterol 124 mg/dL (<200); Estimated Glomerular Filt Rate > 60; HDL Cholesterol 43 mg/dL (>40); Potassium 4.2 mmol/L (3.3-5.1); Sodium 144 mmol/L (135-145); Total Protein 6.4 g/dL (6.5-8.0); Triglycerides 78 mg/dL (<150)
[2025-06-04 11:20] LABS: HBS Num1 0.01 mIU/mL (0-7.99); HBc Num1 0.09 S/CO (0.00-0.79); HBsAGNum1 0.43 S/CO (0.00-0.99); Hepatitis A Antibody IgM 0.47 Index (0-0.79); Hepatitis B Surface Antigen Negative (Negative); ~HepC Num1 0.08 S/CO (0.00-0.79); ~Hepatitis A Antibody IgM Nonreactive (Nonreactive); ~Hepatitis B Surface Antibody NONREACTIVE (Nonreactive); ~Hepatitis C Antibody Nonreactive (Nonreactive)
[2025-06-04 11:31] LABS: Prostate Specific Antigen 2.03 ng/mL (<0.05-4.0)
== END 2025-06-04 06:06 | disposition home or self-care (01) ==
LOC: HO.HMGCLDS 06:05
PROVIDERS: Urology; PCP Nurse Practitioner Family; Visit Provider Nurse Practitioner Family
DX: Z00.00 Encounter for general adult medical examination without abnormal findings (principal); I10 Essential (primary) hypertension; N40.1 Benign prostatic hyperplasia with lower urinary tract symptoms; Z12.5 Encounter for screening for malignant neoplasm of prostate
CPT/HCPCS: 36415; 80053; 80061; 81003; 84153; 84443; 85025; 86704; 86706; 86709; 86803; 87340

== ENCOUNTER 2025-06-16 13:43 | Outpatient (AMB) | payer MEDICARE, SELFPAY ==
[2025-06-16 14:08] VITALS: BP 140/60; PULSE 87; BMI 26.1
--- NOTE | 2025-06-16 14:08 | A.OFFVIS_ITS ---
Vital Signs 06/16/25 14:08 Height 5 ft 8 in Weight 172 lb BMI 26.1 BP 140/60 H Blood Pressure Location Lt brachial Position Sitting Pulse 87 Pulse Source Pulse Oximeter Intake Visit Reasons: r/s by us-06/04-4mt f/up Intake Note: 4 f/up Inspector Advanced Composite Required: No Accompanied by: Self / Same As Patient Allergies No Known Allergies Allergy (Mild, Verified 06/02/25 14:19) NONE Medication List - Last Reconciled 06/16/25 by Ricky Smith MD alfuzosin ER 10 mg PO DAILY amlodipine 10 mg PO DAILY aspirin (Adult Low Dose Aspirin) 81 mg PO DAILY atorvastatin 40 mg PO DAILY blood pressure monitor As directed lisinopril 40 mg PO DAILY multivitamin 1 tab PO DAILY omega 6-lub-drw-fish oil 1,000 (120-180) mg (Fish Oil) 1 cap PO BID vit C,A-Wb-rvpis-lutein-zeaxan 250-90-40-1 mg (PreserVision AREDS-2) 1 tab PO BID [wrist splint wear all night & as much as possible throughout the day] HPI Comments Details: Pleasant 84-year-old gentleman who is here for follow-up.. He had an ECG which showed LBBB. LBBB is an old finding based on his previous ECGs. He had echo which showed normal LVEF and no valvular pathologies. He also had a Holter for 24 hours which did not show any heart block or arrhythmia. He occasionally gets a buzzing feeling on the left side of his chest. He had same symptoms while wearing his monitor and nothing was found. He denies any limiting chest discomfort, SOB or dizziness. No orthopnea or PND. He has back and joint issues. He had knee surgery on left. Clinically has been stable. He returns today and has been doing well. No chest pain or shortness of breath physically active and has no exertional symptoms. Repeat echocardiography in December 2021 has shown normal biventricular function. 08/14/2023: He returns for follow-up. He has been doing well. He has been experiencing some allergies and just use some Afrin. His blood pressure is mildly elevated. He has been noticing his blood pressures to be normal at home. He is saying that he just use the Afrin and maybe that played a role in that. He also has been experiencing off and on central chest discomfort. He is unable to say whether this is with exertion or rest. He is saying he does not last long. Saying he is very active and has no functional limitations currently. 02/05/24: He is here for follow-up. He is denying any dyspnea. He still has very slight chest pressure which she is describing as 1/10 which is present the time. There is no exertional worsening. He had nuclear stress test in 10/2023 which was normal. Blood pressure is well controlled. He is planning to do carpal tunnel surgery. 01/27/2025: He is here for 1 year follow-up. Denying any shortness of breath or dizziness. He did have episode of chest discomfort at rest. He is saying with activity does not get significant symptoms. He is complaining of some mild chest discomfort currently 2. These symptoms do not get worse with food or at nighttime. Also not clearly exertional 2. Blood pressure well controlled. EKG left bundle-branch block. 06/16/25: He is here for follow-up. On last visit he was complaining of chest pain and we sent him for coronary CTA. Coronary CTA showed no significant disease in the right coronary artery and circumflex but showed moderate plaque in the LAD and CTA FFR was positive in the distal LAD. He returns for follow-up and he is saying that his chest pain has resolved. He is reporting that he is active and has no exertional complaints currently. We discussed in detail about the CTA scan findings. FORMERLY [facility], [facility] Medical History Carpal tunnel syndrome, bilateral Ulnar neuropathy at elbow Abdominal pain Kidney stones Cervical radiculopathy Dyslipidemia HTN (hypertension) Cervical arthritis Surgical History Status post right partial knee replacement History of left knee replacement H/O colonoscopy Family History Father HTN (hypertension) Diabetes Mother History of colon cancer Social History Housing: House Are you a primary care tech to a significant other at home: No Do you presently have visiting nurse or other home services: No Alcohol intake: never Patient Tobacco Use Status: Former Tobacco user e-Cigarette/Vaping Use: Never Used Second Hand Smoke Exposure: No 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al status: retired 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 Cognitive needs: No Hearing needs: No Vision needs: No Review of Systems Const Denies chills, Denies fatigue, Denies fever(s), Denies frequent falls, Denies weakness, Denies weight gain and Denies weight loss ENT Denies dizziness Card Denies chest pain, Denies leg edema, Denies lightheadedness, Denies palpitations, Denies dyspnea and Denies dyspnea on exertion Resp Denies cough, Denies dyspnea and Denies dyspnea on exertion GI Denies hematochezia Musc Denies abnormal gait, Denies muscle weakness, Denies numbness, Denies radiating pain into limb and Denies tingling Neuro Denies abnormal gait, Denies dizziness, Denies frequent falls, Denies numbness, Denies tingling and Denies weakness Endo Denies fatigue and Denies palpitations Physical Exam Vital Signs: Last Vital Signs Pulse 87 06/16/25 14:08 BP 140/60 H 06/16/25 14:08 BMI result Body Mass Index 26.1 GENERAL APPEARANCE: in no acute distress, pleasant. NECK: no carotid bruit, no jugular venous distention. SKIN: no suspicious lesions, warm and dry. HEART: no murmurs, regular rate and rhythm. LUNGS: clear to auscultation bilaterally. ABDOMEN: soft, nontender. EXTREMITIES: no edema. PERIPHERAL PULSES: equal. NEUROLOGIC: No gross deficits, AAO X 3 Assessment & Plan Assessment & Plan (1) HTN (hypertension): Code(s): I10 - Essential (primary) hypertension Category: Medical (2) LBBB (left bundle branch block): Code(s): I44.7 - Left bundle-branch block, unspecified Category: Medical (3) CAD (coronary artery disease): Code(s): I25.10 - Atherosclerotic heart disease of [place] coronary artery without angina pectoris Category: Medical (4) Chest pain: Comment: No acute findings on CXR; patient has left anterior chest wall pain to palpation. No pneumonia identified on imaging. Code(s): R07.9 - Chest pain, unspecified Category: Medical Qualifiers: Chest pain type: other chest pain Qualified Code(s): R07.89 - Other chest pain Plan Pleasant 84 year gentleman who is here for follow-up. Blood pressure is well controlled currently and he can continue lisinopril and amlodipine. He has chronic left bundle-branch block. We assessed LV few years ago and we will repeat the echocardiogram to assess for any LV dysfunction. He may need echocardiography from time to time. He was complaining of chest pain and underwent coronary CTA which showed moderate LAD stenosis with positive CTA FFR in the distal LAD. He is denying any chest discomfort currently. He is active and is denying any exertional issues at this point. I have advised him to report to us in case he develops any symptoms. Currently we will hold off on any further testing but if he gets any chest discomfort again then we will arrange cardiac cath. Thank you for allowing me to participate in the care of your patient. Please feel free to contact me if you have any questions. Coding Level of Care Code Est Pt Level 4 (08949) Diagnoses HTN (hypertension) I10 LBBB (left bundle branch block) I44.7 CAD (coronary artery disease) I25.10 Other chest pain R07.89 Chest pain type: other chest pain
--- OUTSIDE RECORDS SUMMARY | 2025-06-16 16:58 | XMS_ITS | Patient Health Record ---
Author Organization [facility] Address [address] [place] [address] Care Team Providers Care Geospatial Extractor Analysis Name Role Phone SATHYA ESTRADA Primary Care Provider Darrick Bob [phone] Allergies No Known Allergies Reason For Referral [...] Problem Status W/U Status Risk Notes Problem Chest discomfort (335929755) Chest discomfort (R07.89) Active confirmed Problem Hiatal hernia (47359283) Hiatal hernia (K44.9) Active confirmed Problem Gastroenteritis (51910018) Gastroenteritis (K52.9) Active confirmed Problem Abnormal CT scan , small bowel (R93.3) Active confirmed Problem Generalized abdominal pain (005034334) Abdominal pain, generalized (R10.84) Active confirmed Problem Diarrhea (18192297) Diarrhea, unspecified type (R19.7) Active confirmed Plan [...] Insured Coverage Start Date Coverage End Date [facility] [address] [place], [place] [id number] BEN OSBORNE Self - patient is the insured Medical (General) History Medical History History ICD Code EGD 04/10/2009--negative kidney stones Left bundle branch block Colonoscopy in 08/2002 with [place] Rogel with removal of only hyperplastic polyps Denies [place],DM,CVA,Lung disease,renal dise ase Hyperlipidemia HTN Neg colonoscopy [...]
== END 2025-06-16 14:28 | disposition home or self-care (01) ==
LOC: HO.HCS 13:44
PROVIDERS: PCP Nurse Practitioner Family; Visit Provider Internal Medicine Cardiovascular Disease
DX: I10 Essential (primary) hypertension (principal); I44.7 Left bundle-branch block, unspecified; I25.10 Atherosclerotic heart disease of native coronary artery without angina pectoris; R07.89 Other chest pain
CPT/HCPCS: 99214

== ENCOUNTER → 2025-06-16 13:43 | Outpatient (BNVA) | payer MEDICARE, SELFPAY | PROVIDERS: PCP Nurse Practitioner Family; Visit Provider Internal Medicine Cardiovascular Disease | DX: R07.89 Other chest pain (principal); I44.7 Left bundle-branch block, unspecified; I25.10 Atherosclerotic heart disease of native coronary artery without angina pectoris; I10 Essential (primary) hypertension | CPT/HCPCS: 99212 ==

== ENCOUNTER 2025-07-29 08:22 | Outpatient (AMB) | payer MEDICARE, SELFPAY ==
--- NOTE | 2025-07-29 08:24 | MHC.OFFVIS ---
Vital Signs 07/29/25 08:29 Height 5 ft 8 in Weight 173 lb BMI 26.3 Intake Visit Reasons: NewProb- RT IF Locking & Catching-limited ROM Intake Note: Cruz is an 85 year old left hand dominant male who presents today for a New Problem Visit for evaluation of Right Index Finger Locking & Catching. Patient reports about 6 months ago his finger began triggering. He denies any hand numbness or tingling. He denies any previous injuries or surgeries to the right hand. He denies any previous treatments and is not currently taking any pain medications. Patient also complains of left index finger locking and catching. Status post Left Carpal tunnel release, DOS: 04/18/24. Allergies No Known Allergies Allergy (Mild, Verified 07/29/25 08:32) NONE HPI HPI NewProb- RT IF Locking & Catching-limited ROM: Details: Cruz is an 85 year old left hand dominant male who presents today for a New Problem Visit for evaluation of Right Index Finger Locking & Catching. Patient reports about 6 months ago his finger began triggering. He denies any hand numbness or tingling. He denies any previous injuries or surgeries to the right hand. He denies any previous treatments and is not currently taking any pain medications. Patient also complains of left index finger locking and catching, but this is not nearly as frequent or bothersome as the right hand.. Status post Left Carpal tunnel release, DOS: 04/18/24. No other acute complaints or concerns at this time [facility] Medical History (Updated 07/29/25 @ 13:15 by BRISEYDA Amanda) Carpal tunnel syndrome, bilateral Ulnar neuropathy at elbow Abdominal pain Kidney stones Cervical radiculopathy Dyslipidemia HTN (hypertension) Cervical arthritis Surgical History (Updated 07/29/25 @ 08:38 by BEATRICE Dinh) History of carpal tunnel release Status post right partial knee replacement History of left knee replacement H/O colonoscopy Family History Father HTN (hypertension) Diabetes Mother History of colon cancer Social History Housing: House Are you a primary health care attorney to a significant other at home: No Do you presently have visiting nurse or other home services: No Alcohol intake: never Patient Tobacco Use Status: Former Tobacco user e-Cigarette/Vaping Use: Never Used Second Hand Smoke Exposure: No 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al status: retired 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 Neuro: Normal sensation of the tips of all digits of the right hand at this time Vascular: Cap refill brisk Pain: Tenderness to palpation of the A1 marge right index finger Pain associated with locking and catching ROM: There is a visible and palpable locking and catching of the right index finger in a flexed position Skin: No lacerations or abrasions. General: No ecchymosis, erythema, or evidence of infection. Psych: Appears grossly normal Affect normal Attitude cooperative Office Procedures AMB Tendon Injection Tendon Injection 23229-Lrtpdi Tendon Sheath Injection All charges added?: Procedure code (CPT) selection complete Assessment & Plan Assessment & Plan (1) Trigger finger, right index finger: Code(s): M65.321 - Trigger finger, right index finger Category: Medical Plan 1. Right index finger trigger finger The risks and benefits of a steroid injection including but not limited to risk of damage to blood vessels, nerves, tendons, infection, skin bleaching, failure to improve symptoms, increased pain, and possible need for further injections or other intervention were discussed with the patient and the patient wishes to proceed with the steroid injection. Once consent was obtained, I sterilely prepped the area over the A1 marge of the flexor tendon sheath of the right index finger. I then injected the flexor tendon sheath with a combination of 1 mL of dexamethasone (4mg/ml), and 1% lidocaine. The patient tolerated the procedure well with no complications. If the patient continues to have locking and catching 4-6 weeks following this injection, they may call to schedule appointment to discuss alternative treatment options Follow-up prn Coding Level of Care Code Est Pt Level 3 (17056) Diagnoses Trigger finger, right index finger M65.321 CPT Codes Tendon Injection - Tendon Injection 1: 81278-Dseyps Tendon Sheath Injection ([id number])
--- OUTSIDE RECORDS SUMMARY | 2025-07-29 08:24 | XMS_ITS | Clinical Summary ---
Author Organization [facility] ity Address [address] [place] [address] Care Team Providers Care Field Service Coordinator Name Role Phone Unavailable Primary Care [...] Depression Screening 08/28/2024 COVID-19 Vaccine (1 - 2024-2 6 season) 2025 Influenza Vaccine (#1) 2025 HIB [...]
[2025-07-29 08:29] VITALS: BMI 26.3
== END 2025-07-29 09:04 | disposition home or self-care (01) ==
LOC: HO.HOS 08:22
PROVIDERS: PCP Nurse Practitioner Family
DX: M65.321 Trigger finger, right index finger (principal)
CPT/HCPCS: 20550; 99213

== ENCOUNTER → 2025-07-29 08:22 | Outpatient (BNVA) | payer MEDICARE, SELFPAY | PROVIDERS: PCP Nurse Practitioner Family | DX: M65.321 Trigger finger, right index finger (principal) | CPT/HCPCS: 20550; 99212; J1100; J2003 ==

== ENCOUNTER 2025-08-01 11:16 | Outpatient (REF) | payer MEDICARE, SELFPAY ==
[2025-08-01 13:38] LABS: Appearance Urine Clear; Glucose Urine UA Negative (Negative); PH 7.0 (5.0-9.0); Specific Gravity - Urine 1.010 (1.005-1.025)
== END 2025-08-01 11:17 | disposition home or self-care (01) ==
LOC: HO.HMGCLDS 11:16
PROVIDERS: PCP Nurse Practitioner Family; Visit Provider Urology
DX: N20.0 Calculus of kidney (principal); R35.0 Frequency of micturition; R31.29 Other microscopic hematuria
CPT/HCPCS: 81001; 87086

== ENCOUNTER 2025-08-25 07:01 | Outpatient (REF) | payer MEDICARE, SELFPAY ==
--- OUTSIDE RECORDS SUMMARY | 2025-08-25 07:04 | XMS_ITS | Patient Health Record ---
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 Role Phone SATHYA ESTRADA Primary Care Provider Darrick Bob Unavailable [phone] Allergies No Known Allergies Reason For Referral No Information Medications Medication SIG (Take, Route, Frequency, Duration) Notes Start Date End Date Status Lisinopril 40 MG Tablet 1 tablet Orally Once a day Active amLODIPine Besylate 5 MG Tablet 1 tablet Orally Once a day Active Fish Oil 1200 MG Capsule Delayed Release 1 capsule Orally Once a day Active Aspir-81 81MG 1 tablet orally once a day Active Magnesium Active Centrum Active Atorvastatin Calcium 40 MG Tablet 1 tablet Orally Once a day Active Immunizations Vaccine Route Administration Date Status Comme nts Influenza Unknown 04/28/2019 Administered Influenza Unknown 04/28/2020 Administered Social History Social History Additional Details Category Social Info Options Details Miscellaneous: Marital status: Occupation: retired Section Notes: Nonsmoker;no alcohol Nonsmoker;no alcohol Nonsmoker;no alcohol Nonsmoker;no alcohol Nonsmoker;no alcohol Nonsmoker;no alcohol Problems Problem Type SNOMED Code ICD Code Onset Dates Problem Status W/U Status Risk Notes Problem Chest discomfort (716984980) Chest discomfort (R07.89) Active confirmed Problem Hiatal hernia (63951646) Hiatal hernia (K44.9) Active confirmed Problem Gastroenteritis (01793395) Gastroenteritis (K52.9) Active confirmed Problem Abnormal CT scan , small bowel (R93.3) Active confirmed Problem Generalized abdominal pain (810617163) Abdominal pain, generalized (R10.84) Active confirmed Problem Diarrhea (37535150) Diarrhea, unspecified type (R19.7) Active confirmed Plan Of Treatment Pending Test Test Name Order Date CHEM 7 PROFILE 03/28/2023 CHEM 7 PROFILE 02/03/2021 LIVER PROFILE 02/03/2021 LIVER PROFILE 03/28/2023 AMYLASE 02/03/2021 LIPASE 02/03/2021 CRP 03/28/2023 CBC w DIFF 03/28/2023 CBC w DIFF 02/03/2021 SED RATE (ESR) 03/28/2023 OVA & PARASITES (O&P) 02/03/2021 CULTURE, STOOL 02/03/2021 CT ABD & PELVIS WITH CONTRAST 03/28/2023 STOOL WBC 02/03/2021 C DIFFICILE RFLX PCR 02/03/2021 Future Test Test Name Order Date COLONOSCOPY 09/28/2012 UPPER GI ENDOSCOPY 03/31/2020 Insurance Providers Payer Name Payer Address Payer Phone Subscriber Number Group Number Insured Name Patient Relationship to Insured Coverage Start Date Coverage End Date [facility] [address] [place], [place] [id number] BEN OSBORNE Self - patient is the [...]
--- OUTSIDE RECORDS SUMMARY | 2025-08-25 07:04 | XMS_ITS | Clinical Summary ---
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
--- OUTSIDE RECORDS SUMMARY | 2025-08-25 07:04 | XMS_ITS | Data Portability ---
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 Surgeries None recorded. Imaging None recorded. Medication Orders None recorded. Patient TargetsNo targets recorded. Patient Instructions Encounter Date Encounter Id Patient Instructions Last Modified By Organization Details Last Modified Time 08/11/2016 [id number] He was advised to continue with a home exercise program. [email or web address] Not available 08/12/2016 11:58:30 08/23/2016 [id number] He was advised to continue with a home exercise program. [email or web address] Not available 08/25/2016 09:46:03 12/08/2016 [id number] He was advised to continue with a [...] ultrasound guidance completed David Diop MD [address] , [address], [place], [address], [place] [facility] 12/09/2016 09:36:31 08/23/20 16 Cervical Epidural Steroid injection under fluroscopic guidance completed David Diop MD [address] , [address], [place], [address], [place] [facility] 08/25/2016 09:45:23 [...] Available Not Available Not Available Fluzone High-Dose [id number] (PF) 180 mcg/0.5 mL intramuscul ar syringe TO BE ADMINISTE RED BY [employer] T FOR IMMUNIZAT ION 08/11 completed Not Available Not Available Not Available Vitals Date Recorded Body height Heart rate Oxygen saturation Systolic And Diastolic Provider Name and Address Organization Details Last Updated DateTime 12/08/2016 172.72 cm 98 /min 97 % 129/80 mm[Hg] Shelby Collins [place] - [facility] 12/08/2016 15:07:02 Date Recorded Heart rate Oxygen saturation Body height Body weight Body mass index (BMI) Systolic And Diastolic Provider Name and Address Organization Details Last Updated DateTime 6 76 /min 97 % 172.72 cm 13258.5 9 g 28.1 kg/m2 151/76 mm[Hg] Shelby Collins [place] [facility] 6 10:20:16 Date Recorded Body height Heart rate Oxygen saturation Systolic And Diastolic Provider Name and Address Organization Details Last Updated DateTime 08/23/2016 172.72 cm 76 /min 96 % 153/75 mm[Hg] Shelby Collins [place] [facility] 08/23/2016 10:33:00 Social History Question Answer Notes LastModified by Organizat ion Details LastModified Time Tobacco Smoking Status Former Smoker Quit x 30 years Not Available [employer] 06/12/2020 03:16:10 Which Illicit Or Recreational Drugs Have You Used? No [id number] Information not available 06/12/2020 Education 12 With College Information not available 08/11/2016 Marital Status Informatio n not available 08/11/2016 How Many Years Have You Smoked Tobacco? 15 [id number] Information not available 06/12/2020 Sex: Unknown Functional Status Question Answer Note LastModified by Organization D etails LastModified Time What is your level of alcohol consumption? None [id number] Information not available 06/12/2020 Are you currently employed? No [id number] Information not available 06/12/2020 Mental Status None [...] ICD10 Code Diagnosis IMO Codes Diagnosis Note [id number] David Diop MD PAIN OFFICE [address] [place] [address] 08/11/2016 10:08:13 08/15/2016 11:25:14 Cervical radiculopathy 51188244 M54.12 Degenerati on of cervical intervertebral disc 08707358 M50.321 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 976049413 M47.812 50349 David Diop MD PAIN OFFICE [address] [place] [address] 08/23/2016 10:10:56 08/25/2016 09:54:19 Cervical radiculopathy 70081834 M54.12 Degenerati on of cervical intervertebral disc 27697103 M50.321 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 183877981 M47.812 [id number] David Diop MD PAIN OFFICE [address] [place] [address] 12/08/2016 14:45:01 12/09/2016 10:39:26 Cervical radiculopathy 77385736 M54.12 Degenerati on of cervical intervertebral disc 58099769 M50.321 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 112876048 M47.812 Muscle pain 57870625 M79 .1 Health Concerns Section Related Observation LastModified by Organization Detai ls LastModified Time None Recorded Concern Status LastModified by Organization Details LastModified Time None Recorded Advance Directives Directive None Recorded Payers Insurance Date Sequence Insurance Name Policy Number Policy Jacob Covered Member ID Jacob Member ID Guarantor Name 12/07/2016 [facility] (MEDICARE REPLACEMENT/A DVANTAGE - PPO) [id number] Bev Barreto [id number] Bev Barreto Notes Date Note Type Note Provider Name and Address Organization Details Recorded Time 08/11/2016 text/html Pain Management C-spineReported by PatientHPIFor severity, patient reportsworsening,inte rference with sleep, andinterference with workbut reportscurrent pain level 5/10andworst pain 8-9/10(he awakens multiple times at night due to pain.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 he is following a home exercise program.). For previous home health care physician, patient reportsdid not help. For location, (bev [...] (he had injections by dr. echavarria in [place] for his right shoulder pain with no pain benefit.). David Diop MD [address] , [address], [place], [address], [facility] - [facility] 08/18/2016 11:06:07 08/23/2016 text/html He is here for a trial of cervical epidural steroid injection under fluoroscopic guidance David Diop MD [address] , [address], [place], [address], [facility] - Pain [facility] 08/25/2016 13:55:59 12/08/2016 text/html [...] or bowel incontinence. David Diop MD [address] , [address], [place], [address], [facility] 12/12/2016 15:21:23
[2025-08-25 10:44] LABS: Hematocrit 41.5 % (42.0-52.0); Hemoglobin 13.2 g/dl (14.0-18.0); Mean Corpuscular HGB Conc 31.8 g/dl (31.0-36.0); Mean Corpuscular Hemoglobin 28.1 pg (27.0-33.0); Mean Corpuscular Volume 88.3 fL (80.0-98.0); NRBC Abs Auto 0.000 X10*3/uL (0.0-0.012); NRBC Pct Auto 0.0 /100WBC (0.0-0.2); Platelet Count 231 X10*3/uL (160-400); Red Blood Count 4.70 X10*6/uL (4.60-5.80); White Blood Count 4.3 X10*3/uL (4.8-10.8)
[2025-08-25 10:49] LABS: INTERNATIONAL NORM RATIO 1.0 (0.9-1.1); Prothrombin Time 11.7 SEC (11.2-13.5)
[2025-08-25 10:53] LABS: Anion Gap 13 (12-20); Blood Urea Nitrogen 16 mg/dL (9-16); Calcium 8.8 mg/dL (8.4-10.2); Carbon Dioxide 26 mmol/L (22-29); Chloride 108 mmol/L (96-108); Estimated Glomerular Filt Rate > 60; Potassium 3.7 mmol/L (3.3-5.1); Sodium 143 mmol/L (135-145)
== END 2025-08-25 07:02 ==
LOC: HO.HMGCLDS 07:01
PROVIDERS: PCP Nurse Practitioner Family; Visit Provider Internal Medicine Cardiovascular Disease
DX: I25.10 Atherosclerotic heart disease of native coronary artery without angina pectoris (principal)
CPT/HCPCS: 36415; 80048; 85027; 85610